=== PATIENT | female | born 1975 ===

== ENCOUNTER 2017-04-28 11:44 | Emergency (ER) | payer OTHER ==
[2017-04-28 11:51] VITALS: BMI 23.2
--- NOTE | 2017-04-28 13:07 | ED PDOC ---
HPI: Abdomen Time Seen by Provider: 04/28/17 12:07 Chief Complaint (Nursing): Abdominal Pain Chief Complaint (Provider): Abdominal pain 2 days History Per: Patient History/Exam Limitations: no limitations Onset/Duration Of Symptoms: Days Outside of [place] travel?: No Current Symptoms Are (Timing): Still Present Location Of Pain/Discomfort: RUQ, Epigastric Quality Of Discomfort: Sharp Associated Symptoms: Nausea, Loss Of Appetite. denies: Fever, Chills, Vomiting Exacerbating Factors: Food Alleviating Factors: None Last Bowel Movement: Today Additional Complaint(s): Pt denies similar in the past. 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 Pain / 10. Past Medical History Reviewed: Historical Data, Nursing Documentation, Vital Signs Vital Signs: Last Vital Signs Temp 97 F L 04/28/17 11:49 Pulse 104 H 04/28/17 11:49 Resp BP 110/80 04/28/17 11:49 Pulse Ox 98 04/28/17 15:37 - Medical History PMH: No Chronic Diseases - Surgical History Surgical History: (x 3 ) - Family History Family History: States: No Known Family Hx - Living Arrangements Living Arrangements: With Family - Home Medications Home Medications: Ambulatory Orders Medication Instructions Recorded Ciprofloxacin [Cipro] 500 mg PO BID #20 tab 04/28/17 metroNIDAZOLE [Flagyl] 500 mg PO TID #30 tab 04/28/17 oxyCODONE/Acetaminophen [Percocet 1 ea PO Q6H PRN #15 tab 04/28/17 5/325 mg Tab] - Allergies Allergies/Adverse Reactions: Allergies Allergy/AdvReac Type Severity Reaction Status Date / Time No Known Allergies Allergy Verified 04/28/17 11:54 Review of Systems ROS Statement: Except As Marked, All Systems Reviewed And Found Negative Constitutional: Negative for: Fever, Chills Gastrointestinal: Negative for: Nausea, Vomiting Physical Exam - Reviewed Nursing Documentation Reviewed: Yes Vital Signs Reviewed: Yes - Physical Exam Appears: Positive for: Well, Non-toxic, No Acute Distress Head Exam: Positive for: ATRAUMATIC, NORMAL INSPECTION, NORMOCEPHALIC Skin: Positive for: Normal Color, Warm, DRY Eye Exam: Positive for: Normal appearance ENT: Positive for: Normal ENT Inspection Neck: Positive for: Normal, Painless ROM Cardiovascular/Chest: Positive for: Regular Rate, Rhythm Respiratory: Positive for: Normal Breath Sounds. Negative for: Accessory Muscle Use, Respiratory Distress Gastrointestinal/Abdominal: Positive for: Bowel Sounds, Soft, Tenderness, Guarding, Rebound, Other (RUQ, (+) Pierce's sign ). Negative for: Normal Exam Back: Positive for: Normal Inspection Extremity: Positive for: Normal ROM. Negative for: Tenderness Neurologic/Psych: Positive for: Alert, Oriented - Laboratory Results Result Diagrams: 04/28/17 13:16 04/28/17 13:16 - ECG O2 Sat by Pulse Oximetry: 98 Medical Decision Making Medical Decision Making: IV antibiotics given. Case discussed with Dr. Bertrand. Disposition - Clinical Impression Clinical Impression: Colitis - Patient ED Disposition Is Patient to be Admitted: No Counseled Patient/Family Regarding: Diagnosis, Need For Followup - Disposition Referrals: [facility] [Outside] Disposition: Routine/Home Disposition Time: 19:16 Condition: STABLE Prescriptions: Ciprofloxacin [Cipro] 500 mg PO BID #20 tab metroNIDAZOLE [Flagyl] 500 mg PO TID #30 tab oxyCODONE/Acetaminophen [Percocet 5/325 mg Tab] 1 ea PO Q6H PRN #15 tab PRN Reason: Pain, Severe (8-10) Instructions: Bacterial Gastroenteritis, Child (DC) Forms: [employer] (Citizen Of [place]) Print Language: [place]
[2017-04-28 13:10] LABS: URINE BILIRUBIN NEGATIVE (NEGATIVE); URINE BLOOD NEGATIVE (NEGATIVE); URINE CLARITY CLOUDY (Clear); URINE COLOR AMBER (YELLOW); URINE GLUCOSE (UA) NEG (Normal); URINE LEUKOCYTE ESTERASE TRACE Leu/uL (Negative); URINE PROTEIN 100 mg/dL (NEGATIVE); URINE UROBILINOGEN 0.2-1.0 mg/dL (0.2-1.0)
[2017-04-28 13:11] LABS: SQUAMOUS EPITHIAL 10 /hpf (0-5); URINE BACTERIA RARE (<OCC)
[2017-04-28 13:31] LABS: CALCIUM 8.6 mg/dL (8.4-10.2); GFR AFRICAN-AMERICAN > 60; GFR NON-AFRICAN AMERICAN > 60; LIPASE 108 U/L (23-300)
[2017-04-28 13:33] LABS: ALB/GLOB RATIO 0.9 (1.0-2.1); ALBUMIN 3.9 g/dL (3.5-5.0); ALT/SGPT 35 U/L (9-52); AST/SGOT 29 U/L (14-36); BLOOD UREA NITROGEN 12 mg/dl (7-17)
[2017-04-28 14:29] LABS: BASO # 0.2 K/uL (0.0-0.2); EOS # 0.1 K/uL (0.0-0.7); EOS % 0.9 % (0.0-4.0); HEMOGLOBIN 12.3 g/dL (12.0-16.0); LYMPH # 1.1 K/uL (1.0-4.3); LYMPH % 6.5 % (20.0-40.0); MEAN CELL VOLUME 76.9 fl (81.0-99.0); MEAN CORPUSCULAR HGB CONC 37.7 g/dL (33.0-37.0); MEAN PLATELET VOLUME 9.2 fl (7.2-11.7); NEUT # 14.5 K/uL (1.8-7.0); NEUT % 85.6 % (50.0-75.0); NRBC % 0.1 % (0.0-0.0); PLATELET COUNT 382 K/uL (130-400); RBC 4.23 Mil/uL (3.80-5.20); RED CELL DISTRIBUTION WIDTH 16.1 % (11.5-14.5); WHITE BLOOD COUNT 16.9 K/uL (4.8-10.8)
--- NOTE | 2017-04-28 14:34 | US ---
HISTORY: RUQ pain, worse with eating COMPARISON: None. TECHNIQUE: Sonographic evaluation of the right upper quadrant of the abdomen. FINDINGS: LIVER: Measures 18.8 cm in length. Hepatopedal blood flow. Fatty infiltration manifest ultrasonographically as increased echogenicity of the liver parenchyma. No mass. No intrahepatic bile duct dilatation. GALLBLADDER: Unremarkable. No gallstones. COMMON BILE DUCT: Measures 7.7 mm. No stones. No dilatation. PANCREAS: Unremarkable as visualized. No mass. No ductal dilatation. RIGHT KIDNEY: Measures 6.4 x 12.4 cm in length. Normal echogenicity. No calculus, mass, or hydronephrosis. AORTA: No aneurysmal dilatation. IVC: Unremarkable. OTHER FINDINGS: None . IMPRESSION: No acute findings related to/accounting for the clinical presentation. Additional benign and/or incidental findings described above.
[2017-04-28 14:50] LABS: BANDS 3 % (0-2); LYMPHOCYTE 13 % (20-50); MONOCYTE 2 % (0-10); NEUTROPHIL 82 % (42-75); TOTAL CELLS COUNTED 100
[2017-04-28 14:51] LABS: ANISOCYTOSIS SLIGHT; MICROCYTOSIS SLIGHT; PLATELET ESTIMATE NORMAL (NORMAL)
[2017-04-28 14:52] LABS: PLATELET CLUMPS PRESENT; TOXIC GRANULATION PRESENT
[2017-04-28] MEDS ORDERED: Iohexol 300 100 ML IJ ONE (15:50)
[2017-04-28] MEDS ORDERED: Sodium Chloride 0.9% 100 ML ONE (15:51)
--- NOTE | 2017-04-28 16:29 | CT ---
PROCEDURE: CT Abdomen and Pelvis with contrast HISTORY: Abdominal pain, elevated WBC COMPARISON: None available TECHNIQUE: Contrast dose: 90 mL Omnipaque 300 Radiation dose: Total exam DLP = 489.07 mGy-cm. This CT exam was performed using one or more of the following dose reduction techniques: Automated exposure control, adjustment of the mA and/or kV according to patient size, and/or use of iterative reconstruction technique. FINDINGS: LOWER THORAX: No visible consolidation, pleural effusion, or pneumothorax. LIVER: Nonspecific 9 mm hyperdense focus within the posterior right hepatic lobe (series 3, image 25). Hepatomegaly. Hypoattenuation of the liver compatible with hepatic steatosis. GALLBLADDER AND BILE DUCTS: Unremarkable. PANCREAS: Unremarkable. SPLEEN: Unremarkable. ADRENALS: Unremarkable. KIDNEYS AND URETERS: The kidneys enhance symmetrically. No hydronephrosis or obstructing calculus identified. VASCULATURE: No aortic aneurysm. BOWEL: Stomach is nondistended. Lack of oral contrast limits evaluation for bowel pathology. No evidence of bowel obstruction. Marked wall thickening of the transverse colon with extensive inflammatory changes evident in the right upper quadrant. Appearance consistent with colitis (i.e. infectious, inflammatory, ischemic). Inflammatory changes appear to also involve the proximal duodenum worrisome for duodenitis as well as distal gastric wall thickening which may be seen in the setting of gastritis. APPENDIX: The appendix appears within normal limits of caliber. No secondary signs of acute appendicitis. PERITONEUM: Node free fluid. No definite free air. LYMPH NODES: No bulky adenopathy identified. BLADDER: Unremarkable. REPRODUCTIVE: The uterus is present. BONES: No acute osseous abnormality is detected. OTHER FINDINGS: 15 mm fat containing umbilical hernia. IMPRESSION: Marked wall thickening of the transverse colon with extensive inflammatory changes evident in the right upper quadrant. Appearance consistent with colitis (i.e. infectious, inflammatory, ischemic). Inflammatory changes appear to also involve the proximal duodenum worrisome for duodenitis as well as distal gastric wall thickening which may be seen in the setting of gastritis. Nonspecific 9 mm hyperdense focus within the posterior right hepatic lobe. Recommend follow-up with dedicated cross-sectional imaging of the liver for further characterization. Hepatomegaly. Hypoattenuation of the liver compatible with hepatic steatosis.
[2017-04-28] MEDS ORDERED: Ciprofloxacin IV 400 MG in Sodium Chloride 0.9% 250 ML IV STA (17:22)
[2017-04-28] MEDS ORDERED: metroNIDAZOLE 500mg/100ml NS 100 ML IV ONE (17:22)
[2017-04-28] MEDS ORDERED: Ciprofloxacin 400mg/200ml D5W 400 MG/200 ML BAG IVPB STA (17:25)
[2017-04-28] MEDS ORDERED: Ciprofloxacin 400mg/200ml D5W 400 MG/200 ML BAG IVPB ONE (17:46)
[2017-04-28] MEDS ORDERED: metroNIDAZOLE 500mg/100ml NS 100 ML IVPB ONE (18:29)
[2017-04-28 19:36] VITALS: BP 119/71; PULSE 98; RESP 17; TEMP 99.1; O2SAT 97
== END 2017-04-28 20:10 | disposition home or self-care (01) ==
LOC: H.ER 11:44
DX: K52.9 Noninfective gastroenteritis and colitis, unspecified (principal)
CPT/HCPCS: 74177; 76705; 80053; 81003; 81025; 83690; 85025; 87086; 96365; 96367; 96375; 99284; J0744; J2270; Q9967

== ENCOUNTER 2018-05-19 14:24 | Inpatient (IN) | payer OTHER, SELFPAY ==
[2018-05-19 14:24] VITALS: BMI 23.2
[2018-05-19] MEDS ORDERED: Sodium Chloride 0.9% 1,000 ML IV STA (14:45)
--- NOTE | 2018-05-19 14:48 | ED PDOC ---
HPI: Abdomen Time Seen by Provider: 05/19/18 14:39 Chief Complaint (Nursing): Abdominal Pain History Per: Patient Onset/Duration Of Symptoms: Days (1) Current Symptoms Are (Timing): Still Present Severity: Moderate Location Of Pain/Discomfort: Epigastric Quality Of Discomfort: Sharp Associated Symptoms: Nausea, Vomiting. denies: Fever, Diarrhea Exacerbating Factors: None Alleviating Factors: None Additional Complaint(s): Sharp epigastric abdominal pain assoc with nausea and vomiting since this AM. Denies fever or diarrhea. Denies bloody stool or vomitus. Past Medical History Vital Signs: Last Vital Signs Temp 98.2 F 05/19/18 14:32 Pulse 66 05/19/18 14:32 Resp 17 05/19/18 14:32 BP 106/72 05/19/18 14:32 Pulse Ox 98 05/19/18 14:32 - Medical History PMH: No Chronic Diseases - Surgical History Surgical History: (x 3 ) - Family History Family History: States: Unknown Family Hx - Home Medications Home Medications: Ambulatory Orders Medication Instructions Recorded Ciprofloxacin [Cipro] 500 mg PO BID #20 tab 04/28/17 metroNIDAZOLE [Flagyl] 500 mg PO TID #30 tab 04/28/17 oxyCODONE/Acetaminophen [Percocet 1 ea PO Q6H PRN #15 tab 04/28/17 5/325 mg Tab] - Allergies Allergies/Adverse Reactions: Allergies Allergy/AdvReac Type Severity Reaction Status Date / Time No Known Allergies Allergy Verified 04/28/17 11:54 Review of Systems ROS Statement: Except As Marked, All Systems Reviewed And Found Negative Gastrointestinal: Positive for: Nausea, Vomiting, Abdominal Pain. Negative for: Diarrhea, Melena, Hematochezia, Hematemesis Physical Exam - Reviewed Nursing Documentation Reviewed: Yes Vital Signs Reviewed: Yes - Physical Exam Appears: Positive for: Non-toxic, No Acute Distress Head Exam: Positive for: ATRAUMATIC, NORMAL INSPECTION, NORMOCEPHALIC Skin: Positive for: Normal Color, Warm, DRY Eye Exam: Positive for: EOMI, Normal appearance, PERRL ENT: Positive for: Normal ENT Inspection Neck: Positive for: Normal, Painless ROM Cardiovascular/Chest: Positive for: Regular Rate, Rhythm Respiratory: Positive for: CNT, Normal Breath Sounds Gastrointestinal/Abdominal: Positive for: Soft, Tenderness (Epigastric) Back: Positive for: Normal Inspection Extremity: Positive for: Normal ROM Neurological/Psych: Positive for: Awake, Alert, Normal Tone - Laboratory Results Result Diagrams: 05/19/18 15:16 05/19/18 15:16 - ECG O2 Sat by Pulse Oximetry: 98 Disposition - Clinical Impression Clinical Impression: Pancreatitis - Patient ED Disposition Is Patient to be Admitted: Yes - Disposition Disposition Time: 15:55 Condition: FAIR Forms: [employer] ([place]) - Pt Status Changed To: Hospital Disposition Of: Inpatient - Admit Certification Admit to Inpatient:: After my assessment, the patient will require hospitalization for at least two midnights. This is because of the severity of symptoms shown, intensity of services needed, and/or the medical risk in this patient being treated as an outpatient. - POA Present On Arrival: None
[2018-05-19 15:20] LABS: BASO # 0.2 K/uL (0.0-0.2); BASO % 1.2 % (0.0-2.0); EOS # 0.1 K/uL (0.0-0.7); EOS % 0.8 % (0.0-4.0); HEMOGLOBIN 14.7 g/dL (12.0-16.0); LYMPH # 0.8 K/uL (1.0-4.3); LYMPH % 4.4 % (20.0-40.0); MEAN CELL VOLUME 83.8 fl (81.0-99.0); MEAN CORPUSCULAR HEMOGLOBIN 37.8 pg (27.0-31.0); MEAN CORPUSCULAR HGB CONC 45.2 g/dL (33.0-37.0); MEAN PLATELET VOLUME 8.2 fl (7.2-11.7); MONO # 3.9 K/uL (0.0-0.8); MONO % 21.1 % (0.0-10.0); NEUT # 13.5 K/uL (1.8-7.0); NEUT % 72.5 % (50.0-75.0); PLATELET COUNT 341 K/uL (130-400); RBC 3.89 Mil/uL (3.80-5.20); RED CELL DISTRIBUTION WIDTH 14.5 % (11.5-14.5); WHITE BLOOD COUNT 18.6 K/uL (4.8-10.8)
[2018-05-19 15:47] LABS: ALB/GLOB RATIO 0.8 (1.0-2.1); ALBUMIN 3.6 g/dL (3.5-5.0); ALT/SGPT 35 U/L (9-52); AST/SGOT 27 U/L (14-36); BLOOD UREA NITROGEN 12 mg/dl (7-17); CALCIUM 8.2 mg/dL (8.4-10.2); GFR NON-AFRICAN AMERICAN > 60; LIPASE 3653 U/L (23-300)
[2018-05-19] MEDS: Lactated Ringer's 1,000 ML IV SCH ×2 (16:12→22:04)
[2018-05-19] MEDS ORDERED: Sodium Chloride 0.9% 50 ML IV ONE (16:21)
[2018-05-19] MEDS ORDERED: Iohexol 300 100 ML IJ ONE (16:21)
--- NOTE | 2018-05-19 17:00 | CP.PCM.HP ---
<Mara Leon - Last Filed: 05/21/18 07:41> History of Present Illness - History of Present Illness History of Present Illness: 42-year-old female with PMH of anemia presents with 10/10 sharp epigastric pain that radiates to left upper quadrant and right upper quadrant of 12 hour duration. No prior episodes of anything similar, no alleviating factors and movement aggrevates the pain. She has not taken any OTC pain meds. She denies vomiting, nausea, bloody stools, dysuria, diarrhea, fever, medications, and recent illness. PMD: PAC - Last seen Feb 2018 for f/u lab test PMH: anemia Meds: ferrous sulfate Social: denies FHx: Father - , DM; Mother - , unknown OBHx: , c/s x3, menstrual regular, pap UTD, no hx of STD Allergy: NKDA Present on Admission - Present on Admission Any Indicators Present on Admission: No History of DVT/PE: No History of Uncontrolled Diabetes: No Review of Systems - Constitutional Constitutional: absent: Fever - Cardiovascular Cardiovascular: absent: Chest Pain - Respiratory Respiratory: absent: Dyspnea - Gastrointestinal Gastrointestinal: As Per HPI - Genitourinary Genitourinary: absent: Dysuria Past Patient History - Infectious Disease Hx of Infectious Diseases: None - Past Social History Smoking Status: Never Smoked - PSYCHIATRIC Hx Substance Use: No - SURGICAL HISTORY Hx Surgeries: Yes Hx Section: Yes - ANESTHESIA Hx Anesthesia: Yes Hx Anesthesia Reactions: No Meds Allergies/Adverse Reactions: Allergies Allergy/AdvReac Type Severity Reaction Status Date / Time No Known Allergies Allergy Verified 04/28/17 11:54 Physical Exam - Constitutional Appears: Non-toxic - Head Exam Head Exam: NORMAL INSPECTION - Respiratory Exam Respiratory Exam: NORMAL BREATHING PATTERN. absent: Respiratory Distress - Cardiovascular Exam Cardiovascular Exam: REGULAR RHYTHM - GI/Abdominal Exam GI & Abdominal Exam: Tenderness (epigastric, RUQ, LUQ tenderness to light palpation) - Extremities Exam Extremities exam: Positive for: normal inspection - Neurological Exam Neurological exam: Alert, Oriented x3 - Psychiatric Exam Psychiatric exam: Normal Affect, Normal Mood - Skin Skin Exam: Dry, Intact, Normal Color Results - Vital Signs Recent Vital Signs: Last Vital Signs Temp 98.2 F 05/19/18 14:32 Pulse 76 05/19/18 16:09 Resp 18 05/19/18 16:09 BP 119/77 05/19/18 16:09 Pulse Ox 100 05/19/18 16:09 - Labs Result Diagrams: 05/21/18 05:30 05/21/18 05:30 Labs: Laboratory Results - last 24 hr 05/19/18 05/19/18 15:16 15:16 WBC 18.6 H D RBC 3.89 Hgb 14.7 D Hct 32.6 L MCV 83.8 D MCH 37.8 H MCHC 45.2 H RDW 14.5 Plt Count 341 MPV 8.2 Neut % (Auto) 72.5 Lymph % (Auto) 4.4 L Butts % (Auto) 21.1 H Eos % (Auto) 0.8 Baso % (Auto) 1.2 Neut # (Auto) 13.5 H Lymph # (Auto) 0.8 L Butts # (Auto) 3.9 H Eos # (Auto) 0.1 Baso # (Auto) 0.2 Sodium 137 Potassium 3.4 L Chloride 104 Carbon Dioxide 15 L Anion Gap 21 H BUN 12 Creatinine 0.4 L Est GFR ( Amer) > 60 Est GFR (Non-Af Amer) > 60 Random Glucose 128 H Calcium 8.2 L Total Bilirubin 0.4 AST 27 ALT 35 Alkaline Phosphatase 104 Total Protein 8.0 Albumin 3.6 Globulin 4.4 H Albumin/Globulin Ratio 0.8 L Lipase 3653 H Assessment & Plan - Assessment and Plan (Free Text) Assessment: 42-year-old female with PMH of anemia presents with 10/10 sharp epigastric pain of 12 hour duration. Plan: Acute Pancreatitis -Lipase 3653 -WBC 18.6 -Afebrile, vitals stable -AST/ALT wnl -IVF 1L NS @ 200 mls/hour -Morphine 2gm Q4 PRN -NPO diet -Zofran 4mg Q4H PRN -F/u Abd/Pelvis CT History of Anemia -Hg/Hct 14.7/32.6 -Monitor CBC DVT Prophylaxis -SCD <Issac Prakash D - Last Filed: 05/21/18 15:58> Results - Vital Signs Recent Vital Signs: Last Vital Signs Temp 98.5 F 05/21/18 11:55 Pulse 98 H 05/21/18 14:00 Resp 25 H 05/21/18 14:00 BP 108/67 05/21/18 14:00 Pulse Ox 98 05/21/18 14:00 - Labs Result Diagrams: 05/21/18 05:30 05/21/18 05:30 Labs: Laboratory Results - last 24 hr 05/20/18 05/21/18 05/21/18 16:34 05:30 05:30 WBC 11.0 H RBC 3.82 Hgb 10.7 L D Hct 31.7 L MCV 82.9 MCH 28.1 MCHC 33.9 RDW 15.2 H Plt Count 287 Sodium 135 136 Potassium 3.1 L 2.9 L Chloride 109 H 112 H Carbon Dioxide 15 L 15 L Anion Gap 14 12 BUN 10 10 Creatinine 0.4 L 0.4 L Est GFR ( Amer) > 60 > 60 Est GFR (Non-Af Amer) > 60 > 60 POC Glucose (mg/dL) Random Glucose 157 H 164 H Calcium 4.5 L* 4.0 L* Phosphorus Magnesium Total Bilirubin 0.5 AST 38 H ALT 25 Alkaline Phosphatase 53 Total Protein 5.9 L Albumin 3.1 L Globulin 2.9 Albumin/Globulin Ratio 1.1 Triglycerides Amylase Lipase 05/21/18 05/21/18 05/21/18 09:54 12:39 12:50 WBC RBC Hgb Hct MCV MCH MCHC RDW Plt Count Sodium Potassium Chloride Carbon Dioxide Anion Gap BUN Creatinine Est GFR ( Amer) Est GFR (Non-Af Amer) POC Glucose (mg/dL) 157 H Random Glucose Calcium 4.2 L* Phosphorus 1.3 L Magnesium 1.6 Total Bilirubin AST ALT Alkaline Phosphatase Total Protein Albumin Globulin Albumin/Globulin Ratio Triglycerides 1040 H 1222 H Amylase 241 H Lipase 820 H 05/21/18 05/21/18 13:29 14:31 WBC RBC Hgb Hct MCV MCH MCHC RDW Plt Count Sodium Potassium Chloride Carbon Dioxide Anion Gap BUN Creatinine Est GFR ( Amer) Est GFR (Non-Af Amer) POC Glucose (mg/dL) 176 H 162 H Random Glucose Calcium Phosphorus Magnesium Total Bilirubin AST ALT Alkaline Phosphatase Total Protein Albumin Globulin Albumin/Globulin Ratio Triglycerides Amylase Lipase Attending/Attestation - Attestation I have personally seen and examined this patient.: Yes I have fully participated in the care of the patient.: Yes I have reviewed all pertinent clinical information: Yes Notes (Text): 05/21/18 15:58 Patient seen and examined with resident. Case discussed and agreed with assessment and plan of management.
[2018-05-19 17:13] LABS: BANDS 4 % (0-2); BASOPHIL 1 % (0-2); EOSINOPHIL 1 % (0-7); LYMPHOCYTE 6 % (20-50); MONOCYTE 16 % (0-10); NEUTROPHIL 72 % (42-75); TOTAL CELLS COUNTED 100
[2018-05-19 17:14] LABS: HYPOCHROMIC SLIGHT; PLATELET ESTIMATE NORMAL (NORMAL)
--- NOTE | 2018-05-19 17:37 | CT ---
Date of service: 05/19/2018 PROCEDURE: CT Abdomen and Pelvis with Oral contrast. HISTORY: Abdominal pain COMPARISON: Comparison made with prior CT scan abdomen pelvis 04/28/2017. TECHNIQUE: Contiguous axial images of the abdomen and pelvis performed following intravenous injection of approximately 90 cc Omnipaque 300 contrast material. Additional 2D sagittal and coronal reformats generated. Radiation dose: Total exam DLP = 357.92 mGy-cm. This CT exam was performed using one or more of the following dose reduction techniques: Automated exposure control, adjustment of the mA and/or kV according to patient size, and/or use of iterative reconstruction technique. FINDINGS: LOWER THORAX: Mild passive/dependent type atelectasis both posterior lower lung wise left greater than right. No effusion or basilar pneumothorax. LIVER: Liver is enlarged measuring nearly 21 cm in CC dimension. Moderate fatty hepatic infiltration. No obvious hepatic mass collection or calcification. Portal and splenic veins are opacified. GALLBLADDER AND BILE DUCTS: Unremarkable. No evidence of intraluminal gallbladder calculi. PANCREAS: The pancreatic mid body and tail are mildly edematous and boggy in appearance with infiltration and fluid in the adjacent peripancreatic mesentery extending inferiorly along the left para renal space. Findings are consistent with acute pancreatitis. Clinical correlation with serum amylase and lipase recommended. SPLEEN: Spleen exhibits normal size and attenuation pattern without mass collection or calcification. ADRENALS: Prominent slightly nodular appearing left adrenal gland. KIDNEYS AND URETERS: Kidneys demonstrate symmetric nephrograms. No evidence of nephrolithiasis or hydronephrosis. BLADDER: The urinary bladder is physiologically distended. No evidence of intraluminal urinary bladder calculi. REPRODUCTIVE: Uterus unremarkable. There is a left-sided adnexal cyst which measures approximately 3.0 x 2.7 cm.. Note also made of what may represent a collapsing and or hemorrhagic cyst abutting posterior superior margin of the aforementioned simple appearing cyst left ovary that measures approximately 1.75 x 1.3 cm. Follow-up pelvic ultrasound could be performed for further evaluation. APPENDIX: Normal appendix best seen on coronal sequence 601 image number 46 through 48.. No evidence of acute appendicitis BOWEL: Evaluation of the bowel is somewhat limited due to the lack of oral contrast material. The stomach is incompletely distended. Visualized loops of: The cecum, ascending and transverse colon contain stool and air however the remaining descending and sigmoid colon relatively collapsed.. PERITONEUM: As above. No evidence of free intraperitoneal air. There is a small to medium sized fat containing umbilical hernia. LYMPH NODES: Unremarkable. No enlarged lymph nodes. VASCULATURE: Unremarkable. No aortic aneurysm. No aortic atherosclerotic calcification or mural plaque present. BONES: Osseous structures appear grossly intact without evidence of acute or chronic compression fractures OTHER FINDINGS: None. IMPRESSION: Findings are consistent with acute appendicitis. Hepatomegaly with moderate fatty infiltration. Slightly prominent nodular appearing left adrenal gland. There is a left-sided adnexal cyst which measures approximately 3.0 x 2.7 cm.. Note also made of what may represent a collapsing and or hemorrhagic cyst abutting posterior superior margin of the aforementioned simple appearing cyst left ovary that measures approximately 1.75 x 1.3 cm. Follow-up pelvic ultrasound could be performed for further evaluation.
[2018-05-19] MEDS: Sodium Chloride 0.9% 1,000 ML IV SCH (17:50)
[2018-05-19 18:24] LABS: BLOOD UREA NITROGEN 9 mg/dl (7-17); CALCIUM 7.1 mg/dL (8.4-10.2); GFR NON-AFRICAN AMERICAN > 60
[2018-05-19] MEDS ORDERED: Morphine 4 MG/ML VIAL ONE (19:57)
[2018-05-20] MEDS: Sodium Chloride 0.9% 1,000 ML IV SCH ×8 (00:01→23:28)
[2018-05-20] MEDS: Lactated Ringer's 1,000 ML IV SCH ×2 (05:13→13:43)
[2018-05-20 07:57] LABS: HEMOGLOBIN 13.7 g/dL (12.0-16.0); MEAN CORPUSCULAR HEMOGLOBIN 32.5 pg (27.0-31.0); MEAN CORPUSCULAR HGB CONC 38.7 g/dL (33.0-37.0); RBC 4.21 Mil/uL (3.80-5.20); WHITE BLOOD COUNT 11.8 K/uL (4.8-10.8)
[2018-05-20 10:03] LABS: ALBUMIN 3.4 g/dL (3.5-5.0); ALT/SGPT 22 U/L (9-52); AST/SGOT 36 U/L (14-36); BLOOD UREA NITROGEN 8 mg/dl (7-17); GFR NON-AFRICAN AMERICAN > 60
[2018-05-20 10:09] LABS: CALCIUM 4.6 mg/dL (8.4-10.2)
[2018-05-20 10:17] LABS: HDL CHOLESTEROL 38 MG/DL (30-70); LDL CHOLESTEROL 187 mg/dL (0-129)
[2018-05-20] MEDS: Potassium CL 10mEq/100ml 100 ML IVPB SCH ×2 (11:38→16:00)
--- NOTE | 2018-05-20 14:04 | CP.PCM.PN ---
Subjective - Date & Time of Evaluation Date of Evaluation: 05/20/18 Time of Evaluation: 10:00 - Subjective Subjective: Patient seen and examined. Still with epigastric pain not fully controlled with IV Morphine. Also complained of numbness and tingling sensation of both hands. Objective - Vital Signs/Intake and Output Vital Signs (last 24 hours): Temp Pulse Resp BP Pulse Ox 99.7 F H 99 H 20 104/62 96 05/20/18 08:53 05/20/18 08:53 05/20/18 08:53 05/20/18 08:53 05/20/18 08:53 - Medications Medications: Current Medications Lactated Ringer's (Lactated Ringer's) 1,000 mls @ 150 mls/hr IV .Q6H40M [facility] Last Admin: 05/20/18 13:43 Dose: Not Given Sodium Chloride (Sodium Chloride 0.9%) 1,000 mls @ 200 mls/hr IV .Q5H [facility] Last Admin: 05/20/18 13:44 Dose: Not Given Ketorolac Tromethamine (Toradol) 30 mg IVP Q6 PRN PRN Reason: Pain, severe (8-10) Last Admin: 05/20/18 10:47 Dose: 30 mg Ondansetron HCl (Zofran Inj) 4 mg IVP Q6 PRN PRN Reason: Nausea/Vomiting Last Admin: 05/20/18 05:08 Dose: 4 mg - Labs Labs: 05/20/18 06:00 05/20/18 09:20 - Constitutional Appears: No Acute Distress - Head Exam Head Exam: ATRAUMATIC - Eye Exam Eye Exam: absent: Scleral icterus - ENT Exam ENT Exam: Mucous Membranes Moist - Neck Exam Neck Exam: absent: Meningismus - Respiratory Exam Respiratory Exam: absent: Rales, Rhonchi, Wheezes, Respiratory Distress - Cardiovascular Exam Cardiovascular Exam: REGULAR RHYTHM, +S1, +S2 - GI/Abdominal Exam GI & Abdominal Exam: Soft, Tenderness (tenderness over epigastric region). absent: Guarding, Rebound - Rectal Exam Rectal Exam: Deferred - Neurological Exam Neurological Exam: Alert, Oriented x3 - Psychiatric Exam Psychiatric exam: Normal Affect - Skin Skin Exam: Dry, Intact Assessment and Plan - Assessment and Plan (Free Text) Assessment: 42 yo female with no significant PMH admitted because of severe epigastric pain. 1. Acute Pancreatitis continue NPO and IV hydration Morphine 4mg IV q 4hrs prn CT scan of abdomen: findings consistent with acute pancreatitis (boggy and edematous) 2. Hypocalcemia symptomatic complaint of tingling and numbness of both hands 1gm Calcium Gluconate IV over 1 hour repeat serum Ca in 4 hrs 3. Hypokalemia 3 runs of IV KCl 10meq each repeat BMP in 4 hrs.
--- NOTE | 2018-05-20 15:16 | CARD ---
APPROVED REPORT Date of service: 05/19/2018 EKG Measurement Heart [id number] <Conclusion> Normal sinus rhythm Normal Electrocardiogram
[2018-05-20 17:36] LABS: BLOOD UREA NITROGEN 10 mg/dl (7-17); GFR NON-AFRICAN AMERICAN > 60
[2018-05-20 17:39] LABS: CALCIUM 4.5 mg/dL (8.4-10.2)
[2018-05-20] MEDS: Simethicone 80 mg Chewtab PO PRN (20:32)
[2018-05-21] MEDS: Sodium Chloride 0.9% 1,000 ML IV SCH (05:43)
[2018-05-21 07:22] LABS: HEMOGLOBIN 10.7 g/dL (12.0-16.0); MEAN CELL VOLUME 82.9 fl (81.0-99.0); MEAN CORPUSCULAR HEMOGLOBIN 28.1 pg (27.0-31.0); MEAN CORPUSCULAR HGB CONC 33.9 g/dL (33.0-37.0); RBC 3.82 Mil/uL (3.80-5.20); RED CELL DISTRIBUTION WIDTH 15.2 % (11.5-14.5)
[2018-05-21 07:40] LABS: ALB/GLOB RATIO 1.1 (1.0-2.1); ALBUMIN 3.1 g/dL (3.5-5.0); ALT/SGPT 25 U/L (9-52); AST/SGOT 38 U/L (14-36); BLOOD UREA NITROGEN 10 mg/dl (7-17); GFR NON-AFRICAN AMERICAN > 60
[2018-05-21] MEDS ORDERED: Pantoprazole 40 mg EC Tab PO SCH (09:00)
[2018-05-21] MEDS ORDERED: Magnesium Sulfate 4 gm/100 ml 4 GM/100 ML BAG IVPB ONE (09:41)
[2018-05-21] MEDS ORDERED: Potassium Chloride 20 mEq 100 ML IV SCH (10:00)
[2018-05-21] MEDS ORDERED: Magnesium Sulfate 2 gm/50 ml 2 GM/50 ML BAG IV ONE (10:00)
[2018-05-21] MEDS ORDERED: Lactated Ringer's 1,000 ML IV SCH (10:15)
[2018-05-21] MEDS: Omega-3-Acid Ethyl Esters 1 GM Cap PO SCH ×2 (11:15→16:48)
[2018-05-21] MEDS ORDERED: Glucagon Recombinant 1 mg Inj IM PRN (12:08)
[2018-05-21] MEDS ORDERED: Dextrose 50% SYRINGE Inj (50 ml) IV PRN (12:08)
[2018-05-21] MEDS ORDERED: Dextrose 5%/Lactated Ringer's 1,000 ML IV SCH (12:15)
[2018-05-21] MEDS: Potassium CL 10mEq/100ml 100 ML IVPB SCH ×4 (12:40→16:48)
[2018-05-21 13:17] LABS: CALCIUM 4.2 mg/dL (8.4-10.2)
--- NOTE | 2018-05-21 13:17 | CP.PCM.PN ---
Subjective - Date & Time of Evaluation Date of Evaluation: 05/21/18 Time of Evaluation: 12:20 - Subjective Subjective: Patient seen and examined. Unable to tolerate liquid diet. Facial numbness and tingling sensation still linger. Severe epigastric pain barely relieved with IV Toradol. Objective - Vital Signs/Intake and Output Vital Signs (last 24 hours): Temp Pulse Resp BP Pulse Ox 98.5 F 103 H 30 H 109/69 98 05/21/18 11:55 05/21/18 12:00 05/21/18 12:00 05/21/18 12:00 05/21/18 12:00 - Medications Medications: Current Medications Dextrose (Dextrose 50% Inj) 0 ml IV STAT PRN; Protocol PRN Reason: Hypoglycemia Protocol Dextrose (Glutose 15) 0 gm PO ONCE PRN; Protocol PRN Reason: Hypoglycemia Protocol Glucagon (Glucagen Diagnostic Kit) 0 mg IM STAT PRN; Protocol PRN Reason: Hypoglycemia Protocol Potassium Chloride (Potassium Chloride 10 Meq/100 Ml) 100 mls @ 100 mls/hr IVPB Q1 [facility] Stop: 05/21/18 13:59 Last Admin: 05/21/18 12:40 Dose: 100 mls/hr Dextrose/Lactated Ringer's (Dextrose 5%/Lactated Ringer's) 1,000 mls @ 200 mls/hr IV .Q5H [facility] Stop: 05/22/18 12:15 Last Admin: 05/21/18 12:28 Dose: 200 mls/hr Insulin Human Regular 100 (units/ Sodium Chloride) 101 mls @ 6.06 mls/hr IV .[id number] [facility]; Protocol Last Admin: 05/21/18 12:41 Dose: 6 units/hr, 6.06 mls/hr Ketorolac Tromethamine (Toradol) 30 mg IVP Q6 PRN PRN Reason: Pain, severe (8-10) Last Admin: 05/21/18 10:53 Dose: 30 mg Tvaio-1-Fgfd Ethyl Esters (Lovaza) 2 gm PO BID [facility] Last Admin: 05/21/18 11:15 Dose: Not Given Ondansetron HCl (Zofran Inj) 4 mg IVP Q4 [facility] Last Admin: 05/21/18 12:49 Dose: 4 mg Pantoprazole Sodium (Protonix Inj) 40 mg IVP DAILY [facility] Last Admin: 05/21/18 11:30 Dose: 40 mg Simethicone (Mylicon Chew Tab) 80 mg PO Q6 PRN PRN Reason: Flatulence Last Admin: 05/20/18 20:32 Dose: 80 mg - Labs Labs: 05/21/18 05:30 05/21/18 05:30 - Constitutional Appears: No Acute Distress - Head Exam Head Exam: ATRAUMATIC - Eye Exam Eye Exam: absent: Scleral icterus - ENT Exam ENT Exam: Mucous Membranes Moist - Neck Exam Neck Exam: absent: Meningismus - Respiratory Exam Respiratory Exam: absent: Rales, Rhonchi, Wheezes, Respiratory Distress - Cardiovascular Exam Cardiovascular Exam: Tachycardia - GI/Abdominal Exam GI & Abdominal Exam: Tenderness (tenderness over epigastric region). absent: Rigid, Rebound - Rectal Exam Rectal Exam: Deferred - Back Exam Back Exam: absent: tenderness - Neurological Exam Neurological Exam: Alert, Oriented x3 - Psychiatric Exam Psychiatric exam: Normal Affect - Skin Skin Exam: Dry, Intact Assessment and Plan - Assessment and Plan (Free Text) Assessment: 42 yo female with no significant PMH admitted because of severe epigastric pain. 1. Acute Pancreatitis unable to tolerate liquid diet yesterday resume NPO and IV hydration with D5LR CT scan of abdomen: findings consistent with acute pancreatitis (boggy and edematous) with symptomatic hypocalcemia (facial numbness and tingling sensation on both hands) insulin drip initiated to bring down Triglycerides to around 500 serum Triglycerides: 1222 (down from 6160) patient transferred to ICU for close monitoring GI and endocrinology consults with Dr Rizzo and Dr Mora 2. Hypocalcemia symptomatic complaint of tingling and numbness of both hands 2gm Calcium Gluconate IV 100cc/hr repeat serum Ca in 4 hrs 3. Hypokalemia 3 runs of IV KCl 10meq each repeat BMP in 4 hrs.
[2018-05-21] MEDS: CALCIUM GLUCONATE IV SCH ×2 (15:29→21:31)
[2018-05-21] MEDS: LACTATED RINGER S IV SCH ×2 (15:29→21:31)
[2018-05-21] MEDS: DEXTROSE IV SCH ×2 (15:29→21:31)
--- NOTE | 2018-05-21 20:42 | CARD ---
APPROVED REPORT Date of service: 05/21/2018 EKG Measurement Heart [id number] <Conclusion> Sinus tachycardia Nonspecific T wave abnormality Prolonged QT Abnormal ECG
--- NOTE | 2018-05-22 01:22 | CON ---
DATE: 05/21/2018 ENDOCRINOLOGY CONSULTATION LOCATION: In room 430, ICU. HISTORY OF PRESENT ILLNESS: This is a 42-year-old female, presenting here with severe epigastric pain and supervening acute pancreatitis with associated nausea, dyspepsia and vomiting and is now being referred for an endocrine evaluation of marked dyslipidemia as noted. PAST MEDICAL HISTORY: History of chronic anemia, currently on ferrous sulfate medications. SOCIAL HISTORY: No known substance use. The patient has a supportive family. FAMILY HISTORY: No known endocrinopathy but positive for hypertension, otherwise. REVIEW OF SYSTEMS: Admits to generalized body weakness with episodic bouts of dizziness and lightheadedness. No chest pains or palpitations. Also admits to sudden onset of severe epigastric pain radiating to the right and left upper quadrants with associated nausea, dyspepsia and vomiting as noted. Her oral intake has been otherwise improved. PHYSICAL EXAMINATION: GENERAL: An average-built female in no apparent distress. VITAL SIGNS: Blood pressure 140/80, pulse of 100 beats per minute and regular, temperature 98, respirations 20. Height is 5 feet 1 inch. Weight is 136 pounds. HEENT: Head: Normocephalic. Eyes: Anicteric with pink conjunctivae. Funduscopy not possible at this time. Ears, nose and throat: Otherwise normal. NECK: Supple. Thyroid gland is normal in size. No carotid bruits or any cervical adenopathy. CARDIOPULMONARY: Some adynamic precordium. S1 and S2 rapid and regular. LUNGS: Clear to auscultation. ABDOMEN: Flat and soft with positive bowel sounds. EXTREMITIES: No peripheral edema. Pulses are +2 bilaterally. LABORATORY DATA: Her chemistry showed a BUN of 10, sodium 136, potassium 2.9, chloride 112, CO2 of 15, glucose 164 and creatinine 0.4. Her calcium level is 4.2. Triglycerides are 1222. Lipase is 820, amylase is 241. ASSESSMENT: This is a 42-year-old female with acute pancreatitis with underlying marked dyslipidemia, specifically hypertriglyceridemia as noted. The possibility always of familial combined dyslipidemia versus chylomicronemia is to be ascertained at this time. PLAN OF MANAGEMENT: We will highly recommend the initiation of an insulin drip infusion in the ICU to lower the triglyceride levels dramatically at this time. Moreover, we will also follow her very closely hemodynamically with the low calcium levels as noted. We will change the IV fluids to D5 lactated Ringer's and we will add calcium gluconate 1 ampule to each IV fluid bag as ordered and this will run at 200 mL/hour as ordered. We will repeat the chemistries and also the lipase and lipid panel as ordered. We will supplement her potassium levels as ordered. We will follow and advise accordingly. We will also add lipoprotein fractionation blood test tomorrow, which will rule out any underlying familial etiology for dyslipidemia. There is no history of any alcohol intake at this time with the patient. We will obtain serial chemistries and supplement accordingly as needed. We will follow. Trina Mora MD
[2018-05-22] MEDS: DEXTROSE IV SCH ×3 (02:50→13:50)
[2018-05-22] MEDS: CALCIUM GLUCONATE IV SCH ×3 (02:50→13:50)
[2018-05-22] MEDS: LACTATED RINGER S IV SCH ×3 (02:50→13:50)
[2018-05-22 05:39] LABS: BASO % 0.4 % (0.0-2.0); EOS # 0.2 K/uL (0.0-0.7); EOS % 3.3 % (0.0-4.0); LYMPH # 1.1 K/uL (1.0-4.3); LYMPH % 15.5 % (20.0-40.0); MEAN CELL VOLUME 82.6 fl (81.0-99.0); MEAN CORPUSCULAR HEMOGLOBIN 27.9 pg (27.0-31.0); MEAN CORPUSCULAR HGB CONC 33.8 g/dL (33.0-37.0); MEAN PLATELET VOLUME 8.2 fl (7.2-11.7); MONO # 0.2 K/uL (0.0-0.8); MONO % 3.2 % (0.0-10.0); NEUT # 5.5 K/uL (1.8-7.0); NEUT % 77.6 % (50.0-75.0); RBC 3.18 Mil/uL (3.80-5.20); RED CELL DISTRIBUTION WIDTH 15.5 % (11.5-14.5); WHITE BLOOD COUNT 7.1 K/uL (4.8-10.8)
[2018-05-22 05:51] LABS: LDL CHOLESTEROL 43 mg/dL (0-129)
[2018-05-22 06:28] LABS: ALBUMIN 2.6 g/dL (3.5-5.0); ALT/SGPT 23 U/L (9-52); AST/SGOT 31 U/L (14-36); BLOOD UREA NITROGEN 2 mg/dl (7-17); GFR NON-AFRICAN AMERICAN > 60; HDL CHOLESTEROL 44 MG/DL (30-70); LIPASE 392 U/L (23-300)
[2018-05-22 06:35] LABS: CALCIUM 5.7 mg/dL (8.4-10.2); HEMOGLOBIN 8.9 g/dL (12.0-16.0)
[2018-05-22] MEDS: Potassium CL 10 MEQ/50 ML 50 ML IVPB SCH ×6 (08:04→15:39)
[2018-05-22] MEDS: Potassium Chloride 40 MEQ in Dextrose 5%/Lactated Ringer's 1,000 ML IV SCH ×3 (10:49→22:03)
[2018-05-22] MEDS: Omega-3-Acid Ethyl Esters 1 GM Cap PO SCH ×2 (11:07→16:59)
[2018-05-22 13:39] LABS: ALBUMIN 2.8 g/dL (3.5-5.0); ALT/SGPT 22 U/L (9-52); AMYLASE 101 U/L (30-110); AST/SGOT 35 U/L (14-36); BLOOD UREA NITROGEN 2 mg/dl (7-17); CALCIUM 5.9 mg/dL (8.4-10.2); GFR NON-AFRICAN AMERICAN > 60; LIPASE 250 U/L (23-300)
--- NOTE | 2018-05-22 14:19 | CP.PCM.PN ---
<Mara Leon - Last Filed: 05/22/18 15:14> Subjective - Date & Time of Evaluation Date of Evaluation: 05/22/18 Time of Evaluation: 14:19 - Subjective Subjective: Pt seen and examined bedside, was ambulating slowly from restroom without difficulty. Continues to complain of abdominal pain - told LLQ > epigastric/RUQ. Notes less numbness and tingling in face today. Objective - Vital Signs/Intake and Output Vital Signs (last 24 hours): Temp Pulse Resp BP Pulse Ox 99.2 F 109 H 30 H 111/71 97 05/22/18 12:00 05/22/18 12:00 05/22/18 12:00 05/22/18 10:00 05/22/18 12:00 Intake and Output: 05/22/18 05/22/18 06:59 18:59 Intake Total 2222 916 Balance 2222 916 - Medications Medications: Current Medications Dextrose (Dextrose 50% Inj) 0 ml IV STAT PRN; Protocol PRN Reason: Hypoglycemia Protocol Dextrose (Glutose 15) 0 gm PO ONCE PRN; Protocol PRN Reason: Hypoglycemia Protocol Glucagon (Glucagen Diagnostic Kit) 0 mg IM STAT PRN; Protocol PRN Reason: Hypoglycemia Protocol Insulin Human Regular 100 (units/ Sodium Chloride) 101 mls @ 6.06 mls/hr IV .[id number] [facility]; Protocol Last Admin: 05/22/18 12:21 Dose: Not Given Potassium Chloride 40 meq/ (Dextrose/Lactated Ringer's) 1,020 mls @ 200 mls/hr IV .Q5H6M [facility] Stop: 05/23/18 07:19 Last Admin: 05/22/18 10:49 Dose: 200 mls/hr Ketorolac Tromethamine (Toradol) 30 mg IVP Q6 PRN PRN Reason: Pain, severe (8-10) Last Admin: 05/22/18 10:56 Dose: 30 mg Wxqvi-8-Huhz Ethyl Esters (Lovaza) 2 gm PO BID [facility] Last Admin: 05/22/18 11:07 Dose: Not Given Ondansetron HCl (Zofran Inj) 4 mg IVP Q4 [facility] Last Admin: 05/22/18 14:00 Dose: 4 mg Pantoprazole Sodium (Protonix Inj) 40 mg IVP DAILY [facility] Last Admin: 05/22/18 08:07 Dose: 40 mg Potassium Phosphate (Potassium Phosphate) 1,000 mg PO QID [facility] Last Admin: 05/22/18 13:37 Dose: Not Given Simethicone (Mylicon Chew Tab) 80 mg PO Q6 PRN PRN Reason: Flatulence Last Admin: 05/20/18 20:32 Dose: 80 mg - Labs Labs: 05/22/18 05:19 05/22/18 12:50 - Constitutional Appears: Non-toxic - Head Exam Head Exam: NORMAL INSPECTION - Eye Exam Eye Exam: Normal appearance - ENT Exam ENT Exam: Mucous Membranes Moist - Respiratory Exam Respiratory Exam: NORMAL BREATHING PATTERN. absent: Respiratory Distress - Cardiovascular Exam Cardiovascular Exam: REGULAR RHYTHM - GI/Abdominal Exam GI & Abdominal Exam: Tenderness (mild RUQ, worse today LLQ) - Extremities Exam Extremities Exam: Normal Inspection - Back Exam Back Exam: NORMAL INSPECTION - Neurological Exam Neurological Exam: Alert, Awake, Normal Gait - Psychiatric Exam Psychiatric exam: Normal Affect, Normal Mood - Skin Skin Exam: Dry, Intact, Normal Color, Warm Assessment and Plan - Assessment and Plan (Free Text) Assessment: 42 yo female with no significant PMH presented to ED with severe epigastric pain admitted for pancreatitis. Plan: 1. Acute Pancreatitis -NPO diet, unable to tolerate liquid -IV hydration with D5LR + 40 K -CT scan of abdomen: findings consistent with acute pancreatitis (boggy and edematous) with symptomatic hypocalcemia (facial numbness and tingling sensation on both hands) -S/p insulin drip -serum Triglycerides: 506 (down from 6160) -Lipase 250, Amylase 101 -GI and endocrinology consults with Dr Rizzo and Dr Mora 2. Hypocalcemia -Symptomatic: numbness/tingling of both hands -Serum Ca 5.9 -1gm Calcium Gluconate IV 100cc/hr 3. Hypokalemia - K 3.1 today - Potassium phos 1000mg QID - Follow up BMP <Issac Prakash D - Last Filed: 05/22/18 15:43> Objective - Vital Signs/Intake and Output Vital Signs (last 24 hours): Temp Pulse Resp BP Pulse Ox 100.5 F H 112 H 29 H 101/64 98 05/22/18 15:33 05/22/18 15:33 05/22/18 15:33 05/22/18 15:33 05/22/18 15:33 Intake and Output: 05/22/18 05/22/18 06:59 18:59 Intake Total 2222 916 Balance 2222 916 - Medications Medications: Current Medications Calcium Carbonate (Oscal) 500 mg PO BID [facility] Dextrose (Dextrose 50% Inj) 0 ml IV STAT PRN; Protocol PRN Reason: Hypoglycemia Protocol Dextrose (Glutose 15) 0 gm PO ONCE PRN; Protocol PRN Reason: Hypoglycemia Protocol Fenofibrate (Tricor) 145 mg PO DAILY [facility] Glucagon (Glucagen Diagnostic Kit) 0 mg IM STAT PRN; Protocol PRN Reason: Hypoglycemia Protocol Potassium Chloride 40 meq/ (Dextrose/Lactated Ringer's) 1,020 mls @ 200 mls/hr IV .Q5H6M [facility] Stop: 05/23/18 07:19 Last Admin: 05/22/18 10:49 Dose: 200 mls/hr Ketorolac Tromethamine (Toradol) 30 mg IVP Q6 PRN PRN Reason: Pain, severe (8-10) Last Admin: 05/22/18 10:56 Dose: 30 mg Ycthx-0-Ynhz Ethyl Esters (Lovaza) 2 gm PO BID [facility] Last Admin: 05/22/18 11:07 Dose: Not Given Ondansetron HCl (Zofran Inj) 4 mg IVP Q4 [facility] Last Admin: 05/22/18 14:00 Dose: 4 mg Pantoprazole Sodium (Protonix Inj) 40 mg IVP DAILY [facility] Last Admin: 05/22/18 08:07 Dose: 40 mg Potassium Phosphate (Potassium Phosphate) 1,000 mg PO QID [facility] Last Admin: 05/22/18 13:37 Dose: Not Given Simethicone (Mylicon Chew Tab) 80 mg PO Q6 PRN PRN Reason: Flatulence Last Admin: 05/20/18 20:32 Dose: 80 mg - Labs Labs: 05/22/18 05:19 05/22/18 12:50 Attending/Attestation - Attestation I have personally seen and examined this patient.: Yes I have fully participated in the care of the patient.: Yes I have reviewed all pertinent clinical information, including history, physical exam and plan: Yes Notes (Text): 05/22/18 15:40 Patient seen and examined with resident. Case discussed and agreed with assessment. Spoke with Dr Mora and agreed to DC insulin drip as serum Triglycerides is down to 500. We can start feeding patient and transfer to regul ar floor. We will continue to monitor both serum Ca and K while on supplement.
--- NOTE | 2018-05-22 15:36 | CP.PCM.PN ---
Subjective - Date & Time of Evaluation Date of Evaluation: 05/22/18 Time of Evaluation: 14:00 - Subjective Subjective: Patient seen and examined. Admitted feeling better. Pain now felt more on the back. Tingling sensation and numbness had disappeared. Objective - Vital Signs/Intake and Output Vital Signs (last 24 hours): Temp Pulse Resp BP Pulse Ox 99.2 F 105 H 21 101/64 99 05/22/18 12:00 05/22/18 14:00 05/22/18 14:00 05/22/18 14:00 05/22/18 14:00 Intake and Output: 05/22/18 05/22/18 06:59 18:59 Intake Total 2222 916 Balance 2222 916 - Medications Medications: Current Medications Calcium Gluconate (Calcium Gluconate) 500 mg PO BID [facility] Dextrose (Dextrose 50% Inj) 0 ml IV STAT PRN; Protocol PRN Reason: Hypoglycemia Protocol Dextrose (Glutose 15) 0 gm PO ONCE PRN; Protocol PRN Reason: Hypoglycemia Protocol Fenofibrate (Tricor) 145 mg PO DAILY [facility] Glucagon (Glucagen Diagnostic Kit) 0 mg IM STAT PRN; Protocol PRN Reason: Hypoglycemia Protocol Potassium Chloride 40 meq/ (Dextrose/Lactated Ringer's) 1,020 mls @ 200 mls/hr IV .Q5H6M [facility] Stop: 05/23/18 07:19 Last Admin: 05/22/18 10:49 Dose: 200 mls/hr Ketorolac Tromethamine (Toradol) 30 mg IVP Q6 PRN PRN Reason: Pain, severe (8-10) Last Admin: 05/22/18 10:56 Dose: 30 mg Jdbqp-6-Jlph Ethyl Esters (Lovaza) 2 gm PO BID [facility] Last Admin: 05/22/18 11:07 Dose: Not Given Ondansetron HCl (Zofran Inj) 4 mg IVP Q4 [facility] Last Admin: 05/22/18 14:00 Dose: 4 mg Pantoprazole Sodium (Protonix Inj) 40 mg IVP DAILY [facility] Last Admin: 05/22/18 08:07 Dose: 40 mg Potassium Phosphate (Potassium Phosphate) 1,000 mg PO QID [facility] Last Admin: 05/22/18 13:37 Dose: Not Given Simethicone (Mylicon Chew Tab) 80 mg PO Q6 PRN PRN Reason: Flatulence Last Admin: 05/20/18 20:32 Dose: 80 mg - Labs Labs: 05/22/18 05:19 05/22/18 12:50 - Constitutional Appears: No Acute Distress - Head Exam Head Exam: absent: ATRAUMATIC - Eye Exam Eye Exam: absent: Scleral icterus - ENT Exam ENT Exam: Mucous Membranes Moist - Neck Exam Neck Exam: absent: Meningismus - Respiratory Exam Respiratory Exam: absent: Rales, Rhonchi, Wheezes, Respiratory Distress - Cardiovascular Exam Cardiovascular Exam: Tachycardia, +S1, +S2 - GI/Abdominal Exam GI & Abdominal Exam: Soft, Tenderness (mild tenderness on epigastric region) - Rectal Exam Rectal Exam: Deferred - Neurological Exam Neurological Exam: Alert, Oriented x3 - Psychiatric Exam Psychiatric exam: Normal Affect - Skin Skin Exam: Dry, Intact
[2018-05-23] MEDS: Potassium Chloride 40 MEQ in Dextrose 5%/Lactated Ringer's 1,000 ML IV SCH (04:07)
[2018-05-23 06:09] LABS: MEAN CELL VOLUME 82.6 fl (81.0-99.0); MEAN CORPUSCULAR HGB CONC 33.9 g/dL (33.0-37.0); RBC 3.08 Mil/uL (3.80-5.20); RED CELL DISTRIBUTION WIDTH 15.3 % (11.5-14.5); WHITE BLOOD COUNT 7.5 K/uL (4.8-10.8)
[2018-05-23 06:19] LABS: HEMOGLOBIN 8.6 g/dL (12.0-16.0)
[2018-05-23 06:21] LABS: ALBUMIN 2.9 g/dL (3.5-5.0); ALT/SGPT 33 U/L (9-52); AST/SGOT 48 U/L (14-36); BLOOD UREA NITROGEN 2 mg/dl (7-17); CALCIUM 6.2 mg/dL (8.4-10.2); GFR NON-AFRICAN AMERICAN > 60
[2018-05-23] MEDS ORDERED: Potassium Chloride 20 mEq ER Tab PO ONE ×2 (07:30→14:30)
--- NOTE | 2018-05-23 08:39 | PN ---
DATE: 05/22/2018 ENDO FOLLOWUP NOTE ROOM: 430 ICU SUBJECTIVE: This is a 42-year-old female with recent upper abdominal pain and evaluated to have acute pancreatitis with underlying marked dyslipidemia and is now being followed closely for metabolic management. She was transferred to ICU for the initiation of an insulin drip infusion with remarkable metabolic response as noted overnight. Her glucose levels have ranged from 121-128 and 157 mg/dL. Her latest chemistry showed a BUN of 2, sodium 137, potassium 3.1, chloride 112, CO2 19, glucose 144 and creatinine 0.3. Her calcium level has improved at the low range of 5.9 mg/dL with low albumin stores of 2.8 and a corrected calcium of 7.1 mg/dL. Her repeat triglyceride levels have dropped down to 506 with an lipase of 250, this is definitely a remarkable response as noted thereof. ASSESSMENT This is a 42-year-old female with acute pancreatitis and had a remarkable response with the initiation of intensive insulin therapy as given in the ICU. She also has marked dyslipidemia and the possibility always of a familial combined dyslipidemia versus a more traditional uncontrolled type 2 insulin-requiring diabetes condition has to be fluid excluded at this time. PLAN OF MANAGEMENT: We will go ahead and discontinue the insulin drip infusion with a remarkable metabolic response thereof. We will obtain serial chemistries and supplement accordingly as needed. We will also obtain serial lipid panel levels and we will await the results of the lipoprotein fractionation which will confirm the presence of underlying dyslipidemia. We will obtain serial chemistries and supplement accordingly as needed. We will follow. Trina Mora MD
[2018-05-23] MEDS: Omega-3-Acid Ethyl Esters 1 GM Cap PO SCH ×2 (08:53→17:42)
--- NOTE | 2018-05-23 10:06 | CP.PCM.PN ---
<Mara Leon - Last Filed: 05/23/18 10:14> Subjective - Date & Time of Evaluation Date of Evaluation: 05/23/18 Time of Evaluation: 10:06 - Subjective Subjective: Pt seen bedside, sitting up eating Jello without difficulty. NUmbness and tingling in face resolved, abdominal pain improving slowly, but pt still complains of nausea. Tolerating liquid diet. Febrile overnight, Tmax 100.5F, resolved and currently afebrile and vitally stable. Objective - Vital Signs/Intake and Output Vital Signs (last 24 hours): Temp Pulse Resp BP Pulse Ox 97.5 F L 70 21 127/70 95 05/23/18 08:13 05/23/18 08:13 05/23/18 08:13 05/23/18 08:13 05/23/18 08:13 - Medications Medications: Current Medications Calcium Carbonate (Oscal) 500 mg PO BID [facility] Last Admin: 05/23/18 08:53 Dose: 500 mg Dextrose (Dextrose 50% Inj) 0 ml IV STAT PRN; Protocol PRN Reason: Hypoglycemia Protocol Dextrose (Glutose 15) 0 gm PO ONCE PRN; Protocol PRN Reason: Hypoglycemia Protocol Famotidine (Pepcid) 20 mg PO BID [facility] Last Admin: 05/23/18 08:53 Dose: 20 mg Fenofibrate (Tricor) 145 mg PO DAILY [facility] Last Admin: 05/23/18 08:54 Dose: 145 mg Glucagon (Glucagen Diagnostic Kit) 0 mg IM STAT PRN; Protocol PRN Reason: Hypoglycemia Protocol Ketorolac Tromethamine (Toradol) 30 mg IVP Q6 PRN PRN Reason: Pain, severe (8-10) Last Admin: 05/23/18 05:23 Dose: 30 mg Ketorolac Tromethamine (Toradol) 15 mg IVP Q6 PRN PRN Reason: Pain, moderate (4-7) Vckxh-7-Ktqb Ethyl Esters (Lovaza) 2 gm PO BID [facility] Last Admin: 05/23/18 08:53 Dose: 2 gm Ondansetron HCl (Zofran Inj) 4 mg IVP Q4 PRN PRN Reason: Nausea/Vomiting Last Admin: 05/23/18 08:51 Dose: 4 mg Potassium Phosphate (Potassium Phosphate) 1,000 mg PO QID [facility] Last Admin: 05/23/18 08:52 Dose: 1,000 mg Simethicone (Mylicon Chew Tab) 80 mg PO Q6 PRN PRN Reason: Flatulence Last Admin: 05/20/18 20:32 Dose: 80 mg - Labs Labs: 05/23/18 05:55 05/23/18 05:55 - Constitutional Appears: No Acute Distress - Eye Exam Eye Exam: Normal appearance - Respiratory Exam Respiratory Exam: NORMAL BREATHING PATTERN. absent: Respiratory Distress - Cardiovascular Exam Cardiovascular Exam: REGULAR RHYTHM - GI/Abdominal Exam GI & Abdominal Exam: Tenderness (RUQ and LLQ) - Extremities Exam Extremities Exam: absent: Pedal Edema - Neurological Exam Neurological Exam: Alert, Awake, Normal Gait, Oriented x3 - Psychiatric Exam Psychiatric exam: Normal Affect, Normal Mood - Skin Skin Exam: Dry, Intact, Warm Assessment and Plan - Assessment and Plan (Free Text) Assessment: 42 yo female with no significant PMH presented to ED with severe epigastric pain admitted for pancreatitis. Plan: 1. Acute Pancreatitis -Tolerating liquid diet as of 8 PM -IV hydration with D5LR + 40 K -Pain control PRN, Toradol -CT scan of abdomen: findings consistent with acute pancreatitis (boggy and edematous) with symptomatic hypocalcemia (facial numbness and tingling sensation on both hands) -S/p insulin drip -serum Triglycerides: 430 (down from 6160) -Lipase 250, Amylase 101 -GI and endocrinology consults with Dr Rizzo and Dr Mora 2. Hypocalcemia -Symptomatic: numbness/tingling of both hands - resolved -Serum Ca 6.2 -Calcium Gluconate 500 mg BID PO 3. Hypokalemia - K 3.3 today - Potassium phos 1000mg QID - K-dur 20 PO - Follow up BMP 4. DVT Prophylaxis -SCD -Ambulating <PrakashNicolás saleemIssac D - Last Filed: 05/23/18 11:16> Objective - Vital Signs/Intake and Output Vital Signs (last 24 hours): Temp Pulse Resp BP Pulse Ox 97.5 F L 70 21 127/70 95 05/23/18 08:13 05/23/18 08:13 05/23/18 08:13 05/23/18 08:13 05/23/18 08:13 - Medications Medications: Current Medications Calcium Carbonate (Oscal) 500 mg PO BID [facility] Last Admin: 05/23/18 08:53 Dose: 500 mg Dextrose (Dextrose 50% Inj) 0 ml IV STAT PRN; Protocol PRN Reason: Hypoglycemia Protocol Dextrose (Glutose 15) 0 gm PO ONCE PRN; Protocol PRN Reason: Hypoglycemia Protocol Famotidine (Pepcid) 20 mg PO BID [facility] Last Admin: 05/23/18 08:53 Dose: 20 mg Fenofibrate (Tricor) 145 mg PO DAILY [facility] Last Admin: 05/23/18 08:54 Dose: 145 mg Glucagon (Glucagen Diagnostic Kit) 0 mg IM STAT PRN; Protocol PRN Reason: Hypoglycemia Protocol Ketorolac Tromethamine (Toradol) 30 mg IVP Q6 PRN PRN Reason: Pain, severe (8-10) Last Admin: 05/23/18 05:23 Dose: 30 mg Ketorolac Tromethamine (Toradol) 15 mg IVP Q6 PRN PRN Reason: Pain, moderate (4-7) Orzxv-9-Nuhk Ethyl Esters (Lovaza) 2 gm PO BID [facility] Last Admin: 05/23/18 08:53 Dose: 2 gm Ondansetron HCl (Zofran Inj) 4 mg IVP Q4 PRN PRN Reason: Nausea/Vomiting Last Admin: 05/23/18 08:51 Dose: 4 mg Potassium Phosphate (Potassium Phosphate) 1,000 mg PO QID [facility] Last Admin: 05/23/18 08:52 Dose: 1,000 mg Simethicone (Mylicon Chew Tab) 80 mg PO Q6 PRN PRN Reason: Flatulence Last Admin: 05/20/18 20:32 Dose: 80 mg - Labs Labs: 05/23/18 05:55 05/23/18 05:55 Attending/Attestation - Attestation I have personally seen and examined this patient.: Yes I have fully participated in the care of the patient.: Yes I have reviewed all pertinent clinical information, including history, physical exam and plan: Yes Notes (Text): 05/23/18 11:15 Patient seen and examined with resident. Case discussed and agreed with assessment and plan.
[2018-05-23] MEDS: Sodium Chloride 0.9% 1,000 ML IV SCH ×2 (14:46→22:20)
--- NOTE | 2018-05-24 00:49 | PN ---
DATE: 05/23/2018 ENDOCRINOLOGY FOLLOWUP NOTE LOCATION: 660. This is a 42-year-old female with recent marked dyslipidemia, presenting here with acute pancreatitis and is now being followed closely for metabolic management. She received vigorous IV hydration with intensive insulin therapy using an insulin drip infusion as given. Her glycemic levels are remarkably improved and have ranged from 143 to 168 mg/dL. Her chemistries showed a BUN of 2, sodium 137, potassium 3.3, chloride 112, CO2 of 18, glucose 162 and creatinine 0.3. Her latest triglyceride levels have lowered down to 430 as noted. So for now, we will continue the vigorous IV hydration as given and obtain serial chemistries accordingly. We will also continue the fenofibrate given as 145 mg once daily as ordered. We will also reinforce the need for strict adherence to a low-fat diet and low carb consistency diet as indicated. We will follow. Trina Mora MD
[2018-05-24] MEDS: Sodium Chloride 0.9% 1,000 ML IV SCH (04:31)
[2018-05-24 07:09] LABS: HEMOGLOBIN 8.5 g/dL (12.0-16.0); MEAN CELL VOLUME 82.9 fl (81.0-99.0); MEAN CORPUSCULAR HEMOGLOBIN 28.1 pg (27.0-31.0); MEAN CORPUSCULAR HGB CONC 33.9 g/dL (33.0-37.0); RBC 3.03 Mil/uL (3.80-5.20); RED CELL DISTRIBUTION WIDTH 15.2 % (11.5-14.5); WHITE BLOOD COUNT 7.4 K/uL (4.8-10.8)
[2018-05-24 07:27] LABS: ALBUMIN 2.9 g/dL (3.5-5.0); ALT/SGPT 48 U/L (9-52); AST/SGOT 43 U/L (14-36); BLOOD UREA NITROGEN 3 mg/dl (7-17); CALCIUM 6.7 mg/dL (8.4-10.2); GFR NON-AFRICAN AMERICAN > 60
[2018-05-24] MEDS: Omega-3-Acid Ethyl Esters 1 GM Cap PO SCH ×2 (08:31→16:58)
[2018-05-24] MEDS: Simethicone 80 mg Chewtab PO PRN ×2 (08:32→16:57)
[2018-05-24] MEDS: Potassium Chloride 20 mEq ER Tab PO SCH ×2 (09:51→16:59)
[2018-05-24] MEDS: Potassium Chl 20 mEq in D5-NS 1,000 ML IV SCH ×3 (10:30→21:17)
--- NOTE | 2018-05-24 10:34 | CP.PCM.PN ---
<Mara Leon - Last Filed: 05/24/18 10:51> Subjective - Date & Time of Evaluation Date of Evaluation: 05/24/18 Time of Evaluation: 10:34 - Subjective Subjective: Pt seen bedside in no acute distress. Abdominal pain improving but still present in LLQ and pt still complains of nausea. Tolerating liquid diet, advancing today. Tmax 100.1F overnight resolved and currently afebrile and vitally stable. Objective - Vital Signs/Intake and Output Vital Signs (last 24 hours): Temp Pulse Resp BP Pulse Ox 98.4 F 106 H 20 118/76 99 05/24/18 08:30 05/24/18 08:30 05/24/18 08:30 05/24/18 08:30 05/24/18 08:30 - Medications Medications: Current Medications Acetaminophen (Tylenol 325mg Tab) 650 mg PO Q6 PRN PRN Reason: Fever >100.4 F Last Admin: 05/23/18 17:39 Dose: 650 mg Calcium Carbonate (Oscal) 500 mg PO BID [facility] Last Admin: 05/24/18 08:31 Dose: 500 mg Dextrose (Dextrose 50% Inj) 0 ml IV STAT PRN; Protocol PRN Reason: Hypoglycemia Protocol Dextrose (Glutose 15) 0 gm PO ONCE PRN; Protocol PRN Reason: Hypoglycemia Protocol Famotidine (Pepcid) 20 mg PO BID [facility] Last Admin: 05/24/18 08:31 Dose: 20 mg Fenofibrate (Tricor) 145 mg PO DAILY [facility] Last Admin: 05/24/18 08:32 Dose: 145 mg Glucagon (Glucagen Diagnostic Kit) 0 mg IM STAT PRN; Protocol PRN Reason: Hypoglycemia Protocol Potassium Chloride/Dextrose/Sod Cl (Potassium Chl 20 Meq In D5-Ns) 1,000 mls @ 150 mls/hr IV .Q6H40M [facility] Stop: 05/25/18 07:48 Last Admin: 05/24/18 10:30 Dose: 150 mls/hr Pojuh-0-Fxqs Ethyl Esters (Lovaza) 2 gm PO BID [facility] Last Admin: 05/24/18 08:31 Dose: 2 gm Ondansetron HCl (Zofran Inj) 4 mg IVP Q4 PRN PRN Reason: Nausea/Vomiting Last Admin: 05/24/18 05:29 Dose: 4 mg Potassium Chloride (K-Dur 20 Meq Er Tab) 20 meq PO BID [facility] Last Admin: 05/24/18 09:51 Dose: 20 meq Simethicone (Mylicon Chew Tab) 80 mg PO Q6 PRN PRN Reason: Flatulence Last Admin: 05/24/18 08:32 Dose: 80 mg Tramadol HCl (Ultram) 50 mg PO Q6 PRN PRN Reason: Pain, moderate (4-7) Last Admin: 05/24/18 08:39 Dose: 50 mg - Labs Labs: 05/24/18 06:25 05/24/18 06:25 - Constitutional Appears: Non-toxic - Head Exam Head Exam: NORMAL INSPECTION - Respiratory Exam Respiratory Exam: NORMAL BREATHING PATTERN. absent: Respiratory Distress - Cardiovascular Exam Cardiovascular Exam: Tachycardia - GI/Abdominal Exam GI & Abdominal Exam: Distended, Soft, Tenderness (LLQ>epigastric). absent: Guarding - Extremities Exam Extremities Exam: absent: Pedal Edema - Neurological Exam Neurological Exam: Alert, Awake, Oriented x3 - Psychiatric Exam Psychiatric exam: Normal Affect, Normal Mood - Skin Skin Exam: Dry, Intact, Normal Color, Warm Assessment and Plan - Assessment and Plan (Free Text) Assessment: 42 yo female with no significant PMH presented to ED with severe epigastric pain admitted for acute pancreatitis. Plan: 1. Acute Pancreatitis -Tolerating liquid diet as of 4/8 PM, advance today -IV hydration with D5LR + 20 K -Pain control PRN, ultram 50mg -CT scan of abdomen: findings consistent with acute pancreatitis (boggy and edematous) with symptomatic hypocalcemia (facial numbness and tingling sensation on both hands) -S/p insulin drip -serum Triglycerides: 381 (down from 6160) -Lipase 250, Amylase 101 -GI and endocrinology consults with Dr Rizzo and Dr Mora -Follow-up repeat Abd/Pelv CT 2. Hypocalcemia -Symptomatic: numbness/tingling of both hands - resolved -Serum Ca 6.7 -Calcium Gluconate 500 mg BID PO 3. Hypokalemia - K 3.3 today - K-dur 20 PO BID - Follow up BMP 4. LLQ Pain -Follow-up UA, C&S -Follow-up repeat Abd/Pelv CT 5. DVT Prophylaxis -SCD -Ambulating <Evelyn Heaton - Last Filed: 05/24/18 18:41> Objective - Vital Signs/Intake and Output Vital Signs (last 24 hours): Temp Pulse Resp BP Pulse Ox 100.5 F H 125 H 19 121/78 99 05/24/18 16:56 05/24/18 16:04 05/24/18 16:04 05/24/18 16:04 05/24/18 16:04 - Medications Medications: Current Medications Acetaminophen (Tylenol 325mg Tab) 650 mg PO Q6 PRN PRN Reason: Fever >100.4 F Last Admin: 05/24/18 16:56 Dose: 650 mg Calcium Carbonate (Oscal) 500 mg PO BID [facility] Last Admin: 05/24/18 16:57 Dose: 500 mg Dextrose (Dextrose 50% Inj) 0 ml IV STAT PRN; Protocol PRN Reason: Hypoglycemia Protocol Dextrose (Glutose 15) 0 gm PO ONCE PRN; Protocol PRN Reason: Hypoglycemia Protocol Famotidine (Pepcid) 20 mg PO BID [facility] Last Admin: 05/24/18 16:57 Dose: 20 mg Fenofibrate (Tricor) 145 mg PO DAILY [facility] Last Admin: 05/24/18 08:32 Dose: 145 mg Glucagon (Glucagen Diagnostic Kit) 0 mg IM STAT PRN; Protocol PRN Reason: Hypoglycemia Protocol Potassium Chloride/Dextrose/Sod Cl (Potassium Chl 20 Meq In D5-Ns) 1,000 mls @ 150 mls/hr IV .Q6H40M [facility] Stop: 05/25/18 07:48 Last Admin: 05/24/18 10:30 Dose: 150 mls/hr Piperacillin Sod/Tazobactam (Sod 3.375 gm/ Sodium Chloride) 100 mls @ 100 mls/hr IVPB Q6 [facility]; Protocol Uibuq-3-Peva Ethyl Esters (Lovaza) 2 gm PO BID [facility] Last Admin: 05/24/18 16:58 Dose: 2 gm Ondansetron HCl (Zofran Inj) 4 mg IVP Q4 PRN PRN Reason: Nausea/Vomiting Last Admin: 05/24/18 05:29 Dose: 4 mg Potassium Chloride (K-Dur 20 Meq Er Tab) 20 meq PO BID [facility] Last Admin: 05/24/18 16:59 Dose: 20 meq Simethicone (Mylicon Chew Tab) 80 mg PO Q6 PRN PRN Reason: Flatulence Last Admin: 05/24/18 16:57 Dose: 80 mg Tramadol HCl (Ultram) 50 mg PO Q6 PRN PRN Reason: Pain, moderate (4-7) Last Admin: 05/24/18 15:31 Dose: 50 mg - Labs Labs: 05/24/18 06:25 05/24/18 06:25 Attending/Attestation - Attestation I have personally seen and examined this patient.: Yes I have fully participated in the care of the patient.: Yes I have reviewed all pertinent clinical information, including history, physical exam and plan: Yes Notes (Text): Acute Pancreatitis sec to Severe Hypertriglyceridemia Hypokalemia Hypocalcemia Anemia, acute prob dilutional Fever - Pt still has abd pain - rpt CT of the abd -Pain mgt -start IV Zosyn -replace electrolytes\ - upgrade diet - Surgery consult - cont Tricor, low fat diet, Wilburn 3 FA
[2018-05-24] MEDS ORDERED: Iohexol 240 (50 ml) PO ONE (10:39)
[2018-05-24] MEDS ORDERED: Piperacillin/Tazobact 3.375 GM in Sodium Chloride 0.9% 100 ML IVPB SCH (12:15)
[2018-05-24 12:25] LABS: SQUAMOUS EPITHIAL 1 /hpf (0-5); URINE BACTERIA RARE (<OCC); URINE BILIRUBIN NEGATIVE (NEGATIVE); URINE BLOOD MODERATE (NEGATIVE); URINE CLARITY SLIGHTY-CLOUDY (Clear); URINE COLOR YELLOW (YELLOW); URINE GLUCOSE (UA) NEG (NEGATIVE); URINE LEUKOCYTE ESTERASE NEG Leu/uL (Negative); URINE PROTEIN NEGATIVE (NEGATIVE); URINE UROBILINOGEN 0.2-1.0 mg/dL (0.2-1.0)
[2018-05-24] MEDS ORDERED: Iohexol 300 100 ML IJ ONE (14:22)
[2018-05-24] MEDS ORDERED: Sodium Chloride 0.9% 50 ML IV ONE (14:22)
--- NOTE | 2018-05-24 15:02 | CT ---
Date of service: 05/24/2018 PROCEDURE: CT Abdomen and Pelvis with contrast HISTORY: f/u acute pancreatitis + new LLQ pain COMPARISON: 05/19/2018 TECHNIQUE: Contrast dose: 100 mL of Omnipaque 300 Radiation dose: Total exam DLP = 603 mGy-cm. This CT exam was performed using one or more of the following dose reduction techniques: Automated exposure control, adjustment of the mA and/or kV according to patient size, and/or use of iterative reconstruction technique. FINDINGS: LOWER THORAX: Interval moderate left pleural effusion. Probable minimal right pleural effusion. Interval subsegmental atelectatic changes at both lung bases left greater than right. LIVER: Hepatic steatosis Wisam's lobe. No interval intrahepatic masses. No dilated ducts. GALLBLADDER AND BILE DUCTS: Unremarkable. PANCREAS: Diffuse mild prominence throughout the pancreatic body and tail. No intraparenchymal masses or intraparenchymal abnormal densities. No pancreatic or gross peripancreatic gas seen. No pancreatic dilated ducts seen. Interval marked increased peripancreatic mesenteric and intraperitoneal fluid and phlegmonous process. This process borders the stomach and in case is the right colon loop which is more focally less distended (axial series 2, image 45) this process extends into the left pararenal space and is contiguous with the left psoas margin. And left quadratus lumborum muscle bundles. SPLEEN: Unremarkable. ADRENALS: Unremarkable. No mass. KIDNEYS AND URETERS: Unremarkable. No hydronephrosis. No solid mass. VASCULATURE: Unremarkable. No aortic aneurysm. No aortic atherosclerotic calcification or mural plaque present. BOWEL: As above in the pancreatic section phlegmonous process encircling the right colon loops. No bowel obstruction seen. Caliber of the right colon does show some transition here however. APPENDIX: Normal appendix. PERITONEUM: Sensitive peritoneal fluid as referenced above. No free air seen. LYMPH NODES: Unremarkable. No enlarged lymph nodes. BLADDER: Unremarkable. REPRODUCTIVE: Uterus unremarkable. Unremarkable appearing right adnexa. Reproduced ovarian adnexal probable 3.4 x 4.0 cm ovarian cyst Possible cervicitis or inflammatory changes about a nabothian cyst clinical correlation with patient's phase of menses. BONES: No acute fracture. OTHER FINDINGS: Interval increased subcutaneous anasarca. Non fat containing umbilical hernia-unchanged. IMPRESSION: Findings compatible with extensive acute-subacute pancreatitis Interval progressive peripancreatic/mesenteric phlegmon and peritoneal fluid/phlegmon. No pancreatic gross necrosis seen. No phlegmonous gaseous process noted. No enhancing abscess seen. Interval increased anasarca. Interval increased bibasilar pleural effusions with greater left lung base compressive atelectasis. Interval increased phlegmonous in case mint of the right colon loop with interval decreased caliber of this colonic loop. No current bowel obstruction seen. Close close follow-up is advised. Other findings as above. Comments: Study marked for PA review .
[2018-05-24] MEDS: Piperacillin/Tazobact 3.375 GM in Sodium Chloride 0.9% 100 ML IVPB SCH (21:15)
[2018-05-25] MEDS: Potassium Chl 20 mEq in D5-NS 1,000 ML IV SCH ×3 (04:00→22:53)
[2018-05-25] MEDS: Piperacillin/Tazobact 3.375 GM in Sodium Chloride 0.9% 100 ML IVPB SCH ×4 (04:06→21:31)
[2018-05-25 06:42] LABS: HEMOGLOBIN 9.5 g/dL (12.0-16.0); MEAN CELL VOLUME 83.3 fl (81.0-99.0); MEAN CORPUSCULAR HEMOGLOBIN 27.9 pg (27.0-31.0); MEAN CORPUSCULAR HGB CONC 33.5 g/dL (33.0-37.0); RBC 3.4 Mil/uL (3.80-5.20); RED CELL DISTRIBUTION WIDTH 15.3 % (11.5-14.5)
[2018-05-25 06:52] LABS: ALBUMIN 2.9 g/dL (3.5-5.0); ALT/SGPT 49 U/L (9-52); AST/SGOT 26 U/L (14-36); BLOOD UREA NITROGEN 3 mg/dl (7-17); CALCIUM 7.5 mg/dL (8.4-10.2); GFR NON-AFRICAN AMERICAN > 60; LIPASE 82 U/L (23-300)
[2018-05-25 07:01] LABS: WHITE BLOOD COUNT 13.1 K/uL (4.8-10.8)
[2018-05-25] MEDS: Omega-3-Acid Ethyl Esters 1 GM Cap PO SCH ×2 (09:11→16:50)
[2018-05-25] MEDS: Potassium Chloride 20 mEq ER Tab PO SCH ×2 (09:12→16:50)
[2018-05-25 09:51] LABS: INR 1.4; PROTHROMBIN TIME 15.5 Seconds (9.8-13.1)
--- NOTE | 2018-05-25 10:23 | CP.PCM.CON ---
History of Present Illness - History of Present Illness History of Present Illness: Infectious Disease Consultation Note- Asked to see this patient at the request of the hospitalist. HPI- Patient is a 42 year old female with no PMH who was admitted of c/o lower abdominal pian across the lower abdomen and fever for past few days and progressively worsening. Pt. denies any other episodes of this pain in the past. she denies any dysurea or any diarrhea, denies any vomiting but had some nausea. denies any change in her diet. she denies any cough or sob, denies any chest pain. PMD: NHC - Last seen Feb 2018 for f/u lab test PMH: anemia Meds: ferrous sulfate Social: denies FHx: Father - , DM; Mother - , unknown Allergy: NKDA Review of Systems - Review of Systems Review of Systems: ROS- as stated in HPI. Past Patient History - Infectious Disease Hx of Infectious Diseases: None - Past Medical History & Family History Past Medical History?: No - Past Social History Smoking Status: Never Smoked Alcohol: Occasional Drugs: Denies Home Situation {Lives}: With Family - CARDIAC Hx Cardiac Disorders: No - PULMONARY Hx Respiratory Disorders: No - NEUROLOGICAL Hx Neurological Disorder: No - HEENT Hx HEENT Problems: No - RENAL Hx Chronic Kidney Disease: No - ENDOCRINE/METABOLIC Hx Endocrine Disorders: No - HEMATOLOGICAL/ONCOLOGICAL Hx Blood Disorders: No - INTEGUMENTARY Hx Dermatological Problems: No - MUSCULOSKELETAL/RHEUMATOLOGICAL Hx Falls: No - PSYCHIATRIC Hx Substance Use: No - SURGICAL HISTORY Hx Surgeries: Yes Hx Section: Yes - ANESTHESIA Hx Anesthesia: Yes Hx Anesthesia Reactions: No Meds Allergies/Adverse Reactions: Allergies Allergy/AdvReac Type Severity Reaction Status Date / Time No Known Allergies Allergy Verified 04/28/17 11:54 - Medications Medications: Current Medications Acetaminophen (Tylenol 325mg Tab) 650 mg PO Q6 PRN PRN Reason: Fever >100.4 F Last Admin: 05/25/18 08:57 Dose: 650 mg Calcium Carbonate (Oscal) 500 mg PO BID [facility] Last Admin: 05/25/18 09:12 Dose: 500 mg Dextrose (Dextrose 50% Inj) 0 ml IV STAT PRN; Protocol PRN Reason: Hypoglycemia Protocol Dextrose (Glutose 15) 0 gm PO ONCE PRN; Protocol PRN Reason: Hypoglycemia Protocol Famotidine (Pepcid) 20 mg PO BID [facility] Last Admin: 05/25/18 09:12 Dose: 20 mg Fenofibrate (Tricor) 145 mg PO DAILY [facility] Last Admin: 05/25/18 09:12 Dose: 145 mg Glucagon (Glucagen Diagnostic Kit) 0 mg IM STAT PRN; Protocol PRN Reason: Hypoglycemia Protocol Piperacillin Sod/Tazobactam (Sod 3.375 gm/ Sodium Chloride) 100 mls @ 100 mls/hr IVPB Q6 [facility]; Protocol Last Admin: 05/25/18 09:11 Dose: 100 mls/hr [id number] Ethyl Esters (Lovaza) 2 gm PO BID [facility] Last Admin: 05/25/18 09:11 Dose: 2 gm Ondansetron HCl (Zofran Inj) 4 mg IVP Q4 PRN PRN Reason: Nausea/Vomiting Last Admin: 05/25/18 02:06 Dose: 4 mg Potassium Chloride (K-Dur 20 Meq Er Tab) 20 meq PO BID [facility] Last Admin: 05/25/18 09:12 Dose: 20 meq Simethicone (Mylicon Chew Tab) 80 mg PO Q6 PRN PRN Reason: Flatulence Last Admin: 05/24/18 16:57 Dose: 80 mg Tramadol HCl (Ultram) 50 mg PO Q6 PRN PRN Reason: Pain, moderate (4-7) Last Admin: 05/24/18 21:22 Dose: 50 mg Tramadol HCl (Ultram) 100 mg PO Q6 PRN PRN Reason: Pain, severe (8-10) Last Admin: 05/25/18 08:56 Dose: 100 mg Physical Exam - Constitutional Appears: No Acute Distress - Head Exam Head Exam: ATRAUMATIC - Eye Exam Eye Exam: EOMI, PERRL - ENT Exam ENT Exam: Normal Oropharynx - Neck Exam Neck exam: Positive for: Full Rom - Respiratory Exam Respiratory Exam: Clear to Auscultation Bilateral, NORMAL BREATHING PATTERN - Cardiovascular Exam Cardiovascular Exam: RRR, +S1, +S2 - GI/Abdominal Exam GI & Abdominal Exam: Normal Bowel Sounds, Soft Additional comments: Slightly distended + mild tenderness in left lower quadrant region No guarding, no rebound - Extremities Exam Extremities exam: Positive for: normal inspection - Neurological Exam Neurological exam: Alert, Oriented x3 Results - Vital Signs Recent Vital Signs: Last Vital Signs Temp 100.8 F H 05/25/18 08:57 Pulse 118 H 05/25/18 08:40 Resp 20 05/25/18 08:40 BP 113/71 05/25/18 08:40 Pulse Ox 98 05/25/18 08:40 - Labs Result Diagrams: 05/25/18 06:20 05/25/18 06:20 Labs: Laboratory Results - last 24 hr 05/24/18 05/24/18 05/25/18 11:49 22:04 05:53 WBC RBC Hgb Hct MCV MCH MCHC RDW Plt Count PT INR Sodium Potassium Chloride Carbon Dioxide Anion Gap BUN Creatinine Est GFR ( Amer) Est GFR (Non-Af Amer) POC Glucose (mg/dL) 154 H 186 H Random Glucose Calcium Total Bilirubin AST ALT Alkaline Phosphatase Total Protein Albumin Globulin Albumin/Globulin Ratio Triglycerides Lipase Urine Color Yellow Urine Clarity Slighty-cloudy Urine pH 8.0 Ur Specific [place] 1.010 Urine Protein Negative Urine Glucose (UA) Neg Urine Ketones Negative Urine Blood Moderate Urine Nitrate Negative Urine Bilirubin Negative Urine Urobilinogen 0.2-1.0 Ur Leukocyte Esterase Neg Urine RBC (Auto) 11 H Urine Microscopic WBC 3 Ur Squamous Epith Cells 1 Urine Bacteria Rare 05/25/18 05/25/18 05/25/18 06:20 06:20 09:37 WBC 13.1 H D RBC 3.40 L Hgb 9.5 L Hct 28.4 L MCV 83.3 MCH 27.9 MCHC 33.5 RDW 15.3 H Plt Count 339 PT 15.5 H INR 1.4 Sodium 131 L Potassium 3.9 Chloride 107 Carbon Dioxide 17 L Anion Gap 11 BUN 3 L Creatinine 0.3 L Est GFR ( Amer) > 60 Est GFR (Non-Af Amer) > 60 POC Glucose (mg/dL) Random Glucose 190 H Calcium 7.5 L Total Bilirubin 1.2 AST 26 ALT 49 Alkaline Phosphatase 78 Total Protein 5.8 L Albumin 2.9 L Globulin 2.9 Albumin/Globulin Ratio 1.0 Triglycerides 301 H D Lipase 82 Urine Color Urine Clarity Urine pH Ur Specific [place] Urine Protein Urine Glucose (UA) Urine Ketones Urine Blood Urine Nitrate Urine Bilirubin Urine Urobilinogen Ur Leukocyte Esterase Urine RBC (Auto) Urine Microscopic WBC Ur Squamous Epith Cells Urine Bacteria Laboratory Results - last 72 hr 05/22/18 05/22/18 05/22/18 05:19 12:50 15:46 WBC RBC Hgb Hct MCV MCH MCHC RDW Plt Count PT INR Sodium 137 Potassium 3.1 L Chloride 112 H Carbon Dioxide 19 L Anion Gap 9 L BUN 2 L Creatinine 0.3 L Est GFR ( Amer) > 60 Est GFR (Non-Af Amer) > 60 POC Glucose (mg/dL) 135 H Random Glucose 144 H Calcium 5.9 L* Phosphorus 1.3 L Magnesium 2.0 Total Bilirubin 1.1 AST 35 ALT 22 Alkaline Phosphatase 52 Total Protein 5.6 L Albumin 2.8 L Globulin 2.8 Albumin/Globulin Ratio 1.0 Triglycerides 506 H Amylase 101 Lipase 250 PTH Intact Whole Molec 168 H Urine Color Urine Clarity Urine pH Ur Specific [place] Urine Protein Urine Glucose (UA) Urine Ketones Urine Blood Urine Nitrate Urine Bilirubin Urine Urobilinogen Ur Leukocyte Esterase Urine RBC (Auto) Urine Microscopic WBC Ur Squamous Epith Cells Urine Bacteria 05/22/18 05/23/18 05/23/18 23:07 05:18 05:55 WBC 7.5 RBC 3.08 L Hgb 8.6 L Hct 25.5 L MCV 82.6 MCH 28.0 MCHC 33.9 RDW 15.3 H Plt Count 295 PT INR Sodium Potassium Chloride Carbon Dioxide Anion Gap BUN Creatinine Est GFR ( Amer) Est GFR (Non-Af Amer) POC Glucose (mg/dL) 170 H 168 H Random Glucose Calcium Phosphorus Magnesium Total Bilirubin AST ALT Alkaline Phosphatase Total Protein Albumin Globulin Albumin/Globulin Ratio Triglycerides Amylase Lipase PTH Intact Whole Molec Urine Color Urine Clarity Urine pH Ur Specific [place] Urine Protein Urine Glucose (UA) Urine Ketones Urine Blood Urine Nitrate Urine Bilirubin Urine Urobilinogen Ur Leukocyte Esterase Urine RBC (Auto) Urine Microscopic WBC Ur Squamous Epith Cells Urine Bacteria 05/23/18 05/23/18 05/23/18 05:55 08:50 10:36 WBC RBC Hgb Hct MCV MCH MCHC RDW Plt Count PT INR Sodium 137 Potassium 3.3 L Chloride 112 H Carbon Dioxide 18 L Anion Gap 10 BUN 2 L Creatinine 0.3 L Est GFR ( Amer) > 60 Est GFR (Non-Af Amer) > 60 POC Glucose (mg/dL) 143 H Random Glucose 162 H Calcium 6.2 L Phosphorus Magnesium Total Bilirubin 1.0 AST 48 H D ALT 33 Alkaline Phosphatase 66 Total Protein 5.7 L Albumin 2.9 L Globulin 2.8 Albumin/Globulin Ratio 1.0 Triglycerides 430 H Amylase Lipase PTH Intact Whole Molec Urine Color Urine Clarity Urine pH Ur Specific [place] Urine Protein Urine Glucose (UA) Urine Ketones Urine Blood Urine Nitrate Urine Bilirubin Urine Urobilinogen Ur Leukocyte Esterase Urine RBC (Auto) Urine Microscopic WBC Ur Squamous Epith Cells Urine Bacteria 05/23/18 05/23/18 05/24/18 15:55 21:39 06:25 WBC 7.4 RBC 3.03 L Hgb 8.5 L Hct 25.1 L MCV 82.9 MCH 28.1 MCHC 33.9 RDW 15.2 H Plt Count 289 PT INR Sodium Potassium Chloride Carbon Dioxide Anion Gap BUN Creatinine Est GFR ( Amer) Est GFR (Non-Af Amer) POC Glucose (mg/dL) 117 H 98 Random Glucose Calcium Phosphorus Magnesium Total Bilirubin AST ALT Alkaline Phosphatase Total Protein Albumin Globulin Albumin/Globulin Ratio Triglycerides Amylase Lipase PTH Intact Whole [place]olec Urine Color Urine Clarity Urine pH Ur Specific [place] Urine Protein Urine Glucose (UA) Urine Ketones Urine Blood Urine Nitrate Urine Bilirubin Urine Urobilinogen Ur Leukocyte Esterase Urine RBC (Auto) Urine Microscopic WBC Ur Squamous Epith Cells Urine Bacteria 05/24/18 05/24/18 05/24/18 06:25 11:49 22:04 WBC RBC Hgb Hct MCV MCH MCHC RDW Plt Count PT INR Sodium 136 Potassium 3.3 L Chloride 110 H Carbon Dioxide 19 L Anion Gap 10 BUN 3 L Creatinine 0.3 L Est GFR ( Amer) > 60 Est GFR (Non-Af Amer) > 60 POC Glucose (mg/dL) 154 H Random Glucose 136 H Calcium 6.7 L Phosphorus Magnesium Total Bilirubin 1.0 AST 43 H ALT 48 Alkaline Phosphatase 71 Total Protein 5.7 L Albumin 2.9 L Globulin 2.8 Albumin/Globulin Ratio 1.0 Triglycerides 381 H Amylase Lipase PTH Intact Whole Molec Urine Color Yellow Urine Clarity Slighty-cloudy Urine pH 8.0 Ur Specific [place] 1.010 Urine Protein Negative Urine Glucose (UA) Neg Urine Ketones Negative Urine Blood Moderate Urine Nitrate Negative Urine Bilirubin Negative Urine Urobilinogen 0.2-1.0 Ur Leukocyte Esterase Neg Urine RBC (Auto) 11 H Urine Microscopic WBC 3 Ur Squamous Epith Cells 1 Urine Bacteria Rare 05/25/18 05/25/18 05/25/18 05:53 06:20 06:20 WBC 13.1 H D RBC 3.40 L Hgb 9.5 L Hct 28.4 L MCV 83.3 MCH 27.9 MCHC 33.5 RDW 15.3 H Plt Count 339 PT INR Sodium 131 L Potassium 3.9 Chloride 107 Carbon Dioxide 17 L Anion Gap 11 BUN 3 L Creatinine 0.3 L Est GFR ( Amer) > 60 Est GFR (Non-Af Amer) > 60 POC Glucose (mg/dL) 186 H Random Glucose 190 H Calcium 7.5 L Phosphorus Magnesium Total Bilirubin 1.2 AST 26 ALT 49 Alkaline Phosphatase 78 Total Protein 5.8 L Albumin 2.9 L Globulin 2.9 Albumin/Globulin Ratio 1.0 Triglycerides 301 H D Amylase Lipase 82 PTH Intact Whole [place] Urine Color Urine Clarity Urine pH Ur Specific [place] Urine Protein Urine Glucose (UA) Urine Ketones Urine Blood Urine Nitrate Urine Bilirubin Urine Urobilinogen Ur Leukocyte Esterase Urine RBC (Auto) Urine Microscopic WBC Ur Squamous Epith Cells Urine Bacteria 05/25/18 05/25/18 09:37 11:14 WBC RBC Hgb Hct MCV MCH MCHC RDW Plt Count PT 15.5 H INR 1.4 Sodium Potassium Chloride Carbon Dioxide Anion Gap BUN Creatinine Est GFR ( Amer) Est GFR (Non-Af Amer) POC Glucose (mg/dL) 161 H Random Glucose Calcium Phosphorus Magnesium Total Bilirubin AST ALT Alkaline Phosphatase Total Protein Albumin Globulin Albumin/Globulin Ratio Triglycerides Amylase Lipase PTH Intact Whole [place] Urine Color Urine Clarity Urine pH Ur Specific [place] Urine Protein Urine Glucose (UA) Urine Ketones Urine Blood Urine Nitrate Urine Bilirubin Urine Urobilinogen Ur Leukocyte Esterase Urine RBC (Auto) Urine Microscopic WBC Ur Squamous Epith Cells Urine Bacteria Microbiology 05/22/18 19:15 Naris MRSA Culture (Admit) - Final MRSA NOT DETECTED 05/21/18 14:45 [facility] MRSA Culture (Admit) - Final MRSA NOT DETECTED Accession No. : [id number] Patient Name / ID : [id number] / [id number] Exam Date : 05/24/2018 14:23:10 ( Approved ) Study Comment : Sex / Age : F / 43Y Creator : Bela Vaughan Dictator : Bela Vaughan Solution Specialist : Commercial Kitchen Service Technician : Bela Vaughan Approver2 : Report Date : 05/24/2018 14:58:54 My Comment : Date of service: 05/24/2018 PROCEDURE: CT Abdomen and Pelvis with contrast HISTORY: f/u acute pancreatitis + new LLQ pain COMPARISON: 05/19/2018 TECHNIQUE: Contrast dose: 100 mL of Omnipaque 300 Radiation dose: Total exam DLP = 603 mGy-cm. This CT exam was performed using one or more of the following dose reduction techniques: Automated exposure control, adjustment of the mA and/or kV according to patient size, and/or use of iterative reconstruction technique. FINDINGS: LOWER THORAX: Interval moderate left pleural effusion. Probable minimal right pleural effusion. Interval subsegmental atelectatic changes at both lung bases left greater than right. LIVER: Hepatic steatosis Wisam's lobe. No interval intrahepatic masses. No dilated ducts. GALLBLADDER AND BILE DUCTS: Unremarkable. PANCREAS: Diffuse mild prominence throughout the pancreatic body and tail. No intraparenchymal masses or intraparenchymal abnormal densities. No pancreatic or gross peripancreatic gas seen. No pancreatic dilated ducts seen. Interval marked increased peripancreatic mesenteric and intraperitoneal fluid and phlegmonous process. This process borders the stomach and in case is the right colon loop which is more focally less distended (axial series 2, image 45) this process extends into the left pararenal space and is contiguous with the left psoas margin. And left quadratus lumborum muscle bundles. SPLEEN: Unremarkable. ADRENALS: Unremarkable. No mass. KIDNEYS AND URETERS: Unremarkable. No hydronephrosis. No solid mass. VASCULATURE: Unremarkable. No aortic aneurysm. No aortic atherosclerotic calcification or mural plaque present. BOWEL: As above in the pancreatic section phlegmonous process encircling the right colon loops. No bowel obstruction seen. Caliber of the right colon does show some transition here however. APPENDIX: Normal appendix. PERITONEUM: Sensitive peritoneal fluid as referenced above. No free air seen. LYMPH NODES: Unremarkable. No enlarged lymph nodes. BLADDER: Unremarkable. REPRODUCTIVE: Uterus unremarkable. Unremarkable appearing right adnexa. Reproduced ovarian adnexal probable 3.4 x 4.0 cm ovarian cyst Possible cervicitis or inflammatory changes about a nabothian cyst clinical correlation with patient's phase of menses. BONES: No acute fracture. OTHER FINDINGS: Interval increased subcutaneous anasarca. Non fat containing umbilical hernia-unchanged. IMPRESSION: Findings compatible with extensive acute-subacute pancreatitis Interval progressive peripancreatic/mesenteric phlegmon and peritoneal fluid/phlegmon. No pancreatic gross necrosis seen. No phlegmonous gaseous process noted. No enhancing abscess seen. Interval increased anasarca. Interval increased bibasilar pleural effusions with greater left lung base compressive atelectasis. Interval increased phlegmonous in case mint of the right colon loop with interval decreased caliber of this colonic loop. No current bowel obstruction seen. Close close follow-up is advised. Other findings as above. Comments: Study marked for PA review . Assessment & Plan - Assessment and Plan (Free Text) Assessment: A/P-43 year old female with no PMH admitted with abdominal pian and fever found to have acute pancreatitis ? secondary to high triglycerides. low garde fevers minimal leukocytosis. as per CT report no abscess noted but possible phlegmon . plan- check blood cx x 2. check UA and urine cx. no objection to continuing with empiric IV zosyn. for now. can also switch to meropnem if no improvement. IV fluids and pancreatitis management as per primary and GI team. all above d/w patient and she verbalizes full understanding of all above and agrees with above plan of care. Thank you for allowing me to take part in the care of this patient.
--- NOTE | 2018-05-25 12:26 | CP.PCM.PN ---
Subjective - Date & Time of Evaluation Date of Evaluation: 05/25/18 Time of Evaluation: 12:25 - Subjective Subjective: Pt seen and examined bedside. Nausea improving, last Zofran required 2am. Pain better controlled with Ultram 100mg Q6 PO. LLQ tenderness still present but denies vomiting, dysuria, dizziness and headache. Objective - Vital Signs/Intake and Output Vital Signs (last 24 hours): Temp Pulse Resp BP Pulse Ox 99.0 F 118 H 20 113/71 98 05/25/18 09:57 05/25/18 08:40 05/25/18 08:40 05/25/18 08:40 05/25/18 08:40 - Medications Medications: Current Medications Acetaminophen (Tylenol 325mg Tab) 650 mg PO Q6 PRN PRN Reason: Fever >100.4 F Last Admin: 05/25/18 08:57 Dose: 650 mg Calcium Carbonate (Oscal) 500 mg PO BID [facility] Last Admin: 05/25/18 09:12 Dose: 500 mg Dextrose (Dextrose 50% Inj) 0 ml IV STAT PRN; Protocol PRN Reason: Hypoglycemia Protocol Dextrose (Glutose 15) 0 gm PO ONCE PRN; Protocol PRN Reason: Hypoglycemia Protocol Famotidine (Pepcid) 20 mg PO BID [facility] Last Admin: 05/25/18 09:12 Dose: 20 mg Fenofibrate (Tricor) 145 mg PO DAILY [facility] Last Admin: 05/25/18 09:12 Dose: 145 mg Glucagon (Glucagen Diagnostic Kit) 0 mg IM STAT PRN; Protocol PRN Reason: Hypoglycemia Protocol Piperacillin Sod/Tazobactam (Sod 3.375 gm/ Sodium Chloride) 100 mls @ 100 mls/hr IVPB Q6 [facility]; Protocol Last Admin: 05/25/18 09:11 Dose: 100 mls/hr Potassium Chloride/Dextrose/Sod Cl (Potassium Chl 20 Meq In D5-Ns) 1,000 mls @ 150 mls/hr IV .Q6H40M [facility] Stop: 05/26/18 11:27 [id number] Ethyl Esters (Lovaza) 2 gm PO BID [facility] Last Admin: 05/25/18 09:11 Dose: 2 gm Ondansetron HCl (Zofran Inj) 4 mg IVP Q4 PRN PRN Reason: Nausea/Vomiting Last Admin: 05/25/18 02:06 Dose: 4 mg Potassium Chloride (K-Dur 20 Meq Er Tab) 20 meq PO BID [facility] Last Admin: 05/25/18 09:12 Dose: 20 meq Simethicone (Mylicon Chew Tab) 80 mg PO Q6 PRN PRN Reason: Flatulence Last Admin: 05/24/18 16:57 Dose: 80 mg Tramadol HCl (Ultram) 50 mg PO Q6 PRN PRN Reason: Pain, moderate (4-7) Last Admin: 05/24/18 21:22 Dose: 50 mg Tramadol HCl (Ultram) 100 mg PO Q6 PRN PRN Reason: Pain, severe (8-10) Last Admin: 05/25/18 08:56 Dose: 100 mg - Labs Labs: 05/25/18 06:20 05/25/18 06:20 PT 15.5 Seconds (9.8-13.1) H 05/25/18 09:37 INR 1.4 05/25/18 09:37 - Constitutional Appears: Non-toxic - Head Exam Head Exam: NORMAL INSPECTION - ENT Exam ENT Exam: Mucous Membranes Moist - Respiratory Exam Respiratory Exam: NORMAL BREATHING PATTERN. absent: Respiratory Distress - Cardiovascular Exam Cardiovascular Exam: Tachycardia - GI/Abdominal Exam GI & Abdominal Exam: Tenderness (epigastric, LUQ, LLQ most tender) - Extremities Exam Extremities Exam: absent: Pedal Edema - Neurological Exam Neurological Exam: Alert, Awake, Oriented x3 - Psychiatric Exam Psychiatric exam: Normal Affect, Normal Mood - Skin Skin Exam: Normal Color Assessment and Plan - Assessment and Plan (Free Text) Assessment: 42 yo female with no significant PMH presented to ED with severe epigastric pain admitted for acute pancreatitis. Plan: 1. Acute Pancreatitis -WBC 13.1 (from 7.4) -ID Consult, input and recommendations appreciated -Zosyn 3.375gm Q6H (day #2) -Tmax 100.8F -Tachycardic -IV hydration with D5LR + 20 K -Pain control PRN, ultram 50mg -CT scan of abdomen (05/19): findings consistent with acute pancreatitis (boggy and edematous) with symptomatic hypocalcemia (facial numbness and tingling sensation on both hands) -S/p insulin drip in ICU -serum Triglycerides: 301 (down from 6160) -Lipase 28 (down from 3653) , Amylase 101 -GI and endocrinology consults with Dr Rizzo and Dr Mora -Repeat Abd/Pelv CT (05/24): extensive acute-subacute pancreatitis, interval progressive peripancreatitic/mesenteric phlegmon and peritoneal fluid/phlegmon. No pancreatic gross necrosis see. -Tolerating full diet 2. Hypocalcemia -Symptomatic: numbness/tingling of both hands - resolved -Serum Ca 7.5 -Calcium Gluconate 500 mg BID PO 3. Hypokalemia - K 3.9 today - Replaced - Follow up BMP 4. LLQ Pain -UA WNL -Abd/Pelv CT: 5. DVT Prophylaxis -SCD -Ambulating
--- NOTE | 2018-05-25 21:31 | CON ---
DATE: 05/23/2018 REFERRING DOCTOR: Issac Prakash MD REASON FOR CONSULTATION: Abdominal pain. HISTORY OF PRESENT ILLNESS: This is a 42-year-old female with history of anemia, brought in for epigastric discomfort radiating into the upper quadrant and back for the past 24 hours or so. Some nausea and some vomiting. No fever. No chills. No diarrhea or weight loss. Currently lying in bed comfortable, in no apparent distress. PAST MEDICAL HISTORY: As above. PAST SURGICAL HISTORY: As above. MEDICATIONS: Reviewed. REVIEW OF SYSTEMS: All other systems have been reviewed and negative apart from the HPI. PHYSICAL EXAMINATION: GENERAL: This is a well-nourished pleasant middle-aged female, lying in bed comfortable, in no apparent distress. VITAL SIGNS: Here in the hospital are grossly unremarkable. HEENT: Head: Normocephalic, atraumatic. Eyes: Pupils are equally reactive to light bilaterally. No conjunctival pallor or icterus. NECK: Supple. Normal range of motion. No lymphadenopathy appreciated. LUNGS: Coarse breath sounds bilaterally. HEART: S1 and S2, regular rate and rhythm. No murmurs appreciated. ABDOMEN: Soft, nontender. Bowel sounds present. Some discomfort in the epigastric region. No rebound. No guarding. RECTAL: Deferred. EXTREMITIES: Pulses felt bilaterally. SKIN: Warm, dry, and intact. NEUROLOGICAL: A and O x3. LABORATORY DATA: Labs and radiology have been reviewed. WBC is 7.8, hemoglobin of 8.9, hematocrit 26.2. Lipase was 820, now is 250, triglycerides are over 1000. Radiology, has a CAT scan which shows pancreatitis, acute as well as a ductal cyst. ASSESSMENT AND PLAN: This is a 42-year-old female with pancreatitis likely secondary to triglycerides. Recommend Endocrinology consult and intravenous insulin drip, pain control, antiemetics, n.p.o., aggressive rehydration. Thank you for the consult. John Rizzo MD/ PhD cc: Issac Prakash MD
[2018-05-26] MEDS: Potassium Chl 20 mEq in D5-NS 1,000 ML IV SCH ×2 (03:32→05:40)
[2018-05-26] MEDS: Piperacillin/Tazobact 3.375 GM in Sodium Chloride 0.9% 100 ML IVPB SCH ×2 (03:33→10:30)
[2018-05-26 06:27] LABS: HEMOGLOBIN 9.3 g/dL (12.0-16.0); MEAN CELL VOLUME 83.4 fl (81.0-99.0); MEAN CORPUSCULAR HGB CONC 33.5 g/dL (33.0-37.0); RBC 3.33 Mil/uL (3.80-5.20); RED CELL DISTRIBUTION WIDTH 15.2 % (11.5-14.5)
[2018-05-26 06:35] LABS: ALB/GLOB RATIO 1.1 (1.0-2.1); ALBUMIN 2.9 g/dL (3.5-5.0); ALT/SGPT 33 U/L (9-52); AST/SGOT 20 U/L (14-36); BLOOD UREA NITROGEN 3 mg/dl (7-17); CALCIUM 7.5 mg/dL (8.4-10.2); GFR NON-AFRICAN AMERICAN > 60
[2018-05-26] MEDS ORDERED: HYDROmorphone 0.5 mg/0.5 ml ISec IVP ONE (08:44)
[2018-05-26] MEDS ORDERED: HYDROmorphone 0.5 mg/0.5 ml ISec IVP PRN (09:12)
[2018-05-26] MEDS ORDERED: Sodium Chloride 0.9% 500 ML IV SCH (09:15)
[2018-05-26] MEDS: Potassium Chloride 20 mEq ER Tab PO SCH ×2 (10:28→16:34)
[2018-05-26] MEDS: Omega-3-Acid Ethyl Esters 1 GM Cap PO SCH ×2 (10:28→16:34)
--- NOTE | 2018-05-26 11:39 | CP.PCM.PN ---
<Mara Leon - Last Filed: 05/26/18 11:46> Subjective - Date & Time of Evaluation Date of Evaluation: 05/26/18 Time of Evaluation: 11:39 - Subjective Subjective: Pt seen bedside with Dr Heaton. Complained of severe pain, (0.5mg Dilaudid ordered bedside). Found to be tachy (HR 140's) but asymptomatic and admits to anxiety due to pain. [facility] - denies palpitations, chest pain, change in vision, headache, dizziness, diaphoresis and SOB. Objective - Vital Signs/Intake and Output Vital Signs (last 24 hours): Temp Pulse Resp BP Pulse Ox 97.8 F 106 H 20 121/78 100 05/26/18 08:29 05/25/18 23:36 05/26/18 08:29 05/26/18 08:29 05/26/18 08:29 - Medications Medications: Current Medications Acetaminophen (Tylenol 325mg Tab) 650 mg PO Q6 PRN PRN Reason: Fever >100.4 F Last Admin: 05/25/18 08:57 Dose: 650 mg Calcium Carbonate (Oscal) 500 mg PO BID [facility] Last Admin: 05/26/18 10:28 Dose: 500 mg Dextrose (Dextrose 50% Inj) 0 ml IV STAT PRN; Protocol PRN Reason: Hypoglycemia Protocol Dextrose (Glutose 15) 0 gm PO ONCE PRN; Protocol PRN Reason: Hypoglycemia Protocol Famotidine (Pepcid) 20 mg PO BID [facility] Last Admin: 05/26/18 10:29 Dose: 20 mg Fenofibrate (Tricor) 145 mg PO DAILY [facility] Last Admin: 05/26/18 10:29 Dose: 145 mg Glucagon (Glucagen Diagnostic Kit) 0 mg IM STAT PRN; Protocol PRN Reason: Hypoglycemia Protocol Hydromorphone HCl (Dilaudid) 0.5 mg IVP Q6H PRN PRN Reason: Pain, severe (8-10) Last Admin: 05/26/18 09:52 Dose: 0.5 mg Piperacillin Sod/Tazobactam (Sod 3.375 gm/ Sodium Chloride) 100 mls @ 100 mls/hr IVPB Q6 [facility]; Protocol Last Admin: 05/26/18 10:30 Dose: 100 mls/hr Sodium Chloride (Sodium Chloride 0.9%) 500 mls @ 999 mls/hr IV .Q31M [facility] Last Admin: 05/26/18 09:15 Dose: 999 mls/hr [id number] Ethyl Esters (Lovaza) 2 gm PO BID [facility] Last Admin: 05/26/18 10:28 Dose: 2 gm Ondansetron HCl (Zofran Inj) 4 mg IVP Q4 PRN PRN Reason: Nausea/Vomiting Last Admin: 05/25/18 02:06 Dose: 4 mg Potassium Chloride (K-Dur 20 Meq Er Tab) 20 meq PO BID [facility] Last Admin: 05/26/18 10:28 Dose: 20 meq Simethicone (Mylicon Chew Tab) 80 mg PO Q6 PRN PRN Reason: Flatulence Last Admin: 05/24/18 16:57 Dose: 80 mg Tramadol HCl (Ultram) 100 mg PO Q6 PRN PRN Reason: Pain, moderate (4-7) Tramadol HCl (Ultram) 50 mg PO Q6 PRN PRN Reason: Pain, Mild (1-3) - Labs Labs: 05/26/18 06:05 05/26/18 06:05 PT 15.5 Seconds (9.8-13.1) H 05/25/18 09:37 INR 1.4 05/25/18 09:37 - Constitutional Appears: No Acute Distress - Head Exam Head Exam: NORMAL INSPECTION - Eye Exam Eye Exam: Normal appearance - ENT Exam ENT Exam: Mucous Membranes Moist - Respiratory Exam Respiratory Exam: Clear to Ausculation Bilateral, NORMAL BREATHING PATTERN. absent: Respiratory Distress - Cardiovascular Exam Cardiovascular Exam: Tachycardia (low 100's) - GI/Abdominal Exam GI & Abdominal Exam: Tenderness (very tender LLQ with some distention, mildly tender LUQ) - Neurological Exam Neurological Exam: Alert, Awake, Oriented x3 - Psychiatric Exam Psychiatric exam: Anxious, Normal Affect, Normal Mood - Skin Skin Exam: Normal Color Assessment and Plan - Assessment and Plan (Free Text) Assessment: 42 yo female with no significant PMH presented to ED with severe epigastric pain admitted for acute pancreatitis. CT abdomen and pelvis: Findings compatible with extensive acute-subacute pancreatitis. Interval progressive peripancreatic/mesenteric phlegmon and p eritoneal fluid/phlegmon. No pancreatic gross necrosis seen. No phlegmonous gaseous process noted. No enhancing abscess seen. Interval increased anasarca. Interval increased bibasilar pleural effusions with greater left lung base compressive atelectasis. Interval increased phlegmonous in case mint of the right colon loop with interval decreased caliber of this colonic loop. No current bowel obstruction seen. Plan: 1. Acute Pancreatitis with Phlegmonous changes -WBC 15 -NO drainable abscess as per surgery -ID Consult, input and recommendations appreciated -Zosyn 3.375gm Q6H (day #3) -Afberile, Tmax 101.8F -Tachycardic low 100's after pain control -IV hydration, s/p NS bolus today -Pain control PRN, Dilauded 0.5mg severe, ultram 100mg moderate, Ultram 50mg mild -CT scan of abdomen (05/19): findings consistent with acute pancreatitis (boggy and edematous) with symptomatic hypocalcemia (facial numbness and tingling sensation on both hands) -S/p insulin drip in ICU -serum Triglycerides: 325 (down from 6160) -Lipase 28 (down from 3653) , Amylase 101 -GI and endocrinology consults with Dr Rizzo and Dr Mora -Repeat Abd/Pelv CT (05/24) as above -Tolerating full diet 2. Hypocalcemia -Symptomatic: numbness/tingling of both hands - resolved -Serum Ca 7.5 -Calcium Gluconate 500 mg BID PO 3. Hypokalemia - K 3.9 today - Replaced - Follow up BMP 4. LLQ Pain -UA WNL -Abd/Pelv CT as above 5. DVT Prophylaxis -SCD -Ambulating <Evelyn Heaton - Last Filed: 05/26/18 17:10> Objective - Vital Signs/Intake and Output Vital Signs (last 24 hours): Temp Pulse Resp BP Pulse Ox 99 F 137 H 20 113/71 99 05/26/18 16:39 05/26/18 16:39 05/26/18 16:39 05/26/18 16:39 05/26/18 16:39 - Medications Medications: Current Medications Acetaminophen (Tylenol 325mg Tab) 650 mg PO Q6 PRN PRN Reason: Fever >100.4 F Last Admin: 05/25/18 08:57 Dose: 650 mg Calcium Carbonate (Oscal) 500 mg PO BID [facility] Last Admin: 05/26/18 16:35 Dose: 500 mg Dextrose (Dextrose 50% Inj) 0 ml IV STAT PRN; Protocol PRN Reason: Hypoglycemia Protocol Dextrose (Glutose 15) 0 gm PO ONCE PRN; Protocol PRN Reason: Hypoglycemia Protocol Enoxaparin Sodium (Lovenox) 40 mg SC DAILY [facility]; Protocol Last Admin: 05/26/18 15:06 Dose: 40 mg Famotidine (Pepcid) 20 mg PO BID [facility] Last Admin: 05/26/18 16:35 Dose: 20 mg Fenofibrate (Tricor) 145 mg PO DAILY [facility] Last Admin: 05/26/18 10:29 Dose: 145 mg Glucagon (Glucagen Diagnostic Kit) 0 mg IM STAT PRN; Protocol PRN Reason: Hypoglycemia Protocol Hydromorphone HCl (Dilaudid) 0.5 mg IVP Q6H PRN PRN Reason: Pain, severe (8-10) Last Admin: 05/26/18 09:52 Dose: 0.5 mg Sodium Chloride (Sodium Chloride 0.9%) 500 mls @ 999 mls/hr IV .Q31M [facility] Last Admin: 05/26/18 09:15 Dose: 999 mls/hr Meropenem 1 gm/ Sodium (Chloride) 100 mls @ 100 mls/hr IVPB Q8 [facility]; Protocol Last Admin: 05/26/18 16:53 Dose: 100 mls/hr Metronidazole (Flagyl 500mg/100ml Ns) 100 mls @ 100 mls/hr IVPB Q8 [facility]; Protocol Last Admin: 05/26/18 16:54 Dose: 100 mls/hr [id number] Ethyl Esters (Lovaza) 2 gm PO BID [facility] Last Admin: 05/26/18 16:34 Dose: 2 gm Ondansetron HCl (Zofran Inj) 4 mg IVP Q4 PRN PRN Reason: Nausea/Vomiting Last Admin: 05/25/18 02:06 Dose: 4 mg Potassium Chloride (K-Dur 20 Meq Er Tab) 20 meq PO BID [facility] Last Admin: 05/26/18 16:34 Dose: 20 meq Simethicone (Mylicon Chew Tab) 80 mg PO Q6 PRN PRN Reason: Flatulence Last Admin: 05/24/18 16:57 Dose: 80 mg Tramadol HCl (Ultram) 100 mg PO Q6 PRN PRN Reason: Pain, moderate (4-7) Tramadol HCl (Ultram) 50 mg PO Q6 PRN PRN Reason: Pain, Mild (1-3) Last Admin: 05/26/18 12:39 Dose: 50 mg - Labs Labs: 05/26/18 06:05 05/26/18 06:05 PT 15.5 Seconds (9.8-13.1) H 05/25/18 09:37 INR 1.4 05/25/18 09:37 Attending/Attestation - Attestation I have personally seen and examined this patient.: Yes I have fully participated in the care of the patient.: Yes I have reviewed all pertinent clinical information, including history, physical exam and plan: Yes Notes (Text): Acute Pancreatitis with Phlemon sec to Severe Hypertriglyceridemia Hypokalemia Hypocalcemia Anemia, acute prob dilutional Fever Sinus Tachycardia ? SIRS due to Pancreatitis, and poss due to pain and fever, need to r/o PE - Pt still has abd pain, start Dilaudid 0.5 mg IV prn for severe pain - rpt CT of the abd :Findings compatible with extensive acute-subacute pancreatitis Interval progressive peripancreatic/mesenteric phlegmon and peritoneal fluid/phlegmon. No pancreatic gross necrosis seen. No phlegmonous gaseous process noted. No enhancing abscess seen. Interval increased anasarca. Interval increased bibasilar pleural effusions with greater left lung base compressive atelectasis. Interval increased phlegmonous in case mint of the right colon loop with interval decreased caliber of this colonic loop. No current bowel obstruction seen. - Discussed with Dr Garcia - change IV Zosyn to Meropenem, add Flagyl -replace electrolytes - Surgery consult - cont Tricor, low fat diet, [place] 3 FA - CTA of Pulm and Doppler US of LE to r/o DVT - DVT proph with Lovenox - TRansfer to Telemetry
--- NOTE | 2018-05-26 11:56 | CP.PCM.PN ---
Subjective - Date & Time of Evaluation Date of Evaluation: 05/26/18 Time of Evaluation: 11:56 - Subjective Subjective: ID note- Patient seen and examined today in ICU. Pt. was transferred to ICU secondary to tachycardia and more abdominal pain . pt. c/o severe pain in her left lower abd extending to left flank region, + nausea, No vomiting, no diarrhea as per repeat CT scan of he abdomen shows expansion of the Phlegmon around the pancreas region as per report. .. Objective - Vital Signs/Intake and Output Vital Signs (last 24 hours): Temp Pulse Resp BP Pulse Ox 97.8 F 106 H 20 121/78 100 05/26/18 08:29 05/25/18 23:36 05/26/18 08:29 05/26/18 08:29 05/26/18 08:29 - Medications Medications: Current Medications Acetaminophen (Tylenol 325mg Tab) 650 mg PO Q6 PRN PRN Reason: Fever >100.4 F Last Admin: 05/25/18 08:57 Dose: 650 mg Calcium Carbonate (Oscal) 500 mg PO BID [facility] Last Admin: 05/26/18 10:28 Dose: 500 mg Dextrose (Dextrose 50% Inj) 0 ml IV STAT PRN; Protocol PRN Reason: Hypoglycemia Protocol Dextrose (Glutose 15) 0 gm PO ONCE PRN; Protocol PRN Reason: Hypoglycemia Protocol Famotidine (Pepcid) 20 mg PO BID [facility] Last Admin: 05/26/18 10:29 Dose: 20 mg Fenofibrate (Tricor) 145 mg PO DAILY [facility] Last Admin: 05/26/18 10:29 Dose: 145 mg Glucagon (Glucagen Diagnostic Kit) 0 mg IM STAT PRN; Protocol PRN Reason: Hypoglycemia Protocol Hydromorphone HCl (Dilaudid) 0.5 mg IVP Q6H PRN PRN Reason: Pain, severe (8-10) Last Admin: 05/26/18 09:52 Dose: 0.5 mg Piperacillin Sod/Tazobactam (Sod 3.375 gm/ Sodium Chloride) 100 mls @ 100 mls/hr IVPB Q6 [facility]; Protocol Last Admin: 05/26/18 10:30 Dose: 100 mls/hr Sodium Chloride (Sodium Chloride 0.9%) 500 mls @ 999 mls/hr IV .Q31M [facility] Last Admin: 05/26/18 09:15 Dose: 999 mls/hr [id number] Ethyl Esters (Lovaza) 2 gm PO BID [facility] Last Admin: 05/26/18 10:28 Dose: 2 gm Ondansetron HCl (Zofran Inj) 4 mg IVP Q4 PRN PRN Reason: Nausea/Vomiting Last Admin: 05/25/18 02:06 Dose: 4 mg Potassium Chloride (K-Dur 20 Meq Er Tab) 20 meq PO BID [facility] Last Admin: 05/26/18 10:28 Dose: 20 meq Simethicone (Mylicon Chew Tab) 80 mg PO Q6 PRN PRN Reason: Flatulence Last Admin: 05/24/18 16:57 Dose: 80 mg Tramadol HCl (Ultram) 100 mg PO Q6 PRN PRN Reason: Pain, moderate (4-7) Tramadol HCl (Ultram) 50 mg PO Q6 PRN PRN Reason: Pain, Mild (1-3) - Labs Labs: - Additional Findings Additional findings: - Constitutional Appears: No Acute Distress - Head Exam Head Exam: ATRAUMATIC - Eye Exam Eye Exam: EOMI, PERRL - ENT Exam ENT Exam: Normal Oropharynx - Neck Exam Neck exam: Positive for: Full Rom - Respiratory Exam Respiratory Exam: Clear to Auscultation Bilateral, NORMAL BREATHING PATTERN - Cardiovascular Exam Cardiovascular Exam: RRR, +S1, +S2 - GI/Abdominal Exam GI & Abdominal Exam: Normal Bowel Sounds, Soft Additional comments: distended + tenderness in left lower quadrant region and left CVA region No guarding, no rebound - Extremities Exam Extremities exam: Positive for: normal inspection - Neurological Exam Neurological exam: Alert, Oriented x 3 Laboratory Results - last 72 hr 05/23/18 05/23/18 05/24/18 15:55 21:39 06:25 WBC 7.4 RBC 3.03 L Hgb 8.5 L Hct 25.1 L MCV 82.9 MCH 28.1 MCHC 33.9 RDW 15.2 H Plt Count 289 PT INR Sodium Potassium Chloride Carbon Dioxide Anion Gap BUN Creatinine Est GFR ( Amer) Est GFR (Non-Af Amer) POC Glucose (mg/dL) 117 H 98 Random Glucose Calcium Total Bilirubin AST ALT Alkaline Phosphatase Total Protein Albumin Globulin Albumin/Globulin Ratio Triglycerides Lipase Urine Color Urine Clarity Urine pH Ur Specific [place] Urine Protein Urine Glucose (UA) Urine Ketones Urine Blood Urine Nitrate Urine Bilirubin Urine Urobilinogen Ur Leukocyte Esterase Urine RBC (Auto) Urine Microscopic WBC Ur Squamous Epith Cells Urine Bacteria 05/24/18 05/24/18 05/24/18 06:25 11:49 22:04 WBC RBC Hgb Hct MCV MCH MCHC RDW Plt Count PT INR Sodium 136 Potassium 3.3 L Chloride 110 H Carbon Dioxide 19 L Anion Gap 10 BUN 3 L Creatinine 0.3 L Est GFR ( Amer) > 60 Est GFR (Non-Af Amer) > 60 POC Glucose (mg/dL) 154 H Random Glucose 136 H Calcium 6.7 L Total Bilirubin 1.0 AST 43 H ALT 48 Alkaline Phosphatase 71 Total Protein 5.7 L Albumin 2.9 L Globulin 2.8 Albumin/Globulin Ratio 1.0 Triglycerides 381 H Lipase Urine Color Yellow Urine Clarity Slighty-cloudy Urine pH 8.0 Ur Specific [place] 1.010 Urine Protein Negative Urine Glucose (UA) Neg Urine Ketones Negative Urine Blood Moderate Urine Nitrate Negative Urine Bilirubin Negative Urine Urobilinogen 0.2-1.0 Ur Leukocyte Esterase Neg Urine RBC (Auto) 11 H Urine Microscopic WBC 3 Ur Squamous Epith Cells 1 Urine Bacteria Rare 05/25/18 05/25/18 05/25/18 05:53 06:20 06:20 WBC 13.1 H D RBC 3.40 L Hgb 9.5 L Hct 28.4 L MCV 83.3 MCH 27.9 MCHC 33.5 RDW 15.3 H Plt Count 339 PT INR Sodium 131 L Potassium 3.9 Chloride 107 Carbon Dioxide 17 L Anion Gap 11 BUN 3 L Creatinine 0.3 L Est GFR ( Amer) > 60 Est GFR (Non-Af Amer) > 60 POC Glucose (mg/dL) 186 H Random Glucose 190 H Calcium 7.5 L Total Bilirubin 1.2 AST 26 ALT 49 Alkaline Phosphatase 78 Total Protein 5.8 L Albumin 2.9 L Globulin 2.9 Albumin/Globulin Ratio 1.0 Triglycerides 301 H D Lipase 82 Urine Color Urine Clarity Urine pH Ur Specific [place] Urine Protein Urine Glucose (UA) Urine Ketones Urine Blood Urine Nitrate Urine Bilirubin Urine Urobilinogen Ur Leukocyte Esterase Urine RBC (Auto) Urine Microscopic WBC Ur Squamous Epith Cells Urine Bacteria 05/25/18 05/25/18 05/25/18 09:37 11:14 15:56 WBC RBC Hgb Hct MCV MCH MCHC RDW Plt Count PT 15.5 H INR 1.4 Sodium Potassium Chloride Carbon Dioxide Anion Gap BUN Creatinine Est GFR ( Amer) Est GFR (Non-Af Amer) POC Glucose (mg/dL) 161 H 164 H Random Glucose Calcium Total Bilirubin AST ALT Alkaline Phosphatase Total Protein Albumin Globulin Albumin/Globulin Ratio Triglycerides Lipase Urine Color Urine Clarity Urine pH Ur Specific [place] Urine Protein Urine Glucose (UA) Urine Ketones Urine Blood Urine Nitrate Urine Bilirubin Urine Urobilinogen Ur Leukocyte Esterase Urine RBC (Auto) Urine Microscopic WBC Ur Squamous Epith Cells Urine Bacteria 05/25/18 05/26/18 05/26/18 21:40 05:10 06:05 WBC 15.0 H RBC 3.33 L Hgb 9.3 L Hct 27.8 L MCV 83.4 MCH 28.0 MCHC 33.5 RDW 15.2 H Plt Count 358 PT INR Sodium Potassium Chloride Carbon Dioxide Anion Gap BUN Creatinine Est GFR ( Amer) Est GFR (Non-Af Amer) POC Glucose (mg/dL) 157 H 179 H Random Glucose Calcium Total Bilirubin AST ALT Alkaline Phosphatase Total Protein Albumin Globulin Albumin/Globulin Ratio Triglycerides Lipase Urine Color Urine Clarity Urine pH Ur Specific [place] Urine Protein Urine Glucose (UA) Urine Ketones Urine Blood Urine Nitrate Urine Bilirubin Urine Urobilinogen Ur Leukocyte Esterase Urine RBC (Auto) Urine Microscopic WBC Ur Squamous Epith Cells Urine Bacteria 05/26/18 05/26/18 06:05 11:21 WBC RBC Hgb Hct MCV MCH MCHC RDW Plt Count PT INR Sodium 131 L Potassium 3.9 Chloride 104 Carbon Dioxide 17 L Anion Gap 14 BUN 3 L Creatinine 0.3 L Est GFR ( Amer) > 60 Est GFR (Non-Af Amer) > 60 POC Glucose (mg/dL) 159 H Random Glucose 181 H Calcium 7.5 L Total Bilirubin 0.9 AST 20 ALT 33 Alkaline Phosphatase 79 Total Protein 5.6 L Albumin 2.9 L Globulin 2.7 Albumin/Globulin Ratio 1.1 Triglycerides 325 H Lipase Urine Color Urine Clarity Urine pH Ur Specific [place] Urine Protein Urine Glucose (UA) Urine Ketones Urine Blood Urine Nitrate Urine Bilirubin Urine Urobilinogen Ur Leukocyte Esterase Urine RBC (Auto) Urine Microscopic WBC Ur Squamous Epith Cells Urine Bacteria Microbiology 05/25/18 13:20 Blood-Venous Blood Culture - Preliminary NO GROWTH AFTER 24 HOURS 05/25/18 13:10 Blood-Venous Blood Culture - Preliminary NO GROWTH AFTER 24 HOURS 05/24/18 11:49 Urine,Clean Catch Urine Culture - Final No Growth (<1,000 CFU/ML) 05/22/18 19:15 Naris MRSA Culture (Admit) - Final MRSA NOT DETECTED 05/21/18 14:45 Naris MRSA Culture (Admit) - Final MRSA NOT DETECTED Accession No. : [id number] Patient Name / ID : [id number] / [id number] Exam Date : 05/24/2018 14:23:10 ( Approved ) Study Comment : Sex / Age : F / 43Y Creator : Bela Vaughan Dictator : Bela Vaughan Director Business Systems : Boiler Out : Bela Vaughan Approver2 : Report Date : 05/24/2018 14:58:54 My Comment : Date of service: 05/24/2018 PROCEDURE: CT Abdomen and Pelvis with contrast HISTORY: f/u acute pancreatitis + new LLQ pain COMPARISON: 05/19/2018 TECHNIQUE: Contrast dose: 100 mL of Omnipaque 300 Radiation dose: Total exam DLP = 603 mGy-cm. This CT exam was performed using one or more of the following dose reduction techniques: Automated exposure control, adjustment of the mA and/or kV according to patient size, and/or use of iterative reconstruction technique. FINDINGS: LOWER THORAX: Interval moderate left pleural effusion. Probable minimal right pleural effusion. Interval subsegmental atelectatic changes at both lung bases left gr eater than right. LIVER: Hepatic steatosis Wisam's lobe. No interval intrahepatic masses. No dilated ducts. GALLBLADDER AND BILE DUCTS: Unremarkable. PANCREAS: Diffuse mild prominence throughout the pancreatic body and tail. No intraparenchymal masses or intraparenchymal abnormal densities. No pancreatic or gross peripancreatic gas seen. No pancreatic dilated ducts seen. Interval marked increased peripancreatic mesenteric and intraperitoneal fluid and phlegmonous process. This process borders the stomach and in case is the right colon loop which is more focally less distended (axial series 2, image 45) this process extends into the left pararenal space and is contiguous with the left psoas margin. And left quadratus lumborum muscle bundles. SPLEEN: Unremarkable. ADRENALS: Unremarkable. No mass. KIDNEYS AND URETERS: Unremarkable. No hydronephrosis. No solid mass. VASCULATURE: Unremarkable. No aortic aneurysm. No aortic atherosclerotic calcification or mural plaque present. BOWEL: As above in the pancreatic section phlegmonous process encircling the right colon loops. No bowel obstruction seen. Caliber of the right colon does show some transition here however. APPENDIX: Normal appendix. PERITONEUM: Sensitive peritoneal fluid as referenced above. No free air seen. LYMPH NODES: Unremarkable. No enlarged lymph nodes. BLADDER: Unremarkable. REPRODUCTIVE: Uterus unremarkable. Unremarkable appearing right adnexa. Reproduced ovarian adnexal probable 3.4 x 4.0 cm ovarian cyst Possible cervicitis or inflammatory changes about a nabothian cyst clinical correlation with patient's phase of menses. BONES: No acute fracture. OTHER FINDINGS: Interval increased subcutaneous anasarca. Non fat containing umbilical hernia-unchanged. IMPRESSION: Findings compatible with extensive acute-subacute pancreatitis Interval progressive peripancreatic/mesenteric phlegmon and peritoneal fluid/phlegmon. No pancreatic gross necrosis seen. No phlegmonous gaseous process noted. No enhancing abscess seen. Interval increased anasarca. Interval increased bibasilar pleural effusions with greater left lung base compressive atelectasis. Interval increased phlegmonous in case mint of the right colon loop with interval decreased caliber of this colonic loop. No current bowel obstruction seen. Close close follow-up is advised. Other findings as above. Comments: Study marked for PA review . Assessment and Plan (1) Pancreatitis Status: Acute (2) Leukocytosis Status: Acute (3) Abdominal pain Status: Acute - Assessment and Plan (Free Text) Assessment: A/P-43 year old female with no PMH admitted with abdominal pian and fever found to have acute pancreatitis. clinically worse transferred to ICU. rise in wbc blood cx- neg x 2 Ua- neg ct scan report- Findings compatible with extensive acute-subacute pancreatitis Interval progressive peripancreatic/mesenteric phlegmon and peritoneal fluid/phlegmon. No pancreatic gross necrosis seen. No phlegmonous gaseous process noted. No enhancing abscess seen. Interval increased anasarca. Interval increased bibasilar pleural effusions with greater left lung base compressive atelectasis. Interval increased phlegmonous in case mint of the right colon loop with interval decreased caliber of this colonic loop. No current bowel obstruction seen. Close close follow-up is advised. plan- d/c zosyn. start Iv meropnem. start IV flagyl. advise surgical evaluation. all labs and imaging reviewed . case d/w at length. Critical care time spent 60 minutes.
--- NOTE | 2018-05-26 13:28 | CARD ---
APPROVED REPORT Date of service: 05/26/2018 EKG Measurement Heart [id number] <Conclusion> Sinus tachycardia Otherwise normal ECG
[2018-05-26] MEDS: Meropenem 1 GM in Sodium Chloride 0.9% 100 ML IVPB SCH ×2 (15:06→16:53)
[2018-05-26] MEDS: Enoxaparin 40 mg Syringe SC SCH (15:06)
[2018-05-26] MEDS: metroNIDAZOLE 500mg/100ml NS 100 ML IVPB SCH (16:54)
[2018-05-26] MEDS ORDERED: Sodium Chloride 0.9% 50 ML IV ONE (17:16)
[2018-05-26] MEDS ORDERED: Iodixanol 320 MG/ML 100 ML BOTTLE IV ONE (17:16)
--- NOTE | 2018-05-26 18:06 | CT ---
Date of service: 05/26/2018 PROCEDURE: CT Chest with contrast (Pulmonary Angiogram) HISTORY: tachy, r/o PE COMPARISON: Not available TECHNIQUE: Axial computed tomography images were obtained of the chest in the pulmonary arterial phase of enhancement. Coronal and sagittal reformatted images were created and reviewed. Intravenous contrast dose: 64.9 mL Visipaque 320 Radiation dose: Total exam DLP = 250.96 mGy-cm. This CT exam was performed using one or more of the following dose reduction techniques: Automated exposure control, adjustment of the mA and/or kV according to patient size, and/or use of iterative reconstruction technique. FINDINGS: PULMONARY ARTERIES: Technically limited evaluation. Unable to evaluate segmental/subsegmental pulmonary artery branches particularly in the left lower lobe due to poor enhancement and respiratory motion artifact. No large central pulmonary arterial embolism identified. AORTA: No acute findings. No thoracic aortic aneurysm. No aortic atherosclerotic calcification or mural plaque present. LUNGS: Extensive left lower lobe segmental/subsegmental atelectasis likely secondary to left pleural effusion. Right lower lobe linear scar/atelectasis. PLEURAL SPACES: Moderate left pleural effusion. Trace right pleural effusion. No pneumothorax. HEART: Unremarkable. No cardiomegaly. No significant pericardial effusion. LYMPH NODES: No lymphadenopathy. BONES, CHEST WALL: Unremarkable. No fracture or destructive lesion OTHER FINDINGS: Images through the upper abdomen demonstrate ascites and retroperitoneal fluid consistent with pancreatitis. IMPRESSION: Technically limited. No large central pulmonary embolism. Moderate left pleural effusion and trace right pleural effusion. Left lower lobe segmental/subsegmental atelectasis. Evidence of pancreatitis.
[2018-05-27] MEDS: HYDROmorphone 0.5 mg/0.5 ml ISec IVP PRN ×5 (01:14→21:44)
[2018-05-27] MEDS: Meropenem 1 GM in Sodium Chloride 0.9% 100 ML IVPB SCH ×3 (01:18→16:52)
[2018-05-27] MEDS: metroNIDAZOLE 500mg/100ml NS 100 ML IVPB SCH ×3 (01:19→16:51)
[2018-05-27 07:35] LABS: BASO % 0.2 % (0.0-2.0); EOS # 0.1 K/uL (0.0-0.7); EOS % 1.1 % (0.0-4.0); HEMOGLOBIN 9.1 g/dL (12.0-16.0); LYMPH # 0.9 K/uL (1.0-4.3); LYMPH % 6.7 % (20.0-40.0); MEAN CELL VOLUME 83.3 fl (81.0-99.0); MEAN CORPUSCULAR HEMOGLOBIN 27.3 pg (27.0-31.0); MEAN CORPUSCULAR HGB CONC 32.8 g/dL (33.0-37.0); MEAN PLATELET VOLUME 7.8 fl (7.2-11.7); MONO # 0.7 K/uL (0.0-0.8); MONO % 5.5 % (0.0-10.0); NEUT # 11.8 K/uL (1.8-7.0); NEUT % 86.5 % (50.0-75.0); PLATELET COUNT 366 K/uL (130-400); RBC 3.34 Mil/uL (3.80-5.20); RED CELL DISTRIBUTION WIDTH 15.3 % (11.5-14.5); WHITE BLOOD COUNT 13.7 K/uL (4.8-10.8)
[2018-05-27 07:50] LABS: ALT/SGPT 33 U/L (9-52); AST/SGOT 26 U/L (14-36); BLOOD UREA NITROGEN 5 mg/dl (7-17); GFR NON-AFRICAN AMERICAN > 60
[2018-05-27] MEDS ORDERED: Gadodiamide 287 MG/ML VIAL (15ML) IV ONE (08:17)
--- NOTE | 2018-05-27 08:51 | CP.PCM.CON ---
History of Present Illness - History of Present Illness History of Present Illness: PMH: anemia Social: denies PSHx: Csxn x3 Allergy: NKDA Review of Systems - Review of Systems All systems: reviewed and no additional remarkable complaints except Review of Systems: sa per HPI Past Patient History - Infectious Disease Hx of Infectious Diseases: None - Past Medical History & Family History Past Medical History?: No - Past Social History Smoking Status: Never Smoked Alcohol: Occasional Drugs: Denies Home Situation {Lives}: With Family - CARDIAC Hx Cardiac Disorders: No - PULMONARY Hx Respiratory Disorders: No - NEUROLOGICAL Hx Neurological Disorder: No - HEENT Hx HEENT Problems: No - RENAL Hx Chronic Kidney Disease: No - ENDOCRINE/METABOLIC Hx Endocrine Disorders: No - HEMATOLOGICAL/ONCOLOGICAL Hx Blood Disorders: No - INTEGUMENTARY Hx Dermatological Problems: No - MUSCULOSKELETAL/RHEUMATOLOGICAL Hx Falls: No - PSYCHIATRIC Hx Substance Use: No - SURGICAL HISTORY Hx Surgeries: Yes Hx Section: Yes - ANESTHESIA Hx Anesthesia: Yes Hx Anesthesia Reactions: No Meds Allergies/Adverse Reactions: Allergies Allergy/AdvReac Type Severity Reaction Status Date / Time No Known Allergies Allergy Verified 04/28/17 11:54 - Medications Medications: Current Medications Acetaminophen (Tylenol 325mg Tab) 650 mg PO Q6 PRN PRN Reason: Fever >100.4 F Last Admin: 05/27/18 05:22 Dose: 650 mg Calcium Carbonate (Oscal) 500 mg PO BID [facility] Last Admin: 05/26/18 16:35 Dose: 500 mg Dextrose (Dextrose 50% Inj) 0 ml IV STAT PRN; Protocol PRN Reason: Hypoglycemia Protocol Dextrose (Glutose 15) 0 gm PO ONCE PRN; Protocol PRN Reason: Hypoglycemia Protocol Enoxaparin Sodium (Lovenox) 40 mg SC DAILY [facility]; Protocol Last Admin: 05/26/18 15:06 Dose: 40 mg Famotidine (Pepcid) 20 mg PO BID [facility] Last Admin: 05/26/18 16:35 Dose: 20 mg Fenofibrate (Tricor) 145 mg PO DAILY [facility] Last Admin: 05/26/18 10:29 Dose: 145 mg Glucagon (Glucagen Diagnostic Kit) 0 mg IM STAT PRN; Protocol PRN Reason: Hypoglycemia Protocol Hydromorphone HCl (Dilaudid) 0.5 mg IVP Q4H PRN PRN Reason: Pain, severe (8-10) Last Admin: 05/27/18 05:19 Dose: 0.5 mg Sodium Chloride (Sodium Chloride 0.9%) 500 mls @ 999 mls/hr IV .Q31M [facility] Last Admin: 05/26/18 09:15 Dose: 999 mls/hr Meropenem 1 gm/ Sodium (Chloride) 100 mls @ 100 mls/hr IVPB Q8 [facility]; Protocol Last Admin: 05/27/18 01:18 Dose: 100 mls/hr Metronidazole (Flagyl 500mg/100ml Ns) 100 mls @ 100 mls/hr IVPB Q8 [facility]; Protocol Last Admin: 05/27/18 01:19 Dose: 100 mls/hr Sodium Chloride (Sodium Chloride 0.9%) 1,000 mls @ 125 mls/hr IV .Q8H [facility] Stop: 05/28/18 07:41 [id number] Ethyl Esters (Lovaza) 2 gm PO BID [facility] Last Admin: 05/26/18 16:34 Dose: 2 gm Ondansetron HCl (Zofran Inj) 4 mg IVP Q4 PRN PRN Reason: Nausea/Vomiting Last Admin: 05/25/18 02:06 Dose: 4 mg Potassium Chloride (K-Dur 20 Meq Er Tab) 20 meq PO BID [facility] Last Admin: 05/26/18 16:34 Dose: 20 meq Simethicone (Mylicon Chew Tab) 80 mg PO Q6 PRN PRN Reason: Flatulence Last Admin: 05/24/18 16:57 Dose: 80 mg Tramadol HCl (Ultram) 100 mg PO Q6 PRN PRN Reason: Pain, moderate (4-7) Last Admin: 05/26/18 17:50 Dose: 100 mg Tramadol HCl (Ultram) 50 mg PO Q6 PRN PRN Reason: Pain, Mild (1-3) Last Admin: 05/26/18 21:17 Dose: 50 mg Physical Exam - Constitutional Appears: Non-toxic - Head Exam Head Exam: NORMOCEPHALIC - Eye Exam Eye Exam: Normal appearance - ENT Exam ENT Exam: Mucous Membranes Moist - Respiratory Exam Respiratory Exam: NORMAL BREATHING PATTERN - Cardiovascular Exam Cardiovascular Exam: Tachycardia, +S1, +S2 Results - Vital Signs Recent Vital Signs: Last Vital Signs Temp 99.1 F 05/27/18 08:17 Pulse 122 H 05/27/18 08:17 Resp 20 05/27/18 08:17 BP 102/70 05/27/18 08:17 Pulse Ox 98 05/27/18 08:17 - Labs Result Diagrams: 05/27/18 05:40 05/27/18 05:40 Labs: Laboratory Results - last 24 hr 05/22/18 05/26/18 05/26/18 05:19 11:21 16:25 WBC RBC Hgb Hct MCV MCH MCHC RDW Plt Count MPV Neut % (Auto) Lymph % (Auto) [place] % (Auto) Eos % (Auto) Baso % (Auto) Neut # (Auto) Lymph # (Auto) [place] # (Auto) Eos # (Auto) Baso # (Auto) Sodium Potassium Chloride Carbon Dioxide Anion Gap BUN Creatinine Est GFR ( Amer) Est GFR (Non-Af Amer) POC Glucose (mg/dL) 159 H 119 H Random Glucose Calcium Total Bilirubin AST ALT Alkaline Phosphatase Total Protein Albumin Globulin Albumin/Globulin Ratio Triglycerides 548 H Cholesterol 266 H LDL Cholesterol Direct 90 VLDL Cholesterol 146 H HDL Cholesterol 30 L 05/27/18 05/27/18 05/27/18 05:40 05:40 08:05 WBC 13.7 H RBC 3.34 L Hgb 9.1 L Hct 27.8 L MCV 83.3 MCH 27.3 MCHC 32.8 L RDW 15.3 H Plt Count 366 MPV 7.8 Neut % (Auto) 86.5 H Lymph % (Auto) 6.7 L [place] % (Auto) 5.5 Eos % (Auto) 1.1 Baso % (Auto) 0.2 Neut # (Auto) 11.8 H Lymph # (Auto) 0.9 L [place] # (Auto) 0.7 Eos # (Auto) 0.1 Baso # (Auto) 0.0 Sodium 129 L Potassium 4.1 Chloride 97 L Carbon Dioxide 23 Anion Gap 13 BUN 5 L Creatinine 0.4 L Est GFR ( Amer) > 60 Est GFR (Non-Af Amer) > 60 POC Glucose (mg/dL) 181 H Random Glucose 132 H Calcium 8.0 L Total Bilirubin 0.7 AST 26 ALT 33 Alkaline Phosphatase 125 Total Protein 6.0 L Albumin 3.0 L Globulin 3.0 Albumin/Globulin Ratio 1.0 Triglycerides 365 H Cholesterol LDL Cholesterol Direct VLDL Cholesterol HDL Cholesterol Assessment & Plan - Assessment and Plan (Free Text) Assessment: 43F with acute-subacute pancreatitis 2/2 hypertriglyceremia with large phlegmonous collection Plan: -No acute surgical intervention at this present time -Recommend IR evaluation for drainage of intra-abdominal phlegmonous collection -endocrinology recs appreciated -Aggressive IVF resuscitation -Maintain UOP > 0.5cc/kg -Analgesic prn -Replete electrolytes prn -Further recs per Dr. Amanuel Ahumada PGY3
[2018-05-27] MEDS: Omega-3-Acid Ethyl Esters 1 GM Cap PO SCH ×2 (09:20→16:52)
[2018-05-27] MEDS: Enoxaparin 40 mg Syringe SC SCH (09:20)
[2018-05-27] MEDS: Potassium Chloride 20 mEq ER Tab PO SCH ×2 (09:21→16:52)
[2018-05-27] MEDS: Sodium Chloride 0.9% 1,000 ML IV SCH ×2 (09:24→16:52)
[2018-05-27] MEDS ORDERED: Sodium Chloride 0.9% 50 ML IV ONE (10:29)
--- NOTE | 2018-05-27 10:44 | CP.PCM.PN ---
Subjective - Date & Time of Evaluation Date of Evaluation: 05/27/18 Time of Evaluation: 10:44 - Subjective Subjective: Pt seen bedside with Dr Moctezuma. She states her pain is much better controlled since yesterday and continues to complain on LLQ and LUQ pain. Pt is tolerating PO without difficulty, admits to loose BM 2 days ago. Denies nausea, vomiting, chest pain and SOB. Plan and assessment discussed with patient who confirmed verbally that she understands. Objective - Vital Signs/Intake and Output Vital Signs (last 24 hours): Temp Pulse Resp BP Pulse Ox 99.1 F 122 H 20 102/70 98 05/27/18 08:17 05/27/18 08:17 05/27/18 08:17 05/27/18 08:17 05/27/18 08:17 - Medications Medications: Current Medications Acetaminophen (Tylenol 325mg Tab) 650 mg PO Q6 PRN PRN Reason: Fever >100.4 F Last Admin: 05/27/18 05:22 Dose: 650 mg Calcium Carbonate (Oscal) 500 mg PO BID [facility] Last Admin: 05/27/18 09:21 Dose: 500 mg Dextrose (Dextrose 50% Inj) 0 ml IV STAT PRN; Protocol PRN Reason: Hypoglycemia Protocol Dextrose (Glutose 15) 0 gm PO ONCE PRN; Protocol PRN Reason: Hypoglycemia Protocol Enoxaparin Sodium (Lovenox) 40 mg SC DAILY [facility]; Protocol Last Admin: 05/27/18 09:20 Dose: 40 mg Famotidine (Pepcid) 20 mg PO BID [facility] Last Admin: 05/27/18 09:31 Dose: 20 mg Fenofibrate (Tricor) 145 mg PO DAILY [facility] Last Admin: 05/27/18 09:23 Dose: 145 mg Glucagon (Glucagen Diagnostic Kit) 0 mg IM STAT PRN; Protocol PRN Reason: Hypoglycemia Protocol Hydromorphone HCl (Dilaudid) 0.5 mg IVP Q4H PRN PRN Reason: Pain, severe (8-10) Last Admin: 05/27/18 09:30 Dose: 0.5 mg Sodium Chloride (Sodium Chloride 0.9%) 500 mls @ 999 mls/hr IV .Q31M [facility] Last Admin: 05/26/18 09:15 Dose: 999 mls/hr Meropenem 1 gm/ Sodium (Chloride) 100 mls @ 100 mls/hr IVPB Q8 [facility]; Protocol Last Admin: 05/27/18 09:21 Dose: 100 mls/hr Metronidazole (Flagyl 500mg/100ml Ns) 100 mls @ 100 mls/hr IVPB Q8 [facility]; Protocol Last Admin: 05/27/18 09:24 Dose: 100 mls/hr Sodium Chloride (Sodium Chloride 0.9%) 1,000 mls @ 125 mls/hr IV .Q8H [facility] Stop: 05/28/18 07:41 Last Admin: 05/27/18 09:24 Dose: 125 mls/hr [id number]-6-[id number] Ethyl Esters (Lovaza) 2 gm PO BID [facility] Last Admin: 05/27/18 09:20 Dose: 2 gm Ondansetron HCl (Zofran Inj) 4 mg IVP Q4 PRN PRN Reason: Nausea/Vomiting Last Admin: 05/25/18 02:06 Dose: 4 mg Potassium Chloride (K-Dur 20 Meq Er Tab) 20 meq PO BID [facility] Last Admin: 05/27/18 09:21 Dose: 20 meq Simethicone (Mylicon Chew Tab) 80 mg PO Q6 PRN PRN Reason: Flatulence Last Admin: 05/24/18 16:57 Dose: 80 mg Tramadol HCl (Ultram) 100 mg PO Q6 PRN PRN Reason: Pain, moderate (4-7) Last Admin: 05/26/18 17:50 Dose: 100 mg Tramadol HCl (Ultram) 50 mg PO Q6 PRN PRN Reason: Pain, Mild (1-3) Last Admin: 05/26/18 21:17 Dose: 50 mg - Labs Labs: 05/27/18 05:40 05/27/18 05:40 PT 15.5 Seconds (9.8-13.1) H 05/25/18 09:37 INR 1.4 05/25/18 09:37 - Constitutional Appears: Non-toxic, No Acute Distress - Eye Exam Eye Exam: Normal appearance - ENT Exam ENT Exam: Mucous Membranes Moist - Respiratory Exam Respiratory Exam: NORMAL BREATHING PATTERN. absent: Respiratory Distress - Cardiovascular Exam Cardiovascular Exam: Tachycardia (120-140's) - GI/Abdominal Exam GI & Abdominal Exam: Distended, Tenderness (mostly LLQ, LUQ) - Neurological Exam Neurological Exam: Alert, Awake, Oriented x3 - Psychiatric Exam Psychiatric exam: Normal Affect, Normal Mood - Skin Skin Exam: Dry, Intact, Normal Color, Warm Assessment and Plan - Assessment and Plan (Free Text) Assessment: 42 yo female with no significant PMH presented to ED with severe epigastric pain admitted for acute pancreatitis. -CT scan of abdomen (05/19): findings consistent with acute pancreatitis (boggy and edematous) with symptomatic hypocalcemia (facial numbness and tingling sensation on both hands) -CT abdomen and pelvis (05/26): Findings compatible with extensive acute- subacute pancreatitis. Interval progressive peripancreatic/mesenteric phlegmon and peritoneal fluid/phlegmon. No pancreatic gross necrosis seen. No phlegmonous gaseous process noted. No enhancing abscess seen. Interval increased anasarca. Interval increased bibasilar pleural effusions with greater left lung base compressive atelectasis. Interval increased phlegmonous in case mint of the right colon loop with interval decreased caliber of this colonic loop. No current bowel obstruction seen. Follow-up MRI and ECHO 05/27 Plan: 1. Acute Pancreatitis with Phlegmonous changes -WBC 13.7 -No drainable abscess as per surgery -ID Consult, input and recommendations appreciated -c/w Meropenem 1gm Q8H and Flagyl 500mg Q8 (day #2) -s/p Zosyn 3.375gm Q6H (3 day total) -Afberile, 99F - Tmax yesterday 101.8F -Tachycardic 120-140's, s/p metoprolol (2 doses yesterday) -IV hydration NS @ 125 mls/hr -Pain control PRN, Dilauded 0.5mg severe, ultram 100mg moderate, Ultram 50mg mild -S/p insulin drip in ICU -serum Triglycerides: 365 (down from 6160) -Lipase 28 (down from 3653) , Amylase 101 -GI and endocrinology consults with Dr Rizzo and Dr Mora -Repeat Abd/Pelv CT (05/24) as above -Tolerating full diet 2. Hypocalcemia -Symptomatic: numbness/tingling of both hands - resolved -Serum Ca 8.0 -Calcium Gluconate 500 mg BID PO 3. Hypokalemia - K 3.9 today - Replaced - Follow up BMP 4. LLQ Pain -UA WNL -Abd/Pelv CT as above -f/u MRI -f/u ID consult 5. DVT Prophylaxis -SCD -Ambulating
[2018-05-27 10:47] LABS: BANDS 9 % (0-2); EOSINOPHIL 1 % (0-7); LYMPHOCYTE 8 % (20-50); METAMYELOCYTE 1 % (0-0); MONOCYTE 10 % (0-10); MYELOCYTE 1 % (0-0); NEUTROPHIL 70 % (42-75); PLATELET ESTIMATE NORMAL (NORMAL); TOTAL CELLS COUNTED 100
[2018-05-27 10:48] LABS: ANISOCYTOSIS SLIGHT; HYPOCHROMIC SLIGHT
--- NOTE | 2018-05-27 11:48 | CP.PCM.PN ---
Subjective - Date & Time of Evaluation Date of Evaluation: 05/27/18 Time of Evaluation: 11:48 - Subjective Subjective: ID Note- pt. seen in tele floor today. continues to have left lower abd pain and left flank pian. continues to spike temp depsite being on abx. Objective - Vital Signs/Intake and Output Vital Signs (last 24 hours): Temp Pulse Resp BP Pulse Ox 99.1 F 122 H 20 102/70 98 05/27/18 08:17 05/27/18 08:17 05/27/18 08:17 05/27/18 08:17 05/27/18 08:17 - Medications Medications: Current Medications Acetaminophen (Tylenol 325mg Tab) 650 mg PO Q6 PRN PRN Reason: Fever >100.4 F Last Admin: 05/27/18 05:22 Dose: 650 mg Calcium Carbonate (Oscal) 500 mg PO BID [facility] Last Admin: 05/27/18 09:21 Dose: 500 mg Dextrose (Dextrose 50% Inj) 0 ml IV STAT PRN; Protocol PRN Reason: Hypoglycemia Protocol Dextrose (Glutose 15) 0 gm PO ONCE PRN; Protocol PRN Reason: Hypoglycemia Protocol Enoxaparin Sodium (Lovenox) 40 mg SC DAILY [facility]; Protocol Last Admin: 05/27/18 09:20 Dose: 40 mg Famotidine (Pepcid) 20 mg PO BID [facility] Last Admin: 05/27/18 09:31 Dose: 20 mg Fenofibrate (Tricor) 145 mg PO DAILY [facility] Last Admin: 05/27/18 09:23 Dose: 145 mg Glucagon (Glucagen Diagnostic Kit) 0 mg IM STAT PRN; Protocol PRN Reason: Hypoglycemia Protocol Hydromorphone HCl (Dilaudid) 0.5 mg IVP Q4H PRN PRN Reason: Pain, severe (8-10) Last Admin: 05/27/18 09:30 Dose: 0.5 mg Sodium Chloride (Sodium Chloride 0.9%) 500 mls @ 999 mls/hr IV .Q31M [facility] Last Admin: 05/26/18 09:15 Dose: 999 mls/hr Meropenem 1 gm/ Sodium (Chloride) 100 mls @ 100 mls/hr IVPB Q8 [facility]; Protocol Last Admin: 05/27/18 09:21 Dose: 100 mls/hr Metronidazole (Flagyl 500mg/100ml Ns) 100 mls @ 100 mls/hr IVPB Q8 [facility]; Protocol Last Admin: 05/27/18 09:24 Dose: 100 mls/hr Sodium Chloride (Sodium Chloride 0.9%) 1,000 mls @ 125 mls/hr IV .Q8H [facility] Stop: 05/28/18 07:41 Last Admin: 05/27/18 09:24 Dose: 125 mls/hr Pmeks-2-Lijl Ethyl Esters (Lovaza) 2 gm PO BID [facility] Last Admin: 05/27/18 09:20 Dose: 2 gm Ondansetron HCl (Zofran Inj) 4 mg IVP Q4 PRN PRN Reason: Nausea/Vomiting Last Admin: 05/25/18 02:06 Dose: 4 mg Potassium Chloride (K-Dur 20 Meq Er Tab) 20 meq PO BID [facility] Last Admin: 05/27/18 09:21 Dose: 20 meq Simethicone (Mylicon Chew Tab) 80 mg PO Q6 PRN PRN Reason: Flatulence Last Admin: 05/24/18 16:57 Dose: 80 mg Tramadol HCl (Ultram) 100 mg PO Q6 PRN PRN Reason: Pain, moderate (4-7) Last Admin: 05/26/18 17:50 Dose: 100 mg Tramadol HCl (Ultram) 50 mg PO Q6 PRN PRN Reason: Pain, Mild (1-3) Last Admin: 05/26/18 21:17 Dose: 50 mg - Labs Labs: - Additional Findings Additional findings: - Constitutional Appears: No Acute Distress - Head Exam Head Exam: ATRAUMATIC - Eye Exam Eye Exam: EOMI, PERRL - ENT Exam ENT Exam: Normal Oropharynx - Neck Exam Neck exam: Positive for: Full Rom - Respiratory Exam Respiratory Exam: Clear to Auscultation Bilateral, NORMAL BREATHING PATTERN - Cardiovascular Exam Cardiovascular Exam: RRR, +S1, +S2 - GI/Abdominal Exam GI & Abdominal Exam: Normal Bowel Sounds, Soft Additional comments: distended + tenderness in left lower quadrant region and left CVA region No guarding, no rebound - Extremities Exam Extremities exam: Positive for: normal inspection - Neurological Exam Neurological exam: Alert, Oriented x 3 Laboratory Results - last 72 hr 05/22/18 05/24/18 05/25/18 05:19 22:04 05:53 WBC RBC Hgb Hct MCV MCH MCHC RDW Plt Count MPV Neut % (Auto) Lymph % (Auto) [place] % (Auto) Eos % (Auto) Baso % (Auto) Neut # (Auto) Lymph # (Auto) [place] # (Auto) Eos # (Auto) Baso # (Auto) Neutrophils % (Manual) Band Neutrophils % Lymphocytes % (Manual) Monocytes % (Manual) Eosinophils % (Manual) Metamyelocytes % Myelocytes % Platelet Estimate Hypochromasia (manual) Anisocytosis (manual) PT INR Sodium Potassium Chloride Carbon Dioxide Anion Gap BUN Creatinine Est GFR ( Amer) Est GFR (Non-Af Amer) POC Glucose (mg/dL) 154 H 186 H Random Glucose Calcium Total Bilirubin AST ALT Alkaline Phosphatase Total Protein Albumin Globulin Albumin/Globulin Ratio Triglycerides 548 H Cholesterol 266 H LDL Cholesterol Direct 90 VLDL Cholesterol 146 H HDL Cholesterol 30 L Lipase 05/25/18 05/25/18 05/25/18 06:20 06:20 09:37 WBC 13.1 H D RBC 3.40 L Hgb 9.5 L Hct 28.4 L MCV 83.3 MCH 27.9 MCHC 33.5 RDW 15.3 H Plt Count 339 MPV Neut % (Auto) Lymph % (Auto) [place] % (Auto) Eos % (Auto) Baso % (Auto) Neut # (Auto) Lymph # (Auto) [place] # (Auto) Eos # (Auto) Baso # (Auto) Neutrophils % (Manual) Band Neutrophils % Lymphocytes % (Manual) Monocytes % (Manual) Eosinophils % (Manual) Metamyelocytes % Myelocytes % Platelet Estimate Hypochromasia (manual) Anisocytosis (manual) PT 15.5 H INR 1.4 Sodium 131 L Potassium 3.9 Chloride 107 Carbon Dioxide 17 L Anion Gap 11 BUN 3 L Creatinine 0.3 L Est GFR ( Amer) > 60 Est GFR (Non-Af Amer) > 60 POC Glucose (mg/dL) Random Glucose 190 H Calcium 7.5 L Total Bilirubin 1.2 AST 26 ALT 49 Alkaline Phosphatase 78 Total Protein 5.8 L Albumin 2.9 L Globulin 2.9 Albumin/Globulin Ratio 1.0 Triglycerides 301 H D Cholesterol LDL Cholesterol Direct VLDL Cholesterol HDL Cholesterol Lipase 82 05/25/18 05/25/18 05/25/18 11:14 15:56 21:40 WBC RBC Hgb Hct MCV MCH MCHC RDW Plt Count MPV Neut % (Auto) Lymph % (Auto) [place] % (Auto) Eos % (Auto) Baso % (Auto) Neut # (Auto) Lymph # (Auto) [place] # (Auto) Eos # (Auto) Baso # (Auto) Neutrophils % (Manual) Band Neutrophils % Lymphocytes % (Manual) Monocytes % (Manual) Eosinophils % (Manual) Metamyelocytes % Myelocytes % Platelet Estimate Hypochromasia (manual) Anisocytosis (manual) PT INR Sodium Potassium Chloride Carbon Dioxide Anion Gap BUN Creatinine Est GFR ( Amer) Est GFR (Non-Af Amer) POC Glucose (mg/dL) 161 H 164 H 157 H Random Glucose Calcium Total Bilirubin AST ALT Alkaline Phosphatase Total Protein Albumin Globulin Albumin/Globulin Ratio Triglycerides Cholesterol LDL Cholesterol Direct VLDL Cholesterol HDL Cholesterol Lipase 05/26/18 05/26/18 05/26/18 05:10 06:05 06:05 WBC 15.0 H RBC 3.33 L Hgb 9.3 L Hct 27.8 L MCV 83.4 MCH 28.0 MCHC 33.5 RDW 15.2 H Plt Count 358 MPV Neut % (Auto) Lymph % (Auto) [place] % (Auto) Eos % (Auto) Baso % (Auto) Neut # (Auto) Lymph # (Auto) [place] # (Auto) Eos # (Auto) Baso # (Auto) Neutrophils % (Manual) Band Neutrophils % Lymphocytes % (Manual) Monocytes % (Manual) Eosinophils % (Manual) Metamyelocytes % Myelocytes % Platelet Estimate Hypochromasia (manual) Anisocytosis (manual) PT INR Sodium 131 L Potassium 3.9 Chloride 104 Carbon Dioxide 17 L Anion Gap 14 BUN 3 L Creatinine 0.3 L Est GFR ( Amer) > 60 Est GFR (Non-Af Amer) > 60 POC Glucose (mg/dL) 179 H Random Glucose 181 H Calcium 7.5 L Total Bilirubin 0.9 AST 20 ALT 33 Alkaline Phosphatase 79 Total Protein 5.6 L Albumin 2.9 L Globulin 2.7 Albumin/Globulin Ratio 1.1 Triglycerides 325 H Cholesterol LDL Cholesterol Direct VLDL Cholesterol HDL Cholesterol Lipase 05/26/18 05/26/18 05/27/18 11:21 16:25 05:40 WBC 13.7 H RBC 3.34 L Hgb 9.1 L Hct 27.8 L MCV 83.3 MCH 27.3 MCHC 32.8 L RDW 15.3 H Plt Count 366 MPV 7.8 Neut % (Auto) 86.5 H Lymph % (Auto) 6.7 L [place] % (Auto) 5.5 Eos % (Auto) 1.1 Baso % (Auto) 0.2 Neut # (Auto) 11.8 H Lymph # (Auto) 0.9 L [place] # (Auto) 0.7 Eos # (Auto) 0.1 Baso # (Auto) 0.0 Neutrophils % (Manual) 70 Band Neutrophils % 9 H Lymphocytes % (Manual) 8 L Monocytes % (Manual) 10 Eosinophils % (Manual) 1 Metamyelocytes % 1 H Myelocytes % 1 H Platelet Estimate Normal Hypochromasia (manual) Slight Anisocytosis (manual) Slight PT INR Sodium Potassium Chloride Carbon Dioxide Anion Gap BUN Creatinine Est GFR ( Amer) Est GFR (Non-Af Amer) POC Glucose (mg/dL) 159 H 119 H Random Glucose Calcium Total Bilirubin AST ALT Alkaline Phosphatase Total Protein Albumin Globulin Albumin/Globulin Ratio Triglycerides Cholesterol LDL Cholesterol Direct VLDL Cholesterol HDL Cholesterol Lipase 05/27/18 05/27/18 05:40 08:05 WBC RBC Hgb Hct MCV MCH MCHC RDW Plt Count MPV Neut % (Auto) Lymph % (Auto) [place] % (Auto) Eos % (Auto) Baso % (Auto) Neut # (Auto) Lymph # (Auto) [place] # (Auto) Eos # (Auto) Baso # (Auto) Neutrophils % (Manual) Band Neutrophils % Lymphocytes % (Manual) Monocytes % (Manual) Eosinophils % (Manual) Metamyelocytes % Myelocytes % Platelet Estimate Hypochromasia (manual) Anisocytosis (manual) PT INR Sodium 129 L Potassium 4.1 Chloride 97 L Carbon Dioxide 23 Anion Gap 13 BUN 5 L Creatinine 0.4 L Est GFR ( Amer) > 60 Est GFR (Non-Af Amer) > 60 POC Glucose (mg/dL) 181 H Random Glucose 132 H Calcium 8.0 L Total Bilirubin 0.7 AST 26 ALT 33 Alkaline Phosphatase 125 Total Protein 6.0 L Albumin 3.0 L Globulin 3.0 Albumin/Globulin Ratio 1.0 Triglycerides 365 H Cholesterol LDL Cholesterol Direct VLDL Cholesterol HDL Cholesterol Lipase Microbiology 05/25/18 13:20 Blood-Venous Blood Culture - Preliminary NO GROWTH AFTER 48 HOURS 05/25/18 13:10 Blood-Venous Blood Culture - Preliminary NO GROWTH AFTER 48 HOURS 05/24/18 11:49 Urine,Clean Catch Urine Culture - Final No Growth (<1,000 CFU/ML) 05/22/18 19:15 Naris MRSA Culture (Admit) - Final MRSA NOT DETECTED 05/21/18 14:45 [facility]aris MRSA Culture (Admit) - Final MRSA NOT DETECTED Accession No. : [id number] Patient Name / ID : DM [id number] / [id number] Exam Date : 05/27/2018 10:33:38 ( Approved ) Study Comment : Sex / Age : F / 43Y Creator : Kieran Taveras MD Dictator : Kieran Taveras MD Materials Planner/Production Planner : Compliance Vice President : Kieran Taveras MD Approver2 : Report Date : 05/27/2018 12:33:39 My Comment : Date of service: 05/27/2018 PROCEDURE: MRI Abdomen with and without contrast HISTORY: Pancreatitis with phlegmon COMPARISON: Correlations made to CT scan of the abdomen pelvis dated 05/24/2018. TECHNIQUE: Multisequence, multiplanar MR images of the abdomen with and without gadolinium contrast enhancement. 15 mL Omniscan was admitted intravenously. FINDINGS: LIVER: Mild hepatic steatosis. GALLBLADDER: Unremarkable. SPLEEN: Unremarkable. PANCREAS: Pancreatic edema with extensive peripancreatic fluid,. Fluid seen tracking anteriorly inferior to the gastric antrum with mild peripheral enhancement. Large amount of fluid is also seen layering along the anterior renal fascia extending into the left pericolic gutter and does not appear to be loculated/walled-off. No hemorrhage or necrosis identified. ADRENALS: Unremarkable. KIDNEYS: Unremarkable. AORTA: No aneurysm. ASCITES: None. PERITONEUM: Unremarkable. LYMPH NODES: Unremarkable. OTHER FINDINGS: Small to moderate left pleural effusion with subjacent left lower lobe atelectasis/consolidation trace right pleural effusion with subjacent atelectasis. Reactive thickening of the splenic flexure/ descending colon. IMPRESSION: Acute pancreatitis without hemorrhage or necrosis. Large fluid collection inferior to the gastric antrum with mild peripheral enhancement. Additional extensive amount of free fluid layering along the anterior left renal fascia and extending to the left pericolic gutter/left jonathan abdomen. Reactive thickening of the adjacent splenic flexure/proximal descending colon. Small to moderate left pleural effusion with subjacent left lower lobe atelectasis/consolidation. Assessment and Plan (1) Pancreatitis Status: Acute (2) Leukocytosis Status: Acute (3) Abdominal pain Status: Acute - Assessment and Plan (Free Text) Assessment: A/P-43 year old female with no PMH admitted with abdominal pian and fever found to have acute pancreatitis. clinically same continues to have fevers leukocytosis slightly less than yesterday blood cx- neg x 2 Ua- neg plan- continue with Iv meropnem.day #2 continue IV flagyl day #2 advise surgical evaluation, may need drainage of the fluid seen on MRI report. all labs and imaging reviewed .
--- NOTE | 2018-05-27 12:39 | MRI ---
Date of service: 05/27/2018 PROCEDURE: MRI Abdomen with and without contrast HISTORY: Pancreatitis with phlegmon COMPARISON: Correlations made to CT scan of the abdomen pelvis dated 05/24/2018. TECHNIQUE: Multisequence, multiplanar MR images of the abdomen with and without gadolinium contrast enhancement. 15 mL Omniscan was admitted intravenously. FINDINGS: LIVER: Mild hepatic steatosis. GALLBLADDER: Unremarkable. SPLEEN: Unremarkable. PANCREAS: Pancreatic edema with extensive peripancreatic fluid,. Fluid seen tracking anteriorly inferior to the gastric antrum with mild peripheral enhancement. Large amount of fluid is also seen layering along the anterior renal fascia extending into the left pericolic gutter and does not appear to be loculated/walled-off. No hemorrhage or necrosis identified. ADRENALS: Unremarkable. KIDNEYS: Unremarkable. AORTA: No aneurysm. ASCITES: None. PERITONEUM: Unremarkable. LYMPH NODES: Unremarkable. OTHER FINDINGS: Small to moderate left pleural effusion with subjacent left lower lobe atelectasis/consolidation trace right pleural effusion with subjacent atelectasis. Reactive thickening of the splenic flexure/ descending colon. IMPRESSION: Acute pancreatitis without hemorrhage or necrosis. Large fluid collection inferior to the gastric antrum with mild peripheral enhancement. Additional extensive amount of free fluid layering along the anterior left renal fascia and extending to the left pericolic gutter/left jonathan abdomen. Reactive thickening of the adjacent splenic flexure/proximal descending colon. Small to moderate left pleural effusion with subjacent left lower lobe atelectasis/consolidation.
--- NOTE | 2018-05-27 20:48 | CARD ---
APPROVED REPORT Date of service: 05/27/2018 EXAM: Two-dimensional and M-mode echocardiogram with Doppler and color Doppler. Other Information Quality : FairRhythm : Tachycardia Technically limited study due to Poor Echo Windows INDICATION Abnormal EKG/Arrhythmia 2D DIMENSIONS IVSd0.83 (0.7-1.1cm)LVDd4.67 (3.9-5.9cm) LVOT Diameter1.98 (1.8-2.4cm)PWd1.06 (0.7-1.1cm) IVSs1.00 (0.8-1.2cm)LVDs3.30 (2.5-4.0cm) FS (%) 29.3 %PWs1.07 (0.8-1.2cm) Mitral Valve E/A ratio0.0 TDI E/Lateral E'0.0E/Medial E'0.0 LEFT VENTRICLE The left ventricle is normal size. There is normal left ventricular wall thickness. The left ventricular systolic function is normal. The estimated ejection fraction is 55-60% No regional wall motion abnormalities noted.. Transmitral Doppler flow pattern is Grade I-abnormal relaxation pattern. No left ventricle thrombus noted on this study. There is no ventricular septal defect visualized. There is no left ventricular aneurysm. There is no mass noted in the left ventricle. RIGHT VENTRICLE The right ventricle is normal size. There is normal right ventricular wall thickness. The right ventricular systolic function is normal. ATRIA The left atrium size is normal. The right atrium size is normal. The interatrial septum is intact with no evidence for an atrial septal defect. AORTIC VALVE The aortic valve is normal in structure. No aortic regurgitation is present. There is no aortic valvular stenosis. There is no aortic valvular vegetation. MITRAL VALVE The mitral valve is normal in structure. There is no evidence of mitral valve prolapse. There is no mitral valve stenosis. There is no mitral valve regurgitation noted. TRICUSPID VALVE The tricuspid valve is normal in structure. There is no tricuspid valve regurgitation noted. There is no tricuspid valve prolapse or vegetation. There is no tricuspid valve stenosis. PULMONIC VALVE The pulmonary valve is normal in structure. There is no pulmonic valvular regurgitation. There is no pulmonic valvular stenosis. GREAT VESSELS The aortic root is normal in size. The ascending aorta is normal in size. The pulmonary artery is normal. The IVC is normal in size and collapses >50% with inspiration. PERICARDIAL EFFUSION There is no pericardial effusion. There is no pleural effusion. <Conclusion> Technically difficult study due to poor echo windows and tachycardia. The estimated ejection fraction is 55-60% Transmitral Doppler flow pattern is Grade I-abnormal relaxation pattern. The left atrium size is normal. There is no tricuspid valve regurgitation noted.
[2018-05-28] MEDS: Meropenem 1 GM in Sodium Chloride 0.9% 100 ML IVPB SCH ×3 (00:08→17:07)
[2018-05-28] MEDS: metroNIDAZOLE 500mg/100ml NS 100 ML IVPB SCH ×3 (00:09→17:06)
[2018-05-28] MEDS: Sodium Chloride 0.9% 1,000 ML IV SCH ×3 (00:09→17:10)
[2018-05-28 06:52] LABS: BASO % 0.1 % (0.0-2.0); EOS # 0.1 K/uL (0.0-0.7); HEMOGLOBIN 8.6 g/dL (12.0-16.0); LYMPH # 0.7 K/uL (1.0-4.3); MEAN CELL VOLUME 82.8 fl (81.0-99.0); MEAN CORPUSCULAR HEMOGLOBIN 27.3 pg (27.0-31.0); MONO # 0.6 K/uL (0.0-0.8); MONO % 5.4 % (0.0-10.0); NEUT # 9.1 K/uL (1.8-7.0); NEUT % 86.5 % (50.0-75.0); RBC 3.14 Mil/uL (3.80-5.20); RED CELL DISTRIBUTION WIDTH 15.1 % (11.5-14.5); WHITE BLOOD COUNT 10.5 K/uL (4.8-10.8)
[2018-05-28 07:20] LABS: ALBUMIN 2.9 g/dL (3.5-5.0); ALT/SGPT 25 U/L (9-52); AST/SGOT 34 U/L (14-36); BLOOD UREA NITROGEN 5 mg/dl (7-17); CALCIUM 7.8 mg/dL (8.4-10.2); GFR NON-AFRICAN AMERICAN > 60
[2018-05-28] MEDS ORDERED: Sodium Chloride 0.9% 1,000 ML IV SCH (08:00)
--- NOTE | 2018-05-28 08:17 | CP.PCM.PN ---
Subjective - Date & Time of Evaluation Date of Evaluation: 05/28/18 Time of Evaluation: 08:05 - Subjective Subjective: Patient was seen and examined in telemetry unit this morning. Patient still febrile and tachycardic. Still complaining of left sided abdominal pain radiating to her back , however well controlled with pain medications. Denies urinary symptoms. Last BM was yesterday and normal. Has been NPO after midnight for possible IR this morning ( drainage of abdominal fluid collection). Lovenox on hold this morning due to possible IR procedure. Objective - Vital Signs/Intake and Output Vital Signs (last 24 hours): Temp Pulse Resp BP Pulse Ox 99.6 F 112 H 20 104/71 97 05/28/18 08:13 05/28/18 08:13 05/28/18 08:13 05/28/18 08:13 05/28/18 08:13 - Medications Medications: Current Medications Acetaminophen (Tylenol 325mg Tab) 650 mg PO Q6 PRN PRN Reason: Fever >100.4 F Last Admin: 05/28/18 06:22 Dose: 650 mg Calcium Carbonate (Oscal) 500 mg PO BID [facility] Last Admin: 05/27/18 16:53 Dose: 500 mg Dextrose (Dextrose 50% Inj) 0 ml IV STAT PRN; Protocol PRN Reason: Hypoglycemia Protocol Dextrose (Glutose 15) 0 gm PO ONCE PRN; Protocol PRN Reason: Hypoglycemia Protocol Enoxaparin Sodium (Lovenox) 40 mg SC DAILY [facility]; Protocol Last Admin: 05/27/18 09:20 Dose: 40 mg Famotidine (Pepcid) 20 mg PO BID [facility] Last Admin: 05/27/18 16:57 Dose: 20 mg Fenofibrate (Tricor) 145 mg PO DAILY [facility] Last Admin: 05/27/18 09:23 Dose: 145 mg Glucagon (Glucagen Diagnostic Kit) 0 mg IM STAT PRN; Protocol PRN Reason: Hypoglycemia Protocol Hydromorphone HCl (Dilaudid) 0.5 mg IVP Q4H PRN PRN Reason: Pain, severe (8-10) Last Admin: 05/27/18 21:44 Dose: 0.5 mg Meropenem 1 gm/ Sodium (Chloride) 100 mls @ 100 mls/hr IVPB Q8 [facility]; Protocol Last Admin: 05/28/18 00:08 Dose: 100 mls/hr Metronidazole (Flagyl 500mg/100ml Ns) 100 mls @ 100 mls/hr IVPB Q8 [facility]; Protocol Last Admin: 05/28/18 00:09 Dose: 100 mls/hr Sodium Chloride (Sodium Chloride 0.9%) 1,000 mls @ 125 mls/hr IV .Q8H [facility] Stop: 05/29/18 07:47 [id number]-[id number] Ethyl Esters (Lovaza) 2 gm PO BID [facility] Last Admin: 05/27/18 16:52 Dose: 2 gm Ondansetron HCl (Zofran Inj) 4 mg IVP Q4 PRN PRN Reason: Nausea/Vomiting Last Admin: 05/25/18 02:06 Dose: 4 mg Potassium Chloride (K-Dur 20 Meq Er Tab) 20 meq PO BID [facility] Last Admin: 05/27/18 16:52 Dose: 20 meq Simethicone (Mylicon Chew Tab) 80 mg PO Q6 PRN PRN Reason: Flatulence Last Admin: 05/24/18 16:57 Dose: 80 mg Tramadol HCl (Ultram) 100 mg PO Q6 PRN PRN Reason: Pain, moderate (4-7) Last Admin: 05/28/18 04:53 Dose: 100 mg Tramadol HCl (Ultram) 50 mg PO Q6 PRN PRN Reason: Pain, Mild (1-3) Last Admin: 05/26/18 21:17 Dose: 50 mg - Labs Labs: 05/28/18 05:37 05/28/18 05:37 PT 15.5 Seconds (9.8-13.1) H 05/25/18 09:37 INR 1.4 05/25/18 09:37 - Skin Additional comments: Constitutional Appears: Non-toxic, No Acute Distress - Eye Exam Eye Exam: Normal appearance - ENT Exam ENT Exam: Mucous Membranes Moist - Respiratory Exam Respiratory Exam: NORMAL BREATHING PATTERN. absent: Respiratory Distress - Cardiovascular Exam Cardiovascular Exam: Tachycardia (120-140's) - GI/Abdominal Exam GI & Abdominal Exam: Distended, Tenderness (mostly LLQ, LUQ) - Neurological Exam Neurological Exam: Alert, Awake, Oriented x3 - Psychiatric Exam Psychiatric exam: Normal Affect, Normal Mood - Skin Skin Exam: Dry, Intact, Normal Color, Warm Assessment and Plan - Assessment and Plan (Free Text) Assessment: 42 yo female with no significant PMH presented to ED with severe epigastric pain admitted for acute pancreatitis. -CT scan of abdomen (05/19): findings consistent with acute pancreatitis (boggy and edematous) with symptomatic hypocalcemia (facial numbness and tingling sensation on both hands) -CT abdomen and pelvis (05/26): Findings compatible with extensive acute- subacute pancreatitis. Interval progressive peripancreatic/mesenteric phlegmon and peritoneal fluid/phlegmon. No pancreatic gross necrosis seen. No phlegmonous gaseous process noted. No enhancing abscess seen. Interval increa sed anasarca. Interval increased bibasilar pleural effusions with greater left lung base compressive atelectasis. Interval increased phlegmonous in case mint of the right colon loop with interval decreased caliber of this colonic loop. No current bowel obstruction seen. -MRI: Acute pancreatitis without hemorrhage or necrosis.Large fluid collection inferior to the gastric antrum with mild peripheral enhancement. Additional extensive amount of free fluid layering along the anterior left renal fascia and extending to the left pericolic gutter/left jonathan abdomen.Reactive thickening of the adjacent splenic flexure/proximal descending colon. Small to moderate left pleural effusion with subjacent left lower lobe atelectasis/consolidation. Plan: 1. Acute Pancreatitis with Phlegmonous changes -still Febrile and tachycardic -WBC improved from 13 to 10.5 this morning /WNL -ID Consult, input and recommendations appreciated -c/w Meropenem 1gm Q8H and Flagyl 500mg Q8 (day #3) -s/p Zosyn 3.375gm Q6H (3 day total) -c/w IV hydration NS @ 125 mls/hr -Pain control PRN, Dilauded 0.5mg severe, ultram 100mg moderate, Ultram 50mg mild -As per surgery no acute surgical intervention at this time, recommended IR evaluation for drainage of intra-abdominal phlegmonous collection -IR consult for drainage of intra-abdominal fluid collection. Spoke with IR nurse this morning for stat procedure because patient is still tachy and febrile on day #3 of Meropenem and flagyl, awaiting for IR specialist ribbon cutter, Dr. Fu would like to review the case. IR dpt aware of the patient current clinical status. -NPO after midnight for possible IR this morning -On hold lovenox this AM for possible IR procedure -for Abd US this AM, f/u results -S/p insulin drip in ICU -serum Triglycerides: 268 today (down from 6160) -Lipase 28 (down from 3653) , Amylase 101 -GI and endocrinology consults with Dr Rizzo and Dr Mora -Repeat Abd/Pelv CT (05/24) as above -Tolerating full diet 2. Hypocalcemia -Symptomatic: numbness/tingling of both hands - resolved -Serum Ca 7.8 -Calcium Gluconate 500 mg BID PO 3. LLQ Pain -UA WNL -Abd/Pelv CT as above -f/u MRI -f/u ID consult 4. DVT Prophylaxis -SCD -on lovenox 40 mg SC, on hold this morning for poss IR procedure
[2018-05-28] MEDS: Enoxaparin 40 mg Syringe SC SCH ×2 (09:15→17:10)
--- NOTE | 2018-05-28 09:53 | US ---
Date of service: 05/28/2018 HISTORY: r/o gallstones COMPARISON: MRI abdomen dated 05/27/2018. TECHNIQUE: Sonographic evaluation of the abdomen. FINDINGS: LIVER: Measures 20.1 cm. Increased echogenicity of the liver parenchyma. No mass. No intrahepatic bile duct dilatation. Main portal vein demonstrates normal directional flow. GALLBLADDER: Gallbladder sludge without wall thickening or pericholecystic fluid. Sonographic Pierce's sign was not elicited. COMMON BILE DUCT: Measures 9 mm. No stones. PANCREAS: Diffusely hypoechoic/edematous compatible with known pancreatitis. RIGHT KIDNEY: Measures 13.1 x 6.8 x 5.2cm. Normal echogenicity. No calculus, mass, or hydronephrosis. LEFT KIDNEY: Measures 12.1 x 6.4 x 5.7cm. Normal echogenicity. No calculus, mass, or hydronephrosis. SPLEEN: Normal in size and contour. No mass. AORTA: No aneurysmal dilatation. IVC: Unremarkable. OTHER FINDINGS: Partially imaged left pleural effusion. IMPRESSION: Hepatomegaly with steatosis. Gallbladder sludge without evidence of cholelithiasis. Pancreatitis. Partially imaged left pleural effusion.
[2018-05-28] MEDS: Potassium Chloride 20 mEq ER Tab PO SCH ×2 (10:03→17:07)
[2018-05-28] MEDS: Omega-3-Acid Ethyl Esters 1 GM Cap PO SCH ×2 (10:04→17:07)
--- NOTE | 2018-05-28 10:17 | CP.PCM.PN ---
Subjective - Date & Time of Evaluation Date of Evaluation: 05/28/18 Time of Evaluation: 08:45 - Subjective Subjective: General Surgery: Vital Patient seen and examined this am at bedside. patient admits to passing gas and having BM. endorses abdominal pain, able to ambulate to urinate. endorses n/v. Objective - Vital Signs/Intake and Output Vital Signs (last 24 hours): Temp Pulse Resp BP Pulse Ox 99.6 F 112 H 20 104/71 97 05/28/18 08:13 05/28/18 08:13 05/28/18 08:13 05/28/18 08:13 05/28/18 08:13 - Medications Medications: Current Medications Acetaminophen (Tylenol 325mg Tab) 650 mg PO Q6 PRN PRN Reason: Fever >100.4 F Last Admin: 05/28/18 06:22 Dose: 650 mg Calcium Carbonate (Oscal) 500 mg PO BID [facility] Last Admin: 05/28/18 10:05 Dose: 500 mg Dextrose (Dextrose 50% Inj) 0 ml IV STAT PRN; Protocol PRN Reason: Hypoglycemia Protocol Dextrose (Glutose 15) 0 gm PO ONCE PRN; Protocol PRN Reason: Hypoglycemia Protocol Enoxaparin Sodium (Lovenox) 40 mg SC DAILY [facility]; Protocol Last Admin: 05/28/18 09:15 Dose: Not Given Famotidine (Pepcid) 20 mg PO BID [facility] Last Admin: 05/28/18 10:05 Dose: 20 mg Fenofibrate (Tricor) 145 mg PO DAILY [facility] Last Admin: 05/28/18 10:06 Dose: 145 mg Glucagon (Glucagen Diagnostic Kit) 0 mg IM STAT PRN; Protocol PRN Reason: Hypoglycemia Protocol Hydromorphone HCl (Dilaudid) 0.5 mg IVP Q4H PRN PRN Reason: Pain, severe (8-10) Last Admin: 05/27/18 21:44 Dose: 0.5 mg Meropenem 1 gm/ Sodium (Chloride) 100 mls @ 100 mls/hr IVPB Q8 [facility]; Protocol Last Admin: 05/28/18 10:04 Dose: 100 mls/hr Metronidazole (Flagyl 500mg/100ml Ns) 100 mls @ 100 mls/hr IVPB Q8 [facility]; Protocol Last Admin: 05/28/18 10:03 Dose: 100 mls/hr Sodium Chloride (Sodium Chloride 0.9%) 1,000 mls @ 125 mls/hr IV .Q8H [facility] Stop: 05/29/18 07:47 Last Admin: 05/28/18 10:06 Dose: 125 mls/hr [id number] Ethyl Esters (Lovaza) 2 gm PO BID [facility] Last Admin: 05/28/18 10:04 Dose: 2 gm Ondansetron HCl (Zofran Inj) 4 mg IVP Q4 PRN PRN Reason: Nausea/Vomiting Last Admin: 05/25/18 02:06 Dose: 4 mg Potassium Chloride (K-Dur 20 Meq Er Tab) 20 meq PO BID [facility] Last Admin: 05/28/18 10:03 Dose: 20 meq Simethicone (Mylicon Chew Tab) 80 mg PO Q6 PRN PRN Reason: Flatulence Last Admin: 05/24/18 16:57 Dose: 80 mg Tramadol HCl (Ultram) 100 mg PO Q6 PRN PRN Reason: Pain, moderate (4-7) Last Admin: 05/28/18 04:53 Dose: 100 mg Tramadol HCl (Ultram) 50 mg PO Q6 PRN PRN Reason: Pain, Mild (1-3) Last Admin: 05/26/18 21:17 Dose: 50 mg - Labs Labs: 05/28/18 05:37 05/28/18 05:37 PT 15.5 Seconds (9.8-13.1) H 05/25/18 09:37 INR 1.4 05/25/18 09:37 - Constitutional Appears: Well, Non-toxic, No Acute Distress - Head Exam Head Exam: ATRAUMATIC, NORMOCEPHALIC - Eye Exam Eye Exam: EOMI - ENT Exam ENT Exam: Mucous Membranes Moist - Respiratory Exam Respiratory Exam: NORMAL BREATHING PATTERN - Cardiovascular Exam Cardiovascular Exam: REGULAR RHYTHM - GI/Abdominal Exam GI & Abdominal Exam: Guarding, Soft, Tenderness (diffuse). absent: Rebound - Neurological Exam Neurological Exam: Alert, Awake, Oriented x3 - Psychiatric Exam Psychiatric exam: Normal Affect, Normal Mood - Skin Skin Exam: Dry, Intact, Normal Color, Warm Assessment and Plan - Assessment and Plan (Free Text) Assessment: 43 yr old female with acute pancreatitis 2/2 hypertrigylceridemia Plan: -No acute surgical intervention at this present time -Recommend IR evaluation for drainage of intra-abdominal phlegmonous collection -endocrinology recs appreciated -Aggressive IVF resuscitation -Maintain UOP > 0.5cc/kg -Analgesic prn -Replete electrolytes prn - f/u abdominal US -Further recs per Dr. Vital
[2018-05-28] MEDS: HYDROmorphone 0.5 mg/0.5 ml ISec IVP PRN ×3 (12:37→21:27)
[2018-05-29] MEDS: Meropenem 1 GM in Sodium Chloride 0.9% 100 ML IVPB SCH ×3 (01:03→16:07)
[2018-05-29] MEDS: HYDROmorphone 0.5 mg/0.5 ml ISec IVP PRN ×4 (01:41→19:21)
[2018-05-29] MEDS: metroNIDAZOLE 500mg/100ml NS 100 ML IVPB SCH ×3 (01:42→16:07)
[2018-05-29] MEDS: Sodium Chloride 0.9% 1,000 ML IV SCH (05:15)
[2018-05-29 05:51] LABS: BASO % 0.4 % (0.0-2.0); EOS # 0.1 K/uL (0.0-0.7); EOS % 0.6 % (0.0-4.0); HEMOGLOBIN 9.3 g/dL (12.0-16.0); LYMPH # 0.9 K/uL (1.0-4.3); LYMPH % 9.9 % (20.0-40.0); MEAN CELL VOLUME 83.4 fl (81.0-99.0); MEAN CORPUSCULAR HEMOGLOBIN 27.4 pg (27.0-31.0); MEAN CORPUSCULAR HGB CONC 32.8 g/dL (33.0-37.0); MEAN PLATELET VOLUME 7.8 fl (7.2-11.7); MONO # 0.4 K/uL (0.0-0.8); MONO % 4.8 % (0.0-10.0); NEUT # 7.8 K/uL (1.8-7.0); NEUT % 84.3 % (50.0-75.0); RBC 3.39 Mil/uL (3.80-5.20); WHITE BLOOD COUNT 9.2 K/uL (4.8-10.8)
[2018-05-29 06:11] LABS: ALBUMIN 3.2 g/dL (3.5-5.0); ALT/SGPT 24 U/L (9-52); AST/SGOT 27 U/L (14-36); BLOOD UREA NITROGEN 5 mg/dl (7-17); CALCIUM 8.1 mg/dL (8.4-10.2); GFR NON-AFRICAN AMERICAN > 60
--- NOTE | 2018-05-29 08:14 | CP.PCM.PN ---
Subjective - Date & Time of Evaluation Date of Evaluation: 05/29/18 Time of Evaluation: 07:10 - Subjective Subjective: General Surgery: Vital Patient seen and examined this am. States abdominal pain is improving, decreased N/V. Tolerating diet well. Objective - Vital Signs/Intake and Output Vital Signs (last 24 hours): Temp Pulse Resp BP Pulse Ox 99.9 F H 130 H 20 107/71 95 05/29/18 01:00 05/29/18 01:00 05/29/18 01:00 05/29/18 01:00 05/29/18 01:00 - Medications Medications: Current Medications Acetaminophen (Tylenol 325mg Tab) 650 mg PO Q6 PRN PRN Reason: Fever >100.4 F Last Admin: 05/28/18 06:22 Dose: 650 mg Calcium Carbonate (Oscal) 500 mg PO BID [facility] Last Admin: 05/28/18 17:08 Dose: 500 mg Dextrose (Dextrose 50% Inj) 0 ml IV STAT PRN; Protocol PRN Reason: Hypoglycemia Protocol Dextrose (Glutose 15) 0 gm PO ONCE PRN; Protocol PRN Reason: Hypoglycemia Protocol Enoxaparin Sodium (Lovenox) 40 mg SC DAILY [facility]; Protocol Last Admin: 05/28/18 17:10 Dose: 40 mg Famotidine (Pepcid) 20 mg PO BID [facility] Last Admin: 05/28/18 17:09 Dose: 20 mg Fenofibrate (Tricor) 145 mg PO DAILY [facility] Last Admin: 05/28/18 10:06 Dose: 145 mg Glucagon (Glucagen Diagnostic Kit) 0 mg IM STAT PRN; Protocol PRN Reason: Hypoglycemia Protocol Hydromorphone HCl (Dilaudid) 0.5 mg IVP Q4H PRN PRN Reason: Pain, severe (8-10) Last Admin: 05/29/18 07:30 Dose: 0.5 mg Meropenem 1 gm/ Sodium (Chloride) 100 mls @ 100 mls/hr IVPB Q8 [facility]; Protocol Last Admin: 05/29/18 01:03 Dose: 100 mls/hr Metronidazole (Flagyl 500mg/100ml Ns) 100 mls @ 100 mls/hr IVPB Q8 [facility]; Protocol Last Admin: 05/29/18 01:42 Dose: 100 mls/hr [id number]-[id number] Ethyl Esters (Lovaza) 2 gm PO BID [facility] Last Admin: 05/28/18 17:07 Dose: 2 gm Ondansetron HCl (Zofran Inj) 4 mg IVP Q4 PRN PRN Reason: Nausea/Vomiting Last Admin: 05/25/18 02:06 Dose: 4 mg Potassium Chloride (K-Dur 20 Meq Er Tab) 20 meq PO BID [facility] Last Admin: 05/28/18 17:07 Dose: 20 meq Simethicone (Mylicon Chew Tab) 80 mg PO Q6 PRN PRN Reason: Flatulence Last Admin: 05/24/18 16:57 Dose: 80 mg Tramadol HCl (Ultram) 100 mg PO Q6 PRN PRN Reason: Pain, moderate (4-7) Last Admin: 05/28/18 04:53 Dose: 100 mg Tramadol HCl (Ultram) 50 mg PO Q6 PRN PRN Reason: Pain, Mild (1-3) Last Admin: 05/26/18 21:17 Dose: 50 mg - Labs Labs: 05/29/18 05:15 05/29/18 05:15 PT 15.5 Seconds (9.8-13.1) H 05/25/18 09:37 INR 1.4 05/25/18 09:37 - Constitutional Appears: Well, Non-toxic, No Acute Distress - Head Exam Head Exam: ATRAUMATIC, NORMOCEPHALIC - Eye Exam Eye Exam: EOMI - ENT Exam ENT Exam: Mucous Membranes Moist - Respiratory Exam Respiratory Exam: NORMAL BREATHING PATTERN - Cardiovascular Exam Cardiovascular Exam: REGULAR RHYTHM - GI/Abdominal Exam GI & Abdominal Exam: Guarding (epigastric), Soft, Tenderness (epigastric). absent: Rebound - Neurological Exam Neurological Exam: Alert, Awake, Oriented x3 - Psychiatric Exam Psychiatric exam: Normal Affect, Normal Mood - Skin Skin Exam: Dry, Intact, Normal Color, Warm Assessment and Plan - Assessment and Plan (Free Text) Assessment: 43 yr old female with acute pancreatitis likely 2/2 hypertriglyceridemia Plan: -No acute surgical intervention at this time, no stones seen on US, unlikely gallstone pancreatitis -Recommend IR evaluation for drainage of intra-abdominal phlegmonous collection -endocrinology recs appreciated -Aggressive IVF resuscitation -Maintain UOP > 0.5cc/kg -Analgesic prn -Replete electrolytes prn -Further recs per Dr. Vital
--- NOTE | 2018-05-29 09:08 | PCM.IRP ---
History of Present Illness - History of Present Illness History of Present Illness: IR requested to drain abdominal fluid collections. Pt with acute pancreatitis. CT from 05/24/2018 and MR 05/27/2018 reviewed. Pt has inflammatory changes/phlegmatous changes surrounding the pancreas. There is no organized fluid collection that is amenable to percutaneous drainage. Recommend repeating CT later this week. Once collections becomes more organized, they will be amenable to percutaneous drainage. Objective - Vital Signs/Intake and Output Vital Signs (last 24 hours): Vital Signs - 24 hr 05/28/18 05/28/18 05/28/18 11:51 16:25 19:40 Temperature 98.3 F 98.7 F 98.6 F Pulse Rate 106 H 132 H 131 H Respiratory 20 18 18 Rate Blood Pressure 106/70 109/72 112/75 O2 Sat by Pulse 97 97 98 Oximetry 05/28/18 05/29/18 05/29/18 21:00 01:00 08:59 Temperature 99.9 F H 98.4 F Pulse Rate 133 H 130 H 118 H Respiratory 20 20 Rate Blood Pressure 107/71 113/72 O2 Sat by Pulse 95 96 Oximetry - Medications Medications: Current Medications Acetaminophen (Tylenol 325mg Tab) 650 mg PO Q6 PRN PRN Reason: Fever >100.4 F Last Admin: 05/28/18 06:22 Dose: 650 mg Calcium Carbonate (Oscal) 500 mg PO BID [facility] Last Admin: 05/28/18 17:08 Dose: 500 mg Dextrose (Dextrose 50% Inj) 0 ml IV STAT PRN; Protocol PRN Reason: Hypoglycemia Protocol Dextrose (Glutose 15) 0 gm PO ONCE PRN; Protocol PRN Reason: Hypoglycemia Protocol Enoxaparin Sodium (Lovenox) 40 mg SC DAILY [facility]; Protocol Last Admin: 05/28/18 17:10 Dose: 40 mg Famotidine (Pepcid) 20 mg PO BID [facility] Last Admin: 05/28/18 17:09 Dose: 20 mg Fenofibrate (Tricor) 145 mg PO DAILY [facility] Last Admin: 05/28/18 10:06 Dose: 145 mg Glucagon (Glucagen Diagnostic Kit) 0 mg IM STAT PRN; Protocol PRN Reason: Hypoglycemia Protocol Hydromorphone HCl (Dilaudid) 0.5 mg IVP Q4H PRN PRN Reason: Pain, severe (8-10) Last Admin: 05/29/18 07:30 Dose: 0.5 mg Meropenem 1 gm/ Sodium (Chloride) 100 mls @ 100 mls/hr IVPB Q8 [facility]; Protocol Last Admin: 05/29/18 01:03 Dose: 100 mls/hr Metronidazole (Flagyl 500mg/100ml Ns) 100 mls @ 100 mls/hr IVPB Q8 [facility]; Protocol Last Admin: 05/29/18 01:42 Dose: 100 mls/hr Nglmp-1-Pekt Ethyl Esters (Lovaza) 2 gm PO BID [facility] Last Admin: 05/28/18 17:07 Dose: 2 gm Ondansetron HCl (Zofran Inj) 4 mg IVP Q4 PRN PRN Reason: Nausea/Vomiting Last Admin: 05/25/18 02:06 Dose: 4 mg Potassium Chloride (K-Dur 20 Meq Er Tab) 20 meq PO BID [facility] Last Admin: 05/28/18 17:07 Dose: 20 meq Simethicone (Mylicon Chew Tab) 80 mg PO Q6 PRN PRN Reason: Flatulence Last Admin: 05/24/18 16:57 Dose: 80 mg Tramadol HCl (Ultram) 100 mg PO Q6 PRN PRN Reason: Pain, moderate (4-7) Last Admin: 05/28/18 04:53 Dose: 100 mg Tramadol HCl (Ultram) 50 mg PO Q6 PRN PRN Reason: Pain, Mild (1-3) Last Admin: 05/26/18 21:17 Dose: 50 mg - Labs Labs (last 24 hours): Laboratory Results - last 24 hr 05/28/18 05/28/18 05/28/18 10:54 16:37 22:35 WBC RBC Hgb Hct MCV MCH MCHC RDW Plt Count MPV Neut % (Auto) Lymph % (Auto) Butts % (Auto) Eos % (Auto) Baso % (Auto) Neut # (Auto) Lymph # (Auto) Butts # (Auto) Eos # (Auto) Baso # (Auto) Sodium Potassium Chloride Carbon Dioxide Anion Gap BUN Creatinine Est GFR ( Amer) Est GFR (Non-Af Amer) POC Glucose (mg/dL) 129 H 142 H 170 H Random Glucose Calcium Total Bilirubin AST ALT Alkaline Phosphatase Total Protein Albumin Globulin Albumin/Globulin Ratio Triglycerides 05/29/18 05/29/18 05/29/18 05:14 05:15 05:15 WBC 9.2 RBC 3.39 L Hgb 9.3 L Hct 28.3 L MCV 83.4 MCH 27.4 MCHC 32.8 L RDW 15.0 H Plt Count 478 H D MPV 7.8 Neut % (Auto) 84.3 H Lymph % (Auto) 9.9 L Butts % (Auto) 4.8 Eos % (Auto) 0.6 Baso % (Auto) 0.4 Neut # (Auto) 7.8 H Lymph # (Auto) 0.9 L Butts # (Auto) 0.4 Eos # (Auto) 0.1 Baso # (Auto) 0.0 Sodium 134 Potassium 3.8 Chloride 101 Carbon Dioxide 22 Anion Gap 15 BUN 5 L Creatinine 0.3 L Est GFR ( Amer) > 60 Est GFR (Non-Af Amer) > 60 POC Glucose (mg/dL) 150 H Random Glucose 135 H Calcium 8.1 L Total Bilirubin 0.4 AST 27 ALT 24 Alkaline Phosphatase 104 Total Protein 6.2 L Albumin 3.2 L Globulin 3.0 Albumin/Globulin Ratio 1.0 Triglycerides 301 H
--- NOTE | 2018-05-29 09:51 | CP.PCM.PN ---
Subjective - Date & Time of Evaluation Date of Evaluation: 05/29/18 Time of Evaluation: 09:51 - Subjective Subjective: ID note- Patient seen and examined today. states feels little better. sitting up in chair and eating some food. denies any fever or nausea today. less abdominal pain today. Objective - Vital Signs/Intake and Output Vital Signs (last 24 hours): Temp Pulse Resp BP Pulse Ox 98.4 F 118 H 20 113/72 96 05/29/18 08:59 05/29/18 08:59 05/29/18 08:59 05/29/18 08:59 05/29/18 08:59 - Medications Medications: Current Medications Acetaminophen (Tylenol 325mg Tab) 650 mg PO Q6 PRN PRN Reason: Fever >100.4 F Last Admin: 05/28/18 06:22 Dose: 650 mg Calcium Carbonate (Oscal) 500 mg PO BID [facility] Last Admin: 05/28/18 17:08 Dose: 500 mg Dextrose (Dextrose 50% Inj) 0 ml IV STAT PRN; Protocol PRN Reason: Hypoglycemia Protocol Dextrose (Glutose 15) 0 gm PO ONCE PRN; Protocol PRN Reason: Hypoglycemia Protocol Enoxaparin Sodium (Lovenox) 40 mg SC DAILY [facility]; Protocol Last Admin: 05/28/18 17:10 Dose: 40 mg Famotidine (Pepcid) 20 mg PO BID [facility] Last Admin: 05/28/18 17:09 Dose: 20 mg Fenofibrate (Tricor) 145 mg PO DAILY [facility] Last Admin: 05/28/18 10:06 Dose: 145 mg Glucagon (Glucagen Diagnostic Kit) 0 mg IM STAT PRN; Protocol PRN Reason: Hypoglycemia Protocol Hydromorphone HCl (Dilaudid) 0.5 mg IVP Q4H PRN PRN Reason: Pain, severe (8-10) Last Admin: 05/29/18 07:30 Dose: 0.5 mg Meropenem 1 gm/ Sodium (Chloride) 100 mls @ 100 mls/hr IVPB Q8 [facility]; Protocol Last Admin: 05/29/18 01:03 Dose: 100 mls/hr Metronidazole (Flagyl 500mg/100ml Ns) 100 mls @ 100 mls/hr IVPB Q8 [facility]; Protocol Last Admin: 05/29/18 01:42 Dose: 100 mls/hr [id number] Ethyl Esters (Lovaza) 2 gm PO BID [facility] Last Admin: 05/28/18 17:07 Dose: 2 gm Ondansetron HCl (Zofran Inj) 4 mg IVP Q4 PRN PRN Reason: Nausea/Vomiting Last Admin: 05/25/18 02:06 Dose: 4 mg Potassium Chloride (K-Dur 20 Meq Er Tab) 20 meq PO BID [facility] Last Admin: 05/28/18 17:07 Dose: 20 meq Simethicone (Mylicon Chew Tab) 80 mg PO Q6 PRN PRN Reason: Flatulence Last Admin: 05/24/18 16:57 Dose: 80 mg Tramadol HCl (Ultram) 100 mg PO Q6 PRN PRN Reason: Pain, moderate (4-7) Last Admin: 05/28/18 04:53 Dose: 100 mg Tramadol HCl (Ultram) 50 mg PO Q6 PRN PRN Reason: Pain, Mild (1-3) Last Admin: 05/26/18 21:17 Dose: 50 mg - Labs Labs: - Additional Findings Additional findings: - Constitutional Appears: No Acute Distress - Head Exam Head Exam: ATRAUMATIC - Eye Exam Eye Exam: EOMI, PERRL - ENT Exam ENT Exam: Normal Oropharynx - Neck Exam Neck exam: Positive for: Full Rom - Respiratory Exam Respiratory Exam: Clear to Auscultation Bilateral, NORMAL BREATHING PATTERN - Cardiovascular Exam Cardiovascular Exam: RRR, +S1, +S2 - GI/Abdominal Exam GI & Abdominal Exam: Normal Bowel Sounds, Soft Additional comments: + tenderness in left lower quadrant region but much less No guarding, no rebound - Extremities Exam Extremities exam: Positive for: normal inspection - Neurological Exam Neurological exam: Alert, Oriented x 3 Laboratory Results - last 72 hr 05/22/18 05/26/18 05/27/18 05:19 16:25 05:40 WBC 13.7 H RBC 3.34 L Hgb 9.1 L Hct 27.8 L MCV 83.3 MCH 27.3 MCHC 32.8 L RDW 15.3 H Plt Count 366 MPV 7.8 Neut % (Auto) 86.5 H Lymph % (Auto) 6.7 L [place] % (Auto) 5.5 Eos % (Auto) 1.1 Baso % (Auto) 0.2 Neut # (Auto) 11.8 H Lymph # (Auto) 0.9 L [place] # (Auto) 0.7 Eos # (Auto) 0.1 Baso # (Auto) 0.0 Neutrophils % (Manual) 70 Band Neutrophils % 9 H Lymphocytes % (Manual) 8 L Monocytes % (Manual) 10 Eosinophils % (Manual) 1 Metamyelocytes % 1 H Myelocytes % 1 H Platelet Estimate Normal Hypochromasia (manual) Slight Anisocytosis (manual) Slight Sodium Potassium Chloride Carbon Dioxide Anion Gap BUN Creatinine Est GFR ( Amer) Est GFR (Non-Af Amer) POC Glucose (mg/dL) 119 H Random Glucose Calcium Total Bilirubin AST ALT Alkaline Phosphatase Total Protein Albumin Globulin Albumin/Globulin Ratio Triglycerides 548 H Cholesterol 266 H LDL Cholesterol Direct 90 VLDL Cholesterol 146 H HDL Cholesterol 30 L 05/27/18 05/27/18 05/27/18 05:40 08:05 12:30 WBC RBC Hgb Hct MCV MCH MCHC RDW Plt Count MPV Neut % (Auto) Lymph % (Auto) [place] % (Auto) Eos % (Auto) Baso % (Auto) Neut # (Auto) Lymph # (Auto) [place] # (Auto) Eos # (Auto) Baso # (Auto) Neutrophils % (Manual) Band Neutrophils % Lymphocytes % (Manual) Monocytes % (Manual) Eosinophils % (Manual) Metamyelocytes % Myelocytes % Platelet Estimate Hypochromasia (manual) Anisocytosis (manual) Sodium 129 L Potassium 4.1 Chloride 97 L Carbon Dioxide 23 Anion Gap 13 BUN 5 L Creatinine 0.4 L Est GFR ( Amer) > 60 Est GFR (Non-Af Amer) > 60 POC Glucose (mg/dL) 181 H 163 H Random Glucose 132 H Calcium 8.0 L Total Bilirubin 0.7 AST 26 ALT 33 Alkaline Phosphatase 125 Total Protein 6.0 L Albumin 3.0 L Globulin 3.0 Albumin/Globulin Ratio 1.0 Triglycerides 365 H Cholesterol LDL Cholesterol Direct VLDL Cholesterol HDL Cholesterol 05/27/18 05/27/18 05/28/18 16:04 21:21 05:29 WBC RBC Hgb Hct MCV MCH MCHC RDW Plt Count MPV Neut % (Auto) Lymph % (Auto) [place] % (Auto) Eos % (Auto) Baso % (Auto) Neut # (Auto) Lymph # (Auto) [place] # (Auto) Eos # (Auto) Baso # (Auto) Neutrophils % (Manual) Band Neutrophils % Lymphocytes % (Manual) Monocytes % (Manual) Eosinophils % (Manual) Metamyelocytes % Myelocytes % Platelet Estimate Hypochromasia (manual) Anisocytosis (manual) Sodium Potassium Chloride Carbon Dioxide Anion Gap BUN Creatinine Est GFR ( Amer) Est GFR (Non-Af Amer) POC Glucose (mg/dL) 191 H 155 H 165 H Random Glucose Calcium Total Bilirubin AST ALT Alkaline Phosphatase Total Protein Albumin Globulin Albumin/Globulin Ratio Triglycerides Cholesterol LDL Cholesterol Direct VLDL Cholesterol HDL Cholesterol 05/28/18 05/28/18 05/28/18 05:37 05:37 10:54 WBC 10.5 RBC 3.14 L Hgb 8.6 L Hct 26.0 L MCV 82.8 MCH 27.3 MCHC 33.0 RDW 15.1 H Plt Count 354 MPV 8.0 Neut % (Auto) 86.5 H Lymph % (Auto) 7.0 L [place] % (Auto) 5.4 Eos % (Auto) 1.0 Baso % (Auto) 0.1 Neut # (Auto) 9.1 H Lymph # (Auto) 0.7 L [place] # (Auto) 0.6 Eos # (Auto) 0.1 Baso # (Auto) 0.0 Neutrophils % (Manual) Band Neutrophils % Lymphocytes % (Manual) Monocytes % (Manual) Eosinophils % (Manual) Metamyelocytes % Myelocytes % Platelet Estimate Hypochromasia (manual) Anisocytosis (manual) Sodium 132 Potassium 3.7 Chloride 101 Carbon Dioxide 22 Anion Gap 13 BUN 5 L Creatinine 0.4 L Est GFR ( Amer) > 60 Est GFR (Non-Af Amer) > 60 POC Glucose (mg/dL) 129 H Random Glucose 135 H Calcium 7.8 L Total Bilirubin 0.5 AST 34 ALT 25 Alkaline Phosphatase 121 Total Protein 5.8 L Albumin 2.9 L Globulin 2.9 Albumin/Globulin Ratio 1.0 Triglycerides 268 H D Cholesterol LDL Cholesterol Direct VLDL Cholesterol HDL Cholesterol 05/28/18 05/28/18 05/29/18 16:37 22:35 05:14 WBC RBC Hgb Hct MCV MCH MCHC RDW Plt Count MPV Neut % (Auto) Lymph % (Auto) [place] % (Auto) Eos % (Auto) Baso % (Auto) Neut # (Auto) Lymph # (Auto) [place] # (Auto) Eos # (Auto) Baso # (Auto) Neutrophils % (Manual) Band Neutrophils % Lymphocytes % (Manual) Monocytes % (Manual) Eosinophils % (Manual) Metamyelocytes % Myelocytes % Platelet Estimate Hypochromasia (manual) Anisocytosis (manual) Sodium Potassium Chloride Carbon Dioxide Anion Gap BUN Creatinine Est GFR ( Amer) Est GFR (Non-Af Amer) POC Glucose (mg/dL) 142 H 170 H 150 H Random Glucose Calcium Total Bilirubin AST ALT Alkaline Phosphatase Total Protein Albumin Globulin Albumin/Globulin Ratio Triglycerides Cholesterol LDL Cholesterol Direct VLDL Cholesterol HDL Cholesterol 05/29/18 05/29/18 05/29/18 05:15 05:15 11:20 WBC 9.2 RBC 3.39 L Hgb 9.3 L Hct 28.3 L MCV 83.4 MCH 27.4 MCHC 32.8 L RDW 15.0 H Plt Count 478 H D MPV 7.8 Neut % (Auto) 84.3 H Lymph % (Auto) 9.9 L [place] % (Auto) 4.8 Eos % (Auto) 0.6 Baso % (Auto) 0.4 Neut # (Auto) 7.8 H Lymph # (Auto) 0.9 L [place] # (Auto) 0.4 Eos # (Auto) 0.1 Baso # (Auto) 0.0 Neutrophils % (Manual) Band Neutrophils % Lymphocytes % (Manual) Monocytes % (Manual) Eosinophils % (Manual) Metamyelocytes % Myelocytes % Platelet Estimate Hypochromasia (manual) Anisocytosis (manual) Sodium 134 Potassium 3.8 Chloride 101 Carbon Dioxide 22 Anion Gap 15 BUN 5 L Creatinine 0.3 L Est GFR ( Amer) > 60 Est GFR (Non-Af Amer) > 60 POC Glucose (mg/dL) 157 H Random Glucose 135 H Calcium 8.1 L Total Bilirubin 0.4 AST 27 ALT 24 Alkaline Phosphatase 104 Total Protein 6.2 L Albumin 3.2 L Globulin 3.0 Albumin/Globulin Ratio 1.0 Triglycerides 301 H Cholesterol LDL Cholesterol Direct VLDL Cholesterol HDL Cholesterol Microbiology 05/25/18 13:20 Blood-Venous Blood Culture - Preliminary NO GROWTH AFTER 4 DAYS 05/25/18 13:10 Blood-Venous Blood Culture - Preliminary NO GROWTH AFTER 4 DAYS 05/26/18 11:31 Naris MRSA Culture (Admit) - Final MRSA NOT DETECTED 05/27/18 16:10 Blood-Venous Blood Culture - Preliminary NO GROWTH AFTER 24 HOURS 05/27/18 16:00 Blood-Venous Blood Culture - Preliminary NO GROWTH AFTER 24 HOURS 05/24/18 11:49 Urine,Clean Catch Urine Culture - Final No Growth (<1,000 CFU/ML) 05/22/18 19:15 Naris MRSA Culture (Admit) - Final MRSA NOT DETECTED 05/21/18 14:45 [facility] MRSA Culture (Admit) - Final MRSA NOT DETECTED Accession No. : [id number] Patient Name / ID : DM [id number] / [id number] Exam Date : 05/28/2018 08:26:46 ( Approved ) Study Comment : Sex / Age : F / 43Y Creator : kalpesh hernandez Dictator : Kieran Taveras MD Clinical Rn Liaison : Coin Machine Assembler : Kieran Taveras MD Approver2 : Report Date : 05/28/2018 09:06:12 My Comment : Date of service: 05/28/2018 HISTORY: r/o gallstones COMPARISON: MRI abdomen dated 05/27/2018. TECHNIQUE: Sonographic evaluation of the abdomen. FINDINGS: LIVER: Measures 20.1 cm. Increased echogenicity of the liver parenchyma. No mass. No intrahepatic bile duct dilatation. Main portal vein demonstrates normal directional flow. GALLBLADDER: Gallbladder sludge without wall thickening or pericholecystic fluid. Sonographic Pierce's sign was not elicited. COMMON BILE DUCT: Measures 9 mm. No stones. PANCREAS: Diffusely hypoechoic/edematous compatible with known pancreatitis. RIGHT KIDNEY: Measures 13.1 x 6.8 x 5.2cm. Normal echogenicity. No calculus, mass, or hydronephrosis. LEFT KIDNEY: Measures 12.1 x 6.4 x 5.7cm. Normal echogenicity. No calculus, mass, or hydronephrosis. SPLEEN: Normal in size and contour. No mass. AORTA: No aneurysmal dilatation. IVC: Unremarkable. OTHER FINDINGS: Partially imaged left pleural effusion. IMPRESSION: Hepatomegaly with steatosis. Gallbladder sludge without evidence of cholelithiasis. Pancreatitis. Partially imaged left pleural effusion. Assessment and Plan (1) Pancreatitis Status: Acute (2) Leukocytosis Status: Acute (3) Abdominal pain Status: Acute - Assessment and Plan (Free Text) Assessment: A/P- 43 year old female with no PMH admitted with abdominal pian and fever found to have acute pancreatitis. clinically improved today. afebrile today leukocytosis resolved today. blood cx- neg x 4 Ua- neg plan- continue with Iv meropnem.day #4 continue IV flagyl day #4 Gi and surgical F/u.
[2018-05-29] MEDS: Omega-3-Acid Ethyl Esters 1 GM Cap PO SCH ×2 (10:15→16:10)
[2018-05-29] MEDS: Potassium Chloride 20 mEq ER Tab PO SCH ×2 (10:16→16:08)
[2018-05-29] MEDS: Simethicone 80 mg Chewtab PO PRN (10:28)
--- NOTE | 2018-05-29 11:58 | CP.PCM.PN ---
Subjective - Date & Time of Evaluation Date of Evaluation: 05/29/18 Time of Evaluation: 11:58 - Subjective Subjective: Pt seen and evaluated bedside. Complains of watery, frequent bowel movements for one day duration but overall improving. Denies chills, nausea, vomiting, CP and SOB. Tolerating normal diet without difficulty. Objective - Vital Signs/Intake and Output Vital Signs (last 24 hours): Temp Pulse Resp BP Pulse Ox 98.4 F 114 H 20 113/72 96 05/29/18 08:59 05/29/18 09:00 05/29/18 08:59 05/29/18 08:59 05/29/18 08:59 - Medications Medications: Current Medications Acetaminophen (Tylenol 325mg Tab) 650 mg PO Q6 PRN PRN Reason: Fever >100.4 F Last Admin: 05/28/18 06:22 Dose: 650 mg Calcium Carbonate (Oscal) 500 mg PO BID [facility] Last Admin: 05/29/18 10:18 Dose: 500 mg Dextrose (Dextrose 50% Inj) 0 ml IV STAT PRN; Protocol PRN Reason: Hypoglycemia Protocol Dextrose (Glutose 15) 0 gm PO ONCE PRN; Protocol PRN Reason: Hypoglycemia Protocol Enoxaparin Sodium (Lovenox) 40 mg SC DAILY [facility]; Protocol Last Admin: 05/28/18 17:10 Dose: 40 mg Famotidine (Pepcid) 20 mg PO BID [facility] Last Admin: 05/29/18 10:19 Dose: 20 mg Fenofibrate (Tricor) 145 mg PO DAILY [facility] Last Admin: 05/29/18 10:19 Dose: 145 mg Glucagon (Glucagen Diagnostic Kit) 0 mg IM STAT PRN; Protocol PRN Reason: Hypoglycemia Protocol Hydromorphone HCl (Dilaudid) 0.5 mg IVP Q4H PRN PRN Reason: Pain, severe (8-10) Last Admin: 05/29/18 07:30 Dose: 0.5 mg Meropenem 1 gm/ Sodium (Chloride) 100 mls @ 100 mls/hr IVPB Q8 [facility]; Protocol Last Admin: 05/29/18 10:14 Dose: 100 mls/hr Metronidazole (Flagyl 500mg/100ml Ns) 100 mls @ 100 mls/hr IVPB Q8 [facility]; Protocol Last Admin: 05/29/18 10:13 Dose: 100 mls/hr [id number]-[id number] Ethyl Esters (Lovaza) 2 gm PO BID [facility] Last Admin: 05/29/18 10:15 Dose: 2 gm Ondansetron HCl (Zofran Inj) 4 mg IVP Q4 PRN PRN Reason: Nausea/Vomiting Last Admin: 05/25/18 02:06 Dose: 4 mg Potassium Chloride (K-Dur 20 Meq Er Tab) 20 meq PO BID [facility] Last Admin: 05/29/18 10:16 Dose: 20 meq Simethicone (Mylicon Chew Tab) 80 mg PO Q6 PRN PRN Reason: Flatulence Last Admin: 05/29/18 10:28 Dose: 80 mg Tramadol HCl (Ultram) 100 mg PO Q6 PRN PRN Reason: Pain, moderate (4-7) Last Admin: 05/28/18 04:53 Dose: 100 mg Tramadol HCl (Ultram) 50 mg PO Q6 PRN PRN Reason: Pain, Mild (1-3) Last Admin: 05/26/18 21:17 Dose: 50 mg - Labs Labs: 05/29/18 05:15 05/29/18 05:15 PT 15.5 Seconds (9.8-13.1) H 05/25/18 09:37 INR 1.4 05/25/18 09:37 - Constitutional Appears: Non-toxic, No Acute Distress - Head Exam Head Exam: NORMAL INSPECTION - ENT Exam ENT Exam: Mucous Membranes Moist - Respiratory Exam Respiratory Exam: NORMAL BREATHING PATTERN. absent: Respiratory Distress - Cardiovascular Exam Cardiovascular Exam: Tachycardia (110's) - GI/Abdominal Exam GI & Abdominal Exam: Tenderness (LUQ & LLQ remains tender but improving) - Back Exam Back Exam: CVA tenderness (L), NORMAL INSPECTION. absent: CVA tenderness (R) Additional comments: no flank or periumbilical discoloration noted on exam - Neurological Exam Neurological Exam: Alert, Awake - Psychiatric Exam Psychiatric exam: Normal Affect, Normal Mood Assessment and Plan - Assessment and Plan (Free Text) Assessment: 42 yo female with no significant PMH presented to ED with severe epigastric pain admitted for acute pancreatitis. -CT scan of abdomen (05/19): findings consistent with acute pancreatitis (boggy and edematous) with symptomatic hypocalcemia (facial numbness and tingling sensation on both hands) -CT abdomen and pelvis (05/26): Findings compatible with extensive acute- subacute pancreatitis. Interval progressive peripancreatic/mesenteric phlegmon and peritoneal fluid/phlegmon. No pancreatic gross necrosis seen. No phlegmonous gaseous process noted. No enhancing abscess seen. Interval increased anasarca. Interval increased bibasilar pleural effusions with greater left lung base compressive atelectasis. Interval increased phlegmonous in case mint of the right colon loop with interval decreased caliber of this colonic loop. No current bowel obstruction seen. -MRI (05/26): Acute pancreatitis without hemorrhage or necrosis.Large fluid otis ection inferior to the gastric antrum with mild peripheral enhancement. Additional extensive amount of free fluid layering along the anterior left renal fascia and extending to the left pericolic gutter/left jonathan abdomen.Reactive thickening of the adjacent splenic flexure/proximal descending colon. Small to moderate left pleural effusion with subjacent left lower lobe atelectasis/consolidation. -Abd U/S (05/28): Hepatomegaly w/steaosis. Gallbladder sludge without evidence of cholelithiasis. Pancreatitis. Partially imaged left pleural effusion. Antibiotics: Meropenem 1gm Q8H and Flagyl 500mg Q8 (day #4) -s/p Zosyn 3.375gm Q6H (3 day total) Plan: 1. Acute Pancreatitis with Phlegmonous changes -Likely secondary to hypertriglyceridemia -Remains tachycardic, afebrile (last fever 05/28 Tmax 101.5F) -WBC improved, 9.2 today -S/p insulin drip in ICU -Lipase 82 (down from 3653) , Amylase 101 -c/w Meropenem 1gm Q8H and Flagyl 500mg Q8 (day #4) -s/p Zosyn 3.375gm Q6H (3 day total) -Pain control PRN, Dilauded 0.5mg severe, ultram 100mg moderate, Ultram 50mg mild -As per surgery no acute surgical intervention at this time -As per IR no organized fluid collection that is amenable to percutaneous drainage -Abd US (05/28) as above -Repeat Abd/Pelv CT (05/24) as above -GI and endocrinology consults, Dr Rizzo and Dr Mora respectively -ID Consult: Meropenem 1gm Q8H and Flagyl 500mg Q8 -Tolerating full diet 2. Elevated triglycerides -Trending down, 301 today (6160 on admission) -Fenofibrate 145mg PO daily 3. Electrolyte abnormalities -Resolved, was symptomatic: numbness/tingling of both hands -Serum Ca 8.1, Calcium Gluconate 500 mg BID PO daily -Hypokalmeia, replaced/resolved K 3.8, 20mEq BID PO daily 4. LLQ/L Flank Pain -UA WNL -Abd/Pelv CT as above -MRI as above 5. DVT Prophylaxis -Lovenox 40 mg SC
[2018-05-29] MEDS: Enoxaparin 40 mg Syringe SC SCH (13:35)
[2018-05-30] MEDS: Meropenem 1 GM in Sodium Chloride 0.9% 100 ML IVPB SCH ×3 (00:57→17:00)
[2018-05-30] MEDS: metroNIDAZOLE 500mg/100ml NS 100 ML IVPB SCH ×3 (00:59→17:01)
[2018-05-30 05:57] LABS: BASO % 0.2 % (0.0-2.0); EOS # 0.1 K/uL (0.0-0.7); EOS % 1.3 % (0.0-4.0); HEMOGLOBIN 8.7 g/dL (12.0-16.0); LYMPH # 1.4 K/uL (1.0-4.3); LYMPH % 12.7 % (20.0-40.0); MEAN CELL VOLUME 82.6 fl (81.0-99.0); MEAN CORPUSCULAR HEMOGLOBIN 27.8 pg (27.0-31.0); MEAN CORPUSCULAR HGB CONC 33.7 g/dL (33.0-37.0); MONO # 0.6 K/uL (0.0-0.8); MONO % 5.2 % (0.0-10.0); NEUT # 8.8 K/uL (1.8-7.0); NEUT % 80.6 % (50.0-75.0); RBC 3.11 Mil/uL (3.80-5.20); RED CELL DISTRIBUTION WIDTH 15.1 % (11.5-14.5); WHITE BLOOD COUNT 10.9 K/uL (4.8-10.8)
[2018-05-30 06:11] LABS: ALBUMIN 2.9 g/dL (3.5-5.0); ALT/SGPT 27 U/L (9-52); AST/SGOT 33 U/L (14-36); BLOOD UREA NITROGEN 8 mg/dl (7-17); GFR NON-AFRICAN AMERICAN > 60
[2018-05-30] MEDS: HYDROmorphone 0.5 mg/0.5 ml ISec IVP PRN ×2 (07:28→17:05)
--- NOTE | 2018-05-30 08:35 | CP.PCM.PN ---
Subjective - Date & Time of Evaluation Date of Evaluation: 05/30/18 Time of Evaluation: 08:33 - Subjective Subjective: General Surgery Progress Note: Dr. Vital 43 year old female patient seen and examined at bedside this am. Patient resting comfortably, reports improvement in abdominal pain today. Denies nausea/vomiting/fever. Objective - Vital Signs/Intake and Output Vital Signs (last 24 hours): Temp Pulse Resp BP Pulse Ox 98.6 F 108 H 16 105/70 96 05/30/18 08:08 05/30/18 08:08 05/30/18 08:08 05/30/18 08:08 05/30/18 08:08 - Medications Medications: Current Medications Acetaminophen (Tylenol 325mg Tab) 650 mg PO Q6 PRN PRN Reason: Fever >100.4 F Last Admin: 05/28/18 06:22 Dose: 650 mg Calcium Carbonate (Oscal) 500 mg PO BID [facility] Last Admin: 05/29/18 16:10 Dose: 500 mg Dextrose (Dextrose 50% Inj) 0 ml IV STAT PRN; Protocol PRN Reason: Hypoglycemia Protocol Dextrose (Glutose 15) 0 gm PO ONCE PRN; Protocol PRN Reason: Hypoglycemia Protocol Enoxaparin Sodium (Lovenox) 40 mg SC DAILY [facility]; Protocol Last Admin: 05/29/18 13:35 Dose: 40 mg Famotidine (Pepcid) 20 mg PO BID [facility] Last Admin: 05/29/18 16:09 Dose: 20 mg Fenofibrate (Tricor) 145 mg PO DAILY [facility] Last Admin: 05/29/18 10:19 Dose: 145 mg Glucagon (Glucagen Diagnostic Kit) 0 mg IM STAT PRN; Protocol PRN Reason: Hypoglycemia Protocol Hydromorphone HCl (Dilaudid) 0.5 mg IVP Q4H PRN PRN Reason: Pain, severe (8-10) Last Admin: 05/30/18 07:28 Dose: 0.5 mg Meropenem 1 gm/ Sodium (Chloride) 100 mls @ 100 mls/hr IVPB Q8 [facility]; Protocol Last Admin: 05/30/18 00:57 Dose: 100 mls/hr Metronidazole (Flagyl 500mg/100ml Ns) 100 mls @ 100 mls/hr IVPB Q8 [facility]; Protocol Last Admin: 05/30/18 00:59 Dose: 100 mls/hr [id number] Ethyl Esters (Lovaza) 2 gm PO BID [facility] Last Admin: 05/29/18 16:10 Dose: 2 gm Ondansetron HCl (Zofran Inj) 4 mg IVP Q4 PRN PRN Reason: Nausea/Vomiting Last Admin: 05/25/18 02:06 Dose: 4 mg Potassium Chloride (K-Dur 20 Meq Er Tab) 20 meq PO BID [facility] Last Admin: 05/29/18 16:08 Dose: 20 meq Simethicone (Mylicon Chew Tab) 80 mg PO Q6 PRN PRN Reason: Flatulence Last Admin: 05/29/18 10:28 Dose: 80 mg Tramadol HCl (Ultram) 100 mg PO Q6 PRN PRN Reason: Pain, moderate (4-7) Last Admin: 05/30/18 00:17 Dose: 100 mg Tramadol HCl (Ultram) 50 mg PO Q6 PRN PRN Reason: Pain, Mild (1-3) Last Admin: 05/26/18 21:17 Dose: 50 mg - Labs Labs: 05/30/18 04:35 05/30/18 04:35 PT 15.5 Seconds (9.8-13.1) H 05/25/18 09:37 INR 1.4 05/25/18 09:37 - Constitutional Appears: Non-toxic, No Acute Distress - Head Exam Head Exam: ATRAUMATIC, NORMOCEPHALIC - Eye Exam Eye Exam: Normal appearance - ENT Exam ENT Exam: Mucous Membranes Moist - Respiratory Exam Respiratory Exam: NORMAL BREATHING PATTERN - Cardiovascular Exam Cardiovascular Exam: REGULAR RHYTHM - GI/Abdominal Exam GI & Abdominal Exam: Soft. absent: Tenderness - Extremities Exam Extremities Exam: absent: Calf Tenderness - Neurological Exam Neurological Exam: Alert, Awake, Oriented x3 - Psychiatric Exam Psychiatric exam: Normal Affect, Normal Mood - Skin Skin Exam: Warm Assessment and Plan - Assessment and Plan (Free Text) Assessment: 43 year old female with acute pancreatitis likely 2/2 hypertriglyceridemia Plan: - No surgical intervention at this time - Per IR, no organized fluid collection that is amenable to percutaneous drainage - Possible repeat CT later in the week - C/w IV antibiotics - Pain control - Repeat electrolytes PRN - Further recs per Dr. Amanuel Webb PGY1
--- NOTE | 2018-05-30 08:48 | CP.PCM.PN ---
Subjective - Date & Time of Evaluation Date of Evaluation: 05/30/18 Time of Evaluation: 08:00 - Subjective Subjective: Pt is a 43 yo F admitted due to pancreatitis 2/2 to hypertriglyceridemia, seen and examined at bedside. Reports her abdominal pain has improved to a 5/10, well controlled with medications. Pt tolerating oral intake. Ambulating well. Denies F/C, CP, SOB, N/V/D/C or dysuria. Objective - Vital Signs/Intake and Output Vital Signs (last 24 hours): Temp Pulse Resp BP Pulse Ox 98.6 F 108 H 16 105/70 96 05/30/18 08:08 05/30/18 08:08 05/30/18 08:08 05/30/18 08:08 05/30/18 08:08 - Medications Medications: Current Medications Acetaminophen (Tylenol 325mg Tab) 650 mg PO Q6 PRN PRN Reason: Fever >100.4 F Last Admin: 05/28/18 06:22 Dose: 650 mg Calcium Carbonate (Oscal) 500 mg PO BID [facility] Last Admin: 05/29/18 16:10 Dose: 500 mg Dextrose (Dextrose 50% Inj) 0 ml IV STAT PRN; Protocol PRN Reason: Hypoglycemia Protocol Dextrose (Glutose 15) 0 gm PO ONCE PRN; Protocol PRN Reason: Hypoglycemia Protocol Enoxaparin Sodium (Lovenox) 40 mg SC DAILY [facility]; Protocol Last Admin: 05/29/18 13:35 Dose: 40 mg Famotidine (Pepcid) 20 mg PO BID [facility] Last Admin: 05/29/18 16:09 Dose: 20 mg Fenofibrate (Tricor) 145 mg PO DAILY [facility] Last Admin: 05/29/18 10:19 Dose: 145 mg Glucagon (Glucagen Diagnostic Kit) 0 mg IM STAT PRN; Protocol PRN Reason: Hypoglycemia Protocol Hydromorphone HCl (Dilaudid) 0.5 mg IVP Q4H PRN PRN Reason: Pain, severe (8-10) Last Admin: 05/30/18 07:28 Dose: 0.5 mg Meropenem 1 gm/ Sodium (Chloride) 100 mls @ 100 mls/hr IVPB Q8 [facility]; Protocol Last Admin: 05/30/18 00:57 Dose: 100 mls/hr Metronidazole (Flagyl 500mg/100ml Ns) 100 mls @ 100 mls/hr IVPB Q8 [facility]; Protocol Last Admin: 05/30/18 00:59 Dose: 100 mls/hr [id number] Ethyl Esters (Lovaza) 2 gm PO BID [facility] Last Admin: 05/29/18 16:10 Dose: 2 gm Ondansetron HCl (Zofran Inj) 4 mg IVP Q4 PRN PRN Reason: Nausea/Vomiting Last Admin: 05/25/18 02:06 Dose: 4 mg Potassium Chloride (K-Dur 20 Meq Er Tab) 20 meq PO BID [facility] Last Admin: 05/29/18 16:08 Dose: 20 meq Simethicone (Mylicon Chew Tab) 80 mg PO Q6 PRN PRN Reason: Flatulence Last Admin: 05/29/18 10:28 Dose: 80 mg Tramadol HCl (Ultram) 100 mg PO Q6 PRN PRN Reason: Pain, moderate (4-7) Last Admin: 05/30/18 00:17 Dose: 100 mg Tramadol HCl (Ultram) 50 mg PO Q6 PRN PRN Reason: Pain, Mild (1-3) Last Admin: 05/26/18 21:17 Dose: 50 mg - Labs Labs: 05/30/18 04:35 05/30/18 04:35 PT 15.5 Seconds (9.8-13.1) H 05/25/18 09:37 INR 1.4 05/25/18 09:37 - Constitutional Appears: Non-toxic, No Acute Distress - Eye Exam Eye Exam: EOMI - ENT Exam ENT Exam: Mucous Membranes Moist - Respiratory Exam Respiratory Exam: Clear to Ausculation Bilateral. absent: Rales, Rhonchi, Wheezes - Cardiovascular Exam Cardiovascular Exam: RRR, +S1, +S2 - GI/Abdominal Exam GI & Abdominal Exam: Distended (mild, nontympanic), Soft, Tenderness (mild diffuse), Normal Bowel Sounds. absent: Guarding, Rigid, Rebound Additional comments: umbilical hernia, reducible - Extremities Exam Extremities Exam: absent: Pedal Edema - Neurological Exam Neurological Exam: Alert, Awake, Oriented x3 Assessment and Plan - Assessment and Plan (Free Text) Assessment: Pt is a 43 yo F admitted due to pancreatitis 2/2 to hypertriglyceridemia, s/p insulin drip seen and examined at bedside. Triglycerides now down to 251 from admission of 6140. -CT scan of abdomen (05/19): findings consistent with acute pancreatitis (boggy and edematous) with symptomatic hypocalcemia (facial numbness and tingling sensation on both hands) -CT abdomen and pelvis (05/26): Findings compatible with extensive acute- subacute pancreatitis. Interval progressive peripancreatic/mesenteric phlegmon and peritoneal fluid/phlegmon. No pancreatic gross necrosis seen. No p hlegmonous gaseous process noted. No enhancing abscess seen. Interval increased anasarca. Interval increased bibasilar pleural effusions with greater left lung base compressive atelectasis. Interval increased phlegmonous in case mint of the right colon loop with interval decreased caliber of this colonic loop. No current bowel obstruction seen. -MRI (05/26): Acute pancreatitis without hemorrhage or necrosis.Large fluid collection inferior to the gastric antrum with mild peripheral enhancement. Additional extensive amount of free fluid layering along the anterior left renal fascia and extending to the left pericolic gutter/left jonathan abdomen.Reactive thickening of the adjacent splenic flexure/proximal descending colon. Small to moderate left pleural effusion with subjacent left lower lobe atelectasis/consolidation. -Abd U/S (05/28): Hepatomegaly w/steaosis. Gallbladder sludge without evidence of cholelithiasis. Pancreatitis. Partially imaged left pleural effusion. 1. Acute pancreatitis with Phlegmonous changes / sepsis 2/2 to hypertriglyceridemia Continue IVF , pain management Surgery and IR consulted- no intervention at this time, IR reports no col lection to be drained yet MRI images showed:Acute pancreatitis without hemorrhage or necrosis.Large fluid collection inferior to the gastric antrum with mild peripheral enhancement.Addit ional extensive amount of free fluid layering along the anterior left renal fascia and extending to the left pericolic gutter/left jonathan abdomen. Reactive thickening of the adjacent splenic flexure/proximal descending colon. Small to moderate left pleural effusion with subjacent left lower lobe atele ctasis/consolidation. GI and endocrinology consults, Dr Rizzo and Dr Mora respectively c/w Meropenem 1gm Q8H and Flagyl 500mg Q8 (day #5) s/p Zosyn 3.375gm Q6H (3 day total) Pain control PRN, Dilauded 0.5mg severe, ultram 100mg moderate, Ultram 50mg mild Monitor electrolytes and replace Lipase 82 (down from 3653) , Amylase 101 Blood Cx negative @ 48hrs Plan to Repeat Abdomen and pelvis CT on 2.Elevated triglicerides Trending down now 251 from 6160 Fenofibrate 145mg PO daily, [place] 2gm BID 3.Sinus tachycardia HR 108 Continue pain management , Tylenol for fever and IVF 4. Electrolyte abnormalities Calcium carbonate 500 mg BID PO Hypokalmeia resolved 3.7- K 20mEq BID PO 5.Anemia Most likely anemia of acute illness Hgb 8.7 6. Diet Regular 7. DVT Prophylaxis -Lovenox 40 mg SC Case reviewed and discussed with attending Yolanda Erazo PGY1
[2018-05-30] MEDS: Enoxaparin 40 mg Syringe SC SCH (09:18)
[2018-05-30] MEDS: Omega-3-Acid Ethyl Esters 1 GM Cap PO SCH ×2 (09:18→17:01)
[2018-05-30] MEDS: Potassium Chloride 20 mEq ER Tab PO SCH ×2 (09:19→17:02)
[2018-05-30] MEDS ORDERED: Sodium Chloride 0.9% 1,000 ML IV SCH (13:00)
[2018-05-30] MEDS: Simethicone 80 mg Chewtab PO PRN (13:21)
[2018-05-31] MEDS: Meropenem 1 GM in Sodium Chloride 0.9% 100 ML IVPB SCH ×3 (00:03→16:28)
[2018-05-31] MEDS: metroNIDAZOLE 500mg/100ml NS 100 ML IVPB SCH ×3 (00:03→16:26)
[2018-05-31] MEDS: HYDROmorphone 0.5 mg/0.5 ml ISec IVP PRN ×2 (03:07→11:36)
[2018-05-31 05:59] LABS: HEMOGLOBIN 8.5 g/dL (12.0-16.0); MEAN CELL VOLUME 82.1 fl (81.0-99.0); MEAN CORPUSCULAR HEMOGLOBIN 27.5 pg (27.0-31.0); MEAN CORPUSCULAR HGB CONC 33.6 g/dL (33.0-37.0); RBC 3.08 Mil/uL (3.80-5.20); RED CELL DISTRIBUTION WIDTH 14.8 % (11.5-14.5); WHITE BLOOD COUNT 10.7 K/uL (4.8-10.8)
[2018-05-31 06:01] LABS: ALBUMIN 2.8 g/dL (3.5-5.0); ALT/SGPT 32 U/L (9-52); AST/SGOT 47 U/L (14-36); BLOOD UREA NITROGEN 9 mg/dl (7-17); CALCIUM 7.5 mg/dL (8.4-10.2); GFR NON-AFRICAN AMERICAN > 60
[2018-05-31] MEDS: Omega-3-Acid Ethyl Esters 1 GM Cap PO SCH ×2 (09:02→16:22)
[2018-05-31] MEDS: Potassium Chloride 20 mEq ER Tab PO SCH ×2 (09:02→16:22)
--- NOTE | 2018-05-31 09:35 | CP.PCM.PN ---
Subjective - Date & Time of Evaluation Date of Evaluation: 05/31/18 Time of Evaluation: 09:35 - Subjective Subjective: ID Note- Patient seen and examined today. Patient denies any fever or chills and states her abdominal pain is much less but she feels bloated. Objective - Vital Signs/Intake and Output Vital Signs (last 24 hours): Temp Pulse Resp BP Pulse Ox 98.4 F 104 H 18 105/68 98 05/31/18 08:25 05/31/18 08:25 05/31/18 08:25 05/31/18 08:25 05/31/18 08:25 - Medications Medications: Current Medications Acetaminophen (Tylenol 325mg Tab) 650 mg PO Q6 PRN PRN Reason: Fever >100.4 F Last Admin: 05/28/18 06:22 Dose: 650 mg Calcium Carbonate (Oscal) 500 mg PO BID [facility] Last Admin: 05/30/18 17:02 Dose: 500 mg Dextrose (Dextrose 50% Inj) 0 ml IV STAT PRN; Protocol PRN Reason: Hypoglycemia Protocol Dextrose (Glutose 15) 0 gm PO ONCE PRN; Protocol PRN Reason: Hypoglycemia Protocol Enoxaparin Sodium (Lovenox) 40 mg SC DAILY [facility]; Protocol Last Admin: 05/30/18 09:18 Dose: 40 mg Famotidine (Pepcid) 20 mg PO BID [facility] Last Admin: 05/30/18 09:19 Dose: 20 mg Fenofibrate (Tricor) 145 mg PO DAILY [facility] Last Admin: 05/31/18 09:01 Dose: 145 mg Glucagon (Glucagen Diagnostic Kit) 0 mg IM STAT PRN; Protocol PRN Reason: Hypoglycemia Protocol Hydromorphone HCl (Dilaudid) 0.5 mg IVP Q4H PRN PRN Reason: Pain, severe (8-10) Last Admin: 05/31/18 03:07 Dose: 0.5 mg Meropenem 1 gm/ Sodium (Chloride) 100 mls @ 100 mls/hr IVPB Q8 [facility]; Protocol Last Admin: 05/31/18 00:03 Dose: 100 mls/hr Metronidazole (Flagyl 500mg/100ml Ns) 100 mls @ 100 mls/hr IVPB Q8 [facility]; Protocol Last Admin: 05/31/18 09:02 Dose: 100 mls/hr [id number] Ethyl Esters (Lovaza) 2 gm PO BID [facility] Last Admin: 05/31/18 09:02 Dose: 2 gm Ondansetron HCl (Zofran Inj) 4 mg IVP Q4 PRN PRN Reason: Nausea/Vomiting Last Admin: 05/31/18 03:03 Dose: 4 mg Potassium Chloride (K-Dur 20 Meq Er Tab) 20 meq PO BID [facility] Last Admin: 05/31/18 09:02 Dose: 20 meq Simethicone (Mylicon Chew Tab) 80 mg PO Q6 PRN PRN Reason: Flatulence Last Admin: 05/30/18 13:21 Dose: 80 mg Tramadol HCl (Ultram) 100 mg PO Q6 PRN PRN Reason: Pain, moderate (4-7) Last Admin: 05/30/18 23:44 Dose: 100 mg Tramadol HCl (Ultram) 50 mg PO Q6 PRN PRN Reason: Pain, Mild (1-3) Last Admin: 05/30/18 13:18 Dose: 50 mg - Labs Labs: - Additional Findings Additional findings: - Constitutional Appears: No Acute Distress - Head Exam Head Exam: ATRAUMATIC - Eye Exam Eye Exam: EOMI, PERRL - ENT Exam ENT Exam: Normal Oropharynx - Neck Exam Neck exam: Positive for: Full Rom - Respiratory Exam Respiratory Exam: Clear to Auscultation Bilateral, NORMAL BREATHING PATTERN - Cardiovascular Exam Cardiovascular Exam: RRR, +S1, +S2 - GI/Abdominal Exam GI & Abdominal Exam: Normal Bowel Sounds, Soft Additional comments: distended but no tenderness to palpation today No guarding, no rebound - Extremities Exam Extremities exam: Positive for: normal inspection - Neurological Exam Neurological exam: Alert, Oriented x 3 Laboratory Results - last 72 hr 05/28/18 05/28/18 05/29/18 16:37 22:35 05:14 WBC RBC Hgb Hct MCV MCH MCHC RDW Plt Count MPV Neut % (Auto) Lymph % (Auto) [place] % (Auto) Eos % (Auto) Baso % (Auto) Neut # (Auto) Lymph # (Auto) [place] # (Auto) Eos # (Auto) Baso # (Auto) Sodium Potassium Chloride Carbon Dioxide Anion Gap BUN Creatinine Est GFR ( Amer) Est GFR (Non-Af Amer) POC Glucose (mg/dL) 142 H 170 H 150 H Random Glucose Calcium Phosphorus Magnesium Total Bilirubin AST ALT Alkaline Phosphatase Total Protein Albumin Globulin Albumin/Globulin Ratio Triglycerides 05/29/18 05/29/18 05/29/18 05:15 05:15 11:20 WBC 9.2 RBC 3.39 L Hgb 9.3 L Hct 28.3 L MCV 83.4 MCH 27.4 MCHC 32.8 L RDW 15.0 H Plt Count 478 H D MPV 7.8 Neut % (Auto) 84.3 H Lymph % (Auto) 9.9 L [place] % (Auto) 4.8 Eos % (Auto) 0.6 Baso % (Auto) 0.4 Neut # (Auto) 7.8 H Lymph # (Auto) 0.9 L [place] # (Auto) 0.4 Eos # (Auto) 0.1 Baso # (Auto) 0.0 Sodium 134 Potassium 3.8 Chloride 101 Carbon Dioxide 22 Anion Gap 15 BUN 5 L Creatinine 0.3 L Est GFR ( Amer) > 60 Est GFR (Non-Af Amer) > 60 POC Glucose (mg/dL) 157 H Random Glucose 135 H Calcium 8.1 L Phosphorus Magnesium Total Bilirubin 0.4 AST 27 ALT 24 Alkaline Phosphatase 104 Total Protein 6.2 L Albumin 3.2 L Globulin 3.0 Albumin/Globulin Ratio 1.0 Triglycerides 301 H 05/29/18 05/29/18 05/30/18 16:19 21:24 04:35 WBC 10.9 H RBC 3.11 L Hgb 8.7 L Hct 25.7 L MCV 82.6 MCH 27.8 MCHC 33.7 RDW 15.1 H Plt Count 509 H MPV 8.0 Neut % (Auto) 80.6 H Lymph % (Auto) 12.7 L [place] % (Auto) 5.2 Eos % (Auto) 1.3 Baso % (Auto) 0.2 Neut # (Auto) 8.8 H Lymph # (Auto) 1.4 [place] # (Auto) 0.6 Eos # (Auto) 0.1 Baso # (Auto) 0.0 Sodium Potassium Chloride Carbon Dioxide Anion Gap BUN Creatinine Est GFR ( Amer) Est GFR (Non-Af Amer) POC Glucose (mg/dL) 150 H 188 H Random Glucose Calcium Phosphorus Magnesium Total Bilirubin AST ALT Alkaline Phosphatase Total Protein Albumin Globulin Albumin/Globulin Ratio Triglycerides 05/30/18 05/30/18 05/30/18 04:35 05:29 11:05 WBC RBC Hgb Hct MCV MCH MCHC RDW Plt Count MPV Neut % (Auto) Lymph % (Auto) [place] % (Auto) Eos % (Auto) Baso % (Auto) Neut # (Auto) Lymph # (Auto) [place] # (Auto) Eos # (Auto) Baso # (Auto) Sodium 134 Potassium 3.6 Chloride 103 Carbon Dioxide 21 L Anion Gap 14 BUN 8 Creatinine 0.3 L Est GFR ( Amer) > 60 Est GFR (Non-Af Amer) > 60 POC Glucose (mg/dL) 143 H 139 H Random Glucose 128 H Calcium 8.0 L Phosphorus Magnesium Total Bilirubin 0.3 AST 33 ALT 27 Alkaline Phosphatase 107 Total Protein 5.9 L Albumin 2.9 L Globulin 2.9 Albumin/Globulin Ratio 1.0 Triglycerides 251 H 05/30/18 05/30/18 05/31/18 16:30 21:07 05:16 WBC RBC Hgb Hct MCV MCH MCHC RDW Plt Count MPV Neut % (Auto) Lymph % (Auto) [place] % (Auto) Eos % (Auto) Baso % (Auto) Neut # (Auto) Lymph # (Auto) [place] # (Auto) Eos # (Auto) Baso # (Auto) Sodium Potassium Chloride Carbon Dioxide Anion Gap BUN Creatinine Est GFR ( Amer) Est GFR (Non-Af Amer) POC Glucose (mg/dL) 116 H 131 H 150 H Random Glucose Calcium Phosphorus Magnesium Total Bilirubin AST ALT Alkaline Phosphatase Total Protein Albumin Globulin Albumin/Globulin Ratio Triglycerides 05/31/18 05/31/18 05/31/18 05:25 05:25 11:24 WBC 10.7 RBC 3.08 L Hgb 8.5 L Hct 25.3 L MCV 82.1 MCH 27.5 MCHC 33.6 RDW 14.8 H Plt Count 525 H MPV Neut % (Auto) Lymph % (Auto) [place] % (Auto) Eos % (Auto) Baso % (Auto) Neut # (Auto) Lymph # (Auto) [place] # (Auto) Eos # (Auto) Baso # (Auto) Sodium 132 Potassium 3.6 Chloride 101 Carbon Dioxide 22 Anion Gap 13 BUN 9 Creatinine 0.3 L Est GFR ( Amer) > 60 Est GFR (Non-Af Amer) > 60 POC Glucose (mg/dL) 129 H Random Glucose 136 H Calcium 7.5 L Phosphorus 2.9 Magnesium 2.2 Total Bilirubin 0.3 AST 47 H D ALT 32 Alkaline Phosphatase 98 Total Protein 5.7 L Albumin 2.8 L Globulin 2.9 Albumin/Globulin Ratio 1.0 Triglycerides 197 H D Microbiology 05/27/18 16:10 Blood-Venous Blood Culture - Preliminary NO GROWTH AFTER 3 DAYS 05/27/18 16:00 Blood-Venous Blood Culture - Preliminary NO GROWTH AFTER 3 DAYS 05/25/18 13:20 Blood-Venous Blood Culture - Final NO GROWTH AFTER 5 DAYS 05/25/18 13:20 Blood-Venous Gram Stain - Final TEST NOT PERFORMED 05/25/18 13:10 Blood-Venous Blood Culture - Final NO GROWTH AFTER 5 DAYS 05/25/18 13:10 Blood-Venous Gram Stain - Final TEST NOT PERFORMED 05/26/18 11:31 Naris MRSA Culture (Admit) - Final MRSA NOT DETECTED 05/24/18 11:49 Urine,Clean Catch Urine Culture - Final No Growth (<1,000 CFU/ML) 05/22/18 19:15 Naris MRSA Culture (Admit) - Final MRSA NOT DETECTED 05/21/18 14:45 [facility] MRSA Culture (Admit) - Final MRSA NOT DETECTED Assessment and Plan (1) Pancreatitis Status: Acute (2) Leukocytosis Status: Acute (3) Abdominal pain Status: Acute - Assessment and Plan (Free Text) Assessment: A/P- 43 year old female with no PMH admitted with abdominal pian and fever found to have acute pancreatitis. clinically improved today. one low grade fever of 100 last night leukocytosis resolved . blood cx- neg x 4 Ua- neg plan- continue with Iv meropnem.day #6 continue IV flagyl day #6 Gi and surgical F/u.
[2018-05-31] MEDS: Enoxaparin 40 mg Syringe SC SCH (10:11)
--- NOTE | 2018-05-31 13:37 | CP.PCM.PN ---
Subjective - Date & Time of Evaluation Date of Evaluation: 05/31/18 Time of Evaluation: 08:00 - Subjective Subjective: Pt is a 43 yo F admitted due to pancreatitis 2/2 to hypertriglyceridemia, seen and examined at bedside. Reports her abdominal pain persists, controlled with medications. Pt tolerating oral intake. Ambulating well. Reports she has been co nstipated, last BM was yest but very small. Denies F/C, CP, SOB, N/V/D or dysuria. Objective - Vital Signs/Intake and Output Vital Signs (last 24 hours): Temp Pulse Resp BP Pulse Ox 98.9 F 104 H 20 108/68 99 05/31/18 12:00 05/31/18 12:00 05/31/18 12:00 05/31/18 12:00 05/31/18 12:00 - Medications Medications: Current Medications Acetaminophen (Tylenol 325mg Tab) 650 mg PO Q6 PRN PRN Reason: Fever >100.4 F Last Admin: 05/28/18 06:22 Dose: 650 mg Calcium Carbonate (Oscal) 500 mg PO BID [facility] Last Admin: 05/31/18 10:11 Dose: 500 mg Dextrose (Dextrose 50% Inj) 0 ml IV STAT PRN; Protocol PRN Reason: Hypoglycemia Protocol Dextrose (Glutose 15) 0 gm PO ONCE PRN; Protocol PRN Reason: Hypoglycemia Protocol Docusate Sodium (Colace) 100 mg PO DAILY [facility] Last Admin: 05/31/18 11:38 Dose: 100 mg Enoxaparin Sodium (Lovenox) 40 mg SC DAILY [facility]; Protocol Last Admin: 05/31/18 10:11 Dose: 40 mg Famotidine (Pepcid) 20 mg PO BID [facility] Last Admin: 05/31/18 10:13 Dose: 20 mg Fenofibrate (Tricor) 145 mg PO DAILY [facility] Last Admin: 05/31/18 09:01 Dose: 145 mg Glucagon (Glucagen Diagnostic Kit) 0 mg IM STAT PRN; Protocol PRN Reason: Hypoglycemia Protocol Hydromorphone HCl (Dilaudid) 0.5 mg IVP Q4H PRN PRN Reason: Pain, severe (8-10) Last Admin: 05/31/18 11:36 Dose: 0.5 mg Meropenem 1 gm/ Sodium (Chloride) 100 mls @ 100 mls/hr IVPB Q8 [facility]; Protocol Last Admin: 05/31/18 10:12 Dose: 100 mls/hr Metronidazole (Flagyl 500mg/100ml Ns) 100 mls @ 100 mls/hr IVPB Q8 [facility]; Protocol Last Admin: 05/31/18 09:02 Dose: 100 mls/hr Lactulose (Enulose) 20 gm PO DAILY PRN PRN Reason: Constipation [id number] Ethyl Esters (Lovaza) 2 gm PO BID [facility] Last Admin: 05/31/18 09:02 Dose: 2 gm Ondansetron HCl (Zofran Inj) 4 mg IVP Q4 PRN PRN Reason: Nausea/Vomiting Last Admin: 05/31/18 03:03 Dose: 4 mg Potassium Chloride (K-Dur 20 Meq Er Tab) 20 meq PO BID [facility] Last Admin: 05/31/18 09:02 Dose: 20 meq Simethicone (Mylicon Chew Tab) 80 mg PO Q6 PRN PRN Reason: Flatulence Last Admin: 05/30/18 13:21 Dose: 80 mg Tramadol HCl (Ultram) 100 mg PO Q6 PRN PRN Reason: Pain, moderate (4-7) Last Admin: 05/30/18 23:44 Dose: 100 mg Tramadol HCl (Ultram) 50 mg PO Q6 PRN PRN Reason: Pain, Mild (1-3) Last Admin: 05/30/18 13:18 Dose: 50 mg - Labs Labs: 05/31/18 05:25 05/31/18 05:25 PT 15.5 Seconds (9.8-13.1) H 05/25/18 09:37 INR 1.4 05/25/18 09:37 - Constitutional Appears: Non-toxic, No Acute Distress - Head Exam Head Exam: ATRAUMATIC, NORMAL INSPECTION, NORMOCEPHALIC - Eye Exam Eye Exam: EOMI - ENT Exam ENT Exam: Mucous Membranes Moist - Respiratory Exam Respiratory Exam: Clear to Ausculation Bilateral. absent: Rales, Rhonchi, Wheezes - Cardiovascular Exam Cardiovascular Exam: Tachycardia, +S1, +S2 - GI/Abdominal Exam GI & Abdominal Exam: Distended, Soft, Tenderness (Diffuse, especially located L flank ), Normal Bowel Sounds. absent: Guarding, Rigid, Rebound Additional comments: Non tympanic, umbilical hernia, reducible - Extremities Exam Extremities Exam: absent: Pedal Edema - Neurological Exam Neurological Exam: Alert, Awake, Oriented x3 Assessment and Plan - Assessment and Plan (Free Text) Assessment: Pt is a 43 yo F admitted due to pancreatitis 2/2 to hypertriglyceridemia, s/p insulin drip seen and examined at bedside. Triglycerides now down to 197 from admission of 6140. -CT scan of abdomen (05/19): findings consistent with acute pancreatitis (boggy and edematous) with symptomatic hypocalcemia (facial numbness and tingling sensation on both hands) -CT abdomen and pelvis (05/26): Findings compatible with extensive acute- subacute pancreatitis. Interval progressive peripancreatic/mesenteric phlegmon and peritoneal fluid/phlegmon. No pancreatic gross necrosis seen. No phlegmonous gaseous process noted. No enhancing abscess seen. Interval increased anasarca. Interval increased bibasilar pleural effusions with greater left lung base compressive atelectasis. Interval increased phlegmonous in case mint of the right colon loop with interval decreased caliber of this colonic loop. No current bowel obstruction seen. -MRI (05/26): Acute pancreatitis without hemorrhage or necrosis.Large fluid collection inferior to the gastric antrum with mild peripheral enhancement. Additional extensive amount of free fluid layering along the anterior left renal fascia and extending to the left pericolic gutter/left jonathan abdomen.Reactive thickening of the adjacent splenic flexure/proximal descending colon. Small to moderate left pleural effusion with subjacent left lower lobe atelectasis/consolidation. -Abd U/S (05/28): Hepatomegaly w/steaosis. Gallbladder sludge without evidence of cholelithiasis. Pancreatitis. Partially imaged left pleural effusion. 1. Acute pancreatitis with Phlegmonous changes / sepsis 2/2 to hypertriglyceridemia (197 now), improving Continue IVF , pain management Surgery and IR consulted- no intervention at this time, IR reports no collection to be drained yet MRI images showed:Acute pancreatitis without hemorrhage or necrosis.Large fluid collection inferior to the gastric antrum with mild peripheral enhancement.Additional extensive amount of free fluid layering along the anterior left renal fascia and extending to the left pericolic gutter/left jonathan abdomen. Reactive thickening of the adjacent splenic flexure/proximal descending colon. Small to moderate left pleural effusion with subjacent left lower lobe atelectasis/consolidation. GI, endocrinology, infectious dz consults, Dr Rizzo, Dr Mora, and Jose respectively c/w Meropenem 1gm Q8H and Flagyl 500mg Q8 (day #6) s/p Zosyn 3.375gm Q6H (3 day total) Pain control PRN, Dilauded 0.5mg severe, ultram 100mg moderate, Ultram 50mg mild Monitor electrolytes and replace Lipase 82 (down from 3653) , Amylase 101 Blood Cx negative @ 3 days Plan to Repeat Abdomen and pelvis CT in AM- f/u 2.Elevated triglycerides Trending down now 197 from 6160 Fenofibrate 145mg PO daily, [place] 2gm BID 3.Sinus tachycardia HR 106, improved Continue pain management , Tylenol for fever and IVF Monitor on Tele 4. Electrolyte abnormalities Calcium carbonate 500 mg BID PO Hypokalmeia resolved 3.6- K 20mEq BID PO F/u CMP in AM 5. Constipation started colace Lactulose 6.Anemia Most likely anemia of acute illness Hgb/HCT 8.5/25.3 continue to monitor F/u CBC in AM 7. Diet Regular 8. DVT Prophylaxis -Lovenox 40 mg SC
[2018-06-01] MEDS: Meropenem 1 GM in Sodium Chloride 0.9% 100 ML IVPB SCH ×3 (00:40→16:58)
[2018-06-01] MEDS: metroNIDAZOLE 500mg/100ml NS 100 ML IVPB SCH ×3 (00:46→16:59)
[2018-06-01 05:28] LABS: BASO % 0.4 % (0.0-2.0); EOS # 0.1 K/uL (0.0-0.7); EOS % 1.5 % (0.0-4.0); HEMOGLOBIN 8.9 g/dL (12.0-16.0); LYMPH # 1.4 K/uL (1.0-4.3); LYMPH % 15.5 % (20.0-40.0); MEAN CELL VOLUME 82.6 fl (81.0-99.0); MEAN CORPUSCULAR HEMOGLOBIN 27.4 pg (27.0-31.0); MEAN CORPUSCULAR HGB CONC 33.2 g/dL (33.0-37.0); MEAN PLATELET VOLUME 7.7 fl (7.2-11.7); MONO # 0.7 K/uL (0.0-0.8); MONO % 8.1 % (0.0-10.0); NEUT # 6.8 K/uL (1.8-7.0); NEUT % 74.5 % (50.0-75.0); NRBC % 0.1 % (0.0-0.0); RBC 3.26 Mil/uL (3.80-5.20); RED CELL DISTRIBUTION WIDTH 15.1 % (11.5-14.5); WHITE BLOOD COUNT 9.2 K/uL (4.8-10.8)
[2018-06-01 05:49] LABS: ALBUMIN 2.9 g/dL (3.5-5.0); ALT/SGPT 27 U/L (9-52); AST/SGOT 35 U/L (14-36); BLOOD UREA NITROGEN 9 mg/dl (7-17); CALCIUM 8.2 mg/dL (8.4-10.2); GFR NON-AFRICAN AMERICAN > 60; LIPASE 135 U/L (23-300)
--- NOTE | 2018-06-01 09:03 | CP.PCM.PN ---
<DanicacharlesYolanda valdez - Last Filed: 06/01/18 11:35> Subjective - Date & Time of Evaluation Date of Evaluation: 06/01/18 Time of Evaluation: 08:00 - Subjective Subjective: Pt is a 43 yo F admitted due to pancreatitis 2/2 to hypertriglyceridemia, seen and examined at bedside. Reports she feels well, abdominal pain is now 4/10 in severity controlled with medications. Pt is NPO for CT scan today. Ambulating well. Reports she has been constipated, last BM was yest very small. Denies F/C, CP, SOB, N/V/D or dysuria. Objective - Vital Signs/Intake and Output Vital Signs (last 24 hours): Temp Pulse Resp BP Pulse Ox 99.3 F 109 H 20 100/64 98 06/01/18 08:23 06/01/18 08:23 06/01/18 08:23 06/01/18 08:23 06/01/18 08:23 - Medications Medications: Current Medications Acetaminophen (Tylenol 325mg Tab) 650 mg PO Q6 PRN PRN Reason: Fever >100.4 F Last Admin: 05/28/18 06:22 Dose: 650 mg Calcium Carbonate (Oscal) 500 mg PO BID [facility] Last Admin: 05/31/18 16:22 Dose: 500 mg Dextrose (Dextrose 50% Inj) 0 ml IV STAT PRN; Protocol PRN Reason: Hypoglycemia Protocol Dextrose (Glutose 15) 0 gm PO ONCE PRN; Protocol PRN Reason: Hypoglycemia Protocol Docusate Sodium (Colace) 100 mg PO DAILY [facility] Last Admin: 05/31/18 11:38 Dose: 100 mg Enoxaparin Sodium (Lovenox) 40 mg SC DAILY [facility]; Protocol Last Admin: 05/31/18 10:11 Dose: 40 mg Famotidine (Pepcid) 20 mg PO BID [facility] Last Admin: 05/31/18 16:22 Dose: 20 mg Fenofibrate (Tricor) 145 mg PO DAILY [facility] Last Admin: 05/31/18 09:01 Dose: 145 mg Glucagon (Glucagen Diagnostic Kit) 0 mg IM STAT PRN; Protocol PRN Reason: Hypoglycemia Protocol Hydromorphone HCl (Dilaudid) 0.5 mg IVP Q4H PRN PRN Reason: Pain, severe (8-10) Last Admin: 05/31/18 11:36 Dose: 0.5 mg Meropenem 1 gm/ Sodium (Chloride) 100 mls @ 100 mls/hr IVPB Q8 [facility]; Protocol Last Admin: 06/01/18 00:40 Dose: 100 mls/hr Metronidazole (Flagyl 500mg/100ml Ns) 100 mls @ 100 mls/hr IVPB Q8 [facility]; Protocol Last Admin: 06/01/18 00:46 Dose: 100 mls/hr Lactulose (Enulose) 20 gm PO DAILY PRN PRN Reason: Constipation Hjlpy-1-Gcjp Ethyl Esters (Lovaza) 2 gm PO BID [facility] Last Admin: 05/31/18 16:22 Dose: 2 gm Ondansetron HCl (Zofran Inj) 4 mg IVP Q4 PRN PRN Reason: Nausea/Vomiting Last Admin: 05/31/18 19:19 Dose: 4 mg Potassium Chloride (K-Dur 20 Meq Er Tab) 20 meq PO BID [facility] Last Admin: 05/31/18 16:22 Dose: 20 meq Simethicone (Mylicon Chew Tab) 80 mg PO Q6 PRN PRN Reason: Flatulence Last Admin: 05/30/18 13:21 Dose: 80 mg Tramadol HCl (Ultram) 50 mg PO Q6 PRN PRN Reason: Pain, Mild (1-3) Last Admin: 05/30/18 13:18 Dose: 50 mg Tramadol HCl (Ultram) 100 mg PO Q6 PRN PRN Reason: Other Last Admin: 06/01/18 07:31 Dose: 100 mg - Labs Labs: 06/01/18 04:55 06/01/18 04:55 PT 15.5 Seconds (9.8-13.1) H 05/25/18 09:37 INR 1.4 05/25/18 09:37 - Constitutional Appears: Non-toxic, No Acute Distress - Head Exam Head Exam: ATRAUMATIC, NORMAL INSPECTION, NORMOCEPHALIC - Eye Exam Eye Exam: EOMI - ENT Exam ENT Exam: Mucous Membranes Moist - Respiratory Exam Respiratory Exam: Clear to Ausculation Bilateral. absent: Rales, Rhonchi, Wh eezes - Cardiovascular Exam Cardiovascular Exam: Tachycardia, +S1, +S2 - GI/Abdominal Exam GI & Abdominal Exam: Distended, Soft, Tenderness (Diffuse, especially located L flank), Normal Bowel Sounds. absent: Guarding, Rigid, Rebound Additional comments: Non tympanic, umbilical hernia, reducible - Extremities Exam Extremities Exam: Normal Inspection - Neurological Exam Neurological Exam: Alert, Awake, Oriented x3 Assessment and Plan - Assessment and Plan (Free Text) Assessment: Pt is a 43 yo F admitted due to pancreatitis 2/2 to hypertriglyceridemia, s/p insulin drip seen and examined at bedside. Triglycerides now down to 184 from admission of 6140. -CT scan of abdomen (05/19): findings consistent with acute pancreatitis (boggy and edematous) with symptomatic hypocalcemia (facial numbness and tingling sensation on both hands) -CT abdomen and pelvis (05/26): Findings compatible with extensive acute- subacute pancreatitis. Interval progressive peripancreatic/mesenteric phlegmon and peritoneal fluid/phlegmon. No pancreatic gross necrosis seen. No phlegmonous gaseous process noted. No enhancing abscess seen. Interval increased anasarca. Interval increased bibasilar pleural effusions with greater left lung base compressive atelectasis. Interval increased phlegmonous in case mint of the right colon loop with interval decreased caliber of this colonic loop. No current bowel obstruction seen. -MRI (05/26): Acute pancreatitis without hemorrhage or necrosis.Large fluid collection inferior to the gastric antrum with mild peripheral enhancement. Additional extensive amount of free fluid layering along the anterior left renal fascia and extending to the left pericolic gutter/left jonathan abdomen.Reactive thickening of the adjacent splenic flexure/proximal descending colon. Small to moderate left pleural effusion with subjacent left lower lobe atelectasis/consolidation. -Abd U/S (05/28): Hepatomegaly w/steaosis. Gallbladder sludge without evidence of cholelithiasis. Pancreatitis. Partially imaged left pleural effusion. -Repeat CT abdomen and pelvis- scheduled for today 06/01/18 1. Acute pancreatitis with Phlegmonous changes / sepsis 2/2 to hypertriglyceridemia (184 now), improving Continue fluid intake, pain management Surgery and IR consulted- no intervention at this time, IR reports no collection to be drained yet MRI images showed:Acute pancreatitis without hemorrhage or necrosis.Large fluid collection inferior to the gastric antrum with mild peripheral enhancement.Ad ditional extensive amount of free fluid layering along the anterior left renal fascia and extending to the left pericolic gutter/left jonathan abdomen. Reactive thickening of the adjacent splenic flexure/proximal descending colon. Small to moderate left pleural effusion with subjacent left lower lobe at electasis/consolidation. GI, endocrinology, infectious dz consults, Dr Rizzo, Dr Mora, and Jose respectively c/w Meropenem 1gm Q8H and Flagyl 500mg Q8 (day #7) s/p Zosyn 3.375gm Q6H (3 day total) Pain control PRN, Dilauded 0.5mg severe, ultram 100mg moderate, Ultram 50mg mild Monitor electrolytes and replace Lipase 135 (down from 3653) , Amylase 101 Blood Cx negative @ [address] abdomen and pelvis- scheduled for today 06/01/18-F/u- NPO diet F/u CBC and CMP in AM 2.Elevated triglycerides Trending down now 184 from 6160 Fenofibrate 145mg PO daily, Dick[place] 2gm BID 3.Sinus tachycardia HR 106, improved Continue pain management , Tylenol for fever Monitor on Tele 4. Electrolyte abnormalities Ca 8.2, corrected is 8.7 Calcium carbonate 500 mg BID PO Hypokalmeia resolved 3. K 20mEq BID PO F/u CMP in AM 5. Constipation c/w colace QD Lactulose PRN 6.Anemia Most likely anemia of acute illness Hgb/HCT 8.9/26.9 continue to monitor F/u CBC in AM 7. Diet NPO for CT scan today 8. DVT Prophylaxis -Lovenox 40 mg SC daily <Evelyn Heaton - Last Filed: 06/01/18 16:53> Objective - Vital Signs/Intake and Output Vital Signs (last 24 hours): Temp Pulse Resp BP Pulse Ox 99.5 F 134 H 18 113/76 98 06/01/18 15:55 06/01/18 15:55 06/01/18 15:55 06/01/18 15:55 06/01/18 15:55 - Medications Medications: Current Medications Acetaminophen (Tylenol 325mg Tab) 650 mg PO Q6 PRN PRN Reason: Fever >100.4 F Last Admin: 05/28/18 06:22 Dose: 650 mg Calcium Carbonate (Oscal) 500 mg PO BID [facility] Last Admin: 06/01/18 14:27 Dose: Not Given Dextrose (Dextrose 50% Inj) 0 ml IV STAT PRN; Protocol PRN Reason: Hypoglycemia Protocol Dextrose (Glutose 15) 0 gm PO ONCE PRN; Protocol PRN Reason: Hypoglycemia Protocol Docusate Sodium (Colace) 100 mg PO DAILY [facility] Last Admin: 06/01/18 14:25 Dose: 100 mg Enoxaparin Sodium (Lovenox) 40 mg SC DAILY [facility]; Protocol Last Admin: 06/01/18 14:26 Dose: 40 mg Famotidine (Pepcid) 20 mg PO BID [facility] Last Admin: 06/01/18 14:27 Dose: Not Given Fenofibrate (Tricor) 145 mg PO DAILY [facility] Last Admin: 06/01/18 14:27 Dose: 145 mg Glucagon (Glucagen Diagnostic Kit) 0 mg IM STAT PRN; Protocol PRN Reason: Hypoglycemia Protocol Hydromorphone HCl (Dilaudid) 0.5 mg IVP Q4H PRN PRN Reason: Pain, severe (8-10) Last Admin: 06/01/18 14:23 Dose: 0.5 mg Meropenem 1 gm/ Sodium (Chloride) 100 mls @ 100 mls/hr IVPB Q8 [facility]; Protocol Last Admin: 06/01/18 10:17 Dose: 100 mls/hr Metronidazole (Flagyl 500mg/100ml Ns) 100 mls @ 100 mls/hr IVPB Q8 [facility]; Protocol Last Admin: 06/01/18 10:18 Dose: 100 mls/hr Lactulose (Enulose) 20 gm PO DAILY PRN PRN Reason: Constipation Taiox-3-Mmsj Ethyl Esters (Lovaza) 2 gm PO BID [facility] Last Admin: 06/01/18 14:26 Dose: Not Given Ondansetron HCl (Zofran Inj) 4 mg IVP Q4 PRN PRN Reason: Nausea/Vomiting Last Admin: 05/31/18 19:19 Dose: 4 mg Potassium Chloride (K-Dur 20 Meq Er Tab) 20 meq PO BID [facility] Last Admin: 06/01/18 14:26 Dose: 20 meq Simethicone (Mylicon Chew Tab) 80 mg PO Q6 PRN PRN Reason: Flatulence Last Admin: 05/30/18 13:21 Dose: 80 mg Tramadol HCl (Ultram) 50 mg PO Q6 PRN PRN Reason: Pain, Mild (1-3) Last Admin: 05/30/18 13:18 Dose: 50 mg Tramadol HCl (Ultram) 100 mg PO Q6 PRN PRN Reason: Other Last Admin: 06/01/18 07:31 Dose: 100 mg - Labs Labs: 06/01/18 04:55 06/01/18 04:55 PT 15.5 Seconds (9.8-13.1) H 05/25/18 09:37 INR 1.4 05/25/18 09:37 Attending/Attestation - Attestation I have personally seen and examined this patient.: Yes I have fully participated in the care of the patient.: Yes I have reviewed all pertinent clinical information, including history, physical exam and plan: Yes Notes (Text): Acute Pancreatitis with Phlegmon with Sepsis (sec to Severe Hypertriglyceridemia) Electrolyte Abnormality Anemia, acute prob dilutional Sinus Tachycardia - Pain better - plan to rpt CT of abd/Pelvis today to ff up on phlegmon - if not better, IR for poss drainage however if better , will discuss with Dr Garcia if pt can possibly be d/c home on IV Ertapenem daily ( pt can come in daily for infusion ) - cont IV Meropenem and Flagyl -replace electrolytes - Surgery consulted - cont Tricor, low fat diet, Dickens 3 FA - DVT proph with Lovenox
[2018-06-01] MEDS ORDERED: Iohexol 240 100 ML IJ ONE (09:44)
[2018-06-01] MEDS: Enoxaparin 40 mg Syringe SC SCH (10:00)
[2018-06-01] MEDS ORDERED: Sodium Chloride 0.9% 50 ML IV ONE (13:40)
[2018-06-01] MEDS ORDERED: Iohexol 300 100 ML IJ ONE (13:40)
[2018-06-01] MEDS: HYDROmorphone 0.5 mg/0.5 ml ISec IVP PRN ×2 (14:23→22:00)
[2018-06-01] MEDS: Omega-3-Acid Ethyl Esters 1 GM Cap PO SCH ×2 (14:26→16:58)
[2018-06-01] MEDS: Potassium Chloride 20 mEq ER Tab PO SCH ×2 (14:26→17:00)
--- NOTE | 2018-06-01 15:48 | CT ---
Date of service: 06/01/2018 PROCEDURE: CT Abdomen and Pelvis with contrast HISTORY: Pancreatitis COMPARISON: 05/27/2018. TECHNIQUE: CT scan of the abdomen and pelvis was performed after administration of intravenous contrast. Oral contrast was not administered. Coronal and sagittal reformatted images were obtained. Contrast dose: 95 cc Omnipaque 300 Radiation dose: Total exam DLP = 540.25 mGy-cm. This CT exam was performed using one or more of the following dose reduction techniques: Automated exposure control, adjustment of the mA and/or kV according to patient size, and/or use of iterative reconstruction technique. FINDINGS: LOWER THORAX: There is redemonstration of subsegmental atelectasis in the right lower lobe. Worsening moderate left pleural effusion with compressive atelectasis of the left lower lobe. LIVER: Normal in size with homogeneous enhancement. No gross lesion or ductal dilatation. GALLBLADDER AND BILE DUCTS: Well distended. No calcified gallstones, wall thickening or pericholecystic fluid. PANCREAS: There is mild heterogeneous enhancement in and normal sized pancreas without ductal dilatation or evidence for necrotizing pancreatitis. There is extensive peripancreatic edema and fluid. SPLEEN: Normal in size and appearance. ADRENALS: No discrete nodule. KIDNEYS AND URETERS: Normal in size with homogeneous enhancement. No hydronephrosis. No solid mass. VASCULATURE: No aortic aneurysm. There are no aortic atherosclerotic calcifications or mural plaque present. BOWEL: There is mild dilatation of the small bowel loops likely related to reactive ileus. There is also mild circumferential mural thickening in the descending and sigmoid colon also likely reactive. No evidence for bowel obstruction. The APPENDIX: Normal appendix. PERITONEUM: There is now an approximately 7.2 x 12.6 x 22.5 cm large multilocular fluid collection with peripheral enhancement in the lesser sac with mass effect on the greater curvature of the stomach. There is also a 2nd large 11.3 x 13.8 x 25.0 cm multilocular fluid collection in the left anterior and posterior pararenal space extending to the left paracolic gutter, left lower quadrant and left hemipelvis. More anteriorly there appears to be a combination between these 2 collections. No free intraperitoneal air. LYMPH NODES: No enlarged lymph nodes. BLADDER: Well distended and normal in appearance. REPRODUCTIVE: The uterus is normal in size. BONES: No acute fracture. Within normal limits for the patient's age. OTHER FINDINGS: There is edema and thickening of the left lateral abdominal wall and diffuse anasarca, worse on the left. IMPRESSION: 1. Interval development of large pseudocyst in the lesser sac presumably communicating with a large pseudocyst in the left anterior and posterior para renal space extending to the paracolic gutter and left hemipelvis. 2. Acute pancreatitis without evidence for hemorrhage in necroses. 3. Mild dilatation of the small bowel loops likely related to reactive ileus and also mild circumferential mural thickening and edema in the descending colon, reactive. 4. Worsening moderate left pleural effusion.
[2018-06-02] MEDS: Meropenem 1 GM in Sodium Chloride 0.9% 100 ML IVPB SCH ×3 (00:17→16:35)
[2018-06-02] MEDS: metroNIDAZOLE 500mg/100ml NS 100 ML IVPB SCH ×3 (00:18→16:34)
[2018-06-02 05:23] LABS: BASO % 0.4 % (0.0-2.0); EOS # 0.1 K/uL (0.0-0.7); EOS % 1.3 % (0.0-4.0); HEMOGLOBIN 9.2 g/dL (12.0-16.0); LYMPH # 1.4 K/uL (1.0-4.3); LYMPH % 13.4 % (20.0-40.0); MEAN CELL VOLUME 82.7 fl (81.0-99.0); MEAN CORPUSCULAR HEMOGLOBIN 27.2 pg (27.0-31.0); MEAN CORPUSCULAR HGB CONC 32.9 g/dL (33.0-37.0); MEAN PLATELET VOLUME 7.4 fl (7.2-11.7); MONO % 9.2 % (0.0-10.0); NEUT # 8.1 K/uL (1.8-7.0); NEUT % 75.7 % (50.0-75.0); RBC 3.37 Mil/uL (3.80-5.20); WHITE BLOOD COUNT 10.6 K/uL (4.8-10.8)
[2018-06-02 05:45] LABS: ALB/GLOB RATIO 1.1 (1.0-2.1); ALBUMIN 3.1 g/dL (3.5-5.0); ALT/SGPT 26 U/L (9-52); AST/SGOT 28 U/L (14-36); BLOOD UREA NITROGEN 7 mg/dl (7-17); CALCIUM 8.2 mg/dL (8.4-10.2); GFR NON-AFRICAN AMERICAN > 60
--- NOTE | 2018-06-02 07:57 | CP.PCM.PN ---
<Yolanda Erazo - Last Filed: 06/02/18 14:38> Subjective - Date & Time of Evaluation Date of Evaluation: 06/02/18 Time of Evaluation: 08:00 - Subjective Subjective: Pt is a 43 yo F admitted due to pancreatitis 2/2 to hypertriglyceridemia, seen and examined at bedside. Reports she feels well, abdominal pain controlled with medications. Pt is NPO for now pending IR reccs. Ambulating well. Reports she has been constipated, last BM was yest. Denies F/C, CP, SOB, N/V/D or dysuria. Objective - Vital Signs/Intake and Output Vital Signs (last 24 hours): Temp Pulse Resp BP Pulse Ox 98.2 F 103 H 18 105/66 99 06/02/18 07:47 06/02/18 07:47 06/02/18 07:47 06/02/18 07:47 06/02/18 07:47 - Medications Medications: Current Medications Acetaminophen (Tylenol 325mg Tab) 650 mg PO Q6 PRN PRN Reason: Fever >100.4 F Last Admin: 05/28/18 06:22 Dose: 650 mg Calcium Carbonate (Oscal) 500 mg PO BID [facility] Last Admin: 06/01/18 16:56 Dose: 500 mg Dextrose (Dextrose 50% Inj) 0 ml IV STAT PRN; Protocol PRN Reason: Hypoglycemia Protocol Dextrose (Glutose 15) 0 gm PO ONCE PRN; Protocol PRN Reason: Hypoglycemia Protocol Docusate Sodium (Colace) 100 mg PO DAILY [facility] Last Admin: 06/01/18 14:25 Dose: 100 mg Enoxaparin Sodium (Lovenox) 40 mg SC DAILY [facility]; Protocol Last Admin: 06/01/18 10:00 Dose: 40 mg Famotidine (Pepcid) 20 mg PO BID [facility] Last Admin: 06/01/18 16:56 Dose: 20 mg Fenofibrate (Tricor) 145 mg PO DAILY [facility] Last Admin: 06/01/18 14:27 Dose: 145 mg Glucagon (Glucagen Diagnostic Kit) 0 mg IM STAT PRN; Protocol PRN Reason: Hypoglycemia Protocol Hydromorphone HCl (Dilaudid) 0.5 mg IVP Q4H PRN PRN Reason: Pain, severe (8-10) Last Admin: 06/01/18 22:00 Dose: 0.5 mg Meropenem 1 gm/ Sodium (Chloride) 100 mls @ 100 mls/hr IVPB Q8 [facility]; Protocol Last Admin: 06/02/18 00:17 Dose: 100 mls/hr Metronidazole (Flagyl 500mg/100ml Ns) 100 mls @ 100 mls/hr IVPB Q8 [facility]; Protocol Last Admin: 06/02/18 00:18 Dose: 100 mls/hr Lactulose (Enulose) 20 gm PO DAILY PRN PRN Reason: Constipation Hrccg-6-Brfd Ethyl Esters (Lovaza) 2 gm PO BID [facility] Last Admin: 06/01/18 16:58 Dose: 2 gm Ondansetron HCl (Zofran Inj) 4 mg IVP Q4 PRN PRN Reason: Nausea/Vomiting Last Admin: 05/31/18 19:19 Dose: 4 mg Potassium Chloride (K-Dur 20 Meq Er Tab) 20 meq PO BID [facility] Last Admin: 06/01/18 17:00 Dose: 20 meq Simethicone (Mylicon Chew Tab) 80 mg PO Q6 PRN PRN Reason: Flatulence Last Admin: 05/30/18 13:21 Dose: 80 mg Tramadol HCl (Ultram) 50 mg PO Q6 PRN PRN Reason: Pain, Mild (1-3) Last Admin: 05/30/18 13:18 Dose: 50 mg Tramadol HCl (Ultram) 100 mg PO Q6 PRN PRN Reason: Other Last Admin: 06/01/18 07:31 Dose: 100 mg - Labs Labs: 06/02/18 05:00 06/02/18 05:00 PT 15.5 Seconds (9.8-13.1) H 05/25/18 09:37 INR 1.4 05/25/18 09:37 - Constitutional Appears: Non-toxic, No Acute Distress - Head Exam Head Exam: ATRAUMATIC, NORMAL INSPECTION, NORMOCEPHALIC - Eye Exam Eye Exam: EOMI - ENT Exam ENT Exam: Mucous Membranes Moist - Respiratory Exam Respiratory Exam: Clear to Ausculation Bilateral. absent: Rales, Rhonchi, Wheezes - Cardiovascular Exam Cardiovascular Exam: Tachycardia, +S1, +S2 - GI/Abdominal Exam GI & Abdominal Exam: Distended, Soft, Tenderness (Diffuse, especially located L flank), Normal Bowel Sounds. absent: Guarding, Rigid, Rebound - Extremities Exam Extremities Exam: Pedal Edema - Neurological Exam Neurological Exam: Alert, Awake, Oriented x3 Assessment and Plan - Assessment and Plan (Free Text) Assessment: Pt is a 43 yo F admitted due to pancreatitis 2/2 to hypertriglyceridemia, s/p insulin drip seen and examined at bedside. Triglycerides now down to 184 (06/01/18) from admission of 6140. -CT scan of abdomen (05/19): findings consistent with acute pancreatitis (boggy and edematous) with symptomatic hypocalcemia (facial numbness and tingling sensation on both hands) -CT abdomen and pelvis (05/26): Findings compatible with extensive acute- subacute pancreatitis. Interval progressive peripancreatic/mesenteric phlegmon and peritoneal fluid/phlegmon. No pancreatic gross necrosis seen. No phle gmonous gaseous process noted. No enhancing abscess seen. Interval increased anasarca. Interval increased bibasilar pleural effusions with greater left lung base compressive atelectasis. Interval increased phlegmonous in case mint of the right colon loop with interval decreased caliber of this colonic loop. No current bowel obstruction seen. -MRI (05/26): Acute pancreatitis without hemorrhage or necrosis.Large fluid collection inferior to the gastric antrum with mild peripheral enhancement. Additional extensive amount of free fluid layering along the anterior left renal fascia and extending to the left pericolic gutter/left jonathan abdomen.Reactive thickening of the adjacent splenic flexure/proximal descending colon. Small to moderate left pleural effusion with subjacent left lower lobe atelectasis/consolidation. -Abd U/S (05/28): Hepatomegaly w/steaosis. Gallbladder sludge without evidence of cholelithiasis. Pancreatitis. Partially imaged left pleural effusion. -Repeat CT abdomen and pelvis- 06/01/18: interval development of large pseudocyst in the lesser sac presumably communicating with a large pseudocyst in the left anterior and posterior para renal space extending to the paracoloic gutter and L hemipelvis. Acute pancreatitis without evidence of hemorrhage in necroses. Mild dilation of the small bowel loops likely due to reactive ileus and thick ening/edema in descending colon, reactive. Worsening moderate L pleural effusion. 1. Acute pancreatitis with Phlegmonous changes / sepsis 2/2 to hypertriglyceridemia (184-06/01/18), improving Continue fluid intake, pain management Surgery and IR consulted- no intervention at this time, ID 7 more days of IV abx, GI repeat CT romero in 8 weeks MRI images showed:Acute pancreatitis without hemorrhage or necrosis.Large fluid collection inferior to the gastric antrum with mild peripheral enhancement.Additional extensive amount of free fluid layering along the a nterior left renal fascia and extending to the left pericolic gutter/left jonathan abdomen. Reactive thickening of the adjacent splenic flexure/proximal descending colon. Small to moderate left pleural effusion with subjacent left lower lobe atelectasis/consolidation. GI, endocrinology, infectious dz consults, Dr Rizzo, Dr Mora, and Jose respectively c/w Meropenem 1gm Q8H and Flagyl 500mg Q8 (day #8) ID reccs IV meropenum for 7 more days s/p Zosyn 3.375gm Q6H (3 day total) Pain control PRN, Dilauded 0.5mg severe, ultram 100mg moderate, Ultram 50mg mild Monitor electrolytes and replace Lipase 135 (down from 3653) , Amylase 101 Blood Cx negative @ 5 days F/u CBC, CMP, Triglycerides in AM 2.Elevated triglycerides Trending down now 184 (06/01/18)from 6160 Fenofibrate 145mg PO daily, [place] 2gm BID f/u TG's in AM 3.Sinus tachycardia HR 99, improved Continue pain management , Tylenol for fever Monitor on Tele 4. Electrolyte abnormalities Ca 8.2, corrected is 8.9 Calcium carbonate 500 mg BID PO Hypokalmeia resolved 3.7 K 20mEq BID PO Na 131 on 06/01/18, serum osm 284 F/u CMP, urine osm urine in AM 5. Constipation c/w colace QD Lactulose PRN 6.Anemia Most likely anemia of acute illness Hgb/HCT 9.2/27.9 continue to monitor F/u CBC in AM 7. Diet Regular diet 8. DVT Prophylaxis -Lovenox 40 mg SC daily <Nila Jesus - Last Filed: 06/05/18 13:04> Objective - Vital Signs/Intake and Output Vital Signs (last 24 hours): Temp Pulse Resp BP Pulse Ox 98.1 F 102 H 18 99/66 L 98 06/05/18 11:51 06/05/18 11:51 06/05/18 11:51 06/05/18 11:51 06/05/18 11:51 - Medications Medications: Current Medications Acetaminophen (Tylenol 325mg Tab) 650 mg PO Q6 PRN PRN Reason: Fever >100.4 F Last Admin: 05/28/18 06:22 Dose: 650 mg Calcium Carbonate (Oscal) 500 mg PO BID [facility] Last Admin: 06/05/18 09:14 Dose: 500 mg Dextrose (Dextrose 50% Inj) 0 ml IV STAT PRN; Protocol PRN Reason: Hypoglycemia Protocol Dextrose (Glutose 15) 0 gm PO ONCE PRN; Protocol PRN Reason: Hypoglycemia Protocol Docusate Sodium (Colace) 100 mg PO DAILY [facility] Last Admin: 06/05/18 09:12 Dose: 100 mg Enoxaparin Sodium (Lovenox) 40 mg SC DAILY [facility]; Protocol Last Admin: 06/05/18 09:13 Dose: 40 mg Famotidine (Pepcid) 20 mg PO BID [facility] Last Admin: 06/05/18 09:13 Dose: 20 mg Fenofibrate (Tricor) 145 mg PO DAILY [facility] Last Admin: 06/05/18 09:13 Dose: 145 mg Glucagon (Glucagen Diagnostic Kit) 0 mg IM STAT PRN; Protocol PRN Reason: Hypoglycemia Protocol Hydromorphone HCl (Dilaudid) 0.5 mg IVP Q4H PRN PRN Reason: Pain, severe (8-10) Last Admin: 06/05/18 09:11 Dose: 0.5 mg Meropenem 1 gm/ Sodium (Chloride) 100 mls @ 100 mls/hr IVPB Q8 [facility]; Protocol Last Admin: 06/05/18 09:11 Dose: 100 mls/hr Metronidazole (Flagyl 500mg/100ml Ns) 100 mls @ 100 mls/hr IVPB Q8 [facility]; Protocol Last Admin: 06/05/18 09:12 Dose: 100 mls/hr Lactulose (Enulose) 20 gm PO DAILY PRN PRN Reason: Constipation Aasrc-9-Demr Ethyl Esters (Lovaza) 2 gm PO BID [facility] Last Admin: 06/05/18 09:13 Dose: 2 gm Ondansetron HCl (Zofran Inj) 4 mg IVP Q4 PRN PRN Reason: Nausea/Vomiting Last Admin: 05/31/18 19:19 Dose: 4 mg Potassium Chloride (K-Dur 20 Meq Er Tab) 20 meq PO BID [facility] Last Admin: 06/05/18 09:13 Dose: 20 meq Simethicone (Mylicon Chew Tab) 80 mg PO Q6 PRN PRN Reason: Flatulence Last Admin: 05/30/18 13:21 Dose: 80 mg Tramadol HCl (Ultram) 50 mg PO Q6 PRN PRN Reason: Pain, Mild (1-3) Last Admin: 06/04/18 11:18 Dose: 50 mg Tramadol HCl (Ultram) 100 mg PO Q6 PRN PRN Reason: Other Last Admin: 06/01/18 07:31 Dose: 100 mg - Labs Labs: 06/05/18 08:00 06/05/18 08:00 PT 15.5 Seconds (9.8-13.1) H 05/25/18 09:37 INR 1.4 05/25/18 09:37 Attending/Attestation - Attestation I have personally seen and examined this patient.: Yes I have fully participated in the care of the patient.: Yes I have reviewed all pertinent clinical information, including history, physical exam and plan: Yes Notes (Text): Agree with findings and plan as above. No changes in current management.
[2018-06-02] MEDS: HYDROmorphone 0.5 mg/0.5 ml ISec IVP PRN ×3 (08:56→22:54)
[2018-06-02] MEDS: Potassium Chloride 20 mEq ER Tab PO SCH ×2 (08:59→16:34)
[2018-06-02] MEDS: Omega-3-Acid Ethyl Esters 1 GM Cap PO SCH ×2 (08:59→16:35)
--- NOTE | 2018-06-02 09:21 | CP.PCM.PN ---
Subjective - Date & Time of Evaluation Date of Evaluation: 06/02/18 Time of Evaluation: 09:20 - Subjective Subjective: no overnight events Objective - Vital Signs/Intake and Output Vital Signs (last 24 hours): Temp Pulse Resp BP Pulse Ox 98.2 F 103 H 18 105/66 99 06/02/18 07:47 06/02/18 07:47 06/02/18 07:47 06/02/18 07:47 06/02/18 07:47 - Medications Medications: Current Medications Acetaminophen (Tylenol 325mg Tab) 650 mg PO Q6 PRN PRN Reason: Fever >100.4 F Last Admin: 05/28/18 06:22 Dose: 650 mg Calcium Carbonate (Oscal) 500 mg PO BID [facility] Last Admin: 06/02/18 09:00 Dose: 500 mg Dextrose (Dextrose 50% Inj) 0 ml IV STAT PRN; Protocol PRN Reason: Hypoglycemia Protocol Dextrose (Glutose 15) 0 gm PO ONCE PRN; Protocol PRN Reason: Hypoglycemia Protocol Docusate Sodium (Colace) 100 mg PO DAILY [facility] Last Admin: 06/02/18 08:59 Dose: 100 mg Enoxaparin Sodium (Lovenox) 40 mg SC DAILY [facility]; Protocol Last Admin: 06/01/18 10:00 Dose: 40 mg Famotidine (Pepcid) 20 mg PO BID [facility] Last Admin: 06/02/18 09:00 Dose: 20 mg Fenofibrate (Tricor) 145 mg PO DAILY [facility] Last Admin: 06/02/18 09:00 Dose: 145 mg Glucagon (Glucagen Diagnostic Kit) 0 mg IM STAT PRN; Protocol PRN Reason: Hypoglycemia Protocol Hydromorphone HCl (Dilaudid) 0.5 mg IVP Q4H PRN PRN Reason: Pain, severe (8-10) Last Admin: 06/02/18 08:56 Dose: 0.5 mg Meropenem 1 gm/ Sodium (Chloride) 100 mls @ 100 mls/hr IVPB Q8 [facility]; Protocol Last Admin: 06/02/18 08:57 Dose: 100 mls/hr Metronidazole (Flagyl 500mg/100ml Ns) 100 mls @ 100 mls/hr IVPB Q8 [facility]; Protocol Last Admin: 06/02/18 08:57 Dose: 100 mls/hr Lactulose (Enulose) 20 gm PO DAILY PRN PRN Reason: Constipation Vphyg-9-Hmdw Ethyl Esters (Lovaza) 2 gm PO BID [facility] Last Admin: 06/02/18 08:59 Dose: 2 gm Ondansetron HCl (Zofran Inj) 4 mg IVP Q4 PRN PRN Reason: Nausea/Vomiting Last Admin: 05/31/18 19:19 Dose: 4 mg Potassium Chloride (K-Dur 20 Meq Er Tab) 20 meq PO BID [facility] Last Admin: 06/02/18 08:59 Dose: 20 meq Simethicone (Mylicon Chew Tab) 80 mg PO Q6 PRN PRN Reason: Flatulence Last Admin: 05/30/18 13:21 Dose: 80 mg Tramadol HCl (Ultram) 50 mg PO Q6 PRN PRN Reason: Pain, Mild (1-3) Last Admin: 05/30/18 13:18 Dose: 50 mg Tramadol HCl (Ultram) 100 mg PO Q6 PRN PRN Reason: Other Last Admin: 06/01/18 07:31 Dose: 100 mg - Labs Labs: 06/02/18 05:00 06/02/18 05:00 PT 15.5 Seconds (9.8-13.1) H 05/25/18 09:37 INR 1.4 05/25/18 09:37 - Head Exam Head Exam: NORMOCEPHALIC - ENT Exam ENT Exam: Normal Exam - Neck Exam Neck Exam: Normal Inspection - Respiratory Exam Respiratory Exam: Clear to Ausculation Bilateral, NORMAL BREATHING PATTERN - Cardiovascular Exam Cardiovascular Exam: REGULAR RHYTHM - GI/Abdominal Exam GI & Abdominal Exam: Soft, Normal Bowel Sounds Assessment and Plan - Assessment and Plan (Free Text) Assessment: 43 yo female with pancreatitis evolving pseudocysts doing well tolerating diet CT in 8 weeks
--- NOTE | 2018-06-02 13:07 | CP.PCM.PN ---
Subjective - Date & Time of Evaluation Date of Evaluation: 06/02/18 Time of Evaluation: 13:05 - Subjective Subjective: ID Note- Pt. seen and examined today . she states she feels better. denies any fever or chills. denies any diarrhea. states her abdominal pain is less. denies any diarrhea. tolerating her diet well. Objective - Vital Signs/Intake and Output Vital Signs (last 24 hours): Temp Pulse Resp BP Pulse Ox 98.8 F 99 H 18 101/64 97 06/02/18 11:46 06/02/18 11:46 06/02/18 11:46 06/02/18 11:46 06/02/18 11:46 - Medications Medications: Current Medications Acetaminophen (Tylenol 325mg Tab) 650 mg PO Q6 PRN PRN Reason: Fever >100.4 F Last Admin: 05/28/18 06:22 Dose: 650 mg Calcium Carbonate (Oscal) 500 mg PO BID [facility] Last Admin: 06/02/18 09:00 Dose: 500 mg Dextrose (Dextrose 50% Inj) 0 ml IV STAT PRN; Protocol PRN Reason: Hypoglycemia Protocol Dextrose (Glutose 15) 0 gm PO ONCE PRN; Protocol PRN Reason: Hypoglycemia Protocol Docusate Sodium (Colace) 100 mg PO DAILY [facility] Last Admin: 06/02/18 08:59 Dose: 100 mg Enoxaparin Sodium (Lovenox) 40 mg SC DAILY [facility]; Protocol Last Admin: 06/01/18 10:00 Dose: 40 mg Famotidine (Pepcid) 20 mg PO BID [facility] Last Admin: 06/02/18 09:00 Dose: 20 mg Fenofibrate (Tricor) 145 mg PO DAILY [facility] Last Admin: 06/02/18 09:00 Dose: 145 mg Glucagon (Glucagen Diagnostic Kit) 0 mg IM STAT PRN; Protocol PRN Reason: Hypoglycemia Protocol Hydromorphone HCl (Dilaudid) 0.5 mg IVP Q4H PRN PRN Reason: Pain, severe (8-10) Last Admin: 06/02/18 08:56 Dose: 0.5 mg Meropenem 1 gm/ Sodium (Chloride) 100 mls @ 100 mls/hr IVPB Q8 [facility]; Protocol Last Admin: 06/02/18 08:57 Dose: 100 mls/hr Metronidazole (Flagyl 500mg/100ml Ns) 100 mls @ 100 mls/hr IVPB Q8 [facility]; Protocol Last Admin: 06/02/18 08:57 Dose: 100 mls/hr Lactulose (Enulose) 20 gm PO DAILY PRN PRN Reason: Constipation Znrnr-4-Agbj Ethyl Esters (Lovaza) 2 gm PO BID [facility] Last Admin: 06/02/18 08:59 Dose: 2 gm Ondansetron HCl (Zofran Inj) 4 mg IVP Q4 PRN PRN Reason: Nausea/Vomiting Last Admin: 05/31/18 19:19 Dose: 4 mg Potassium Chloride (K-Dur 20 Meq Er Tab) 20 meq PO BID [facility] Last Admin: 06/02/18 08:59 Dose: 20 meq Simethicone (Mylicon Chew Tab) 80 mg PO Q6 PRN PRN Reason: Flatulence Last Admin: 05/30/18 13:21 Dose: 80 mg Tramadol HCl (Ultram) 50 mg PO Q6 PRN PRN Reason: Pain, Mild (1-3) Last Admin: 05/30/18 13:18 Dose: 50 mg Tramadol HCl (Ultram) 100 mg PO Q6 PRN PRN Reason: Other Last Admin: 06/01/18 07:31 Dose: 100 mg - Labs Labs: - Additional Findings Additional findings: - Constitutional Appears: No Acute Distress - Head Exam Head Exam: ATRAUMATIC - Eye Exam Eye Exam: EOMI, PERRL - ENT Exam ENT Exam: Normal Oropharynx - Neck Exam Neck exam: Positive for: Full Rom - Respiratory Exam Respiratory Exam: Clear to Auscultation Bilateral, NORMAL BREATHING PATTERN - Cardiovascular Exam Cardiovascular Exam: RRR, +S1, +S2 - GI/Abdominal Exam GI & Abdominal Exam: Normal Bowel Sounds, Soft Additional comments: less distended and pain is much less No guarding, no rebound - Extremities Exam Extremities exam: Positive for: normal inspection - Neurological Exam Neurological exam: Alert, Oriented x 3 Laboratory Results - last 72 hr 05/30/18 05/30/18 05/31/18 16:30 21:07 05:16 WBC RBC Hgb Hct MCV MCH MCHC RDW Plt Count MPV Neut % (Auto) Lymph % (Auto) Harris % (Auto) Eos % (Auto) Baso % (Auto) Neut # (Auto) Lymph # (Auto) Harris # (Auto) Eos # (Auto) Baso # (Auto) Sodium Potassium Chloride Carbon Dioxide Anion Gap BUN Creatinine Est GFR ( Amer) Est GFR (Non-Af Amer) POC Glucose (mg/dL) 116 H 131 H 150 H Random Glucose Serum Osmolality Calcium Phosphorus Magnesium Total Bilirubin AST ALT Alkaline Phosphatase Total Protein Albumin Globulin Albumin/Globulin Ratio Triglycerides Lipase 05/31/18 05/31/18 05/31/18 05:25 05:25 11:24 WBC 10.7 RBC 3.08 L Hgb 8.5 L Hct 25.3 L MCV 82.1 MCH 27.5 MCHC 33.6 RDW 14.8 H Plt Count 525 H MPV Neut % (Auto) Lymph % (Auto) Harris % (Auto) Eos % (Auto) Baso % (Auto) Neut # (Auto) Lymph # (Auto) Harris # (Auto) Eos # (Auto) Baso # (Auto) Sodium 132 Potassium 3.6 Chloride 101 Carbon Dioxide 22 Anion Gap 13 BUN 9 Creatinine 0.3 L Est GFR ( Amer) > 60 Est GFR (Non-Af Amer) > 60 POC Glucose (mg/dL) 129 H Random Glucose 136 H Serum Osmolality Calcium 7.5 L Phosphorus 2.9 Magnesium 2.2 Total Bilirubin 0.3 AST 47 H D ALT 32 Alkaline Phosphatase 98 Total Protein 5.7 L Albumin 2.8 L Globulin 2.9 Albumin/Globulin Ratio 1.0 Triglycerides 197 H D Lipase 05/31/18 05/31/18 06/01/18 15:47 21:30 04:55 WBC 9.2 RBC 3.26 L Hgb 8.9 L Hct 26.9 L MCV 82.6 MCH 27.4 MCHC 33.2 RDW 15.1 H Plt Count 588 H MPV 7.7 Neut % (Auto) 74.5 Lymph % (Auto) 15.5 L Harris % (Auto) 8.1 Eos % (Auto) 1.5 Baso % (Auto) 0.4 Neut # (Auto) 6.8 Lymph # (Auto) 1.4 Harris # (Auto) 0.7 Eos # (Auto) 0.1 Baso # (Auto) 0.0 Sodium Potassium Chloride Carbon Dioxide Anion Gap BUN Creatinine Est GFR ( Amer) Est GFR (Non-Af Amer) POC Glucose (mg/dL) 185 H 182 H Random Glucose Serum Osmolality Calcium Phosphorus Magnesium Total Bilirubin AST ALT Alkaline Phosphatase Total Protein Albumin Globulin Albumin/Globulin Ratio Triglycerides Lipase 06/01/18 06/01/18 06/01/18 04:55 05:23 11:10 WBC RBC Hgb Hct MCV MCH MCHC RDW Plt Count MPV Neut % (Auto) Lymph % (Auto) Harris % (Auto) Eos % (Auto) Baso % (Auto) Neut # (Auto) Lymph # (Auto) Harris # (Auto) Eos # (Auto) Baso # (Auto) Sodium 131 L Potassium 3.7 Chloride 99 Carbon Dioxide 25 Anion Gap 11 BUN 9 Creatinine 0.3 L Est GFR ( Amer) > 60 Est GFR (Non-Af Amer) > 60 POC Glucose (mg/dL) 152 H 126 H Random Glucose 124 H Serum Osmolality Calcium 8.2 L Phosphorus Magnesium Total Bilirubin 0.3 AST 35 ALT 27 Alkaline Phosphatase 91 Total Protein 5.8 L Albumin 2.9 L Globulin 2.9 Albumin/Globulin Ratio 1.0 Triglycerides 184 H Lipase 135 06/01/18 06/01/18 06/02/18 15:45 21:14 05:00 WBC 10.6 RBC 3.37 L Hgb 9.2 L Hct 27.9 L MCV 82.7 MCH 27.2 MCHC 32.9 L RDW 15.0 H Plt Count 676 H MPV 7.4 Neut % (Auto) 75.7 H Lymph % (Auto) 13.4 L Harris % (Auto) 9.2 Eos % (Auto) 1.3 Baso % (Auto) 0.4 Neut # (Auto) 8.1 H Lymph # (Auto) 1.4 Harris # (Auto) 1.0 H Eos # (Auto) 0.1 Baso # (Auto) 0.0 Sodium Potassium Chloride Carbon Dioxide Anion Gap BUN Creatinine Est GFR ( Amer) Est GFR (Non-Af Amer) POC Glucose (mg/dL) 177 H 144 H Random Glucose Serum Osmolality Calcium Phosphorus Magnesium Total Bilirubin AST ALT Alkaline Phosphatase Total Protein Albumin Globulin Albumin/Globulin Ratio Triglycerides Lipase 06/02/18 06/02/18 06/02/18 05:00 05:11 10:36 WBC RBC Hgb Hct MCV MCH MCHC RDW Plt Count MPV Neut % (Auto) Lymph % (Auto) Harris % (Auto) Eos % (Auto) Baso % (Auto) Neut # (Auto) Lymph # (Auto) Harris # (Auto) Eos # (Auto) Baso # (Auto) Sodium 133 Potassium 3.7 Chloride 97 L Carbon Dioxide 24 Anion Gap 16 BUN 7 Creatinine 0.3 L Est GFR ( Amer) > 60 Est GFR (Non-Af Amer) > 60 POC Glucose (mg/dL) 157 H 152 H Random Glucose 133 H Serum Osmolality Calcium 8.2 L Phosphorus Magnesium Total Bilirubin 0.3 AST 28 ALT 26 Alkaline Phosphatase 90 Total Protein 6.0 L Albumin 3.1 L Globulin 2.9 Albumin/Globulin Ratio 1.1 Triglycerides Lipase 06/02/18 10:40 WBC RBC Hgb Hct MCV MCH MCHC RDW Plt Count MPV Neut % (Auto) Lymph % (Auto) Harris % (Auto) Eos % (Auto) Baso % (Auto) Neut # (Auto) Lymph # (Auto) Harris # (Auto) Eos # (Auto) Baso # (Auto) Sodium Potassium Chloride Carbon Dioxide Anion Gap BUN Creatinine Est GFR ( Amer) Est GFR (Non-Af Amer) POC Glucose (mg/dL) Random Glucose Serum Osmolality 284 Calcium Phosphorus Magnesium Total Bilirubin AST ALT Alkaline Phosphatase Total Protein Albumin Globulin Albumin/Globulin Ratio Triglycerides Lipase Microbiology 05/27/18 16:10 Blood-Venous Blood Culture - Final NO GROWTH AFTER 5 DAYS 05/27/18 16:10 Blood-Venous Gram Stain - Final TEST NOT PERFORMED 05/27/18 16:00 Blood-Venous Blood Culture - Final NO GROWTH AFTER 5 DAYS 05/27/18 16:00 Blood-Venous Gram Stain - Final TEST NOT PERFORMED 05/25/18 13:20 Blood-Venous Blood Culture - Final NO GROWTH AFTER 5 DAYS 05/25/18 13:20 Blood-Venous Gram Stain - Final TEST NOT PERFORMED 05/25/18 13:10 Blood-Venous Blood Culture - Final NO GROWTH AFTER 5 DAYS 05/25/18 13:10 Blood-Venous Gram Stain - Final TEST NOT PERFORMED 05/26/18 11:31 Naris MRSA Culture (Admit) - Final MRSA NOT DETECTED 05/24/18 11:49 Urine,Clean Catch Urine Culture - Final No Growth (<1,000 CFU/ML) 05/22/18 19:15 Naris MRSA Culture (Admit) - Final MRSA NOT DETECTED 05/21/18 14:45 Naris MRSA Culture (Admit) - Final MRSA NOT DETECTED Patient Name / ID : CHAIDEZ PUYICATLA JOHNIE / [id number] Exam Date : 06/01/2018 13:43:19 ( Approved ) Study Comment : Sex / Age : F / 43Y Creator : Chanel Ruiz MD Dictator : Chanel Ruiz MD Process Trainer : Field Consultant : Chanel Ruiz MD Approver2 : Report Date : 06/01/2018 15:42:39 My Comment : Date of service: 06/01/2018 PROCEDURE: CT Abdomen and Pelvis with contrast HISTORY: Pancreatitis COMPARISON: 05/27/2018. TECHNIQUE: CT scan of the abdomen and pelvis was performed after administration of intravenous contrast. Oral contrast was not administered. Coronal and sagittal reformatted images were obtained. Contrast dose: 95 cc Omnipaque 300 Radiation dose: Total exam DLP = 540.25 mGy-cm. This CT exam was performed using one or more of the following dose reduction techniques: Automated exposure control, adjustment of the mA and/or kV according to patient size, and/or use of iterative reconstruction technique. FINDINGS: LOWER THORAX: There is redemonstration of subsegmental atelectasis in the right lower lobe. Worsening moderate left pleural effusion with compressive atelectasis of the left lower lobe. LIVER: Normal in size with homogeneous enhancement. No gross lesion or ductal dilatation. GALLBLADDER AND BILE DUCTS: Well distended. No calcified gallstones, wall thickening or pericholecystic fluid. PANCREAS: There is mild heterogeneous enhancement in and normal sized pancreas without ductal dilatation or evidence for necrotizing pancreatitis. There is extensive peripancreatic edema and fluid. SPLEEN: Normal in size and appearance. ADRENALS: No discrete nodule. KIDNEYS AND URETERS: Normal in size with homogeneous enhancement. No hydronephrosis. No solid mass. VASCULATURE: No aortic aneurysm. There are no aortic atherosclerotic calcifications or mural plaque present. BOWEL: There is mild dilatation of the small bowel loops likely related to reactive ileus. There is also mild circumferential mural thickening in the descending and sigmoid colon also likely reactive. No evidence for bowel obstruction. The APPENDIX: Normal appendix. PERITONEUM: There is now an approximately 7.2 x 12.6 x 22.5 cm large multilocular fluid collection with peripheral enhancement in the lesser sac with mass effect on the greater curvature of the stomach. There is also a 2nd large 11.3 x 13.8 x 25.0 cm multilocular fluid collection in the left anterior and posterior pararenal space extending to the left paracolic gutter, left lower quadrant and left hemipelvis. More anteriorly there appears to be a combination between these 2 collections. No free intraperitoneal air. LYMPH NODES: No enlarged lymph nodes. BLADDER: Well distended and normal in appearance. REPRODUCTIVE: The uterus is normal in size. BONES: No acute fracture. Within normal limits for the patient's age. OTHER FINDINGS: There is edema and thickening of the left lateral abdominal wall and diffuse anasarca, worse on the left. IMPRESSION: 1. Interval development of large pseudocyst in the lesser sac presumably communicating with a large pseudocyst in the left anterior and posterior para renal space extending to the paracolic gutter and left hemipelvis. 2. Acute pancreatitis without evidence for hemorrhage in necroses. 3. Mild dilatation of the small bowel loops likely related to reactive ileus and also mild circumferential mural thickening and edema in the descending colon, reactive. 4. Worsening moderate left pleural effusion. Assessment and Plan (1) Pancreatitis Status: Acute (2) Leukocytosis Status: Acute (3) Abdominal pain Status: Acute - Assessment and Plan (Free Text) Assessment: A/P- 43 year old female with no PMH admitted with abdominal pian and fever found to have acute pancreatitis. clinically improved today. afebrile leukocytosis resolved . blood cx- neg x 4 Ua- neg plan- continue with Iv meropnem.day #8 continue IV flagyl day #8 Gi and surgical f/u. if no ID or surgical intervention then would advise 7 more days of IV meropnem and then f/u with GI and surgery as outpatietn.
[2018-06-03] MEDS: Meropenem 1 GM in Sodium Chloride 0.9% 100 ML IVPB SCH ×3 (00:59→16:18)
[2018-06-03] MEDS: metroNIDAZOLE 500mg/100ml NS 100 ML IVPB SCH ×3 (01:00→17:56)
[2018-06-03 06:05] LABS: BASO % 0.5 % (0.0-2.0); EOS # 0.1 K/uL (0.0-0.7); EOS % 1.8 % (0.0-4.0); HEMOGLOBIN 8.9 g/dL (12.0-16.0); LYMPH # 0.9 K/uL (1.0-4.3); LYMPH % 12.9 % (20.0-40.0); MEAN CELL VOLUME 82.3 fl (81.0-99.0); MEAN CORPUSCULAR HEMOGLOBIN 27.6 pg (27.0-31.0); MEAN CORPUSCULAR HGB CONC 33.5 g/dL (33.0-37.0); MEAN PLATELET VOLUME 7.3 fl (7.2-11.7); MONO # 0.6 K/uL (0.0-0.8); MONO % 7.7 % (0.0-10.0); NEUT # 5.6 K/uL (1.8-7.0); NEUT % 77.1 % (50.0-75.0); NRBC % 0.1 % (0.0-0.0); RBC 3.21 Mil/uL (3.80-5.20); RED CELL DISTRIBUTION WIDTH 14.9 % (11.5-14.5); WHITE BLOOD COUNT 7.3 K/uL (4.8-10.8)
[2018-06-03 06:24] LABS: ALB/GLOB RATIO 1.1 (1.0-2.1); ALT/SGPT 26 U/L (9-52); AST/SGOT 29 U/L (14-36); BLOOD UREA NITROGEN 9 mg/dl (7-17); CALCIUM 8.3 mg/dL (8.4-10.2); GFR NON-AFRICAN AMERICAN > 60
[2018-06-03] MEDS: Potassium Chloride 20 mEq ER Tab PO SCH ×2 (08:20→16:05)
[2018-06-03] MEDS: Omega-3-Acid Ethyl Esters 1 GM Cap PO SCH ×2 (08:20→16:05)
[2018-06-03] MEDS: HYDROmorphone 0.5 mg/0.5 ml ISec IVP PRN ×3 (08:20→21:43)
--- NOTE | 2018-06-03 08:23 | CP.PCM.PN ---
<Papito Melissa - Last Filed: 06/03/18 08:32> Subjective - Date & Time of Evaluation Date of Evaluation: 06/03/18 Time of Evaluation: 08:10 - Subjective Subjective: Seen at bedside in not acute distress. NO events overnight. Afebrile. Tolerating PO. C/o LLQ pain, chronic, mild at this time. Denies nausea, vomiting, diarrhea. No acute changes in urination or stools. Objective - Vital Signs/Intake and Output Vital Signs (last 24 hours): Temp Pulse Resp BP Pulse Ox 98.7 F 109 H 18 99/60 L 98 06/03/18 05:05 06/03/18 05:05 06/03/18 05:05 06/03/18 05:05 06/03/18 05:05 - Medications Medications: Current Medications Acetaminophen (Tylenol 325mg Tab) 650 mg PO Q6 PRN PRN Reason: Fever >100.4 F Last Admin: 05/28/18 06:22 Dose: 650 mg Calcium Carbonate (Oscal) 500 mg PO BID [facility] Last Admin: 06/02/18 16:36 Dose: 500 mg Dextrose (Dextrose 50% Inj) 0 ml IV STAT PRN; Protocol PRN Reason: Hypoglycemia Protocol Dextrose (Glutose 15) 0 gm PO ONCE PRN; Protocol PRN Reason: Hypoglycemia Protocol Docusate Sodium (Colace) 100 mg PO DAILY [facility] Last Admin: 06/02/18 08:59 Dose: 100 mg Enoxaparin Sodium (Lovenox) 40 mg SC DAILY [facility]; Protocol Last Admin: 06/01/18 10:00 Dose: 40 mg Famotidine (Pepcid) 20 mg PO BID [facility] Last Admin: 06/02/18 16:36 Dose: 20 mg Fenofibrate (Tricor) 145 mg PO DAILY [facility] Last Admin: 06/02/18 09:00 Dose: 145 mg Glucagon (Glucagen Diagnostic Kit) 0 mg IM STAT PRN; Protocol PRN Reason: Hypoglycemia Protocol Hydromorphone HCl (Dilaudid) 0.5 mg IVP Q4H PRN PRN Reason: Pain, severe (8-10) Last Admin: 06/02/18 22:54 Dose: 0.5 mg Meropenem 1 gm/ Sodium (Chloride) 100 mls @ 100 mls/hr IVPB Q8 [facility]; Protocol Last Admin: 06/03/18 00:59 Dose: 100 mls/hr Metronidazole (Flagyl 500mg/100ml Ns) 100 mls @ 100 mls/hr IVPB Q8 [facility]; Protocol Last Admin: 06/03/18 01:00 Dose: 100 mls/hr Lactulose (Enulose) 20 gm PO DAILY PRN PRN Reason: Constipation Icyoi-1-Flhs Ethyl Esters (Lovaza) 2 gm PO BID [facility] Last Admin: 06/02/18 16:35 Dose: 2 gm Ondansetron HCl (Zofran Inj) 4 mg IVP Q4 PRN PRN Reason: Nausea/Vomiting Last Admin: 05/31/18 19:19 Dose: 4 mg Potassium Chloride (K-Dur 20 Meq Er Tab) 20 meq PO BID [facility] Last Admin: 06/02/18 16:34 Dose: 20 meq Simethicone (Mylicon Chew Tab) 80 mg PO Q6 PRN PRN Reason: Flatulence Last Admin: 05/30/18 13:21 Dose: 80 mg Tramadol HCl (Ultram) 50 mg PO Q6 PRN PRN Reason: Pain, Mild (1-3) Last Admin: 05/30/18 13:18 Dose: 50 mg Tramadol HCl (Ultram) 100 mg PO Q6 PRN PRN Reason: Other Last Admin: 06/01/18 07:31 Dose: 100 mg - Labs Labs: 06/03/18 04:25 06/03/18 04:25 PT 15.5 Seconds (9.8-13.1) H 05/25/18 09:37 INR 1.4 05/25/18 09:37 - Constitutional Appears: Non-toxic, No Acute Distress - Eye Exam Eye Exam: EOMI, PERRL - ENT Exam ENT Exam: Mucous Membranes Moist - Respiratory Exam Respiratory Exam: Clear to Ausculation Bilateral, NORMAL BREATHING PATTERN. absent: Decreased Breath Sounds, Rales - Cardiovascular Exam Cardiovascular Exam: REGULAR RHYTHM, +S1, +S2. absent: Gallop - GI/Abdominal Exam GI & Abdominal Exam: Soft, Tenderness, Mass (RUQ/Periumbilical) - Extremities Exam Extremities Exam: Full ROM. absent: Calf Tenderness, Pedal Edema - Neurological Exam Neurological Exam: Alert, Awake, Oriented x3 Assessment and Plan - Assessment and Plan (Free Text) Assessment: Pt is a 43 yo F admitted due to pancreatitis 2/2 to hypertriglyceridemia and subsequent pancreatic pseudocysts -Repeat CT abdomen and pelvis- 06/01/18: interval development of large pseudocyst in the lesser sac presumably communicating with a large pseudocyst in the left anterior and posterior para renal space extending to the paracoloic gutter and L hemipelvis. Acute pancreatitis without evidence of hemorrhage in necroses. Mild dilation of the small bowel loops likely due to reactive ileus and thickening/edema in descending colon, reactive. Worsening moderate L pleural effusion. 1. Acute pancreatitis/ pancreatic pseudocysts Improved 2/2 to hypertriglyceridemia (184-06/01/18) Continue fluid intake, pain management As per IR/Surgery no interventions at this time Surgery and IR consulted- no intervention at this time, ID 7 more days of IV abx, GI repeat CT romero in 8 weeks c/w Meropenem 1gm Q8H and Flagyl 500mg Q8 (day #9) ID recs IV meropenem for 6 more days Pain control PRN 2.Elevated triglycerides Trending down now 184 (06/01/18)from 6160 Fenofibrate 145mg PO daily, [place] 2gm BID 3.Sinus tachycardia Stable Continue pain management , Tylenol for fever Monitor on Tele 4. Electrolyte abnormalities Resolved 5. Constipation c/w colace QD Lactulose PRN 6.Anemia Most likely anemia of acute illness continue to monitor 8. DVT Prophylaxis -Lovenox 40 mg SC daily <Nila Jesus - Last Filed: 06/05/18 13:01> Objective - Vital Signs/Intake and Output Vital Signs (last 24 hours): Temp Pulse Resp BP Pulse Ox 98.1 F 102 H 18 99/66 L 98 06/05/18 11:51 06/05/18 11:51 06/05/18 11:51 06/05/18 11:51 06/05/18 11:51 - Medications Medications: Current Medications Acetaminophen (Tylenol 325mg Tab) 650 mg PO Q6 PRN PRN Reason: Fever >100.4 F Last Admin: 05/28/18 06:22 Dose: 650 mg Calcium Carbonate (Oscal) 500 mg PO BID [facility] Last Admin: 06/05/18 09:14 Dose: 500 mg Dextrose (Dextrose 50% Inj) 0 ml IV STAT PRN; Protocol PRN Reason: Hypoglycemia Protocol Dextrose (Glutose 15) 0 gm PO ONCE PRN; Protocol PRN Reason: Hypoglycemia Protocol Docusate Sodium (Colace) 100 mg PO DAILY [facility] Last Admin: 06/05/18 09:12 Dose: 100 mg Enoxaparin Sodium (Lovenox) 40 mg SC DAILY [facility]; Protocol Last Admin: 06/05/18 09:13 Dose: 40 mg Famotidine (Pepcid) 20 mg PO BID [facility] Last Admin: 06/05/18 09:13 Dose: 20 mg Fenofibrate (Tricor) 145 mg PO DAILY [facility] Last Admin: 06/05/18 09:13 Dose: 145 mg Glucagon (Glucagen Diagnostic Kit) 0 mg IM STAT PRN; Protocol PRN Reason: Hypoglycemia Protocol Hydromorphone HCl (Dilaudid) 0.5 mg IVP Q4H PRN PRN Reason: Pain, severe (8-10) Last Admin: 06/05/18 09:11 Dose: 0.5 mg Meropenem 1 gm/ Sodium (Chloride) 100 mls @ 100 mls/hr IVPB Q8 [facility]; Protocol Last Admin: 06/05/18 09:11 Dose: 100 mls/hr Metronidazole (Flagyl 500mg/100ml Ns) 100 mls @ 100 mls/hr IVPB Q8 [facility]; Protocol Last Admin: 06/05/18 09:12 Dose: 100 mls/hr Lactulose (Enulose) 20 gm PO DAILY PRN PRN Reason: Constipation Bdgig-4-Pbds Ethyl Esters (Lovaza) 2 gm PO BID [facility] Last Admin: 06/05/18 09:13 Dose: 2 gm Ondansetron HCl (Zofran Inj) 4 mg IVP Q4 PRN PRN Reason: Nausea/Vomiting Last Admin: 05/31/18 19:19 Dose: 4 mg Potassium Chloride (K-Dur 20 Meq Er Tab) 20 meq PO BID [facility] Last Admin: 06/05/18 09:13 Dose: 20 meq Simethicone (Mylicon Chew Tab) 80 mg PO Q6 PRN PRN Reason: Flatulence Last Admin: 05/30/18 13:21 Dose: 80 mg Tramadol HCl (Ultram) 50 mg PO Q6 PRN PRN Reason: Pain, Mild (1-3) Last Admin: 06/04/18 11:18 Dose: 50 mg Tramadol HCl (Ultram) 100 mg PO Q6 PRN PRN Reason: Other Last Admin: 06/01/18 07:31 Dose: 100 mg - Labs Labs: 06/05/18 08:00 06/05/18 08:00 PT 15.5 Seconds (9.8-13.1) H 05/25/18 09:37 INR 1.4 05/25/18 09:37 Attending/Attestation - Attestation I have personally seen and examined this patient.: Yes I have fully participated in the care of the patient.: Yes I have reviewed all pertinent clinical information, including history, physical exam and plan: Yes Notes (Text): Agree with findings and plan as above. Cont Merrem q8h to complete the rest of 7 days.
[2018-06-04] MEDS: Meropenem 1 GM in Sodium Chloride 0.9% 100 ML IVPB SCH ×3 (00:50→16:08)
[2018-06-04] MEDS: metroNIDAZOLE 500mg/100ml NS 100 ML IVPB SCH ×3 (00:51→17:44)
[2018-06-04] MEDS: HYDROmorphone 0.5 mg/0.5 ml ISec IVP PRN ×3 (04:38→22:42)
--- NOTE | 2018-06-04 08:09 | CP.PCM.PN ---
Objective - Vital Signs/Intake and Output Vital Signs (last 24 hours): Temp Pulse Resp BP Pulse Ox 98.8 F 106 H 18 97/65 L 98 06/04/18 04:36 06/04/18 04:36 06/04/18 04:36 06/04/18 04:36 06/04/18 04:36 - Medications Medications: Current Medications Acetaminophen (Tylenol 325mg Tab) 650 mg PO Q6 PRN PRN Reason: Fever >100.4 F Last Admin: 05/28/18 06:22 Dose: 650 mg Calcium Carbonate (Oscal) 500 mg PO BID [facility] Last Admin: 06/03/18 16:05 Dose: 500 mg Dextrose (Dextrose 50% Inj) 0 ml IV STAT PRN; Protocol PRN Reason: Hypoglycemia Protocol Dextrose (Glutose 15) 0 gm PO ONCE PRN; Protocol PRN Reason: Hypoglycemia Protocol Docusate Sodium (Colace) 100 mg PO DAILY [facility] Last Admin: 06/03/18 08:20 Dose: 100 mg Enoxaparin Sodium (Lovenox) 40 mg SC DAILY [facility]; Protocol Last Admin: 06/01/18 10:00 Dose: 40 mg Famotidine (Pepcid) 20 mg PO BID [facility] Last Admin: 06/03/18 16:05 Dose: 20 mg Fenofibrate (Tricor) 145 mg PO DAILY [facility] Last Admin: 06/03/18 08:20 Dose: 145 mg Glucagon (Glucagen Diagnostic Kit) 0 mg IM STAT PRN; Protocol PRN Reason: Hypoglycemia Protocol Hydromorphone HCl (Dilaudid) 0.5 mg IVP Q4H PRN PRN Reason: Pain, severe (8-10) Last Admin: 06/04/18 04:38 Dose: 0.5 mg Meropenem 1 gm/ Sodium (Chloride) 100 mls @ 100 mls/hr IVPB Q8 [facility]; Protocol Last Admin: 06/04/18 00:50 Dose: 100 mls/hr Metronidazole (Flagyl 500mg/100ml Ns) 100 mls @ 100 mls/hr IVPB Q8 [facility]; Protocol Last Admin: 06/04/18 00:51 Dose: 100 mls/hr Lactulose (Enulose) 20 gm PO DAILY PRN PRN Reason: Constipation [id number] Ethyl Esters (Lovaza) 2 gm PO BID [facility] Last Admin: 06/03/18 16:05 Dose: 2 gm Ondansetron HCl (Zofran Inj) 4 mg IVP Q4 PRN PRN Reason: Nausea/Vomiting Last Admin: 05/31/18 19:19 Dose: 4 mg Potassium Chloride (K-Dur 20 Meq Er Tab) 20 meq PO BID [facility] Last Admin: 06/03/18 16:05 Dose: 20 meq Simethicone (Mylicon Chew Tab) 80 mg PO Q6 PRN PRN Reason: Flatulence Last Admin: 05/30/18 13:21 Dose: 80 mg Tramadol HCl (Ultram) 50 mg PO Q6 PRN PRN Reason: Pain, Mild (1-3) Last Admin: 05/30/18 13:18 Dose: 50 mg Tramadol HCl (Ultram) 100 mg PO Q6 PRN PRN Reason: Other Last Admin: 06/01/18 07:31 Dose: 100 mg - Labs Labs: 06/03/18 04:25 06/03/18 04:25 PT 15.5 Seconds (9.8-13.1) H 05/25/18 09:37 INR 1.4 05/25/18 09:37
[2018-06-04] MEDS: Potassium Chloride 20 mEq ER Tab PO SCH ×2 (08:12→16:06)
[2018-06-04] MEDS: Omega-3-Acid Ethyl Esters 1 GM Cap PO SCH ×2 (08:13→16:06)
--- NOTE | 2018-06-04 11:08 | CP.PCM.PN ---
Subjective - Date & Time of Evaluation Date of Evaluation: 06/04/18 Time of Evaluation: 08:45 - Subjective Subjective: No fever abd pain very much improved tolerating PO diet + BM no CP no SOB Objective - Vital Signs/Intake and Output Vital Signs (last 24 hours): Temp Pulse Resp BP Pulse Ox 97.8 F 105 H 20 96/65 L 96 06/04/18 08:23 06/04/18 09:00 06/04/18 08:23 06/04/18 08:23 06/04/18 08:23 - Medications Medications: Current Medications Acetaminophen (Tylenol 325mg Tab) 650 mg PO Q6 PRN PRN Reason: Fever >100.4 F Last Admin: 05/28/18 06:22 Dose: 650 mg Calcium Carbonate (Oscal) 500 mg PO BID [facility] Last Admin: 06/04/18 08:12 Dose: 500 mg Dextrose (Dextrose 50% Inj) 0 ml IV STAT PRN; Protocol PRN Reason: Hypoglycemia Protocol Dextrose (Glutose 15) 0 gm PO ONCE PRN; Protocol PRN Reason: Hypoglycemia Protocol Docusate Sodium (Colace) 100 mg PO DAILY [facility] Last Admin: 06/04/18 08:12 Dose: 100 mg Enoxaparin Sodium (Lovenox) 40 mg SC DAILY [facility]; Protocol Last Admin: 06/01/18 10:00 Dose: 40 mg Famotidine (Pepcid) 20 mg PO BID [facility] Last Admin: 06/04/18 08:13 Dose: 20 mg Fenofibrate (Tricor) 145 mg PO DAILY [facility] Last Admin: 06/04/18 08:13 Dose: 145 mg Glucagon (Glucagen Diagnostic Kit) 0 mg IM STAT PRN; Protocol PRN Reason: Hypoglycemia Protocol Hydromorphone HCl (Dilaudid) 0.5 mg IVP Q4H PRN PRN Reason: Pain, severe (8-10) Last Admin: 06/04/18 04:38 Dose: 0.5 mg Meropenem 1 gm/ Sodium (Chloride) 100 mls @ 100 mls/hr IVPB Q8 [facility]; Protocol Last Admin: 06/04/18 08:14 Dose: 100 mls/hr Metronidazole (Flagyl 500mg/100ml Ns) 100 mls @ 100 mls/hr IVPB Q8 [facility]; Protocol Last Admin: 06/04/18 09:24 Dose: 100 mls/hr Lactulose (Enulose) 20 gm PO DAILY PRN PRN Reason: Constipation [id number]-2-[id number] Ethyl Esters (Lovaza) 2 gm PO BID [facility] Last Admin: 06/04/18 08:13 Dose: 2 gm Ondansetron HCl (Zofran Inj) 4 mg IVP Q4 PRN PRN Reason: Nausea/Vomiting Last Admin: 05/31/18 19:19 Dose: 4 mg Potassium Chloride (K-Dur 20 Meq Er Tab) 20 meq PO BID [facility] Last Admin: 06/04/18 08:12 Dose: 20 meq Simethicone (Mylicon Chew Tab) 80 mg PO Q6 PRN PRN Reason: Flatulence Last Admin: 05/30/18 13:21 Dose: 80 mg Tramadol HCl (Ultram) 50 mg PO Q6 PRN PRN Reason: Pain, Mild (1-3) Last Admin: 05/30/18 13:18 Dose: 50 mg Tramadol HCl (Ultram) 100 mg PO Q6 PRN PRN Reason: Other Last Admin: 06/01/18 07:31 Dose: 100 mg - Labs Labs: 06/03/18 04:25 06/03/18 04:25 PT 15.5 Seconds (9.8-13.1) H 05/25/18 09:37 INR 1.4 05/25/18 09:37 - Constitutional Appears: No Acute Distress - Head Exam Head Exam: ATRAUMATIC, NORMAL INSPECTION, NORMOCEPHALIC - Eye Exam Eye Exam: Normal appearance, PERRL Pupil Exam: NORMAL ACCOMODATION - ENT Exam ENT Exam: Mucous Membranes Moist, Normal External Ear Exam - Neck Exam Neck Exam: Full ROM. absent: Meningismus - Respiratory Exam Respiratory Exam: NORMAL BREATHING PATTERN. absent: Respiratory Distress - Cardiovascular Exam Cardiovascular Exam: REGULAR RHYTHM, +S1, +S2 - GI/Abdominal Exam GI & Abdominal Exam: Distended, Tenderness (mild left flank tenderness), Normal Bowel Sounds - Extremities Exam Extremities Exam: Full ROM, Normal Capillary Refill. absent: Calf Tenderness - Back Exam Back Exam: Full ROM. absent: CVA tenderness (L), CVA tenderness (R), paraspinal tenderness - Neurological Exam Neurological Exam: Alert, Awake, CN II-XII Intact, Oriented x3 Neuro motor strength exam: Left Upper Extremity: 5, Right Upper Extremity: 5, L eft Lower Extremity: 5, Right Lower Extremity: 5 - Psychiatric Exam Psychiatric exam: Normal Affect, Normal Mood - Skin Skin Exam: Dry, Normal Color, Warm Assessment and Plan - Assessment and Plan (Free Text) Plan: Repeat CT scan of Abd/Pelvis 06/01 1. Interval development of large pseudocyst in the lesser sac presumably communicating with a large pseudocyst in the left anterior and posterior para renal space extending to the paracolic gutter and left hemipelvis. 2. Acute pancreatitis without evidence for hemorrhage in necroses. 3. Mild dilatation of the small bowel loops likely related to reactive ileus and also mild circumferential mural thickening and edema in the descending colon, reactive. 4. Worsening moderate left pleural effusion. Sepsis sec to Acute Pancreatitis with Pseudocyst/ Phlegmon POA (sec to Severe Hypertriglyceridemia) - As per Surgery - no surgical intervention -IR : no drainage - rec to continue IV abx - cont IV Meropenem till next Tuesday - pain better - fever and leukocytosis resolved - tolerating PO diet - cont Tricor and [place] 3, low fat diet Electrolyte Abnormality replace prn Anemia, acute prob dilutional Sinus Tachycardia , improved likely SIRS DVT proph with Lovenox
[2018-06-05] MEDS: Meropenem 1 GM in Sodium Chloride 0.9% 100 ML IVPB SCH ×3 (00:10→16:25)
[2018-06-05] MEDS: metroNIDAZOLE 500mg/100ml NS 100 ML IVPB SCH ×3 (00:12→16:25)
--- NOTE | 2018-06-05 08:17 | CP.PCM.PN ---
<Yolanda Erazo - Last Filed: 06/05/18 11:43> Subjective - Date & Time of Evaluation Date of Evaluation: 06/05/18 Time of Evaluation: 09:00 - Subjective Subjective: Pt seen and examined at bedside. Reports she feels well, abdominal pain controlled with medications. Ambulating well, tolerating oral intake. Denies F/C, CP, SOB, N/V/D/C or dysuria. Objective - Vital Signs/Intake and Output Vital Signs (last 24 hours): Temp Pulse Resp BP Pulse Ox 98.5 F 93 H 18 100/66 98 06/05/18 07:59 06/05/18 07:59 06/05/18 07:59 06/05/18 07:59 06/05/18 07:59 - Medications Medications: Current Medications Acetaminophen (Tylenol 325mg Tab) 650 mg PO Q6 PRN PRN Reason: Fever >100.4 F Last Admin: 05/28/18 06:22 Dose: 650 mg Calcium Carbonate (Oscal) 500 mg PO BID [facility] Last Admin: 06/04/18 16:06 Dose: 500 mg Dextrose (Dextrose 50% Inj) 0 ml IV STAT PRN; Protocol PRN Reason: Hypoglycemia Protocol Dextrose (Glutose 15) 0 gm PO ONCE PRN; Protocol PRN Reason: Hypoglycemia Protocol Docusate Sodium (Colace) 100 mg PO DAILY [facility] Last Admin: 06/04/18 08:12 Dose: 100 mg Enoxaparin Sodium (Lovenox) 40 mg SC DAILY [facility]; Protocol Last Admin: 06/01/18 10:00 Dose: 40 mg Famotidine (Pepcid) 20 mg PO BID [facility] Last Admin: 06/04/18 16:07 Dose: 20 mg Fenofibrate (Tricor) 145 mg PO DAILY [facility] Last Admin: 06/04/18 08:13 Dose: 145 mg Glucagon (Glucagen Diagnostic Kit) 0 mg IM STAT PRN; Protocol PRN Reason: Hypoglycemia Protocol Hydromorphone HCl (Dilaudid) 0.5 mg IVP Q4H PRN PRN Reason: Pain, severe (8-10) Last Admin: 06/04/18 22:42 Dose: 0.5 mg Meropenem 1 gm/ Sodium (Chloride) 100 mls @ 100 mls/hr IVPB Q8 [facility]; Protocol Last Admin: 06/05/18 00:10 Dose: 100 mls/hr Metronidazole (Flagyl 500mg/100ml Ns) 100 mls @ 100 mls/hr IVPB Q8 [facility]; Protocol Last Admin: 06/05/18 00:12 Dose: 100 mls/hr Lactulose (Enulose) 20 gm PO DAILY PRN PRN Reason: Constipation [id number] Ethyl Esters (Lovaza) 2 gm PO BID [facility] Last Admin: 06/04/18 16:06 Dose: 2 gm Ondansetron HCl (Zofran Inj) 4 mg IVP Q4 PRN PRN Reason: Nausea/Vomiting Last Admin: 05/31/18 19:19 Dose: 4 mg Potassium Chloride (K-Dur 20 Meq Er Tab) 20 meq PO BID [facility] Last Admin: 06/04/18 16:06 Dose: 20 meq Simethicone (Mylicon Chew Tab) 80 mg PO Q6 PRN PRN Reason: Flatulence Last Admin: 05/30/18 13:21 Dose: 80 mg Tramadol HCl (Ultram) 50 mg PO Q6 PRN PRN Reason: Pain, Mild (1-3) Last Admin: 06/04/18 11:18 Dose: 50 mg Tramadol HCl (Ultram) 100 mg PO Q6 PRN PRN Reason: Other Last Admin: 06/01/18 07:31 Dose: 100 mg - Labs Labs: 06/03/18 04:25 06/03/18 04:25 PT 15.5 Seconds (9.8-13.1) H 05/25/18 09:37 INR 1.4 05/25/18 09:37 - Constitutional Appears: Non-toxic, No Acute Distress - Head Exam Head Exam: NORMAL INSPECTION - Eye Exam Eye Exam: EOMI - ENT Exam ENT Exam: Mucous Membranes Moist - Respiratory Exam Respiratory Exam: Clear to Ausculation Bilateral. absent: Rales, Rhonchi, Wheezes - Cardiovascular Exam Cardiovascular Exam: Tachycardia, +S1, +S2 - GI/Abdominal Exam GI & Abdominal Exam: Soft, Tenderness (Diffuse, especially located L flank), Normal Bowel Sounds - Extremities Exam Extremities Exam: Normal Inspection - Neurological Exam Neurological Exam: Alert, Awake, Oriented x3 Assessment and Plan - Assessment and Plan (Free Text) Assessment: Pt is a 43 yo F admitted due to pancreatitis 2/2 to hypertriglyceridemia, s/p insulin drip seen and examined at bedside. Triglycerides now down to 168 (06/01/18) from admission of [address]140. Repeat CT scan of Abd/Pelvis 06/01 1. Interval development of large pseudocyst in the lesser sac presumably co mmunicating with a large pseudocyst in the left anterior and posterior para renal space extending to the paracolic gutter and left hemipelvis. 2. Acute pancreatitis without evidence for hemorrhage in necroses. 3. Mild dilatation of the small bowel loops likely related to reactive ileus and also mild circumferential mural thickening and edema in the descending colon, reactive. 4. Worsening moderate left pleural effusion. Sepsis sec to Acute Pancreatitis with Pseudocyst/ Phlegmon POA (sec to Severe Hypertriglyceridemia) As per Surgery and IR - no intervention cont IV Meropenem till next Tuesday pain better fever and leukocytosis resolved tolerating PO diet cont Tricor and [place] 3, low fat diet F/u CBC, CMP and TG in AM Elevated triglycerides Trending down now 168 (06/03/18)from 6160 Fenofibrate 145mg PO daily, [place] 2gm BID F/u TG in AM Electrolyte Abnormality replace prn Ca 8.3, corrected is 9.0 Calcium carbonate 500 mg BID PO Hypokalmeia resolved 4.0 K 20mEq BID PO Na 134,serum osm 284 F/u CMP in AM Anemia, acute prob dilutional Most likely anemia of acute illness Hgb/HCT 9.2/27.9 continue to monitor F/u CBC in AM Sinus Tachycardia , improved likely SIRS HR 113 Continue pain management , Tylenol for fever Transfer to medsur Diet Regular diet DVT ppx Lovenox 40 mg SC daily <Nila Jesus - Last Filed: 06/05/18 13:16> Objective - Vital Signs/Intake and Output Vital Signs (last 24 hours): Temp Pulse Resp BP Pulse Ox 98.1 F 102 H 18 99/66 L 98 06/05/18 11:51 06/05/18 11:51 06/05/18 11:51 06/05/18 11:51 06/05/18 11:51 - Medications Medications: Current Medications Acetaminophen (Tylenol 325mg Tab) 650 mg PO Q6 PRN PRN Reason: Fever >100.4 F Last Admin: 05/28/18 06:22 Dose: 650 mg Calcium Carbonate (Oscal) 500 mg PO BID [facility] Last Admin: 06/05/18 09:14 Dose: 500 mg Dextrose (Dextrose 50% Inj) 0 ml IV STAT PRN; Protocol PRN Reason: Hypoglycemia Protocol Dextrose (Glutose 15) 0 gm PO ONCE PRN; Protocol PRN Reason: Hypoglycemia Protocol Docusate Sodium (Colace) 100 mg PO DAILY [facility] Last Admin: 06/05/18 09:12 Dose: 100 mg Enoxaparin Sodium (Lovenox) 40 mg SC DAILY [facility]; Protocol Last Admin: 06/05/18 09:13 Dose: 40 mg Famotidine (Pepcid) 20 mg PO BID [facility] Last Admin: 06/05/18 09:13 Dose: 20 mg Fenofibrate (Tricor) 145 mg PO DAILY [facility] Last Admin: 06/05/18 09:13 Dose: 145 mg Glucagon (Glucagen Diagnostic Kit) 0 mg IM STAT PRN; Protocol PRN Reason: Hypoglycemia Protocol Hydromorphone HCl (Dilaudid) 0.5 mg IVP Q4H PRN PRN Reason: Pain, severe (8-10) Last Admin: 06/05/18 09:11 Dose: 0.5 mg Meropenem 1 gm/ Sodium (Chloride) 100 mls @ 100 mls/hr IVPB Q8 [facility]; Protocol Last Admin: 06/05/18 09:11 Dose: 100 mls/hr Metronidazole (Flagyl 500mg/100ml Ns) 100 mls @ 100 mls/hr IVPB Q8 [facility]; Protoc ol Last Admin: 06/05/18 09:12 Dose: 100 mls/hr Lactulose (Enulose) 20 gm PO DAILY PRN PRN Reason: Constipation Fuhlk-[id number]-Yifz Ethyl Esters (Lovaza) 2 gm PO BID [facility] Last Admin: 06/05/18 09:13 Dose: 2 gm Ondansetron HCl (Zofran Inj) 4 mg IVP Q4 PRN PRN Reason: Nausea/Vomiting Last Admin: 05/31/18 19:19 Dose: 4 mg Potassium Chloride (K-Dur 20 Meq Er Tab) 20 meq PO BID [facility] Last Admin: 06/05/18 09:13 Dose: 20 meq Simethicone (Mylicon Chew Tab) 80 mg PO Q6 PRN PRN Reason: Flatulence Last Admin: 05/30/18 13:21 Dose: 80 mg Tramadol HCl (Ultram) 50 mg PO Q6 PRN PRN Reason: Pain, Mild (1-3) Last Admin: 06/04/18 11:18 Dose: 50 mg Tramadol HCl (Ultram) 100 mg PO Q6 PRN PRN Reason: Other Last Admin: 06/01/18 07:31 Dose: 100 mg - Labs Labs: 06/05/18 08:00 06/05/18 08:00 PT 15.5 Seconds (9.8-13.1) H 05/25/18 09:37 INR 1.4 05/25/18 09:37 Attending/Attestation - Attestation I have personally seen and examined this patient.: Yes I have fully participated in the care of the patient.: Yes I have reviewed all pertinent clinical information, including history, physical exam and plan: Yes Notes (Text): Agree with findings and plan as above. Cont Merrem as per ID.
[2018-06-05 08:33] LABS: BASO % 0.5 % (0.0-2.0); EOS # 0.2 K/uL (0.0-0.7); EOS % 2.1 % (0.0-4.0); HEMOGLOBIN 9.2 g/dL (12.0-16.0); LYMPH # 1.2 K/uL (1.0-4.3); LYMPH % 16.6 % (20.0-40.0); MEAN CELL VOLUME 82.3 fl (81.0-99.0); MEAN CORPUSCULAR HEMOGLOBIN 27.2 pg (27.0-31.0); MEAN PLATELET VOLUME 6.8 fl (7.2-11.7); MONO # 0.6 K/uL (0.0-0.8); MONO % 8.1 % (0.0-10.0); NEUT # 5.4 K/uL (1.8-7.0); NEUT % 72.7 % (50.0-75.0); RBC 3.39 Mil/uL (3.80-5.20); WHITE BLOOD COUNT 7.5 K/uL (4.8-10.8)
[2018-06-05 08:44] LABS: ALB/GLOB RATIO 1.1 (1.0-2.1); ALBUMIN 3.1 g/dL (3.5-5.0); ALT/SGPT 17 U/L (9-52); AST/SGOT 33 U/L (14-36); BLOOD UREA NITROGEN 9 mg/dl (7-17); CALCIUM 8.3 mg/dL (8.4-10.2); GFR NON-AFRICAN AMERICAN > 60
[2018-06-05] MEDS: HYDROmorphone 0.5 mg/0.5 ml ISec IVP PRN ×3 (09:11→21:57)
[2018-06-05] MEDS: Enoxaparin 40 mg Syringe SC SCH (09:13)
[2018-06-05] MEDS: Potassium Chloride 20 mEq ER Tab PO SCH ×2 (09:13→16:26)
[2018-06-05] MEDS: Omega-3-Acid Ethyl Esters 1 GM Cap PO SCH ×2 (09:13→16:26)
[2018-06-06] MEDS: metroNIDAZOLE 500mg/100ml NS 100 ML IVPB SCH ×3 (00:09→16:34)
[2018-06-06] MEDS: Meropenem 1 GM in Sodium Chloride 0.9% 100 ML IVPB SCH ×3 (01:12→17:59)
[2018-06-06 06:20] LABS: BASO % 0.6 % (0.0-2.0); EOS # 0.1 K/uL (0.0-0.7); EOS % 2.3 % (0.0-4.0); HEMOGLOBIN 9.1 g/dL (12.0-16.0); LYMPH # 1.1 K/uL (1.0-4.3); LYMPH % 17.2 % (20.0-40.0); MEAN CELL VOLUME 82.8 fl (81.0-99.0); MEAN CORPUSCULAR HEMOGLOBIN 27.5 pg (27.0-31.0); MEAN CORPUSCULAR HGB CONC 33.2 g/dL (33.0-37.0); MEAN PLATELET VOLUME 6.8 fl (7.2-11.7); MONO # 0.6 K/uL (0.0-0.8); MONO % 9.7 % (0.0-10.0); NEUT # 4.5 K/uL (1.8-7.0); NEUT % 70.2 % (50.0-75.0); NRBC % 0.1 % (0.0-0.0); RBC 3.32 Mil/uL (3.80-5.20); WHITE BLOOD COUNT 6.4 K/uL (4.8-10.8)
[2018-06-06 06:34] LABS: ALT/SGPT 20 U/L (9-52); AST/SGOT 31 U/L (14-36); BLOOD UREA NITROGEN 8 mg/dl (7-17); CALCIUM 7.9 mg/dL (8.4-10.2); GFR NON-AFRICAN AMERICAN > 60
[2018-06-06] MEDS: HYDROmorphone 0.5 mg/0.5 ml ISec IVP PRN ×2 (06:36→14:48)
[2018-06-06] MEDS: Potassium Chloride 20 mEq ER Tab PO SCH ×2 (09:01→16:35)
[2018-06-06] MEDS: Simethicone 80 mg Chewtab PO PRN (09:02)
[2018-06-06] MEDS: Enoxaparin 40 mg Syringe SC SCH (09:03)
[2018-06-06] MEDS: Omega-3-Acid Ethyl Esters 1 GM Cap PO SCH ×2 (09:04→16:35)
--- NOTE | 2018-06-06 11:17 | CP.PCM.PN ---
<Yolanda Erazo - Last Filed: 06/06/18 12:27> Subjective - Date & Time of Evaluation Date of Evaluation: 06/06/18 Time of Evaluation: 12:28 - Subjective Subjective: Pt seen and examined at bedside. Reports she feels well, abdominal pain controlled with medications. Ambulating well, tolerating oral intake. Pt receiving meropenum IV until tuesday. Denies F/C, CP, SOB, N/V/D/C or dysuria Objective - Vital Signs/Intake and Output Vital Signs (last 24 hours): Temp Pulse Resp BP Pulse Ox 97.9 F 96 H 20 91/65 L 99 06/06/18 08:06 06/06/18 08:06 06/06/18 08:06 06/06/18 08:06 06/06/18 08:06 - Medications Medications: Current Medications Acetaminophen (Tylenol 325mg Tab) 650 mg PO Q6 PRN PRN Reason: Fever >100.4 F Last Admin: 05/28/18 06:22 Dose: 650 mg Calcium Carbonate (Oscal) 500 mg PO BID [facility] Last Admin: 06/06/18 09:03 Dose: 500 mg Dextrose (Dextrose 50% Inj) 0 ml IV STAT PRN; Protocol PRN Reason: Hypoglycemia Protocol Dextrose (Glutose 15) 0 gm PO ONCE PRN; Protocol PRN Reason: Hypoglycemia Protocol Docusate Sodium (Colace) 100 mg PO DAILY [facility] Last Admin: 06/06/18 09:03 Dose: Not Given Enoxaparin Sodium (Lovenox) 40 mg SC DAILY [facility]; Protocol Last Admin: 06/06/18 09:03 Dose: 40 mg Famotidine (Pepcid) 20 mg PO BID [facility] Last Admin: 06/06/18 09:03 Dose: 20 mg Fenofibrate (Tricor) 145 mg PO DAILY [facility] Last Admin: 06/06/18 09:04 Dose: 145 mg Glucagon (Glucagen Diagnostic Kit) 0 mg IM STAT PRN; Protocol PRN Reason: Hypoglycemia Protocol Hydromorphone HCl (Dilaudid) 0.5 mg IVP Q4H PRN PRN Reason: Pain, severe (8-10) Last Admin: 06/06/18 06:36 Dose: 0.5 mg Meropenem 1 gm/ Sodium (Chloride) 100 mls @ 100 mls/hr IVPB Q8 [facility]; Protocol Last Admin: 06/06/18 01:12 Dose: 100 mls/hr Metronidazole (Flagyl 500mg/100ml Ns) 100 mls @ 100 mls/hr IVPB Q8 [facility]; Prot ocol Last Admin: 06/06/18 08:47 Dose: 100 mls/hr Lactulose (Enulose) 20 gm PO DAILY PRN PRN Reason: Constipation Qlymr-6-Cyvt Ethyl Esters (Lovaza) 2 gm PO BID [facility] Last Admin: 06/06/18 09:04 Dose: 2 gm Ondansetron HCl (Zofran Inj) 4 mg IVP Q4 PRN PRN Reason: Nausea/Vomiting Last Admin: 05/31/18 19:19 Dose: 4 mg Potassium Chloride (K-Dur 20 Meq Er Tab) 20 meq PO BID [facility] Last Admin: 06/06/18 09:01 Dose: 20 meq Simethicone (Mylicon Chew Tab) 80 mg PO Q6 PRN PRN Reason: Flatulence Last Admin: 06/06/18 09:02 Dose: 80 mg Tramadol HCl (Ultram) 50 mg PO Q6 PRN PRN Reason: Pain, Mild (1-3) Last Admin: 06/04/18 11:18 Dose: 50 mg Tramadol HCl (Ultram) 100 mg PO Q6 PRN PRN Reason: Other Last Admin: 06/01/18 07:31 Dose: 100 mg - Labs Labs: 06/06/18 06:05 06/06/18 06:05 PT 15.5 Seconds (9.8-13.1) H 05/25/18 09:37 INR 1.4 05/25/18 09:37 - Constitutional Appears: Non-toxic, No Acute Distress - ENT Exam ENT Exam: Mucous Membranes Moist - Respiratory Exam Respiratory Exam: Clear to Ausculation Bilateral. absent: Rales, Rhonchi, Wheezes - Cardiovascular Exam Cardiovascular Exam: Tachycardia, +S1, +S2 - GI/Abdominal Exam GI & Abdominal Exam: Soft, Tenderness (diffuse, especially located L flank) - Extremities Exam Extremities Exam: Normal Inspection - Neurological Exam Neurological Exam: Alert, Awake Assessment and Plan - Assessment and Plan (Free Text) Assessment: Pt is a 43 yo F admitted due to pancreatitis 2/2 to hypertriglyceridemia, s/p insulin drip seen and examined at bedside. Triglycerides now down to 171 (4/23/19) from admission of [address]140. Repeat CT scan of Abd/Pelvis 06/01 1. Interval development of large pseudocyst in the lesser sac presumably communicating with a large pseudocyst in the left anterior and posterior para renal space extending to the paracolic gutter and left hemipelvis. 2. Acute pancreatitis without evidence for hemorrhage in necroses. 3. Mild dilatation of the small bowel loops likely related to reactive ileus and also mild circumferential mural thickening and edema in the descending colon, reactive. 4. Worsening moderate left pleural effusion. Sepsis sec to Acute Pancreatitis with Pseudocyst/ Phlegmon POA (sec to Severe Hypertriglyceridemia) As per Surgery and IR - no intervention cont IV Meropenem till next Tuesday, and Flagyl Q8h pain better fever and leukocytosis resolved tolerating PO diet cont Tricor and [place] 3, low fat diet F/u CBC, BMP and in AM Elevated triglycerides Trending down now 171 (06/06/18)from 6160 Fenofibrate 145mg PO daily, [place] 2gm BID continue to monitor Electrolyte Abnormality replace prn Ca 7.9, corrected is 8.7 Calcium carbonate 500 mg BID PO Hypokalmeia resolved 3.8 K 20mEq BID PO Na 134,serum osm 284 F/u BMP in AM Anemia, acute prob dilutional Most likely anemia of acute illness Hgb/HCT 9.1/27.5 continue to monitor F/u CBC in AM Sinus Tachycardia , improved likely SIRS HR 96 Continue pain management , Tylenol for fever Diet Regular diet DVT ppx Lovenox 40 mg SC daily <Nila Jesus - Last Filed: 06/09/18 20:57> Objective - Vital Signs/Intake and Output Vital Signs (last 24 hours): Temp Pulse Resp BP Pulse Ox 98.2 F 104 H 20 96/66 L 92 L 06/09/18 16:26 06/09/18 16:26 06/09/18 16:26 06/09/18 16:26 06/09/18 16:26 - Labs Labs: 06/09/18 04:25 06/09/18 04:25 PT 15.5 Seconds (9.8-13.1) H 05/25/18 09:37 INR 1.4 05/25/18 09:37 Attending/Attestation - Attestation I have personally seen and examined this patient.: Yes I have fully participated in the care of the patient.: Yes I have reviewed all pertinent clinical information, including history, physical exam and plan: Yes Notes (Text): agree with findings and plan as above.
[2018-06-07] MEDS: metroNIDAZOLE 500mg/100ml NS 100 ML IVPB SCH ×3 (00:02→16:17)
[2018-06-07] MEDS: Meropenem 1 GM in Sodium Chloride 0.9% 100 ML IVPB SCH ×3 (01:49→18:20)
[2018-06-07 06:57] LABS: BASO % 0.6 % (0.0-2.0); EOS # 0.2 K/uL (0.0-0.7); EOS % 2.6 % (0.0-4.0); LYMPH # 1.5 K/uL (1.0-4.3); LYMPH % 21.1 % (20.0-40.0); MEAN CELL VOLUME 83.9 fl (81.0-99.0); MEAN CORPUSCULAR HEMOGLOBIN 26.8 pg (27.0-31.0); MEAN CORPUSCULAR HGB CONC 31.9 g/dL (33.0-37.0); MEAN PLATELET VOLUME 6.7 fl (7.2-11.7); MONO # 0.7 K/uL (0.0-0.8); MONO % 10.2 % (0.0-10.0); NEUT # 4.6 K/uL (1.8-7.0); NEUT % 65.5 % (50.0-75.0); NRBC % 0.2 % (0.0-0.0); RBC 3.36 Mil/uL (3.80-5.20); RED CELL DISTRIBUTION WIDTH 15.3 % (11.5-14.5)
[2018-06-07 07:08] LABS: BLOOD UREA NITROGEN 10 mg/dl (7-17); CALCIUM 8.2 mg/dL (8.4-10.2); GFR NON-AFRICAN AMERICAN > 60
[2018-06-07] MEDS: Omega-3-Acid Ethyl Esters 1 GM Cap PO SCH ×2 (08:43→16:17)
[2018-06-07] MEDS: Potassium Chloride 20 mEq ER Tab PO SCH ×2 (08:43→16:17)
[2018-06-07] MEDS: Enoxaparin 40 mg Syringe SC SCH (08:44)
--- NOTE | 2018-06-07 10:41 | CP.PCM.PN ---
<DanicacharlesYolanda valdez - Last Filed: 06/07/18 12:23> Subjective - Date & Time of Evaluation Date of Evaluation: 06/07/18 Time of Evaluation: 12:02 - Subjective Subjective: Pt seen and examined at bedside. Reports she feels well, abdominal pain controlled with medications. Ambulating well, tolerating oral intake. Pt receiving meropenum IV and flagyl until tuesday. Denies F/C, CP, SOB, N/V/D/C or dysuria Objective - Vital Signs/Intake and Output Vital Signs (last 24 hours): Temp Pulse Resp BP Pulse Ox 97.9 F 100 H 20 95/64 L 98 06/07/18 08:56 06/07/18 08:56 06/07/18 08:56 06/07/18 08:56 06/07/18 08:56 - Medications Medications: Current Medications Acetaminophen (Tylenol 325mg Tab) 650 mg PO Q6 PRN PRN Reason: Fever >100.4 F Last Admin: 05/28/18 06:22 Dose: 650 mg Calcium Carbonate (Oscal) 500 mg PO BID [facility] Last Admin: 06/07/18 08:45 Dose: 500 mg Dextrose (Dextrose 50% Inj) 0 ml IV STAT PRN; Protocol PRN Reason: Hypoglycemia Protocol Dextrose (Glutose 15) 0 gm PO ONCE PRN; Protocol PRN Reason: Hypoglycemia Protocol Docusate Sodium (Colace) 100 mg PO DAILY [facility] Last Admin: 06/07/18 08:42 Dose: Not Given Enoxaparin Sodium (Lovenox) 40 mg SC DAILY [facility]; Protocol Last Admin: 06/07/18 08:44 Dose: 40 mg Famotidine (Pepcid) 20 mg PO BID [facility] Last Admin: 06/07/18 08:45 Dose: 20 mg Fenofibrate (Tricor) 145 mg PO DAILY [facility] Last Admin: 06/07/18 08:45 Dose: 145 mg Ferrous Sulfate (Feosol) 325 mg PO BID [facility] Last Admin: 06/07/18 08:54 Dose: 325 mg Glucagon (Glucagen Diagnostic Kit) 0 mg IM STAT PRN; Protocol PRN Reason: Hypoglycemia Protocol Hydromorphone HCl (Dilaudid) 0.5 mg IVP Q4H PRN PRN Reason: Pain, severe (8-10) Last Admin: 06/06/18 14:48 Dose: 0.5 mg Meropenem 1 gm/ Sodium (Chloride) 100 mls @ 100 mls/hr IVPB Q8 [facility]; Protocol Last Admin: 06/07/18 10:31 Dose: 100 mls/hr Metronidazole (Flagyl 500mg/100ml Ns) 100 mls @ 100 mls/hr IVPB Q8 [facility]; Protoco l Last Admin: 06/07/18 08:42 Dose: 100 mls/hr Lactulose (Enulose) 20 gm PO DAILY PRN PRN Reason: Constipation [id number] Ethyl Esters (Lovaza) 2 gm PO BID [facility] Last Admin: 06/07/18 08:43 Dose: 2 gm Ondansetron HCl (Zofran Inj) 4 mg IVP Q4 PRN PRN Reason: Nausea/Vomiting Last Admin: 05/31/18 19:19 Dose: 4 mg Potassium Chloride (K-Dur 20 Meq Er Tab) 20 meq PO BID [facility] Last Admin: 06/07/18 08:43 Dose: 20 meq Simethicone (Mylicon Chew Tab) 80 mg PO Q6 PRN PRN Reason: Flatulence Last Admin: 06/06/18 09:02 Dose: 80 mg Tramadol HCl (Ultram) 50 mg PO Q6 PRN PRN Reason: Pain, Mild (1-3) Last Admin: 06/06/18 11:43 Dose: 50 mg Tramadol HCl (Ultram) 100 mg PO Q6 PRN PRN Reason: Other Last Admin: 06/06/18 20:36 Dose: 100 mg - Labs Labs: 06/07/18 04:34 06/07/18 04:34 PT 15.5 Seconds (9.8-13.1) H 05/25/18 09:37 INR 1.4 05/25/18 09:37 - Constitutional Appears: Non-toxic, No Acute Distress - Eye Exam Eye Exam: EOMI - ENT Exam ENT Exam: Mucous Membranes Moist - Respiratory Exam Respiratory Exam: Clear to Ausculation Bilateral. absent: Rales, Rhonchi, Wheezes - Cardiovascular Exam Cardiovascular Exam: Tachycardia, +S1, +S2 - GI/Abdominal Exam GI & Abdominal Exam: Soft, Tenderness (diffuse, especially located L flank) - Extremities Exam Extremities Exam: Normal Inspection - Neurological Exam Neurological Exam: Alert, Awake, Oriented x3 Assessment and Plan - Assessment and Plan (Free Text) Assessment: Pt is a 43 yo F admitted due to pancreatitis 2/2 to hypertriglyceridemia, s/p insulin drip seen and examined at bedside. Triglycerides now down to 171 () from admission of [address]140. Repeat CT scan of Abd/Pelvis 06/01 1. Interval development of large pseudocyst in the lesser sac presumably communicating with a large pseudocyst in the left anterior and posterior para renal space extending to the paracolic gutter and left hemipelvis. 2. Acute pancreatitis without evidence for hemorrhage in necroses. 3. Mild dilatation of the small bowel loops likely related to reactive ileus and also mild circumferential mural thickening and edema in the descending colon, reactive. 4. Worsening moderate left pleural effusion. Sepsis sec to Acute Pancreatitis with Pseudocyst/ Phlegmon POA (sec to Severe Hypertriglyceridemia) As per Surgery and IR - no intervention cont IV Meropenem and Flagyl Q8h till Tuesday pain controlled fever and leukocytosis resolved tolerating PO diet cont Tricor and Marion 3, low fat diet F/u CBC, BMP and in AM Elevated triglycerides Trending down now 171 (06/06/18)from 6160 Fenofibrate 145mg PO daily, Marion 2gm BID continue to monitor Electrolyte Abnormality replace prn Ca 8.2 Calcium carbonate 500 mg BID PO Hypokalmeia resolved 3.9 K 20mEq BID PO Na 133,serum osm 284 F/u BMP in AM Anemia, acute prob dilutional Most likely anemia of acute illness Hgb/HCT 9.0/28.2 Ferrous sulfate 325mg BID continue to monitor F/u CBC in AM Sinus Tachycardia , improved likely SIRS HR 100 Continue pain management, Tylenol for fever Diet Regular diet DVT ppx Lovenox 40 mg SC daily <Evelyn Heaton - Last Filed: 06/07/18 14:58> Objective - Vital Signs/Intake and Output Vital Signs (last 24 hours): Temp Pulse Resp BP Pulse Ox 97.9 F 100 H 20 95/64 L 98 06/07/18 08:56 06/07/18 08:56 06/07/18 08:56 06/07/18 08:56 06/07/18 08:56 - Medications Medications: Current Medications Acetaminophen (Tylenol 325mg Tab) 650 mg PO Q6 PRN PRN Reason: Fever >100.4 F Last Admin: 05/28/18 06:22 Dose: 650 mg Calcium Carbonate (Oscal) 500 mg PO BID [facility] Last Admin: 06/07/18 08:45 Dose: 500 mg Dextrose (Dextrose 50% Inj) 0 ml IV STAT PRN; Protocol PRN Reason: Hypoglycemia Protocol Dextrose (Glutose 15) 0 gm PO ONCE PRN; Protocol PRN Reason: Hypoglycemia Protocol Docusate Sodium (Colace) 100 mg PO DAILY [facility] Last Admin: 06/07/18 08:42 Dose: Not Given Enoxaparin Sodium (Lovenox) 40 mg SC DAILY [facility]; Protocol Last Admin: 06/07/18 08:44 Dose: 40 mg Famotidine (Pepcid) 20 mg PO BID [facility] Last Admin: 06/07/18 08:45 Dose: 20 mg Fenofibrate (Tricor) 145 mg PO DAILY [facility] Last Admin: 06/07/18 08:45 Dose: 145 mg Ferrous Sulfate (Feosol) 325 mg PO BID [facility] Last Admin: 06/07/18 08:54 Dose: 325 mg Glucagon (Glucagen Diagnostic Kit) 0 mg IM STAT PRN; Protocol PRN Reason: Hypoglycemia Protocol Hydromorphone HCl (Dilaudid) 0.5 mg IVP Q4H PRN PRN Reason: Pain, severe (8-10) Last Admin: 06/06/18 14:48 Dose: 0.5 mg Meropenem 1 gm/ Sodium (Chloride) 100 mls @ 100 mls/hr IVPB Q8 [facility]; Protocol Last Admin: 06/07/18 10:31 Dose: 100 mls/hr Metronidazole (Flagyl 500mg/100ml Ns) 100 mls @ 100 mls/hr IVPB Q8 [facility]; Protocol Last Admin: 06/07/18 08:42 Dose: 100 mls/hr Lactulose (Enulose) 20 gm PO DAILY PRN PRN Reason: Constipation [id number] Ethyl Esters (Lovaza) 2 gm PO BID [facility] Last Admin: 06/07/18 08:43 Dose: 2 gm Ondansetron HCl (Zofran Inj) 4 mg IVP Q4 PRN PRN Reason: Nausea/Vomiting Last Admin: 05/31/18 19:19 Dose: 4 mg Potassium Chloride (K-Dur 20 Meq Er Tab) 20 meq PO BID [facility] Last Admin: 06/07/18 08:43 Dose: 20 meq Simethicone (Mylicon Chew Tab) 80 mg PO Q6 PRN PRN Reason: Flatulence Last Admin: 06/06/18 09:02 Dose: 80 mg Tramadol HCl (Ultram) 50 mg PO Q6 PRN PRN Reason: Pain, Mild (1-3) Last Admin: 06/06/18 11:43 Dose: 50 mg Tramadol HCl (Ultram) 100 mg PO Q6 PRN PRN Reason: Pain scale 4-10 Last Admin: 06/07/18 10:52 Dose: 100 mg - Labs Labs: 06/07/18 04:34 06/07/18 04:34 PT 15.5 Seconds (9.8-13.1) H 05/25/18 09:37 INR 1.4 05/25/18 09:37 Attending/Attestation - Attestation I have personally seen and examined this patient.: Yes I have fully participated in the care of the patient.: Yes I have reviewed all pertinent clinical information, including history, physical exam and plan: Yes Notes (Text): Sepsis sec to Acute Pancreatitis with Pseudocyst/ Phlegmon POA (sec to Severe Hypertriglyceridemia) - As per Surgery - no surgical intervention -IR : no drainage - rec to continue IV abx - cont IV Meropenem and Flagyl - last day Tuesday - pain better - fever and leukocytosis resolved - tolerating PO diet - cont Tricor and Marion 3, low fat diet Electrolyte Abnormality replace prn Anemia, acute prob dilutional Sinus Tachycardia , improved likely SIRS DVT proph with Lovenox
[2018-06-08] MEDS: metroNIDAZOLE 500mg/100ml NS 100 ML IVPB SCH ×3 (00:09→16:20)
[2018-06-08] MEDS: Meropenem 1 GM in Sodium Chloride 0.9% 100 ML IVPB SCH ×3 (01:33→16:20)
[2018-06-08 07:04] LABS: BASO % 0.5 % (0.0-2.0); EOS # 0.1 K/uL (0.0-0.7); EOS % 1.9 % (0.0-4.0); HEMOGLOBIN 9.4 g/dL (12.0-16.0); LYMPH # 1.2 K/uL (1.0-4.3); LYMPH % 14.5 % (20.0-40.0); MEAN CELL VOLUME 83.4 fl (81.0-99.0); MEAN CORPUSCULAR HEMOGLOBIN 27.9 pg (27.0-31.0); MEAN CORPUSCULAR HGB CONC 33.5 g/dL (33.0-37.0); MEAN PLATELET VOLUME 6.6 fl (7.2-11.7); MONO # 0.6 K/uL (0.0-0.8); MONO % 8.1 % (0.0-10.0); RBC 3.37 Mil/uL (3.80-5.20); RED CELL DISTRIBUTION WIDTH 15.6 % (11.5-14.5)
[2018-06-08 07:17] LABS: BLOOD UREA NITROGEN 7 mg/dl (7-17); CALCIUM 8.4 mg/dL (8.4-10.2); GFR NON-AFRICAN AMERICAN > 60
--- NOTE | 2018-06-08 08:14 | CP.PCM.PN ---
<DanicacharlesYolanda valdez - Last Filed: 06/08/18 12:11> Subjective - Date & Time of Evaluation Date of Evaluation: 06/08/18 Time of Evaluation: 12:11 - Subjective Subjective: Pt seen and examined at bedside. Reports she feels well, abdominal pain controlled with medications. Ambulating well, tolerating oral intake. Pt receiving meropenum IV and flagyl until tuesday. Denies F/C, CP, SOB, N/V/D/C or dysuria Objective - Vital Signs/Intake and Output Vital Signs (last 24 hours): Temp Pulse Resp BP Pulse Ox 98.2 F 107 H 18 101/70 98 06/08/18 00:22 06/08/18 00:22 06/08/18 00:22 06/08/18 00:22 06/08/18 00:22 - Medications Medications: Current Medications Acetaminophen (Tylenol 325mg Tab) 650 mg PO Q6 PRN PRN Reason: Fever >100.4 F Last Admin: 05/28/18 06:22 Dose: 650 mg Calcium Carbonate (Oscal) 500 mg PO BID [facility] Last Admin: 06/07/18 16:17 Dose: 500 mg Dextrose (Dextrose 50% Inj) 0 ml IV STAT PRN; Protocol PRN Reason: Hypoglycemia Protocol Dextrose (Glutose 15) 0 gm PO ONCE PRN; Protocol PRN Reason: Hypoglycemia Protocol Docusate Sodium (Colace) 100 mg PO DAILY [facility] Last Admin: 06/07/18 08:42 Dose: Not Given Enoxaparin Sodium (Lovenox) 40 mg SC DAILY [facility]; Protocol Last Admin: 06/07/18 08:44 Dose: 40 mg Famotidine (Pepcid) 20 mg PO BID [facility] Last Admin: 06/07/18 16:18 Dose: 20 mg Fenofibrate (Tricor) 145 mg PO DAILY [facility] Last Admin: 06/07/18 08:45 Dose: 145 mg Ferrous Sulfate (Feosol) 325 mg PO BID [facility] Last Admin: 06/07/18 16:16 Dose: 325 mg Glucagon (Glucagen Diagnostic Kit) 0 mg IM STAT PRN; Protocol PRN Reason: Hypoglycemia Protocol Hydromorphone HCl (Dilaudid) 0.5 mg IVP Q4H PRN PRN Reason: Pain, severe (8-10) Last Admin: 06/06/18 14:48 Dose: 0.5 mg Meropenem 1 gm/ Sodium (Chloride) 100 mls @ 100 mls/hr IVPB Q8 [facility]; Protocol Last Admin: 06/08/18 01:33 Dose: 100 mls/hr Metronidazole (Flagyl 500mg/100ml Ns) 100 mls @ 100 mls/hr IVPB Q8 [facility]; Protoc ol Last Admin: 06/08/18 00:09 Dose: 100 mls/hr Lactulose (Enulose) 20 gm PO DAILY PRN PRN Reason: Constipation [id number] Ethyl Esters (Lovaza) 2 gm PO BID [facility] Last Admin: 06/07/18 16:17 Dose: 2 gm Ondansetron HCl (Zofran Inj) 4 mg IVP Q4 PRN PRN Reason: Nausea/Vomiting Last Admin: 05/31/18 19:19 Dose: 4 mg Potassium Chloride (K-Dur 20 Meq Er Tab) 20 meq PO BID [facility] Last Admin: 06/07/18 16:17 Dose: 20 meq Simethicone (Mylicon Chew Tab) 80 mg PO Q6 PRN PRN Reason: Flatulence Last Admin: 06/06/18 09:02 Dose: 80 mg Tramadol HCl (Ultram) 50 mg PO Q6 PRN PRN Reason: Pain, Mild (1-3) Last Admin: 06/08/18 05:16 Dose: 50 mg Tramadol HCl (Ultram) 100 mg PO Q6 PRN PRN Reason: Pain scale 4-10 Last Admin: 06/07/18 21:13 Dose: 100 mg - Labs Labs: 06/08/18 06:30 06/08/18 06:30 PT 15.5 Seconds (9.8-13.1) H 05/25/18 09:37 INR 1.4 05/25/18 09:37 - Constitutional Appears: Non-toxic, No Acute Distress - Head Exam Head Exam: NORMAL INSPECTION - Eye Exam Eye Exam: EOMI - ENT Exam ENT Exam: Mucous Membranes Moist - Respiratory Exam Respiratory Exam: Clear to Ausculation Bilateral. absent: Rales, Rhonchi, Wheezes - Cardiovascular Exam Cardiovascular Exam: Tachycardia, +S1, +S2 - GI/Abdominal Exam GI & Abdominal Exam: Soft, Tenderness (L flank pain, epigastric), Normal Bowel Sounds. absent: Guarding, Rigid, Rebound - Extremities Exam Extremities Exam: absent: Pedal Edema - Neurological Exam Neurological Exam: Alert, Awake, Oriented x3 Assessment and Plan - Assessment and Plan (Free Text) Assessment: Pt is a 43 yo F admitted due to pancreatitis 2/2 to hypertriglyceridemia, s/p insulin drip seen and examined at bedside. Triglycerides now down to 171 (06/06/18) from admission of [address]. [address] scan of Abd/Pelvis 06/01 1. Interval development of large pseudocyst in the lesser sac presumably communicating with a large pseudocyst in the left anterior and posterior para renal space extending to the paracolic gutter and left hemipelvis. 2. Acute pancreatitis without evidence for hemorrhage in necroses. 3. Mild dilatation of the small bowel loops likely related to reactive ileus and also mild circumferential mural thickening and edema in the descending colon, reactive. 4. Worsening moderate left pleural effusion. Sepsis sec to Acute Pancreatitis with Pseudocyst/ Phlegmon POA (sec to Severe Hypertriglyceridemia) As per Surgery and IR - no intervention cont IV Meropenem and Flagyl Q8h till Tuesday pain controlled fever and leukocytosis resolved tolerating PO diet cont Tricor and [place] 3, low fat diet F/u CBC, BMP, TG's and in AM Elevated triglycerides Trending down now 171 (06/06/18)from 6160 Fenofibrate 145mg PO daily, [place] 2gm BID F/u TG's in AM Electrolyte Abnormality replace prn Ca 8.4 Calcium carbonate 500 mg BID PO Hypokalmeia resolved 4.1 K 20mEq BID PO Na 132,serum osm 284 F/u BMP in AM Anemia, acute prob dilutional Most likely anemia of acute illness Hgb/HCT 9.4/28.1 Ferrous sulfate 325mg BID continue to monitor F/u CBC in AM Sinus Tachycardia , improved likely SIRS HR 103 Continue pain management, Tylenol for fever Diet Regular diet GI PPX Pepcid 20mg BID DVT ppx Lovenox 40 mg SC daily <Nila Jesus - Last Filed: 06/09/18 21:27> Objective - Vital Signs/Intake and Output Vital Signs (last 24 hours): Temp Pulse Resp BP Pulse Ox 98.2 F 104 H 20 96/66 L 92 L 06/09/18 16:26 06/09/18 16:26 06/09/18 16:26 06/09/18 16:26 06/09/18 16:26 - Labs Labs: 06/09/18 04:25 06/09/18 04:25 PT 15.5 Seconds (9.8-13.1) H 05/25/18 09:37 INR 1.4 05/25/18 09:37 Attending/Attestation - Attestation I have personally seen and examined this patient.: Yes I have fully participated in the care of the patient.: Yes I have reviewed all pertinent clinical information, including history, physical exam and plan: Yes Notes (Text): agree with findings and plan as above.
[2018-06-08 08:43] VITALS: RESP 20
[2018-06-08] MEDS: Potassium Chloride 20 mEq ER Tab PO SCH ×2 (09:39→16:16)
[2018-06-08] MEDS: Enoxaparin 40 mg Syringe SC SCH (09:39)
[2018-06-08] MEDS: Omega-3-Acid Ethyl Esters 1 GM Cap PO SCH ×2 (09:39→16:16)
[2018-06-08] MEDS: Simethicone 80 mg Chewtab PO PRN ×2 (09:41→16:17)
[2018-06-09] MEDS: Meropenem 1 GM in Sodium Chloride 0.9% 100 ML IVPB SCH ×3 (00:18→16:24)
[2018-06-09] MEDS: metroNIDAZOLE 500mg/100ml NS 100 ML IVPB SCH ×3 (01:26→16:23)
[2018-06-09 06:19] LABS: BASO % 0.5 % (0.0-2.0); EOS # 0.2 K/uL (0.0-0.7); EOS % 2.3 % (0.0-4.0); HEMOGLOBIN 9.3 g/dL (12.0-16.0); LYMPH # 1.4 K/uL (1.0-4.3); LYMPH % 17.7 % (20.0-40.0); MEAN CELL VOLUME 83.2 fl (81.0-99.0); MEAN CORPUSCULAR HEMOGLOBIN 27.3 pg (27.0-31.0); MEAN CORPUSCULAR HGB CONC 32.8 g/dL (33.0-37.0); MEAN PLATELET VOLUME 6.6 fl (7.2-11.7); MONO # 0.7 K/uL (0.0-0.8); MONO % 9.6 % (0.0-10.0); NEUT # 5.4 K/uL (1.8-7.0); NEUT % 69.9 % (50.0-75.0); RBC 3.39 Mil/uL (3.80-5.20); RED CELL DISTRIBUTION WIDTH 15.7 % (11.5-14.5); WHITE BLOOD COUNT 7.7 K/uL (4.8-10.8)
[2018-06-09 07:12] LABS: BLOOD UREA NITROGEN 6 mg/dl (7-17); CALCIUM 8.6 mg/dL (8.4-10.2); GFR NON-AFRICAN AMERICAN > 60
--- NOTE | 2018-06-09 09:28 | CP.PCM.DIS ---
<Yolanda Erazo - Last Filed: 06/09/18 16:02> Provider - Provider Date of Admission: 05/19/18 15:53 Attending physician: Issac Prkaash MD Primary care physician: Dr. Ho Consults: 05/21/18 10:08 Gastroenterology Consult Routine Comment: Consulting Provider: John Rizzo Consulting Physician: John Rizzo Reason for Consult: acute pancreatitis 05/21/18 10:23 Endocrinology Consult Routine Comment: Consulting Provider: Trina Mora Consulting Physician: Trina Mora Reason for Consult: acute pancreatitis secondary to hypertriglyceridemia 05/24/18 16:52 Surgery [General Surgery Consult] Routine Comment: Consulting Provider: Waqas Grayson Consulting Physician: Waqas Grayson Reason for Consult: peripancreatic/mesenteric phlegmon & peritoneal fluid/phlegmon 05/25/18 09:07 Infectious Disease Consult Routine Comment: Consulting Provider: Emmanuel Garcia Consulting Physician: Emmanuel Garcia Reason for Consult: pancreatitis , fever 05/26/18 19:15 General Surgery Consult Routine Comment: Consulting Provider: Jordan Vital Consulting Physician: Jordan Vital Reason for Consult: Pancreatitis with phlemon Time Spent in preparation of Discharge (in minutes): 10 Diagnosis - Discharge Diagnosis (1) Pancreatitis Status: Acute Comment: Acute resolved. D/C home with outpt f/u (2) Hypertriglyceridemia Status: Acute Comment: TG 148 down from 6160. C.w [place] and fibrate as outpt. F/u with [facility] in 1 week Hospital Course - Lab Results Lab Results: Micro Results 05/27/18 16:10 Blood-Venous Blood Culture - Final NO GROWTH AFTER 5 DAYS 05/27/18 16:10 Blood-Venous Gram Stain - Final TEST NOT PERFORMED 05/27/18 16:00 Blood-Venous Blood Culture - Final NO GROWTH AFTER 5 DAYS 05/27/18 16:00 Blood-Venous Gram Stain - Final TEST NOT PERFORMED 05/25/18 13:20 Blood-Venous Blood Culture - Final NO GROWTH AFTER 5 DAYS 05/25/18 13:20 Blood-Venous Gram Stain - Final TEST NOT PERFORMED 05/25/18 13:10 Blood-Venous Blood Culture - Final NO GROWTH AFTER 5 DAYS 05/25/18 13:10 Blood-Venous Gram Stain - Final TEST NOT PERFORMED 05/26/18 11:31 Naris MRSA Culture (Admit) - Final MRSA NOT DETECTED 05/24/18 11:49 Urine,Clean Catch Urine Culture - Final No Growth (<1,000 CFU/ML) 05/22/18 19:15 Naris MRSA Culture (Admit) - Final MRSA NOT DETECTED 05/21/18 14:45 Naris MRSA Culture (Admit) - Final MRSA NOT DETECTED Most Recent Lab Values WBC 7.7 K/uL (4.8-10.8) 06/09/18 04:25 RBC 3.39 Mil/uL (3.80-5.20) L 06/09/18 04:25 Hgb 9.3 g/dL (12.0-16.0) L 06/09/18 04:25 Hct 28.2 % (34.0-47.0) L 06/09/18 04:25 MCV 83.2 fl (81.0-99.0) 06/09/18 04:25 MCH 27.3 pg (27.0-31.0) 06/09/18 04:25 MCHC 32.8 g/dL (33.0-37.0) L 06/09/18 04:25 RDW 15.7 % (11.5-14.5) H 06/09/18 04:25 Plt Count 554 K/uL (130-400) H 06/09/18 04:25 MPV 6.6 fl (7.2-11.7) L 06/09/18 04:25 Neut % (Auto) 69.9 % (50.0-75.0) 06/09/18 04:25 Lymph % (Auto) 17.7 % (20.0-40.0) L 06/09/18 04:25 [place] % (Auto) 9.6 % (0.0-10.0) 06/09/18 04:25 Eos % (Auto) 2.3 % (0.0-4.0) 06/09/18 04:25 Baso % (Auto) 0.5 % (0.0-2.0) 06/09/18 04:25 Neut # (Auto) 5.4 K/uL (1.8-7.0) 06/09/18 04:25 Lymph # (Auto) 1.4 K/uL (1.0-4.3) 06/09/18 04:25 [place] # (Auto) 0.7 K/uL (0.0-0.8) 06/09/18 04:25 Eos # (Auto) 0.2 K/uL (0.0-0.7) 06/09/18 04:25 Baso # (Auto) 0.0 K/uL (0.0-0.2) 06/09/18 04:25 Neutrophils % (Manual) 70 % (42-75) 05/27/18 05:40 Band Neutrophils % 9 % (0-2) H 05/27/18 05:40 Lymphocytes % (Manual) 8 % (20-50) L 05/27/18 05:40 Monocytes % (Manual) 10 % (0-10) 05/27/18 05:40 Eosinophils % (Manual) 1 % (0-7) 05/27/18 05:40 Basophils % (Manual) 1 % (0-2) 05/19/18 15:16 Metamyelocytes % 1 % (0-0) H 05/27/18 05:40 Myelocytes % 1 % (0-0) H 05/27/18 05:40 Platelet Estimate Normal (NORMAL) 05/27/18 05:40 Hypochromasia (manual) Slight 05/27/18 05:40 Anisocytosis (manual) Slight 05/27/18 05:40 PT 15.5 Seconds (9.8-13.1) H 05/25/18 09:37 INR 1.4 05/25/18 09:37 Sodium 133 mmol/l (132-148) 06/09/18 04:25 Potassium 4.1 MMOL/L (3.6-5.0) 06/09/18 04:25 Chloride 99 mmol/L (98-107) 06/09/18 04:25 Carbon Dioxide 28 mmol/L (22-30) 06/09/18 04:25 Anion Gap 10 (10-20) 06/09/18 04:25 BUN 6 mg/dl (7-17) L 06/09/18 04:25 Creatinine 0.4 mg/dl (0.7-1.2) L 06/09/18 04:25 Est GFR ( Amer) > 60 06/09/18 04:25 Est GFR (Non-Af Amer) > 60 06/09/18 04:25 POC Glucose (mg/dL) 114 mg/dL (65-110) H 06/09/18 05:17 Random Glucose 96 mg/dL (65-105) 06/09/18 04:25 Hemoglobin A1c 5.2 % (4.2-6.5) 05/22/18 05:19 Serum Osmolality 284 mosm/kg (272-300) 06/02/18 10:40 Calcium 8.6 mg/dL (8.4-10.2) 06/09/18 04:25 Phosphorus 2.9 mg/dl (2.5-4.5) 05/31/18 05:25 Magnesium 2.2 MG/DL (1.6-2.3) 05/31/18 05:25 Total Bilirubin 0.3 mg/dl (0.2-1.3) 06/06/18 06:05 AST 31 U/L (14-36) 06/06/18 06:05 ALT 20 U/L (9-52) 06/06/18 06:05 Alkaline Phosphatase 63 U/L (38-126) 06/06/18 06:05 Total Protein 5.9 G/DL (6.3-8.2) L 06/06/18 06:05 Albumin 3.0 g/dL (3.5-5.0) L 06/06/18 06:05 Globulin 2.9 gm/dL (2.2-3.9) 06/06/18 06:05 Albumin/Globulin Ratio 1.0 (1.0-2.1) 06/06/18 06:05 Triglycerides 148 mg/DL (0-149) 06/09/18 04:25 Cholesterol 266 mg/dL (<200) H 05/22/18 05:19 LDL Cholesterol Direct 90 mg/dL 05/22/18 05:19 VLDL Cholesterol 146 mg/dL H 05/22/18 05:19 HDL Cholesterol 30 mg/dL (> OR = 46) L 05/22/18 05:19 Amylase 101 U/L (30-110) 05/22/18 12:50 Lipase 135 U/L (23-300) 06/01/18 04:55 TSH 3rd Generation 2.45 mIU/ML (0.46-4.68) 05/22/18 05:19 PTH Intact Whole Molec 168 pg/mL (14-64) H 05/22/18 05:19 Urine Color Yellow (YELLOW) 05/24/18 11:49 Urine Clarity Slighty-cloudy (Clear) 05/24/18 11:49 Urine pH 8.0 (5.0-8.0) 05/24/18 11:49 Ur Specific [place] 1.010 (1.003-1.030) 05/24/18 11:49 Urine Protein Negative mg/dL (NEGATIVE) 05/24/18 11:49 Urine Glucose (UA) Neg mg/dL (NEGATIVE) 05/24/18 11:49 Urine Ketones Negative mg/dL (NEGATIVE) 05/24/18 11:49 Urine Blood Moderate (NEGATIVE) 05/24/18 11:49 Urine Nitrate Negative (NEGATIVE) 05/24/18 11:49 Urine Bilirubin Negative (NEGATIVE) 05/24/18 11:49 Urine Urobilinogen 0.2-1.0 mg/dL (0.2-1.0) 05/24/18 11:49 Ur Leukocyte Esterase Neg Adriana/uL (Negative) 05/24/18 11:49 Urine RBC (Auto) 11 /hpf (0-3) H 05/24/18 11:49 Urine Microscopic WBC 3 /hpf (0-5) 05/24/18 11:49 Ur Squamous Epith Cells 1 /hpf (0-5) 05/24/18 11:49 Urine Bacteria Rare (<OCC) 05/24/18 11:49 Urine Osmolality 586 mosm/kg (300-1000) 06/02/18 18:00 - Hospital Course Hospital Course: 42 yo female with PMH of anemia presented to the ED on 05/19/18 with 10/10 sharp epigastric pain that radiated to RUQ and LUQ admitted due to pancreatitis 2/2 to hypertriglyceridemia. Lipase 3653. Triglycerides 6160, Insulin drip was started in the ICU. CT scan of abdomen: findings consistent with acute pancreatitis (boggy and edematous). [id number]. Sotiriadis, Endocrine-Dr. Mora, (Surgery and IR-decided no intervention). Pt received IV meropenum and Flagyl. MRI abdomen and pelvis showed :Acute pancreatitis without hemorrhage or necrosis.Large fluid collection inferior to the gastric antrum with mild peripheral enhancement.Additional extensive amount of free fluid layering along the anterior left renal fascia and extending to the left pericolic gutter/left h jaiden abdomen.Reactive thickening of the adjacent splenic flexure/proximal descending colon. Small to moderate left pleural effusion with subjacent left lower lobe atelectasis/consolidation.Pt continued to endorse abdominal pain especially on left side radiating to her flank and back, controlled with pain medication. Hemodynamically stable for discharge. Pt given script to get a repeat CT in [address] Rizzo, Gave rx for fenofibrate and [place] 3 follow up with PMD in 1 week at [facility], and GI and Surgery as outpt. Discharge Exam - Head Exam Head Exam: NORMAL INSPECTION - Eye Exam Eye Exam: EOMI, Normal appearance - ENT Exam ENT Exam: Mucous Membranes Moist - Respiratory Exam Respiratory Exam: NORMAL BREATHING PATTERN. absent: Rales, Rhonchi, Wheezes - Cardiovascular Exam Cardiovascular Exam: Tachycardia, +S1, +S2 - GI/Abdominal Exam GI & Abdominal Exam: Normal Bowel Sounds, Soft, Tenderness. absent: Rebound, Rigid Additional comments: epigastric, L flank - Extremities Exam Extremities exam: normal inspection - Neurological Exam Neurological exam: Alert, Oriented x3 Discharge Plan - Discharge Medications Prescriptions: Fenofibrate [Tricor] 145 mg PO DAILY 30 Days #30 tab [id number] Ethyl Esters 1 GM [Lovaza] 2 gm PO BID 30 Days #60 sgl - Follow Up Plan Condition: FAIR Disposition: HOME/ ROUTINE Instructions: Pancreatitis (DC), Pancreatitis (DC) Additional Instructions: Discharge after last dose of antibiotics , Jolene con doctor en: June 14 at 8:[address] Bolaños, necesita cat scan en 8 semanas and hacer jolene con gastroenterologo y cirujia (needs to get CT scan in 8 weeks and follow up with GI and surgery as outpt) Referrals: [facility] [Outside] Trina Mora MD [Medical Doctor] - John Rizzo MD, PhD [Staff Provider] - Jordan Vital MD [Staff Provider] - <Nila Jesus - Last Filed: 06/09/18 21:13> Provider - Provider Date of Admission: 05/19/18 15:53 Attending physician: Issac Prakash MD Consults: 05/21/18 10:08 Gastroenterology Consult Routine Comment: Consulting Provider: John Rizzo Consulting Physician: John Rizzo Reason for Consult: acute pancreatitis 05/21/18 10:23 Endocrinology Consult Routine Comment: Consulting Provider: Trina Mora Consulting Physician: Trina Mora Reason for Consult: acute pancreatitis secondary to hypertriglyceridemia 05/24/18 16:52 Surgery [General Surgery Consult] Routine Comment: Consulting Provider: Waqas Grayson Consulting Physician: Waqas Grayson Reason for Consult: peripancreatic/mesenteric phlegmon & peritoneal fluid/phlegmon 05/25/18 09:07 Infectious Disease Consult Routine Comment: Consulting Provider: Emmanuel Garcia Consulting Physician: Emmanuel Garcia Reason for Consult: pancreatitis , fever 05/26/18 19:15 General Surgery Consult Routine Comment: Consulting Provider: Jordan Vital Consulting Physician: Jordan Vital Reason for Consult: Pancreatitis with phlemon Hospital Course - Lab Results Lab Results: Micro Results 05/27/18 16:10 Blood-Venous Blood Culture - Final NO GROWTH AFTER 5 DAYS 05/27/18 16:10 Blood-Venous Gram Stain - Final TEST NOT PERFORMED 05/27/18 16:00 Blood-Venous Blood Culture - Final NO GROWTH AFTER 5 DAYS 05/27/18 16:00 Blood-Venous Gram Stain - Final TEST NOT PERFORMED 05/25/18 13:20 Blood-Venous Blood Culture - Final NO GROWTH AFTER 5 DAYS 05/25/18 13:20 Blood-Venous Gram Stain - Final TEST NOT PERFORMED 05/25/18 13:10 Blood-Venous Blood Culture - Final NO GROWTH AFTER 5 DAYS 05/25/18 13:10 Blood-Venous Gram Stain - Final TEST NOT PERFORMED 05/26/18 11:31 Naris MRSA Culture (Admit) - Final MRSA NOT DETECTED 05/24/18 11:49 Urine,Clean Catch Urine Culture - Final No Growth (<1,000 CFU/ML) 05/22/18 19:15 Naris MRSA Culture (Admit) - Final MRSA NOT DETECTED 05/21/18 14:45 Naris MRSA Culture (Admit) - Final MRSA NOT DETECTED Most Recent Lab Values WBC 7.7 K/uL (4.8-10.8) 06/09/18 04:25 RBC 3.39 Mil/uL (3.80-5.20) L 06/09/18 04:25 Hgb 9.3 g/dL (12.0-16.0) L 06/09/18 04:25 Hct 28.2 % (34.0-47.0) L 06/09/18 04:25 MCV 83.2 fl (81.0-99.0) 06/09/18 04:25 MCH 27.3 pg (27.0-31.0) 06/09/18 04:25 MCHC 32.8 g/dL (33.0-37.0) L 06/09/18 04:25 RDW 15.7 % (11.5-14.5) H 06/09/18 04:25 Plt Count 554 K/uL (130-400) H 06/09/18 04:25 MPV 6.6 fl (7.2-11.7) L 06/09/18 04:25 Neut % (Auto) 69.9 % (50.0-75.0) 06/09/18 04:25 Lymph % (Auto) 17.7 % (20.0-40.0) L 06/09/18 04:25 [place] % (Auto) 9.6 % (0.0-10.0) 06/09/18 04:25 Eos % (Auto) 2.3 % (0.0-4.0) 06/09/18 04:25 Baso % (Auto) 0.5 % (0.0-2.0) 06/09/18 04:25 Neut # (Auto) 5.4 K/uL (1.8-7.0) 06/09/18 04:25 Lymph # (Auto) 1.4 K/uL (1.0-4.3) 06/09/18 04:25 [place] # (Auto) 0.7 K/uL (0.0-0.8) 06/09/18 04:25 Eos # (Auto) 0.2 K/uL (0.0-0.7) 06/09/18 04:25 Baso # (Auto) 0.0 K/uL (0.0-0.2) 06/09/18 04:25 Neutrophils % (Manual) 70 % (42-75) 05/27/18 05:40 Band Neutrophils % 9 % (0-2) H 05/27/18 05:40 Lymphocytes % (Manual) 8 % (20-50) L 05/27/18 05:40 Monocytes % (Manual) 10 % (0-10) 05/27/18 05:40 Eosinophils % (Manual) 1 % (0-7) 05/27/18 05:40 Basophils % (Manual) 1 % (0-2) 05/19/18 15:16 Metamyelocytes % 1 % (0-0) H 05/27/18 05:40 Myelocytes % 1 % (0-0) H 05/27/18 05:40 Platelet Estimate Normal (NORMAL) 05/27/18 05:40 Hypochromasia (manual) Slight 05/27/18 05:40 Anisocytosis (manual) Slight 05/27/18 05:40 PT 15.5 Seconds (9.8-13.1) H 05/25/18 09:37 INR 1.4 05/25/18 09:37 Sodium 133 mmol/l (132-148) 06/09/18 04:25 Potassium 4.1 MMOL/L (3.6-5.0) 06/09/18 04:25 Chloride 99 mmol/L (98-107) 06/09/18 04:25 Carbon Dioxide 28 mmol/L (22-30) 06/09/18 04:25 Anion Gap 10 (10-20) 06/09/18 04:25 BUN 6 mg/dl (7-17) L 06/09/18 04:25 Creatinine 0.4 mg/dl (0.7-1.2) L 06/09/18 04:25 Est GFR ( Amer) > 60 06/09/18 04:25 Est GFR (Non-Af Amer) > 60 06/09/18 04:25 POC Glucose (mg/dL) 140 mg/dL (65-110) H 06/09/18 15:59 Random Glucose 96 mg/dL (65-105) 06/09/18 04:25 Hemoglobin A1c 5.2 % (4.2-6.5) 05/22/18 05:19 Serum Osmolality 284 mosm/kg (272-300) 06/02/18 10:40 Calcium 8.6 mg/dL (8.4-10.2) 06/09/18 04:25 Phosphorus 2.9 mg/dl (2.5-4.5) 05/31/18 05:25 Magnesium 2.2 MG/DL (1.6-2.3) 05/31/18 05:25 Total Bilirubin 0.3 mg/dl (0.2-1.3) 06/06/18 06:05 AST 31 U/L (14-36) 06/06/18 06:05 ALT 20 U/L (9-52) 06/06/18 06:05 Alkaline Phosphatase 63 U/L (38-126) 06/06/18 06:05 Total Protein 5.9 G/DL (6.3-8.2) L 06/06/18 06:05 Albumin 3.0 g/dL (3.5-5.0) L 06/06/18 06:05 Globulin 2.9 gm/dL (2.2-3.9) 06/06/18 06:05 Albumin/Globulin Ratio 1.0 (1.0-2.1) 06/06/18 06:05 Triglycerides 148 mg/DL (0-149) 06/09/18 04:25 Cholesterol 266 mg/dL (<200) H 05/22/18 05:19 LDL Cholesterol Direct 90 mg/dL 05/22/18 05:19 VLDL Cholesterol 146 mg/dL H 05/22/18 05:19 HDL Cholesterol 30 mg/dL (> OR = 46) L 05/22/18 05:19 Amylase 101 U/L (30-110) 05/22/18 12:50 Lipase 135 U/L (23-300) 06/01/18 04:55 TSH 3rd Generation 2.45 mIU/ML (0.46-4.68) 05/22/18 05:19 PTH Intact Whole Molec 168 pg/mL (14-64) H 05/22/18 05:19 Urine Color Yellow (YELLOW) 05/24/18 11:49 Urine Clarity Slighty-cloudy (Clear) 05/24/18 11:49 Urine pH 8.0 (5.0-8.0) 05/24/18 11:49 Ur Specific [place] 1.010 (1.003-1.030) 05/24/18 11:49 Urine Protein Negative mg/dL (NEGATIVE) 05/24/18 11:49 Urine Glucose (UA) Neg mg/dL (NEGATIVE) 05/24/18 11:49 Urine Ketones Negative mg/dL (NEGATIVE) 05/24/18 11:49 Urine Blood Moderate (NEGATIVE) 05/24/18 11:49 Urine Nitrate Negative (NEGATIVE) 05/24/18 11:49 Urine Bilirubin Negative (NEGATIVE) 05/24/18 11:49 Urine Urobilinogen 0.2-1.0 mg/dL (0.2-1.0) 05/24/18 11:49 Ur Leukocyte Esterase Neg Adriana/uL (Negative) 05/24/18 11:49 Urine RBC (Auto) 11 /hpf (0-3) H 05/24/18 11:49 Urine Microscopic WBC 3 /hpf (0-5) 05/24/18 11:49 Ur Squamous Epith Cells 1 /hpf (0-5) 05/24/18 11:49 Urine Bacteria Rare (<OCC) 05/24/18 11:49 Urine Osmolality 586 mosm/kg (300-1000) 06/02/18 18:00 Attending/Attestation - Attestation I have personally seen and examined this patient.: Yes I have fully participated in the care of the patient.: Yes I have reviewed all pertinent clinical information, including history, physical exam and plan: Yes Notes (Text): agree with findings and plan as above.
[2018-06-09] MEDS: Omega-3-Acid Ethyl Esters 1 GM Cap PO SCH ×2 (10:02→16:23)
[2018-06-09] MEDS: Enoxaparin 40 mg Syringe SC SCH (10:02)
[2018-06-09] MEDS: Potassium Chloride 20 mEq ER Tab PO SCH ×2 (10:02→16:23)
[2018-06-09 16:11] VITALS: PULSE 104
[2018-06-09 16:27] VITALS: BP 96/66; TEMP 98.2; O2SAT 92
== END 2018-06-09 19:05 | disposition home or self-care (01) | DRG 720 ==
LOC: H.ER 14:24 → H.ERHOLD 15:53 → H.MEDSURG1 21:10 → H.ICU/CCU 05-21 12:20 → H.MEDSURG1 05-22 17:57 → H.ICU/CCU 05-26 09:53 → H.TEL 05-26 18:35 → H.MEDSURG1 06-05 22:20 → H.TEL 06-05 22:20 → H.MEDSURG1 06-06 11:34
DX: A41.9 Sepsis, unspecified organism (principal); K85.80 Other acute pancreatitis without necrosis or infection; J90 Pleural effusion, not elsewhere classified; K86.3 Pseudocyst of pancreas; D64.89 Other specified anemias; E87.6 Hypokalemia; E83.51 Hypocalcemia; J98.11 Atelectasis; E78.1 Pure hyperglyceridemia; E78.5 Hyperlipidemia, unspecified; R00.0 Tachycardia, unspecified; K59.00 Constipation, unspecified

== ENCOUNTER 2018-06-14 09:49 | Inpatient (IN) | payer OTHER, SELFPAY ==
[2018-06-14 09:52] VITALS: BMI 25.4
--- NOTE | 2018-06-14 10:10 | ED PDOC ---
HPI: Abdomen Time Seen by Provider: 06/14/18 09:57 Chief Complaint (Nursing): Abdominal Pain Chief Complaint (Provider): Abdominal Pain History Per: Patient History/Exam Limitations: no limitations Onset/Duration Of Symptoms: Days (3) Location Of Pain/Discomfort: LUQ Associated Symptoms: Nausea Additional Complaint(s): 43 y/o female presents to the ED complaining of left sided abdominal pain that is associated with nausea since 3 days ago. Patient was discharged last month after hospitalization of pancreatitis. Patient denies vomiting, diarrhea, or any fever. PMD: none provided Past Medical History Reviewed: Historical Data, Nursing Documentation, Vital Signs Vital Signs: Last Vital Signs Temp 101.6 F H 06/14/18 09:51 Pulse 140 H 06/14/18 09:51 Resp 18 06/14/18 09:51 BP 106/66 06/14/18 09:51 Pulse Ox 98 06/14/18 09:51 - Medical History PMH: Denies: HIV, Chronic Kidney Disease - Surgical History Surgical History: (x 3 ) - Family History Family History: States: Unknown Family Hx - Home Medications Home Medications: Ambulatory Orders Medication Instructions Recorded Fenofibrate [Tricor] 145 mg PO DAILY 30 Days #30 tab 06/09/18 Wkjuu-7-Pxyo Ethyl Esters 1 GM 2 gm PO BID 30 Days #60 sgl 06/09/18 [Lovaza] - Allergies Allergies/Adverse Reactions: Allergies Allergy/AdvReac Type Severity Reaction Status Date / Time No Known Allergies Allergy Verified 04/28/17 11:54 Review of Systems ROS Statement: Except As Marked, All Systems Reviewed And Found Negative Gastrointestinal: Positive for: Nausea, Abdominal Pain (left side). Negative for: Vomiting, Diarrhea Physical Exam - Reviewed Nursing Documentation Reviewed: Yes Vital Signs Reviewed: Yes - Physical Exam Appears: Positive for: Well, Non-toxic, No Acute Distress Head Exam: Positive for: ATRAUMATIC, NORMAL INSPECTION, NORMOCEPHALIC Skin: Positive for: Normal Color, Warm, Dry Eye Exam: Positive for: EOMI, Normal appearance, PERRL ENT: Positive for: Normal ENT Inspection Neck: Positive for: Normal, Painless ROM, Supple Cardiovascular/Chest: Positive for: Regular Rate, Rhythm. Negative for: Murmur Respiratory: Positive for: Normal Breath Sounds. Negative for: Wheezing Gastrointestinal/Abdominal: Positive for: Normal Exam, Soft, Tenderness (LUQ.), Distended Back: Positive for: Normal Inspection, L CVA Tenderness. Negative for: R CVA Tenderness Extremity: Positive for: Normal ROM Neurological/Psych: Positive for: Awake, Alert, Normal Tone, Oriented (x3). Negative for: Motor/Sensory Deficits - Laboratory Results Result Diagrams: 06/14/18 10:00 06/14/18 10:00 - ECG O2 Sat by Pulse Oximetry: 98 Medical Decision Making Medical Decision Making: Time: 1002 Initial Impression: Given History of pancreatitis will repeat lipase and CT abdomen, given left sided tenderness. Initial Plan: -CT abdomen -CMP -Lipase -ED urine -CBC -Lactated ringer 150mls -Pepcid 20mg -Toradol 30mg -Zofran 4mg Scribe Attestation: Documented by Adore Zapien, acting as a scribe for Agustín Hughes Provider Scribe Attestation: All medical record entries made by the Scribe were at my direction and personally dictated by me. I have reviewed the chart and agree that the record accurately reflects my personal performance of the history, physical exam, medical decision making, and the department course for this patient. I have also personally directed, reviewed, and agree with the discharge instructions and disposition. Disposition - Clinical Impression Clinical Impression: Pseudocyst of pancreas, Pleural effusion, Sepsis - Patient ED Disposition Is Patient to be Admitted: Yes - Disposition Disposition Time: 11:45 Condition: FAIR Forms: uchoose (Georgian) - Pt Status Changed To: Hospital Disposition Of: Inpatient - Admit Certification Admit to Inpatient:: After my assessment, the patient will require hospitalization for at least two midnights. This is because of the severity of symptoms shown, intensity of services needed, and/or the medical risk in this patient being treated as an outpatient. - POA Present On Arrival: None
[2018-06-14] MEDS: Lactated Ringer's 1,000 ML IV SCH ×2 (10:21→23:08)
[2018-06-14 10:28] LABS: VENOUS BLOOD GAS BASE EXCESS 0.7 mmol/L (0.0-2.0); VENOUS BLOOD GAS PCO2 33 mmHg (40-60); VENOUS BLOOD GAS PO2 41 mm/Hg (30-55); VENOUS BLOOD PH 7.47 (7.32-7.43)
[2018-06-14] MEDS ORDERED: Sodium Chloride 0.9% 1,000 ML IV STA (10:30)
[2018-06-14] MEDS ORDERED: Piperacillin/Tazobact 3.375 GM in Sodium Chloride 0.9% 100 ML IVPB STA (10:32)
[2018-06-14 10:33] LABS: BASO % 0.4 % (0.0-2.0); EOS % 0.1 % (0.0-4.0); HEMOGLOBIN 9.9 g/dL (12.0-16.0); LYMPH # 1.3 K/uL (1.0-4.3); LYMPH % 13.8 % (20.0-40.0); MEAN CELL VOLUME 81.5 fl (81.0-99.0); MEAN CORPUSCULAR HEMOGLOBIN 26.8 pg (27.0-31.0); MEAN CORPUSCULAR HGB CONC 32.9 g/dL (33.0-37.0); MEAN PLATELET VOLUME 6.7 fl (7.2-11.7); MONO % 10.4 % (0.0-10.0); NEUT # 7.3 K/uL (1.8-7.0); NEUT % 75.3 % (50.0-75.0); NRBC % 0.1 % (0.0-0.0); PLATELET COUNT 547 K/uL (130-400); RBC 3.67 Mil/uL (3.80-5.20); RED CELL DISTRIBUTION WIDTH 15.8 % (11.5-14.5); WHITE BLOOD COUNT 9.8 K/uL (4.8-10.8)
[2018-06-14 10:47] LABS: ALBUMIN 3.7 g/dL (3.5-5.0); ALT/SGPT 17 U/L (9-52); AST/SGOT 73 U/L (14-36); BLOOD UREA NITROGEN 8 mg/dl (7-17); CALCIUM 8.9 mg/dL (8.4-10.2); GFR NON-AFRICAN AMERICAN > 60; LIPASE 60 U/L (23-300)
[2018-06-14] MEDS ORDERED: Vancomycin 1 g Inj ONE (10:47)
[2018-06-14 10:49] LABS: SQUAMOUS EPITHIAL 5 /hpf (0-5); URINE AMORPHOUS SEDIMENT RARE /ul (<OCC); URINE BACTERIA RARE (<OCC); URINE BILIRUBIN NEGATIVE (NEGATIVE); URINE BLOOD SMALL (NEGATIVE); URINE CLARITY CLOUDY (Clear); URINE COLOR AMBER (YELLOW); URINE GLUCOSE (UA) NEG (NEGATIVE); URINE HYALINE CAST 0-2 /hpf (0-2); URINE LEUKOCYTE ESTERASE NEG Leu/uL (Negative); URINE PROTEIN 30 mg/dL (NEGATIVE); URINE UROBILINOGEN 0.2-1.0 mg/dL (0.2-1.0)
[2018-06-14] MEDS ORDERED: Sodium Chloride 0.9% 50 ML IV ONE (11:05)
[2018-06-14] MEDS ORDERED: Iohexol 300 100 ML IJ ONE (11:05)
[2018-06-14 11:40] LABS: ANISOCYTOSIS SLIGHT; BANDS 5 % (0-2); LYMPHOCYTE 18 % (20-50); MONOCYTE 15 % (0-10); NEUTROPHIL 62 % (42-75); PLATELET ESTIMATE NORMAL (NORMAL); TOTAL CELLS COUNTED 100
[2018-06-14] MEDS ORDERED: metroNIDAZOLE 500mg/100ml NS 100 ML IVPB STA (11:59)
--- NOTE | 2018-06-14 12:25 | CT ---
Date of service: 06/14/2018 PROCEDURE: CT Abdomen and Pelvis with contrast HISTORY: Abdominal pain COMPARISON: 06/01/2018. TECHNIQUE: CT scan of the abdomen and pelvis was performed after administration of intravenous contrast. Oral contrast was not administered. Coronal and sagittal reformatted images were obtained. Contrast dose: Radiation dose: Total exam DLP = 340.13 mGy-cm. This CT exam was performed using one or more of the following dose reduction techniques: Automated exposure control, adjustment of the mA and/or kV according to patient size, and/or use of iterative reconstruction technique. FINDINGS: LOWER THORAX: There is subsegmental atelectasis in the right lower lobe. There is worsening moderate left pleural effusion with compressive atelectasis of the lower lobe. LIVER: Mild hepatomegaly and fatty liver. Normal homogeneous enhancement. No gross lesion or ductal dilatation. GALLBLADDER AND BILE DUCTS: Well distended. No calcified gallstones, wall thickening or pericholecystic fluid. PANCREAS: Normal in size with homogeneous enhancement. There is haziness and indistinct pancreatic margins without evidence for necrosis. No gross lesion or ductal dilatation. SPLEEN: Normal in size and appearance. ADRENALS: No discrete nodule. KIDNEYS AND URETERS: Normal in size with homogeneous enhancement. No hydronephrosis. No solid mass. VASCULATURE: No aortic aneurysm. There are no aortic atherosclerotic calcifications or mural plaque present. BOWEL: Evaluation of the bowel is limited in the absence of oral contrast. The small bowel loops are normal in caliber. The colon is grossly normal in appearance. No bowel wall thickening or obstruction. APPENDIX: Normal appendix. PERITONEUM: Since the prior examination, there has been no significant interval change in size and appearance of multilocular septated fluid collection in the lesser sac also comminuted eating with a larger fluid collection more laterally in the left anterior and posterior pararenal space extending to the left paracolic gutter, left lower quadrant and left hemipelvis. There are small foci of air within the collection. No free air. LYMPH NODES: No enlarged lymph nodes. BLADDER: Well distended and normal in appearance. REPRODUCTIVE: The uterus is normal in size. BONES: No acute fracture. Within normal limits for the patient's age. OTHER FINDINGS: None. IMPRESSION: 1. Redemonstration of large septated multilocular fluid collection in the lesser sac extending to the left anterior and posterior pararenal spaces, left paracolic gutter, left lower quadrant and left hemipelvis. Scattered few foci of air within the collection. The sterility of this collection cannot be determined on the basis of imaging. 2. Worsening moderate left pleural effusion.
[2018-06-14] MEDS ORDERED: Piperacillin/Tazobact 3.375 gm Inj IVPB ONE (12:34)
[2018-06-14 12:35] LABS: HDL CHOLESTEROL 21 MG/DL (30-70)
[2018-06-14 12:46] LABS: LDL CHOLESTEROL 41 mg/dL (0-129)
--- NOTE | 2018-06-14 13:42 | RAD ---
Date of service: 06/14/2018 HISTORY: Pleural effusion COMPARISON: CT angio chest PE study 05/26/2018 TECHNIQUE: Chest PA and lateral views FINDINGS: LUNGS: Right lung is clear. A moderate left pleural effusion at probably similar in size to the CT pharmacy order entry technician image. And study patient's upright prior study patient supine. Compressive left basal atelectasis and/or infiltrate inferred. Compressive atelectasis favored. PLEURA: Effusion moderate and similar. No pneumothorax seen. CARDIOVASCULAR: No aortic atherosclerotic calcification present. Normal cardiac size. No pulmonary vascular congestion. OSSEOUS STRUCTURES: No significant abnormalities. VISUALIZED UPPER ABDOMEN: Normal. OTHER FINDINGS: None. IMPRESSION: Similar moderate left pleural effusion. Inferred compressive left basal atelectasis no interval change in this regard seen. Some fluid is likely in the left major fissure.
[2018-06-14] MEDS ORDERED: Sodium Chloride 0.9% 1,000 ML IV SCH (13:45)
[2018-06-14] MEDS ORDERED: metroNIDAZOLE 500mg/100ml NS 100 ML IVPB ONE (13:54)
[2018-06-14 14:06] LABS: VENOUS BLOOD GAS BASE EXCESS -0.3 mmol/L (0.0-2.0); VENOUS BLOOD GAS PCO2 36 mmHg (40-60); VENOUS BLOOD GAS PO2 31 mm/Hg (30-55); VENOUS BLOOD PH 7.43 (7.32-7.43)
--- NOTE | 2018-06-14 16:41 | CP.PCM.HP ---
<Mara Leon - Last Filed: 06/14/18 16:57> History of Present Illness - History of Present Illness History of Present Illness: 43 y/o female presents to the ED from [facility] with intense left sided abdominal pain, specifically LLQ of 3 days duration. Pain radiates to the entire left side including back. Aggravating symptoms include movement and palpation, no alleviating symptoms. Associated with nausea but denies fever, vomiting and diarrhea. Patient was discharged one week prior after hospitalization for sepsis due to acute pancreatitis secondary to severe hypertriglyceridemia complicated by pseudocysts/phlegmon. PMD: [facility] PMH: anemia Meds: ferrous sulfate Social: denies FHx: Father - , DM; Mother - , unknown OBHx: , c/s x3, menstrual regular, pap UTD, no hx of STD Allergy: NKDA CT (06/14): 1. Redemonstration of large septated multilocular fluid collection i n the lesser sac extending to the left anterior and posterior pararenal spaces, left paracolic gutter, left lower quadrant and left hemipelvis. Scattered few foci of air within the collection. The sterility of this collection cannot be determined on the basis of imaging. 2. Worsening moderate left pleural effusion. Present on Admission - Present on Admission Any Indicators Present on Admission: No Review of Systems - Review of Systems Review of Systems: all other systems reviewed and negative unless otherwise noted in HPI Past Patient History - Infectious Disease Hx of Infectious Diseases: None - Past Medical History & Family History Past Medical History?: No - Past Social History Smoking Status: Never Smoked - CARDIAC Hx Cardiac Disorders: No - PULMONARY Hx Respiratory Disorders: No - NEUROLOGICAL Hx Neurological Disorder: No - HEENT Hx HEENT Problems: No - RENAL Hx Chronic Kidney Disease: No - ENDOCRINE/METABOLIC Hx Endocrine Disorders: No - HEMATOLOGICAL/ONCOLOGICAL Hx Human Immunodeficiency Virus (HIV): No - INTEGUMENTARY Hx Dermatological Problems: No - MUSCULOSKELETAL/RHEUMATOLOGICAL Hx Musculoskeletal Disorders: No Hx Falls: No - GASTROINTESTINAL Hx Gastrointestinal Disorders: Yes Hx Pancreatitis: Yes (ACUTE PANCREATITIS 05/19/18) - GENITOURINARY/GYNECOLOGICAL Hx Genitourinary Disorders: No - PSYCHIATRIC Hx Psychophysiologic Disorder: No Hx Substance Use: No - SURGICAL HISTORY Hx Surgeries: Yes Hx Section: Yes - ANESTHESIA Hx Anesthesia: Yes Hx Anesthesia Reactions: No Meds Allergies/Adverse Reactions: Allergies Allergy/AdvReac Type Severity Reaction Status Date / Time No Known Allergies Allergy Verified 04/28/17 11:54 Physical Exam - Constitutional Appears: Non-toxic, No Acute Distress - Eye Exam Eye Exam: Normal appearance - ENT Exam ENT Exam: Mucous Membranes Moist - Respiratory Exam Respiratory Exam: NORMAL BREATHING PATTERN. absent: Respiratory Distress - Cardiovascular Exam Cardiovascular Exam: Tachycardia - GI/Abdominal Exam GI & Abdominal Exam: Tenderness (very tender LUQ and LLQ) - Back Exam Back exam: NORMAL INSPECTION - Neurological Exam Neurological exam: Alert, Oriented x3 - Psychiatric Exam Psychiatric exam: Normal Affect, Normal Mood - Skin Skin Exam: Normal Color Results - Vital Signs Recent Vital Signs: Last Vital Signs Temp 98.3 F 06/14/18 16:19 Pulse 114 H 06/14/18 16:19 Resp 16 06/14/18 16:19 BP 101/64 06/14/18 16:19 Pulse Ox 97 06/14/18 16:19 - Labs Result Diagrams: 06/14/18 10:00 06/14/18 10:00 Labs: Laboratory Results - last 24 hr 06/14/18 06/14/18 06/14/18 10:00 10:00 10:00 WBC 9.8 RBC 3.67 L Hgb 9.9 L Hct 29.9 L MCV 81.5 MCH 26.8 L MCHC 32.9 L RDW 15.8 H Plt Count 547 H MPV 6.7 L Neut % (Auto) 75.3 H Lymph % (Auto) 13.8 L [place] % (Auto) 10.4 H Eos % (Auto) 0.1 Baso % (Auto) 0.4 Neut # (Auto) 7.3 H Lymph # (Auto) 1.3 [place] # (Auto) 1.0 H Eos # (Auto) 0.0 Baso # (Auto) 0.0 Neutrophils % (Manual) 62 Band Neutrophils % 5 H Lymphocytes % (Manual) 18 L Monocytes % (Manual) 15 H Platelet Estimate Normal Anisocytosis (manual) Slight pO2 VBG pH VBG pCO2 VBG HCO3 VBG Total CO2 VBG O2 Sat (Calc) VBG Base Excess VBG Potassium Glucose Lactate FiO2 Sodium 134 Potassium 4.1 Chloride 97 L Carbon Dioxide 23 Anion Gap 18 BUN 8 Creatinine 0.4 L Est GFR ( Amer) > 60 Est GFR (Non-Af Amer) > 60 POC Glucose (mg/dL) Random Glucose 112 H Calcium 8.9 Total Bilirubin 0.8 AST 73 H D ALT 17 Alkaline Phosphatase 71 Total Protein 7.4 Albumin 3.7 Globulin 3.8 Albumin/Globulin Ratio 1.0 Triglycerides 184 H D Cholesterol 96 LDL Cholesterol Direct 41 HDL Cholesterol 21 L Lipase 60 Venous Blood Potassium Urine Color Urine Clarity Urine pH Ur Specific E[place] Urine Protein Urine Glucose (UA) Urine Ketones Urine Blood Urine Nitrate Urine Bilirubin Urine Urobilinogen Ur Leukocyte Esterase Urine RBC (Auto) Urine Microscopic WBC Ur Squamous Epith Cells Amorphous Sediment Urine Bacteria Hyaline Casts 06/14/18 06/14/18 06/14/18 10:11 10:30 13:51 WBC RBC Hgb Hct MCV MCH MCHC RDW Plt Count MPV Neut % (Auto) Lymph % (Auto) [place] % (Auto) Eos % (Auto) Baso % (Auto) Neut # (Auto) Lymph # (Auto) [place] # (Auto) Eos # (Auto) Baso # (Auto) Neutrophils % (Manual) Band Neutrophils % Lymphocytes % (Manual) Monocytes % (Manual) Platelet Estimate Anisocytosis (manual) pO2 41 31 VBG pH 7.47 H 7.43 VBG pCO2 33 L 36 L VBG HCO3 25.1 24.1 VBG Total CO2 25.0 25.0 VBG O2 Sat (Calc) 82.2 H 65.0 VBG Base Excess 0.7 -0.3 L VBG Potassium 3.6 3.4 L Glucose 112 H 108 H Lactate 2.1 1.2 FiO2 21.0 21.0 Sodium 133.0 135.0 Potassium Chloride 99.0 104.0 Carbon Dioxide Anion Gap BUN Creatinine Est GFR ( Amer) Est GFR (Non-Af Amer) POC Glucose (mg/dL) Random Glucose Calcium Total Bilirubin AST ALT Alkaline Phosphatase Total Protein Albumin Globulin Albumin/Globulin Ratio Triglycerides Cholesterol LDL Cholesterol Direct HDL Cholesterol Lipase Venous Blood Potassium 3.6 3.4 L Urine Color [place] Urine Clarity Cloudy Urine pH 6.0 Ur Specific Eagan 1.017 Urine Protein 30 Urine Glucose (UA) Neg Urine Ketones Negative Urine Blood Small Urine Nitrate Negative Urine Bilirubin Negative Urine Urobilinogen 0.2-1.0 Ur Leukocyte Esterase Neg Urine RBC (Auto) 4 H Urine Microscopic WBC 4 Ur Squamous Epith Cells 5 Amorphous Sediment Rare H Urine Bacteria Rare Hyaline Casts 0-2 06/14/18 15:51 WBC RBC Hgb Hct MCV MCH MCHC RDW Plt Count MPV Neut % (Auto) Lymph % (Auto) [place] % (Auto) Eos % (Auto) Baso % (Auto) Neut # (Auto) Lymph # (Auto) [place] # (Auto) Eos # (Auto) Baso # (Auto) Neutrophils % (Manual) Band Neutrophils % Lymphocytes % (Manual) Monocytes % (Manual) Platelet Estimate Anisocytosis (manual) pO2 VBG pH VBG pCO2 VBG HCO3 VBG Total CO2 VBG O2 Sat (Calc) VBG Base Excess VBG Potassium Glucose Lactate FiO2 Sodium Potassium Chloride Carbon Dioxide Anion Gap BUN Creatinine Est GFR ( Amer) Est GFR (Non-Af Amer) POC Glucose (mg/dL) 108 Random Glucose Calcium Total Bilirubin AST ALT Alkaline Phosphatase Total Protein Albumin Globulin Albumin/Globulin Ratio Triglycerides Cholesterol LDL Cholesterol Direct HDL Cholesterol Lipase Venous Blood Potassium Urine Color Urine Clarity Urine pH Ur Specific E[place] Urine Protein Urine Glucose (UA) Urine Ketones Urine Blood Urine Nitrate Urine Bilirubin Urine Urobilinogen Ur Leukocyte Esterase Urine RBC (Auto) Urine Microscopic WBC Ur Squamous Epith Cells Amorphous Sediment Urine Bacteria Hyaline Casts Assessment & Plan - Assessment and Plan (Free Text) Assessment: 43 y/o female presents to the ED from [facility] 1 week after hospital discharge with intense left sided abdominal pain, specifically LLQ of 3 days duration. Patient was discharged one week prior after hospitalization for sepsis due to acute pancreatitis secondary to severe hypertriglyceridemia complicated by pseudocysts/phlegmon. Plan: Sepsis secondary to Pancreatic Pseudocyst -T 101.6F, tachycardic 113-140 bpm, hypotensive 97/60, tachypneic 27 -Lactate 2.1 on admission -IR consulted for drainage, Dr Rivera -IVF -Zosyn -NPO -CT: 1. Redemonstration of large septated multilocular fluid collection in the lesser sac extending to the left anterior and posterior pararenal spaces, left paracolic gutter, left lower quadrant and left hemipelvis. Scattered few foci of air within the collection. The sterility of this collection cannot be determined on the basis of imaging. 2. Worsening moderate left pleural effusion. DVT Prophylaxis SCD <Issac Prakash D - Last Filed: 06/14/18 17:17> Results - Vital Signs Recent Vital Signs: Last Vital Signs Temp 98.3 F 06/14/18 16:19 Pulse 114 H 06/14/18 16:19 Resp 16 06/14/18 16:19 BP 101/64 06/14/18 16:19 Pulse Ox 97 06/14/18 16:19 - Labs Result Diagrams: 06/14/18 10:00 06/14/18 10:00 Labs: Laboratory Results - last 24 hr 06/14/18 06/14/18 06/14/18 10:00 10:00 10:00 WBC 9.8 RBC 3.67 L Hgb 9.9 L Hct 29.9 L MCV 81.5 MCH 26.8 L MCHC 32.9 L RDW 15.8 H Plt Count 547 H MPV 6.7 L Neut % (Auto) 75.3 H Lymph % (Auto) 13.8 L [place] % (Auto) 10.4 H Eos % (Auto) 0.1 Baso % (Auto) 0.4 Neut # (Auto) 7.3 H Lymph # (Auto) 1.3 [place] # (Auto) 1.0 H Eos # (Auto) 0.0 Baso # (Auto) 0.0 Neutrophils % (Manual) 62 Band Neutrophils % 5 H Lymphocytes % (Manual) 18 L Monocytes % (Manual) 15 H Platelet Estimate Normal Anisocytosis (manual) Slight pO2 VBG pH VBG pCO2 VBG HCO3 VBG Total CO2 VBG O2 Sat (Calc) VBG Base Excess VBG Potassium Glucose Lactate FiO2 Sodium 134 Potassium 4.1 Chloride 97 L Carbon Dioxide 23 Anion Gap 18 BUN 8 Creatinine 0.4 L Est GFR ( Amer) > 60 Est GFR (Non-Af Amer) > 60 POC Glucose (mg/dL) Random Glucose 112 H Calcium 8.9 Total Bilirubin 0.8 AST 73 H D ALT 17 Alkaline Phosphatase 71 Total Protein 7.4 Albumin 3.7 Globulin 3.8 Albumin/Globulin Ratio 1.0 Triglycerides 184 H D Cholesterol 96 LDL Cholesterol Direct 41 HDL Cholesterol 21 L Lipase 60 Venous Blood Potassium Urine Color Urine Clarity Urine pH Ur Specific [place] Urine Protein Urine Glucose (UA) Urine Ketones Urine Blood Urine Nitrate Urine Bilirubin Urine Urobilinogen Ur Leukocyte Esterase Urine RBC (Auto) Urine Microscopic WBC Ur Squamous Epith Cells Amorphous Sediment Urine Bacteria Hyaline Casts 06/14/18 06/14/18 06/14/18 10:11 10:30 13:51 WBC RBC Hgb Hct MCV MCH MCHC RDW Plt Count MPV Neut % (Auto) Lymph % (Auto) [place] % (Auto) Eos % (Auto) Baso % (Auto) Neut # (Auto) Lymph # (Auto) [place] # (Auto) Eos # (Auto) Baso # (Auto) Neutrophils % (Manual) Band Neutrophils % Lymphocytes % (Manual) Monocytes % (Manual) Platelet Estimate Anisocytosis (manual) pO2 41 31 VBG pH 7.47 H 7.43 VBG pCO2 33 L 36 L VBG HCO3 25.1 24.1 VBG Total CO2 25.0 25.0 VBG O2 Sat (Calc) 82.2 H 65.0 VBG Base Excess 0.7 -0.3 L VBG Potassium 3.6 3.4 L Glucose 112 H 108 H Lactate 2.1 1.2 FiO2 21.0 21.0 Sodium 133.0 135.0 Potassium Chloride 99.0 104.0 Carbon Dioxide Anion Gap BUN Creatinine Est GFR ( Amer) Est GFR (Non-Af Amer) POC Glucose (mg/dL) Random Glucose Calcium Total Bilirubin AST ALT Alkaline Phosphatase Total Protein Albumin Globulin Albumin/Globulin Ratio Triglycerides Cholesterol LDL Cholesterol Direct HDL Cholesterol Lipase Venous Blood Potassium 3.6 3.4 L Urine Color [place] Urine Clarity Cloudy Urine pH 6.0 Ur Specific [place] 1.017 Urine Protein 30 Urine Glucose (UA) Neg Urine Ketones Negative Urine Blood Small Urine Nitrate Negative Urine Bilirubin Negative Urine Urobilinogen 0.2-1.0 Ur Leukocyte Esterase Neg Urine RBC (Auto) 4 H Urine Microscopic WBC 4 Ur Squamous Epith Cells 5 Amorphous Sediment Rare H Urine Bacteria Rare Hyaline Casts 0-2 06/14/18 15:51 WBC RBC Hgb Hct MCV MCH MCHC RDW Plt Count MPV Neut % (Auto) Lymph % (Auto) [place] % (Auto) Eos % (Auto) Baso % (Auto) Neut # (Auto) Lymph # (Auto) [place] # (Auto) Eos # (Auto) Baso # (Auto) Neutrophils % (Manual) Band Neutrophils % Lymphocytes % (Manual) Monocytes % (Manual) Platelet Estimate Anisocytosis (manual) pO2 VBG pH VBG pCO2 VBG HCO3 VBG Total CO2 VBG O2 Sat (Calc) VBG Base Excess VBG Potassium Glucose Lactate FiO2 Sodium Potassium Chloride Carbon Dioxide Anion Gap BUN Creatinine Est GFR ( Amer) Est GFR (Non-Af Amer) POC Glucose (mg/dL) 108 Random Glucose Calcium Total Bilirubin AST ALT Alkaline Phosphatase Total Protein Albumin Globulin Albumin/Globulin Ratio Triglycerides Cholesterol LDL Cholesterol Direct HDL Cholesterol Lipase Venous Blood Potassium Urine Color Urine Clarity Urine pH Ur Specific [place] Urine Protein Urine Glucose (UA) Urine Ketones Urine Blood Urine Nitrate Urine Bilirubin Urine Urobilinogen Ur Leukocyte Esterase Urine RBC (Auto) Urine Microscopic WBC Ur Squamous Epith Cells Amorphous Sediment Urine Bacteria Hyaline Casts Attending/Attestation - Attestation I have personally seen and examined this patient.: Yes I have fully participated in the care of the patient.: Yes I have reviewed all pertinent clinical information: Yes Notes (Text): 06/14/18 17:17 Patient seen and examined with resident. Case discussed and agreed with assessment and plan of management.
[2018-06-14] MEDS ORDERED: Piperacillin/Tazobact 3.375 GM in Sodium Chloride 0.9% 100 ML IVPB SCH (21:00)
[2018-06-14] MEDS: Piperacillin/Tazobact 3.375 GM in Sodium Chloride 0.9% 100 ML IVPB SCH (21:46)
[2018-06-15] MEDS: Piperacillin/Tazobact 3.375 GM in Sodium Chloride 0.9% 100 ML IVPB SCH ×3 (03:31→16:37)
[2018-06-15] MEDS: Lactated Ringer's 1,000 ML IV SCH ×3 (06:06→21:09)
[2018-06-15 06:10] LABS: HEMOGLOBIN 7.4 g/dL (12.0-16.0); MEAN CELL VOLUME 82.2 fl (81.0-99.0); MEAN CORPUSCULAR HEMOGLOBIN 26.4 pg (27.0-31.0); MEAN CORPUSCULAR HGB CONC 32.1 g/dL (33.0-37.0); RBC 2.82 Mil/uL (3.80-5.20); RED CELL DISTRIBUTION WIDTH 15.8 % (11.5-14.5); WHITE BLOOD COUNT 6.3 K/uL (4.8-10.8)
[2018-06-15 06:23] LABS: ALB/GLOB RATIO 0.9 (1.0-2.1); ALBUMIN 2.5 g/dL (3.5-5.0); ALT/SGPT 21 U/L (9-52); AST/SGOT 32 U/L (14-36); BLOOD UREA NITROGEN 9 mg/dl (7-17); GFR NON-AFRICAN AMERICAN > 60
--- NOTE | 2018-06-15 08:21 | CON ---
DATE: 06/14/2018 REFERRING PHYSICIAN: Issac Prakash MD REASON FOR CONSULTATION: Abdominal pain, fevers. HISTORY OF PRESENT ILLNESS: This is a 43-year-old female with history of severe pancreatitis which is resolved, was sent home, now comes in today with nausea and questionable fevers at home. The patient had a generalized discomfort, was tolerating diet at this point. Currently lying in bed, comfortable, in no apparent distress. PAST MEDICAL HISTORY: As above. SURGICAL HISTORY: As above. MEDICATIONS: Have been reviewed. REVIEW OF SYSTEMS: All other systems have been reviewed and negative apart from the HPI. PHYSICAL EXAMINATION: VITAL SIGNS: Here in the hospital are grossly unremarkable. GENERAL: A very pleasant middle-aged female, lying in bed, comfortable, in no apparent distress. HEENT: Head: Normocephalic and atraumatic. Eyes: Pupils are equal and reactive to light bilaterally. No conjunctival pallor or icterus. NECK: Supple. Normal range of motion. No lymph nodes appreciated. LUNGS: Coarse breath sounds bilaterally. HEART: S1 and S2. Regular rate and rhythm. No murmurs appreciated. ABDOMEN: Soft, nontender. Bowel sounds present. Some discomfort and some fullness in the lower quadrant. No rebound. No guarding. RECTAL: Deferred. EXTREMITIES: Pulse felt bilaterally. SKIN: Warm, dry and intact. NEUROLOGIC: A and O x3. LABORATORY DATA: Labs and radiology have been reviewed. WBC 9.8, hemoglobin , hematocrit 29.9, platelet count is 547. LFTs are essentially unremarkable. CAT scan essentially unchanged from previous multiple loculated collections in . ASSESSMENT AND PLAN: This is a 43-year-old female with resolving pancreatitis likely secondary to triglycerides. The patient has pleural effusion on CT which I suspect is likely the cause of fever. Would consider thoracentesis or diuresis if possible. From Gastroenterology standpoint, trial of diet to see if she can tolerate. Thank you for the consult. John Rizzo MD/ PhD cc: Issac Prakash MD KARRIE
--- NOTE | 2018-06-15 09:03 | CARD ---
APPROVED REPORT Date of service: 06/14/2018 EKG Measurement Heart [id number] <Conclusion> Sinus tachycardia Otherwise normal ECG
[2018-06-15 09:25] LABS: INR 1.5; PROTHROMBIN TIME 17.6 Seconds (9.8-13.1)
--- NOTE | 2018-06-15 10:55 | CP.PCM.PN ---
<Mara Leon - Last Filed: 06/15/18 11:39> Subjective - Date & Time of Evaluation Date of Evaluation: 06/15/18 Time of Evaluation: 10:53 - Subjective Subjective: Patient seen and examined bedside. Admits that pain is controlled but is upset/overwhelmed that she is readmitted - discussed with patient with current plan and she was reassured. Denies nausea, vomiting, diarrhea, SOB, CP and constipation. Objective - Vital Signs/Intake and Output Vital Signs (last 24 hours): Temp Pulse Resp BP Pulse Ox 99.4 F 105 H 20 101/62 98 06/15/18 07:55 06/15/18 09:00 06/15/18 07:55 06/15/18 07:55 06/15/18 07:55 - Medications Medications: Current Medications Acetaminophen (Tylenol 325mg Tab) 650 mg PO Q4 PRN PRN Reason: Fever >100.4 F Last Admin: 06/14/18 18:34 Dose: 650 mg Lactated Ringer's (Lactated Ringer's) 1,000 mls @ 150 mls/hr IV .Q6H40M ZARINA Last Admin: 06/15/18 06:06 Dose: 150 mls/hr Piperacillin Sod/Tazobactam (Sod 3.375 gm/ Sodium Chloride) 100 mls @ 100 mls/hr IVPB Q6 ZARINA; Protocol Last Admin: 06/15/18 09:15 Dose: 100 mls/hr Ketorolac Tromethamine (Toradol) 30 mg IM Q6 PRN PRN Reason: Pain, severe (8-10) Ketorolac Tromethamine (Toradol) 15 mg IVP Q6 PRN PRN Reason: Pain, moderate (4-7) Last Admin: 06/15/18 09:23 Dose: 15 mg Ondansetron HCl (Zofran Inj) 4 mg IVP Q4 PRN PRN Reason: Nausea/Vomiting Last Admin: 06/15/18 09:19 Dose: 4 mg - Labs Labs: 06/15/18 05:10 06/15/18 05:10 PT 17.6 Seconds (9.8-13.1) H 06/15/18 08:40 INR 1.5 06/15/18 08:40 - Constitutional Appears: No Acute Distress - Eye Exam Eye Exam: Normal appearance - ENT Exam ENT Exam: Mucous Membranes Moist - Cardiovascular Exam Cardiovascular Exam: Tachycardia - GI/Abdominal Exam GI & Abdominal Exam: Tenderness (LUQ, LLQ) - Extremities Exam Extremities Exam: Normal Inspection. absent: Pedal Edema - Neurological Exam Neurological Exam: Alert, Awake, Oriented x3 - Psychiatric Exam Psychiatric exam: Normal Affect, Normal Mood - Skin Skin Exam: Pallor Assessment and Plan - Assessment and Plan (Free Text) Assessment: 43 y/o female presents to the ED from [facility] 1 week after hospital discharge with intense left sided abdominal pain, specifically LLQ of 3 days duration. Patient was discharged one week prior after hospitalization for sepsis due to acute pancreatitis secondary to severe hypertriglyceridemia complicated by pseudocysts/phlegmon. Plan: Sepsis secondary to Pancreatic Pseudocyst -febrile (relieved with acetaminophen), tachycardic, hypotensive, tachypneic 27 -Lactate 2.1 on admission -IR consulted for drainage, Dr Rivera - plan for today ---f/u cell cytology, gram stain and culture -ID consulted, Dr Gould, input and recs appreciated -2 units PRBC, Hg 7.4 -IVF LR @ 150 mls/hr -Zosyn -NPO -CT: 1. Redemonstration of large septated multilocular fluid collection in the lesser sac extending to the left anterior and posterior pararenal spaces, left paracolic gutter, left lower quadrant and left hemipelvis. Scattered few foci of air within the collection. The sterility of this collection cannot be determined on the basis of imaging. 2. Worsening moderate left pleural effusion. DVT Prophylaxis SCD <Issac Prakash D - Last Filed: 06/15/18 13:05> Objective - Vital Signs/Intake and Output Vital Signs (last 24 hours): Temp Pulse Resp BP Pulse Ox 99.1 F 110 H 19 110/63 100 06/15/18 12:45 06/15/18 12:45 06/15/18 12:45 06/15/18 12:45 06/15/18 12:45 - Medications Medications: Current Medications Acetaminophen (Tylenol 325mg Tab) 650 mg PO Q4 PRN PRN Reason: Fever >100.4 F Last Admin: 06/14/18 18:34 Dose: 650 mg Lactated Ringer's (Lactated Ringer's) 1,000 mls @ 150 mls/hr IV .Q6H40M ZARINA Last Admin: 06/15/18 06:06 Dose: 150 mls/hr Piperacillin Sod/Tazobactam (Sod 3.375 gm/ Sodium Chloride) 100 mls @ 100 mls/hr IVPB Q6 ZARINA; Protocol Last Admin: 06/15/18 09:15 Dose: 100 mls/hr Potassium Chloride (Potassium Chloride 10 Meq/100 Ml) 100 mls @ 100 mls/hr IVPB Q1 ZARINA Stop: 06/15/18 13:59 Ketorolac Tromethamine (Toradol) 30 mg IM Q6 PRN PRN Reason: Pain, severe (8-10) Ketorolac Tromethamine (Toradol) 15 mg IVP Q6 PRN PRN Reason: Pain, moderate (4-7) Last Admin: 06/15/18 09:23 Dose: 15 mg Ondansetron HCl (Zofran Inj) 4 mg IVP Q4 PRN PRN Reason: Nausea/Vomiting Last Admin: 06/15/18 09:19 Dose: 4 mg - Labs Labs: 06/15/18 05:10 06/15/18 05:10 PT 17.6 Seconds (9.8-13.1) H 06/15/18 08:40 INR 1.5 06/15/18 08:40 Attending/Attestation - Attestation I have personally seen and examined this patient.: Yes I have fully participated in the care of the patient.: Yes I have reviewed all pertinent clinical information, including history, physical exam and plan: Yes Notes (Text): 06/15/18 13:05 Patient seen and examined with resident. Case discussed and agreed with assessment and plan.
[2018-06-15] MEDS ORDERED: Dextrose 50% SYRINGE Inj (50 ml) IVP ONE (11:05)
[2018-06-15] MEDS: Potassium CL 10mEq/100ml 100 ML IVPB SCH ×4 (11:06→16:38)
[2018-06-15] MEDS ORDERED: Lidocaine 1% Inj (20ml) ONE (12:30)
[2018-06-15] MEDS ORDERED: Midazolam 2 MG/2 ML VIAL ONE (12:49)
[2018-06-15] MEDS ORDERED: Ketamine 50 mg/ml Inj (10 ml) ONE (12:49)
[2018-06-15] MEDS ORDERED: Lidocaine Hydrochloride 1% 0 ML ONE (12:49)
[2018-06-15] MEDS ORDERED: Propofol 10 mg/ml Inj (20 ML) ONE (12:50)
--- NOTE | 2018-06-15 13:15 | PCM.SURG1 ---
Surgeon's Initial Post Op Note - Surgeon's Notes Surgeon: Randell rAtis MD Ground Equipment Mechanic: NONE Type of Anesthesia: IV Sedation Pre-Operative Diagnosis: Abdominal abscess Operative Findings: US confirmed complex peritoneal collection. Post-Operative Diagnosis: Abdominal abscess Operation Performed: Placement of a 10 fr multi-sidehole catheter within the abscess Specimen/Specimens Removed: 20 cc of purulent drainage Estimated Blood Loss: EBL {In ML}: 2 Blood Products Given: N/A Drains Used: Raphael Mcclendon Post-Op Condition: Fair Date of Surgery/Procedure: 06/15/18 Time of Surgery/Procedure: 13:10
[2018-06-15] MEDS ORDERED: HYDROmorphone 0.5 mg/0.5 ml ISec IVP PRN (13:23)
[2018-06-15] MEDS ORDERED: Sodium Chloride 0.9% 1,000 ML IV SCH (13:30)
[2018-06-15 14:06] LABS: BODY FLUID TYPE PERITONEAL
[2018-06-15 14:58] LABS: BF GROSS APPEARANCE TURBID (CLEAR)
[2018-06-15 16:03] LABS: BODY FLUID MONO/MACROPHAGE 7 % (0-0); BODY FLUID TOTAL COUNT 100 (0-0)
[2018-06-15 16:27] LABS: AMYLASE,BODY FLUID 60 mg/dL (NONE ESTABLISHED)
--- NOTE | 2018-06-15 16:32 | CP.PCM.CON ---
History of Present Illness - History of Present Illness History of Present Illness: 43 y/o female presents to the ED from [facility] with left sided abdominal pain, Associated with nausea Patient was discharged one week prior after hospitalization for sepsis due to acute pancreatitis secondary to severe hypertriglyceridemia complicated by pseudocysts/phlegmon. PMD: [facility] PMH: anemia Meds: ferrous sulfate Social: denies FHx: Father - , DM; Mother - , unknown OBHx: , c/s x3, menstrual regular, pap UTD, no hx of STD Allergy: NKDA Review of Systems - Review of Systems All systems: reviewed and no additional remarkable complaints except - Constitutional Constitutional: As Per HPI - EENT Eyes: absent: As Per HPI, Blind Spots, Blurred Vision, Change in Vision, Decreased Night Vision, Diplopia, Discharge, Dry Eye, Exophthalmos, Floaters, Irritation, Itchy Eyes, Loss of Peripheral Vision, Pain, Photophobia, Requires Corrective Lenses, Sees Flashes, Spots in Vision, Tunnel Vision, Other Visual Disturbances, Loss of Vision, Other Ears: absent: As Per HPI, Decreased Hearing, Ear Discharge, Ear Pain, Tinnitus, Abnormal Hearing, Disequilibrium, Dizziness, Other Nose/Mouth/Throat: absent: As Per HPI, Epistaxis, Nasal Congestion, Nasal Discharge, Nasal Obstruction, Nasal Trauma, Nose Pain, Post Nasal Drip, Sinus Pain, Sinus Pressure, Bleeding Gums, Change in Voice, Dental Pain, Dry Mouth, Dysphagia, Halitosis, Hoarsness, Lip Swelling, Mouth Lesions, Mouth Pain, Odynophagia, Sore Throat, Throat Swelling, Tongue Swelling, Facial Pain, Neck Pain, Neck Mass, Other - Cardiovascular Cardiovascular: absent: As Per HPI, Acrocyanosis, Chest Pain, Chest Pain at Re st, Chest Pain with Activity, Claudication, Diaphoresis, Dyspnea, Dyspnea on Exertion, Edema, Irregular Heart Rhythm, Pain Radiating to Arm/Neck/Jaw, Leg Edema, Leg Ulcers, Lightheadedness, Orthopnea, Palpitations, Paroxysmal Nocturnal Dyspnea, Pedal Edema, Radiating Pain, Rapid Heart Rate, Slow Heart Rate, Syncope, Other - Respiratory Respiratory: absent: As Per HPI, Cough, Dyspnea, Hemoptysis, Dyspnea on Exertion, Wheezing, Snoring, Stridor, Pain on Inspiration, Chest Congestion, Excessive Mucous Production, Change in Mucous Color, Pain with Coughing, Other - Gastrointestinal Gastrointestinal: As Per HPI - Reproductive: Female Reproductive:Female: absent: As Per HPI, Amenorrhea, Amenorrhea/ Control, Currently Menstual, Cycle <21 Days, Cycle >35 Days, Cycle Variable, Menses 1-7 Days, Menses >/= 8 Days, Menses Variable, Cycle > 4 Weeks Between, No Menses for 6 Months, Heavy Menses, Light Menses, Normal Menses, Spotting Between Cycles, S/P Hysterectomy, Menopausal, Post Menopausal, Premenarche, Abnormal Vaginal Bleeding, Dysmenorrhea, Dyspareunia, Genital Lesions, Genital Pruritis, Pelvic Pain, Prolapse Symptoms, Sexual Dysfunction, Vaginal Discharge, Vaginal Dryness, Vaginal Odor, Vaginal Pruritis, Other - Menstruation Menstruation: absent: As Per HPI, Amenorrhea, Amenorrhea/ Control, Currently Menstual, Cycle <21 Days, Cycle >35 Days, Cycle Variable, Menses 1-7 Days, Menses >/= 8 Days, Menses Variable, Cycle > 4 Weeks Between, No Menses for 6 Months, Heavy Menses, Light Menses, Normal Menses, Spotting Between Cycles, S/P Hysterectomy, Menopausal, Post Menopausal, Premenarche, Abnormal Vaginal Bleeding, Dysmenorrhea, Other - Musculoskeletal Musculoskeletal: absent: As Per HPI, Abnormal Gait, Arthralgias, Atrophy, Back Pain, Deformity, Joint Swelling, Limited Range of Motion, Loss of Height, Muscle Cramps, Muscle Weakness, Myalgias, Neck Pain, Numbness, Radiating Pain into Limb, Stiffness, Tingling, Other - Integumentary Integumentary: absent: As Per HPI, Acne, Alopecia, Bleeding Lesions, Change in Hair, Change in Nails, Change in Pigmentation, Changing Lesions, Dry Skin, Erythema, Furuncle, Hirsutism, Lesions, New Lesions, Non-Healing Lesions, Photosensitivity, Pruritus, Rash, Skin Pain, Skin Ulcer, Sores, Striae, Sw elling, Unusual Bruising, Wounds, Jaundice, Other - Neurological Neurological: absent: As Per HPI, Abnormal Gait, Abnormal Hearing, Abnormal Movements, Abnormal Speech, Behavioral Changes, Burning Sensations, Confusion, Convulsions, Disequilibrium, Dizziness, Numbness, Focal Weakness, Frequent Falls, Headaches, Lack of Coordination, Loss of Vision, Memory Loss, Paresthesias, Radicular Pain, Restless Legs, Sensory Deficit, Syncope, Tingling, Tremor, Vertigo, Weakness, Other Visual Disturbances, Other Past Patient History - Infectious Disease Hx of Infectious Diseases: None - Past Medical History & Family History Past Medical History?: No - Past Social History Smoking Status: Never Smoked - CARDIAC Hx Cardiac Disorders: No - PULMONARY Hx Respiratory Disorders: No - NEUROLOGICAL Hx Neurological Disorder: No - HEENT Hx HEENT Problems: No - RENAL Hx Chronic Kidney Disease: No - ENDOCRINE/METABOLIC Hx Endocrine Disorders: No - HEMATOLOGICAL/ONCOLOGICAL Hx Human Immunodeficiency Virus (HIV): No - INTEGUMENTARY Hx Dermatological Problems: No - MUSCULOSKELETAL/RHEUMATOLOGICAL Hx Musculoskeletal Disorders: No Hx Falls: No - GASTROINTESTINAL Hx Gastrointestinal Disorders: Yes Hx Pancreatitis: Yes (ACUTE PANCREATITIS 05/19/18) - GENITOURINARY/GYNECOLOGICAL Hx Genitourinary Disorders: No - PSYCHIATRIC Hx Psychophysiologic Disorder: No Hx Substance Use: No - SURGICAL HISTORY Hx Surgeries: Yes Hx Section: Yes - ANESTHESIA Hx Anesthesia: Yes Hx Anesthesia Reactions: No Meds Allergies/Adverse Reactions: Allergies Allergy/AdvReac Type Severity Reaction Status Date / Time No Known Allergies Allergy Verified 04/28/17 11:54 - Medications Medications: Current Medications Acetaminophen (Tylenol 325mg Tab) 650 mg PO Q4 PRN PRN Reason: Fever >100.4 F Last Admin: 06/15/18 15:00 Dose: 650 mg Lactated Ringer's (Lactated Ringer's) 1,000 mls @ 150 mls/hr IV .Q6H40M [facility] Last Admin: 06/15/18 16:02 Dose: Not Given Piperacillin Sod/Tazobactam (Sod 3.375 gm/ Sodium Chloride) 100 mls @ 100 mls/hr IVPB Q6 [facility]; Protocol Last Admin: 06/15/18 09:15 Dose: 100 mls/hr Sodium Chloride (Sodium Chloride 0.9%) 1,000 mls @ 100 mls/hr IV .Q10H [facility] Last Admin: 06/15/18 15:36 Dose: 200 mls Ketorolac Tromethamine (Toradol) 30 mg IM Q6 PRN PRN Reason: Pain, severe (8-10) Ketorolac Tromethamine (Toradol) 15 mg IVP Q6 PRN PRN Reason: Pain, moderate (4-7) Last Admin: 06/15/18 09:23 Dose: 15 mg Ondansetron HCl (Zofran Inj) 4 mg IVP Q4 PRN PRN Reason: Nausea/Vomiting Last Admin: 06/15/18 09:19 Dose: 4 mg Physical Exam - Constitutional Appears: No Acute Distress, Cachectic, Chronically Ill - Head Exam Head Exam: ATRAUMATIC, NORMAL INSPECTION, NORMOCEPHALIC - Eye Exam Eye Exam: EOMI, Normal appearance, PERRL Pupil Exam: NORMAL ACCOMODATION, PERRL - ENT Exam ENT Exam: Mucous Membranes Moist, Normal Exam - Neck Exam Neck exam: Positive for: Normal Inspection - Respiratory Exam Respiratory Exam: Clear to Auscultation Bilateral, NORMAL BREATHING PATTERN - Cardiovascular Exam Cardiovascular Exam: REGULAR RHYTHM - GI/Abdominal Exam GI & Abdominal Exam: Distended, Guarding, Hypoactive Bowel Sounds, Soft, Tenderness. absent: Rigid - Rectal Exam Rectal Exam: Deferred - Exam Exam: NORMAL INSPECTION - Extremities Exam Extremities exam: Positive for: normal inspection - Back Exam Back exam: NORMAL INSPECTION - Neurological Exam Neurological exam: Alert, CN II-XII Intact, Normal Gait, Oriented x3, Reflexes Normal - Psychiatric Exam Psychiatric exam: Normal Affect, Normal Mood - Skin Skin Exam: Dry, Intact, Normal Color, Warm Results - Vital Signs Recent Vital Signs: Last Vital Signs Temp 101.9 F H 06/15/18 15:47 Pulse 137 H 06/15/18 15:47 Resp 18 06/15/18 15:47 BP 97/61 L 06/15/18 15:47 Pulse Ox 94 L 06/15/18 15:47 - Labs Result Diagrams: 06/15/18 05:10 06/15/18 05:10 Labs: Laboratory Results - last 24 hr 06/14/18 06/15/18 06/15/18 21:19 05:09 05:10 WBC 6.3 RBC 2.82 L Hgb 7.4 L D Hct 23.2 L MCV 82.2 MCH 26.4 L MCHC 32.1 L RDW 15.8 H Plt Count 444 H D PT INR Sodium Potassium Chloride Carbon Dioxide Anion Gap BUN Creatinine Est GFR ( Amer) Est GFR (Non-Af Amer) POC Glucose (mg/dL) 101 82 Random Glucose Calcium Total Bilirubin AST ALT Alkaline Phosphatase Total Protein Albumin Globulin Albumin/Globulin Ratio Fluid Source Fluid Appearance Fluid WBC Fluid RBC Fluid Tot Cell Count Fluid Neutrophils Fluid Lymphocytes Fld Monocyte/Macrophag Fluid Comment Blood Type Blood Type Confirm Antibody Screen Crossmatch BBK History Checked 06/15/18 06/15/18 06/15/18 05:10 08:30 08:40 WBC RBC Hgb Hct MCV MCH MCHC RDW Plt Count PT 17.6 H INR 1.5 Sodium 137 Potassium 3.4 L Chloride 104 Carbon Dioxide 23 Anion Gap 13 BUN 9 Creatinine 0.4 L Est GFR ( Amer) > 60 Est GFR (Non-Af Amer) > 60 POC Glucose (mg/dL) Random Glucose 78 Calcium 8.0 L Total Bilirubin 0.5 AST 32 ALT 21 Alkaline Phosphatase 75 Total Protein 5.4 L Albumin 2.5 L D Globulin 2.9 Albumin/Globulin Ratio 0.9 L Fluid Source Fluid Appearance Fluid WBC Fluid RBC Fluid Tot Cell Count Fluid Neutrophils Fluid Lymphocytes Fld Monocyte/Macrophag Fluid Comment Blood Type O POSITIVE Blood Type Confirm Antibody Screen Negative Crossmatch See Detail BBK History Checked No verified bt 06/15/18 06/15/18 06/15/18 10:49 11:00 11:54 WBC RBC Hgb Hct MCV MCH MCHC RDW Plt Count PT INR Sodium Potassium Chloride Carbon Dioxide Anion Gap BUN Creatinine Est GFR ( Amer) Est GFR (Non-Af Amer) POC Glucose (mg/dL) 76 169 H Random Glucose Calcium Total Bilirubin AST ALT Alkaline Phosphatase Total Protein Albumin Globulin Albumin/Globulin Ratio Fluid Source Fluid Appearance Fluid WBC Fluid RBC Fluid Tot Cell Count Fluid Neutrophils Fluid Lymphocytes Fld Monocyte/Macrophag Fluid Comment Blood Type Blood Type Confirm O POSITIVE Antibody Screen Crossmatch BBK History Checked 06/15/18 06/15/18 14:00 16:06 WBC RBC Hgb Hct MCV MCH MCHC RDW Plt Count PT INR Sodium Potassium Chloride Carbon Dioxide Anion Gap BUN Creatinine Est GFR ( Amer) Est GFR (Non-Af Amer) POC Glucose (mg/dL) 95 Random Glucose Calcium Total Bilirubin AST ALT Alkaline Phosphatase Total Protein Albumin Globulin Albumin/Globulin Ratio Fluid Source Peritoneal Fluid Appearance Turbid Fluid WBC 071644.0 H Fluid RBC 513138.0 H Fluid Tot Cell Count 100 H Fluid Neutrophils 72.0 H Fluid Lymphocytes 21.0 H Fld Monocyte/Macrophag 7 H Fluid Comment Brownish Blood Type Blood Type Confirm Antibody Screen Crossmatch BBK History Checked - Impressions Impression: CT (06/14): 1. Redemonstration of large septated multilocular fluid collection in the lesser sac extending to the left anterior and posterior pararenal spaces, left paracolic gutter, left lower quadrant and left hemipelvis. Scattered few foci of air within the collection. The sterility of this collection cannot be determined on the basis of imaging. 2. Worsening moderate left pleural effusion. Assessment & Plan - Assessment and Plan (Free Text) Plan: 43 yo female with hx of chronic pancreatitis secondary to hypertriglyceridemia is re admitted with abd pain and fever - found to have a large pancreatic pse udocyst which was drained by Dr Win Cultures are pending May need long course of IV antibiotics depending on cultures obtained today ( cipro /flagyl may be acceptqable once sensitivities k nown )
[2018-06-15] MEDS: Meropenem 1 GM in Sodium Chloride 0.9% 100 ML IVPB SCH (18:40)
[2018-06-16] MEDS: Meropenem 1 GM in Sodium Chloride 0.9% 100 ML IVPB SCH ×3 (00:05→16:18)
[2018-06-16] MEDS: Lactated Ringer's 1,000 ML IV SCH ×2 (05:20→08:31)
[2018-06-16 05:36] LABS: BASO % 0.4 % (0.0-2.0); EOS # 0.3 K/uL (0.0-0.7); EOS % 4.6 % (0.0-4.0); LYMPH # 0.9 K/uL (1.0-4.3); LYMPH % 17.1 % (20.0-40.0); MEAN CELL VOLUME 82.5 fl (81.0-99.0); MEAN CORPUSCULAR HEMOGLOBIN 27.2 pg (27.0-31.0); MEAN CORPUSCULAR HGB CONC 32.9 g/dL (33.0-37.0); MEAN PLATELET VOLUME 6.7 fl (7.2-11.7); MONO # 1.1 K/uL (0.0-0.8); MONO % 19.3 % (0.0-10.0); NEUT # 3.2 K/uL (1.8-7.0); NEUT % 58.6 % (50.0-75.0); NRBC % 0.1 % (0.0-0.0); RBC 2.95 Mil/uL (3.80-5.20); RED CELL DISTRIBUTION WIDTH 15.8 % (11.5-14.5); WHITE BLOOD COUNT 5.4 K/uL (4.8-10.8)
[2018-06-16 05:47] LABS: ALB/GLOB RATIO 0.9 (1.0-2.1); ALBUMIN 2.5 g/dL (3.5-5.0); ALT/SGPT 22 U/L (9-52); AST/SGOT 27 U/L (14-36); BLOOD UREA NITROGEN 7 mg/dl (7-17); CALCIUM 7.7 mg/dL (8.4-10.2); GFR NON-AFRICAN AMERICAN > 60
--- NOTE | 2018-06-16 10:19 | CP.PCM.PN ---
<Mara Leon - Last Filed: 06/16/18 10:31> Subjective - Date & Time of Evaluation Date of Evaluation: 06/16/18 Time of Evaluation: 10:19 - Subjective Subjective: Pt seen sitting in chair next to bed eating. Reports that she is feeling better but does have pain around drainage site well controlled with Toradol 15. Denies nausea, vomiting, chills and dizziness. Objective - Vital Signs/Intake and Output Vital Signs (last 24 hours): Temp Pulse Resp BP Pulse Ox 97.5 F L 105 H 18 100/66 96 06/16/18 08:00 06/16/18 08:00 06/16/18 08:00 06/16/18 08:00 06/16/18 08:00 Intake and Output: 06/16/18 06/16/18 06:59 18:59 Intake Total 279 Output Total 150 Balance 129 - Medications Medications: Current Medications Acetaminophen (Tylenol 325mg Tab) 650 mg PO Q4 PRN PRN Reason: Fever >100.4 F Last Admin: 06/15/18 15:00 Dose: 650 mg Lactated Ringer's (Lactated Ringer's) 1,000 mls @ 150 mls/hr IV .Q6H40M [facility] Last Admin: 06/16/18 08:31 Dose: 150 mls/hr Sodium Chloride (Sodium Chloride 0.9%) 1,000 mls @ 100 mls/hr IV .Q10H [facility] Last Admin: 06/15/18 15:36 Dose: 200 mls Meropenem 1 gm/ Sodium (Chloride) 100 mls @ 100 mls/hr IVPB Q8 [facility]; Protocol Last Admin: 06/16/18 08:32 Dose: 100 mls/hr Ketorolac Tromethamine (Toradol) 15 mg IVP Q6 PRN PRN Reason: Pain, moderate (4-7) Last Admin: 06/16/18 08:33 Dose: 15 mg Ketorolac Tromethamine (Toradol) 30 mg IM Q6 PRN PRN Reason: Pain, severe (8-10) Ondansetron HCl (Zofran Inj) 4 mg IVP Q4 PRN PRN Reason: Nausea/Vomiting Last Admin: 06/15/18 09:19 Dose: 4 mg - Labs Labs: 06/16/18 04:35 06/16/18 04:35 PT 17.6 Seconds (9.8-13.1) H 06/15/18 08:40 INR 1.5 06/15/18 08:40 - Constitutional Appears: No Acute Distress - Head Exam Head Exam: NORMAL INSPECTION - Eye Exam Eye Exam: Normal appearance - ENT Exam ENT Exam: Mucous Membranes Moist - Respiratory Exam Respiratory Exam: NORMAL BREATHING PATTERN. absent: Respiratory Distress - Cardiovascular Exam Cardiovascular Exam: Tachycardia - GI/Abdominal Exam GI & Abdominal Exam: Tenderness (around drain) Additional comments: drain actively draining brown purulent material - Extremities Exam Extremities Exam: absent: Joint Swelling, Pedal Edema - Back Exam Back Exam: CVA tenderness (L) (around drain), NORMAL INSPECTION - Neurological Exam Neurological Exam: Alert, Awake, Normal Gait, Oriented x3 - Psychiatric Exam Psychiatric exam: Normal Affect, Normal Mood - Skin Skin Exam: Normal Color, Warm Assessment and Plan - Assessment and Plan (Free Text) Assessment: 43 y/o female presents to the ED from [facility] 1 week after hospital discharge with intense left sided abdominal pain, specifically LLQ of 3 days duration. Patient was discharged one week prior after hospitalization for sepsis due to acute pancreatitis secondary to severe hypertriglyceridemia complicated by pseudocysts/phlegmon. -IR drainage 06/15 Plan: Sepsis secondary to Pancreatic Pseudocyst -afebrile since (15:00 101.9F), tachycardic low 100's, hypotensive, WBC wnl -IR drainage, Dr Hancock 06/15 ---f/u cell cytology, gram stain and culture ---follow up drain output, 150 cc overnighgt -ID consulted, Dr Gould, input and recs appreciated -s/p 2 units PRBC, Hg stable at 8.0 today -IVF LR @ 150 mls/hr -Meropenem as per ID -NPO -CT: 1. Redemonstration of large septated multilocular fluid collection in the lesser sac extending to the left anterior and posterior pararenal spaces, left paracolic gutter, left lower quadrant and left hemipelvis. Scattered few foci of air within the collection. The sterility of this collection cannot be determined on the basis of imaging. 2. Worsening moderate left pleural effusion. DVT Prophylaxis SCD <Evelyn Heaton - Last Filed: 06/16/18 12:08> Objective - Vital Signs/Intake and Output Vital Signs (last 24 hours): Temp Pulse Resp BP Pulse Ox 97.5 F L 105 H 18 100/66 96 06/16/18 08:00 06/16/18 08:00 06/16/18 08:00 06/16/18 08:00 06/16/18 08:00 Intake and Output: 06/16/18 06/16/18 06:59 18:59 Intake Total 279 Output Total 150 Balance 129 - Medications Medications: Current Medications Acetaminophen (Tylenol 325mg Tab) 650 mg PO Q4 PRN PRN Reason: Fever >100.4 F Last Admin: 06/15/18 15:00 Dose: 650 mg Lactated Ringer's (Lactated Ringer's) 1,000 mls @ 150 mls/hr IV .Q6H40M [facility] Last Admin: 06/16/18 08:31 Dose: 150 mls/hr Sodium Chloride (Sodium Chloride 0.9%) 1,000 mls @ 100 mls/hr IV .Q10H [facility] Last Admin: 06/15/18 15:36 Dose: 200 mls Meropenem 1 gm/ Sodium (Chloride) 100 mls @ 100 mls/hr IVPB Q8 [facility]; Protocol Last Admin: 06/16/18 08:32 Dose: 100 mls/hr Ketorolac Tromethamine (Toradol) 15 mg IVP Q6 PRN PRN Reason: Pain, moderate (4-7) Last Admin: 06/16/18 08:33 Dose: 15 mg Ketorolac Tromethamine (Toradol) 30 mg IM Q6 PRN PRN Reason: Pain, severe (8-10) Ondansetron HCl (Zofran Inj) 4 mg IVP Q4 PRN PRN Reason: Nausea/Vomiting Last Admin: 06/15/18 09:19 Dose: 4 mg - Labs Labs: 06/16/18 04:35 06/16/18 04:35 PT 17.6 Seconds (9.8-13.1) H 06/15/18 08:40 INR 1.5 06/15/18 08:40 Attending/Attestation - Attestation I have personally seen and examined this patient.: Yes I have fully participated in the care of the patient.: Yes I have reviewed all pertinent clinical information, including history, physical exam and plan: Yes Notes (Text): Ct of the abdomen/Pelvis 1. Redemonstration of large septated multilocular fluid collection in the lesser sac extending to the left anterior and posterior pararenal spaces, left paracolic gutter, left lower quadrant and left hemipelvis. Scattered few foci of air within the collection. The sterility of this collection cannot be determined on the basis of imaging. 2. Worsening moderate left pleural effusion. 1. Sepsis due to Peritoneal Abscess due to Pancreatitis w/ Pseudocyst s/p Placement of Multihole catheter in Abscess 2.Hypertriglyceridemia - IR placed catheter into abscess, drainage of 500ml brownish purulent abscess overnight - cont IV Meropenem - restart Tricor -upgrade diet as tolerated
--- NOTE | 2018-06-16 13:45 | CP.PCM.PN ---
Subjective - Date & Time of Evaluation Date of Evaluation: 06/16/18 Time of Evaluation: 08:00 - Subjective Subjective: events noted afebrile Labs cultures imaging and notes reviewed Objective - Vital Signs/Intake and Output Vital Signs (last 24 hours): Temp Pulse Resp BP Pulse Ox 97.5 F L 97 H 18 100/66 96 06/16/18 08:00 06/16/18 09:00 06/16/18 08:00 06/16/18 08:00 06/16/18 08:00 Intake and Output: 06/16/18 06/16/18 06:59 18:59 Intake Total 279 Output Total 150 Balance 129 - Medications Medications: Current Medications Acetaminophen (Tylenol 325mg Tab) 650 mg PO Q4 PRN PRN Reason: Fever >100.4 F Last Admin: 06/15/18 15:00 Dose: 650 mg Enoxaparin Sodium (Lovenox) 40 mg SC DAILY [facility]; Protocol Fenofibrate (Tricor) 145 mg PO DAILY [facility] Meropenem 1 gm/ Sodium (Chloride) 100 mls @ 100 mls/hr IVPB Q8 [facility]; Protocol Last Admin: 06/16/18 08:32 Dose: 100 mls/hr Ketorolac Tromethamine (Toradol) 15 mg IVP Q6 PRN PRN Reason: Pain, moderate (4-7) Last Admin: 06/16/18 08:33 Dose: 15 mg Ketorolac Tromethamine (Toradol) 30 mg IM Q6 PRN PRN Reason: Pain, severe (8-10) Ondansetron HCl (Zofran Inj) 4 mg IVP Q4 PRN PRN Reason: Nausea/Vomiting Last Admin: 06/15/18 09:19 Dose: 4 mg - Labs Labs: 06/16/18 04:35 06/16/18 04:35 PT 17.6 Seconds (9.8-13.1) H 06/15/18 08:40 INR 1.5 06/15/18 08:40 - Constitutional Appears: Non-toxic, Chronically Ill - Head Exam Head Exam: ATRAUMATIC, NORMAL INSPECTION, NORMOCEPHALIC - Eye Exam Eye Exam: EOMI, Normal appearance, PERRL Pupil Exam: NORMAL ACCOMODATION, PERRL - ENT Exam ENT Exam: Mucous Membranes Moist, Normal Exam - Neck Exam Neck Exam: Full ROM, Normal Inspection. absent: Lymphadenopathy - Respiratory Exam Respiratory Exam: Clear to Ausculation Bilateral, NORMAL BREATHING PATTERN - Cardiovascular Exam Cardiovascular Exam: REGULAR RHYTHM, +S1, +S2. absent: Murmur - GI/Abdominal Exam GI & Abdominal Exam: Soft, Normal Bowel Sounds. absent: Tenderness - Rectal Exam Rectal Exam: Deferred - Exam Exam: NORMAL INSPECTION - Extremities Exam Extremities Exam: Full ROM, Normal Capillary Refill, Normal Inspection. absent: Joint Swelling, Pedal Edema - Back Exam Back Exam: NORMAL INSPECTION - Neurological Exam Neurological Exam: Alert, Awake, CN II-XII Intact, Normal Gait, Oriented x3 - Psychiatric Exam Psychiatric exam: Normal Affect, Normal Mood - Skin Skin Exam: Dry, Intact, Normal Color, Warm Assessment and Plan (1) Pseudocyst of pancreas Status: Acute (2) Sepsis Status: Acute (3) Abdominal pain Status: Acute - Assessment and Plan (Free Text) Assessment: cultures growing gram neg rods cont merrem will need long course rx consider consult with hepatobiliary surgery
[2018-06-16] MEDS: Enoxaparin 40 mg Syringe SC SCH (14:38)
[2018-06-17] MEDS: Meropenem 1 GM in Sodium Chloride 0.9% 100 ML IVPB SCH ×3 (01:40→17:05)
[2018-06-17 06:51] LABS: BASO % 0.3 % (0.0-2.0); EOS # 0.3 K/uL (0.0-0.7); EOS % 4.1 % (0.0-4.0); HEMOGLOBIN 8.8 g/dL (12.0-16.0); LYMPH # 1.1 K/uL (1.0-4.3); LYMPH % 15.6 % (20.0-40.0); MEAN CELL VOLUME 82.2 fl (81.0-99.0); MEAN CORPUSCULAR HEMOGLOBIN 27.1 pg (27.0-31.0); MEAN PLATELET VOLUME 6.8 fl (7.2-11.7); MONO % 14.1 % (0.0-10.0); NEUT # 4.5 K/uL (1.8-7.0); NEUT % 65.9 % (50.0-75.0); NRBC % 0.1 % (0.0-0.0); RBC 3.23 Mil/uL (3.80-5.20); RED CELL DISTRIBUTION WIDTH 16.2 % (11.5-14.5); WHITE BLOOD COUNT 6.8 K/uL (4.8-10.8)
[2018-06-17 07:24] LABS: ALB/GLOB RATIO 0.9 (1.0-2.1); ALBUMIN 2.6 g/dL (3.5-5.0); ALT/SGPT 22 U/L (9-52); AST/SGOT 25 U/L (14-36); BLOOD UREA NITROGEN 5 mg/dl (7-17); CALCIUM 7.9 mg/dL (8.4-10.2); GFR NON-AFRICAN AMERICAN > 60
[2018-06-17] MEDS: Enoxaparin 40 mg Syringe SC SCH (09:14)
--- NOTE | 2018-06-17 11:30 | CP.PCM.PN ---
Subjective - Date & Time of Evaluation Date of Evaluation: 06/17/18 Time of Evaluation: 09:30 - Subjective Subjective: minimal pain on the left flank Febrile this am 100.9 F Drained about 300ml total of brownish/purulent discharge from the peritoneum yesterday Tolerating Regular diet no CP no SOB, saturating 98% on RA Objective - Vital Signs/Intake and Output Vital Signs (last 24 hours): Temp Pulse Resp BP Pulse Ox 98.4 F 104 H 20 100/70 96 06/17/18 08:35 06/17/18 08:35 06/17/18 08:35 06/17/18 08:35 06/17/18 08:35 Intake and Output: 06/17/18 06/17/18 06:59 18:59 Output Total 100 Balance -100 - Medications Medications: Current Medications Acetaminophen (Tylenol 325mg Tab) 650 mg PO Q4 PRN PRN Reason: Fever >100.4 F Last Admin: 06/16/18 16:30 Dose: 650 mg Enoxaparin Sodium (Lovenox) 40 mg SC DAILY [facility]; Protocol Last Admin: 06/17/18 09:14 Dose: 40 mg Fenofibrate (Tricor) 145 mg PO DAILY [facility] Last Admin: 06/17/18 09:13 Dose: 145 mg Meropenem 1 gm/ Sodium (Chloride) 100 mls @ 100 mls/hr IVPB Q8 [facility]; Protocol Last Admin: 06/17/18 10:28 Dose: 100 mls/hr Ketorolac Tromethamine (Toradol) 15 mg IVP Q6 PRN PRN Reason: Pain, moderate (4-7) Last Admin: 06/17/18 10:31 Dose: 15 mg Ondansetron HCl (Zofran Inj) 4 mg IVP Q4 PRN PRN Reason: Nausea/Vomiting Last Admin: 06/15/18 09:19 Dose: 4 mg - Labs Labs: 06/17/18 04:35 06/17/18 04:35 PT 17.6 Seconds (9.8-13.1) H 06/15/18 08:40 INR 1.5 06/15/18 08:40 - Constitutional Appears: Non-toxic, No Acute Distress - Head Exam Head Exam: ATRAUMATIC, NORMAL INSPECTION, NORMOCEPHALIC - Eye Exam Eye Exam: EOMI, Normal appearance, PERRL Pupil Exam: NORMAL ACCOMODATION - ENT Exam ENT Exam: Mucous Membranes Moist, Normal External Ear Exam - Neck Exam Neck Exam: Full ROM. absent: Meningismus - Respiratory Exam Respiratory Exam: Rales, NORMAL BREATHING PATTERN. absent: Wheezes, Respiratory Distress - Cardiovascular Exam Cardiovascular Exam: REGULAR RHYTHM, +S1, +S2 - GI/Abdominal Exam GI & Abdominal Exam: Soft, Tenderness, Normal Bowel Sounds Additional comments: Left flank tenderness , drainage catheter on the left abd , BERHANE drain and bag - Extremities Exam Extremities Exam: Full ROM, Normal Capillary Refill. absent: Calf Tenderness, Pedal Edema - Back Exam Back Exam: CVA tenderness (L), Full ROM. absent: CVA tenderness (R), paraspinal tenderness, vertebral tenderness - Neurological Exam Neurological Exam: Alert, Awake, CN II-XII Intact, Normal Gait, Oriented x3, Reflexes Normal. absent: Motor Sensory Deficit Neuro motor strength exam: Left Upper Extremity: 5, Right Upper Extremity: 5, Left Lower Extremity: 5, Right Lower Extremity: 5 - Psychiatric Exam Psychiatric exam: Normal Affect, Normal Mood - Skin Skin Exam: Dry, Normal Color, Warm Assessment and Plan - Assessment and Plan (Free Text) Plan: Ct of the abdomen/Pelvis (done on admission) 1. Redemonstration of large septated multilocular fluid collection in the lesser sac extending to the left anterior and posterior pararenal spaces, left paracolic gutter, left lower quadrant and left hemipelvis. Scattered few foci o f air within the collection. The sterility of this collection cannot be determined on the basis of imaging. 2. Worsening moderate left pleural effusion. 1. Sepsis due to Peritoneal Abscess due to Pancreatitis w/ Pseudocyst s/p Placement of Multihole catheter in Abscess 2.Hypertriglyceridemia 3. Pleural Effusion - IR placed catheter into abscess, drainage of 500ml + 200 ml + 100 ml brownish purulent abscess ( total the past 3 days ) - Abscess c/s: E coli - cont IV Meropenem, can deescalate abx as E coli is sensitive to most abx - cont Tricor -upgraded diet as tolerated- pt tolerating diet - still with fever 100.9 this am - no SOB, hold off on Thoracentesis, diuretics prn
[2018-06-18] MEDS: Meropenem 1 GM in Sodium Chloride 0.9% 100 ML IVPB SCH ×3 (01:10→16:44)
[2018-06-18] MEDS: Enoxaparin 40 mg Syringe SC SCH (09:08)
--- NOTE | 2018-06-18 10:39 | CP.PCM.PN ---
Subjective - Date & Time of Evaluation Date of Evaluation: 06/18/18 Time of Evaluation: 08:45 - Subjective Subjective: No fever x 24 hrs still with some pain still draining brownish purulent material from catheter denies CP no SOB Objective - Vital Signs/Intake and Output Vital Signs (last 24 hours): Temp Pulse Resp BP Pulse Ox 98.1 F 92 H 20 102/70 96 06/18/18 08:17 06/18/18 08:17 06/18/18 08:17 06/18/18 08:17 06/18/18 08:17 Intake and Output: 06/18/18 06/18/18 06:59 18:59 Intake Total 100 Output Total 200 Balance -100 - Medications Medications: Current Medications Acetaminophen (Tylenol 325mg Tab) 650 mg PO Q4 PRN PRN Reason: Fever >100.4 F Last Admin: 06/16/18 16:30 Dose: 650 mg Enoxaparin Sodium (Lovenox) 40 mg SC DAILY [facility]; Protocol Last Admin: 06/18/18 09:08 Dose: 40 mg Fenofibrate (Tricor) 145 mg PO DAILY [facility] Last Admin: 06/18/18 09:10 Dose: 145 mg Meropenem 1 gm/ Sodium (Chloride) 100 mls @ 100 mls/hr IVPB Q8 [facility]; Protocol Last Admin: 06/18/18 09:09 Dose: 100 mls/hr Ketorolac Tromethamine (Toradol) 15 mg IVP Q6 PRN PRN Reason: Pain, moderate (4-7) Last Admin: 06/18/18 02:28 Dose: 15 mg Ondansetron HCl (Zofran Inj) 4 mg IVP Q4 PRN PRN Reason: Nausea/Vomiting Last Admin: 06/17/18 17:07 Dose: 4 mg - Labs Labs: 06/17/18 04:35 06/17/18 04:35 PT 17.6 Seconds (9.8-13.1) H 06/15/18 08:40 INR 1.5 06/15/18 08:40 - Constitutional Appears: Non-toxic, No Acute Distress - Head Exam Head Exam: ATRAUMATIC, NORMAL INSPECTION, NORMOCEPHALIC - Eye Exam Eye Exam: EOMI, Normal appearance, PERRL Pupil Exam: NORMAL ACCOMODATION - ENT Exam ENT Exam: Mucous Membranes Moist, Normal External Ear Exam - Neck Exam Neck Exam: Full ROM. absent: Meningismus - Respiratory Exam Respiratory Exam: Rales, NORMAL BREATHING PATTERN. absent: Wheezes, Respiratory Distress - Cardiovascular Exam Cardiovascular Exam: REGULAR RHYTHM, +S1, +S2 - GI/Abdominal Exam GI & Abdominal Exam: Soft, Tenderness, Normal Bowel Sounds Additional comments: Left flank tenderness , drainage catheter on the left abd , BERHANE drain and bag - Extremities Exam Extremities Exam: Full ROM, Normal Capillary Refill. absent: Calf Tenderness, P edal Edema - Back Exam Back Exam: CVA tenderness (L), Full ROM. absent: CVA tenderness (R), paraspinal tenderness, vertebral tenderness - Neurological Exam Neurological Exam: Alert, Awake, CN II-XII Intact, Normal Gait, Oriented x3, Reflexes Normal. absent: Motor Sensory Deficit Neuro motor strength exam: Left Upper Extremity: 5, Right Upper Extremity: 5, Left Lower Extremity: 5, Right Lower Extremity: 5 - Psychiatric Exam Psychiatric exam: Normal Affect, Normal Mood - Skin Skin Exam: Dry, Normal Color, Warm Assessment and Plan - Assessment and Plan (Free Text) Plan: Ct of the abdomen/Pelvis (done on admission) 1. Redemonstration of large septated multilocular fluid collection in the lesser sac extending to the left anterior and posterior pararenal spaces, left paracolic gutter, left lower quadrant and left hemipelvis. Scattered few foci of air within the collection. The sterility of this collection cannot be determined on the basis of imaging. 2. Worsening moderate left pleural effusion. 1. Sepsis (POA) due to Peritoneal Abscess due to Pancreatitis w/ Pseudocyst s/p Placement of Multihole catheter/Drainage of Abscess 2.Hypertriglyceridemia 3. Pleural Effusion - IR placed catheter into abscess, drainage of 700ml + 200 ml + 300 ml brownish purulent abscess ( total the past 3 days ) - Abscess c/s: E coli - cont IV Meropenem, can deescalate abx as E coli is sensitive to most abx once fever resolves ( Meropenem lowest ANKIT) - cont Tricor -upgraded diet as tolerated- pt tolerating diet - no SOB, hold off on Thoracentesis, diuretics prn -Pain mgt
--- NOTE | 2018-06-18 14:23 | CP.PCM.PN ---
Subjective - Date & Time of Evaluation Date of Evaluation: 06/18/18 Time of Evaluation: 08:00 - Subjective Subjective: events noted tmax down cont IV rx for now Objective - Vital Signs/Intake and Output Vital Signs (last 24 hours): Temp Pulse Resp BP Pulse Ox 98.6 F 113 H 20 101/67 96 06/18/18 12:25 06/18/18 12:25 06/18/18 12:25 06/18/18 12:25 06/18/18 12:25 Intake and Output: 06/18/18 06/18/18 06:59 18:59 Intake Total 100 Output Total 200 Balance -100 - Medications Medications: Current Medications Acetaminophen (Tylenol 325mg Tab) 650 mg PO Q4 PRN PRN Reason: Fever >100.4 F Last Admin: 06/16/18 16:30 Dose: 650 mg Enoxaparin Sodium (Lovenox) 40 mg SC DAILY [facility]; Protocol Last Admin: 06/18/18 09:08 Dose: 40 mg Fenofibrate (Tricor) 145 mg PO DAILY [facility] Last Admin: 06/18/18 09:10 Dose: 145 mg Meropenem 1 gm/ Sodium (Chloride) 100 mls @ 100 mls/hr IVPB Q8 [facility]; Protocol Last Admin: 06/18/18 09:09 Dose: 100 mls/hr Ketorolac Tromethamine (Toradol) 15 mg IVP Q6 PRN PRN Reason: Pain, moderate (4-7) Last Admin: 06/18/18 13:39 Dose: 15 mg Ondansetron HCl (Zofran Inj) 4 mg IVP Q4 PRN PRN Reason: Nausea/Vomiting Last Admin: 06/17/18 17:07 Dose: 4 mg - Labs Labs: 06/17/18 04:35 06/17/18 04:35 PT 17.6 Seconds (9.8-13.1) H 06/15/18 08:40 INR 1.5 06/15/18 08:40 - Constitutional Appears: No Acute Distress, Cachectic, Chronically Ill - Head Exam Head Exam: ATRAUMATIC, NORMAL INSPECTION, NORMOCEPHALIC - Eye Exam Eye Exam: EOMI, Normal appearance, PERRL Pupil Exam: NORMAL ACCOMODATION, PERRL - ENT Exam ENT Exam: Mucous Membranes Moist, Normal Exam - Neck Exam Neck Exam: Full ROM, Normal Inspection. absent: Lymphadenopathy - Respiratory Exam Respiratory Exam: Clear to Ausculation Bilateral, NORMAL BREATHING PATTERN - Cardiovascular Exam Cardiovascular Exam: REGULAR RHYTHM, +S1, +S2. absent: Murmur - GI/Abdominal Exam GI & Abdominal Exam: Distended, Soft, Tenderness. absent: Normal Bowel Sounds - Rectal Exam Rectal Exam: Deferred - Exam Exam: NORMAL INSPECTION - Extremities Exam Extremities Exam: Full ROM, Normal Capillary Refill, Normal Inspection. absent: Joint Swelling, Pedal Edema - Back Exam Back Exam: NORMAL INSPECTION - Neurological Exam Neurological Exam: Alert, Awake, CN II-XII Intact, Normal Gait, Oriented x3 - Psychiatric Exam Psychiatric exam: Normal Affect, Normal Mood - Skin Skin Exam: Dry, Intact, Normal Color, Warm Assessment and Plan (1) Pseudocyst of pancreas Status: Acute (2) Sepsis Status: Acute (3) Abdominal pain Status: Acute - Assessment and Plan (Free Text) Assessment: cont IV antibiotics and drainage
[2018-06-19] MEDS: Meropenem 1 GM in Sodium Chloride 0.9% 100 ML IVPB SCH ×3 (00:15→17:33)
[2018-06-19 09:15] LABS: HEMOGLOBIN 9.8 g/dL (12.0-16.0); MEAN CELL VOLUME 82.6 fl (81.0-99.0); MEAN CORPUSCULAR HEMOGLOBIN 27.2 pg (27.0-31.0); MEAN CORPUSCULAR HGB CONC 32.9 g/dL (33.0-37.0); RBC 3.6 Mil/uL (3.80-5.20); RED CELL DISTRIBUTION WIDTH 16.4 % (11.5-14.5)
[2018-06-19] MEDS: Enoxaparin 40 mg Syringe SC SCH (09:16)
--- NOTE | 2018-06-19 10:36 | CP.PCM.PN ---
Subjective - Date & Time of Evaluation Date of Evaluation: 06/19/18 Time of Evaluation: 10:35 - Subjective Subjective: Pt seen sitting in chair next to bed eating. Reports that she is feeling better but does have pain around drainage site well controlled with Toradol 15. Denies nausea, vomiting, chills and dizziness. Objective - Vital Signs/Intake and Output Vital Signs (last 24 hours): Temp Pulse Resp BP Pulse Ox 98.4 F 92 H 20 105/65 96 06/19/18 08:20 06/19/18 08:20 06/19/18 08:20 06/19/18 08:20 06/19/18 08:20 Intake and Output: 06/19/18 06/19/18 06:59 18:59 Intake Total 400 Output Total 10 Balance 390 - Medications Medications: Current Medications Acetaminophen (Tylenol 325mg Tab) 650 mg PO Q4 PRN PRN Reason: Fever >100.4 F Last Admin: 06/19/18 04:03 Dose: 650 mg Enoxaparin Sodium (Lovenox) 40 mg SC DAILY [facility]; Protocol Last Admin: 06/19/18 09:16 Dose: 40 mg Fenofibrate (Tricor) 145 mg PO DAILY [facility] Last Admin: 06/19/18 09:17 Dose: 145 mg Meropenem 1 gm/ Sodium (Chloride) 100 mls @ 100 mls/hr IVPB Q8 [facility]; Protocol Last Admin: 06/19/18 09:16 Dose: 100 mls/hr Ketorolac Tromethamine (Toradol) 15 mg IVP Q6 PRN PRN Reason: Pain, moderate (4-7) Last Admin: 06/19/18 04:05 Dose: 15 mg Ondansetron HCl (Zofran Inj) 4 mg IVP Q4 PRN PRN Reason: Nausea/Vomiting Last Admin: 06/17/18 17:07 Dose: 4 mg - Labs Labs: 06/19/18 08:30 06/17/18 04:35 PT 17.6 Seconds (9.8-13.1) H 06/15/18 08:40 INR 1.5 06/15/18 08:40 - Constitutional Appears: Non-toxic, No Acute Distress - Eye Exam Eye Exam: Normal appearance - ENT Exam ENT Exam: Mucous Membranes Moist - Neck Exam Neck Exam: Normal Inspection - Respiratory Exam Respiratory Exam: NORMAL BREATHING PATTERN. absent: Respiratory Distress - Cardiovascular Exam Cardiovascular Exam: REGULAR RHYTHM - GI/Abdominal Exam GI & Abdominal Exam: Soft, Tenderness (around drain site) - Neurological Exam Neurological Exam: Alert, Awake, Oriented x3 - Psychiatric Exam Psychiatric exam: Normal Affect, Normal Mood - Skin Skin Exam: Normal Color, Warm Assessment and Plan - Assessment and Plan (Free Text) Assessment: 43 y/o female presents to the ED from [facility] 1 week after hospital discharge with intense left sided abdominal pain, specifically LLQ of 3 days duration. Patient was discharged one week prior after hospitalization for sepsis due to acute pancreatitis secondary to severe hypertriglyceridemia complicated by p seudocysts/phlegmon. -IR drainage 06/15: 700 (5/) -200 (06/17) -400 (06/18)-10 so far today (06/19) Plan: Sepsis secondary to Pancreatic Pseudocyst -febrile overnight (100.5F), tachycardic, normotensive, WBC wnl -IR drainage, Dr Hancock 06/15 ---e.coli ray-sensitive ---follow up drain output: 700 (5/3) -200 (06/17) -400 (5/)-10 so far today (06/19) ---nurses to flush drain 2x/day -ID consulted, Dr Gould, input and recs appreciated -s/p 2 units PRBC, Hg stable at 9.8 today -IVF LR @ 150 mls/hr -Meropenem as per ID -NPO -CT: 1. Redemonstration of large septated multilocular fluid collection in the lesser sac extending to the left anterior and posterior pararenal spaces, left paracolic gutter, left lower quadrant and left hemipelvis. Scattered few foci of air within the collection. The sterility of this collection cannot be determined on the basis of imaging. 2. Worsening moderate left pleural effusion. DVT Prophylaxis SCD
--- NOTE | 2018-06-19 12:20 | US ---
PROCEDURE: Date of procedure: 06/15/2018 Procedure: 1. Abdominal abscess drainage with ultrasound guidance Medications: The patient received IV sedation administered by anesthesiologist HISTORY: Abdominal abscess TECHNIQUE: Following informed consent procedure time-out, limited ultrasound performed the patient showed a large complex peritoneal collection consistent with findings seen on CT scan. After the patient right flank was prepped and draped in the usual sterile fashion, the skin was anesthetized with 1 % lidocaine. A 5 Japanese Yueh catheter was advanced under ultrasound guidance into the collection. On return of purulent drainage, an 035 guidewire was advanced through the Yueh catheter. A 10 Japanese multi side hole drainage catheter was then advanced over the wire and formed within the abscess. 20 cubic centimeters of purulent drainage from wound was sent for culture and sensitivity. The catheter was secured the patient's skin. A dressing was applied. IMPRESSION: Ultrasound-guided abscess drainage with placement of a 10 Japanese multi side-hole drainage catheter with abscess. The fluid specimen was sent for culture sensitivity.
--- NOTE | 2018-06-19 21:32 | CP.PCM.PN ---
Subjective - Date & Time of Evaluation Date of Evaluation: 06/19/18 Time of Evaluation: 08:00 - Subjective Subjective: awake alert OOB to chair IN NAD labs reviewed orders written Objective - Vital Signs/Intake and Output Vital Signs (last 24 hours): Temp Pulse Resp BP Pulse Ox 97.8 F 106 H 20 110/74 100 06/19/18 20:18 06/19/18 20:18 06/19/18 20:18 06/19/18 20:18 06/19/18 20:18 Intake and Output: 06/19/18 06/20/18 18:59 06:59 Intake Total 1400 Output Total 50 Balance 1350 - Medications Medications: Current Medications Acetaminophen (Tylenol 325mg Tab) 650 mg PO Q4 PRN PRN Reason: Fever >100.4 F Last Admin: 06/19/18 12:57 Dose: 650 mg Enoxaparin Sodium (Lovenox) 40 mg SC DAILY [facility]; Protocol Last Admin: 06/19/18 09:16 Dose: 40 mg Fenofibrate (Tricor) 145 mg PO DAILY [facility] Last Admin: 06/19/18 09:17 Dose: 145 mg Ferrous Sulfate (Feosol) 325 mg PO BID [facility] Meropenem 1 gm/ Sodium (Chloride) 100 mls @ 100 mls/hr IVPB Q8 [facility]; Protocol Last Admin: 06/19/18 17:33 Dose: 100 mls/hr Ketorolac Tromethamine (Toradol) 15 mg IVP Q6 PRN PRN Reason: Pain, moderate (4-7) Last Admin: 06/19/18 14:52 Dose: 15 mg Ondansetron HCl (Zofran Inj) 4 mg IVP Q4 PRN PRN Reason: Nausea/Vomiting Last Admin: 06/17/18 17:07 Dose: 4 mg - Labs Labs: 06/19/18 08:30 06/17/18 04:35 PT 17.6 Seconds (9.8-13.1) H 06/15/18 08:40 INR 1.5 06/15/18 08:40 - Constitutional Appears: Well - Head Exam Head Exam: ATRAUMATIC, NORMAL INSPECTION, NORMOCEPHALIC - Eye Exam Eye Exam: EOMI, Normal appearance, PERRL Pupil Exam: NORMAL ACCOMODATION, PERRL - ENT Exam ENT Exam: Mucous Membranes Moist, Normal Exam - Neck Exam Neck Exam: Full ROM, Normal Inspection. absent: Lymphadenopathy - Respiratory Exam Respiratory Exam: Clear to Ausculation Bilateral, NORMAL BREATHING PATTERN - Cardiovascular Exam Cardiovascular Exam: REGULAR RHYTHM, +S1, +S2. absent: Murmur - GI/Abdominal Exam GI & Abdominal Exam: Soft, Normal Bowel Sounds. absent: Tenderness - Rectal Exam Rectal Exam: Deferred - Extremities Exam Extremities Exam: Full ROM, Normal Capillary Refill, Normal Inspection. absent: Joint Swelling, Pedal Edema - Back Exam Back Exam: NORMAL INSPECTION - Neurological Exam Neurological Exam: Alert, Awake, CN II-XII Intact, Normal Gait, Oriented x3 - Psychiatric Exam Psychiatric exam: Normal Affect, Normal Mood - Skin Skin Exam: Dry, Intact, Normal Color, Warm Assessment and Plan (1) Pseudocyst of pancreas Status: Acute (2) Sepsis Status: Acute (3) Abdominal pain Status: Acute - Assessment and Plan (Free Text) Assessment: improvin on IV rx 'drains in place IV rx reordered
[2018-06-20] MEDS: Meropenem 1 GM in Sodium Chloride 0.9% 100 ML IVPB SCH ×3 (00:26→16:44)
[2018-06-20 05:54] LABS: HEMOGLOBIN 9.1 g/dL (12.0-16.0); MEAN CORPUSCULAR HEMOGLOBIN 26.6 pg (27.0-31.0); MEAN CORPUSCULAR HGB CONC 32.4 g/dL (33.0-37.0); RBC 3.41 Mil/uL (3.80-5.20); WHITE BLOOD COUNT 8.9 K/uL (4.8-10.8)
[2018-06-20 06:14] LABS: ALB/GLOB RATIO 0.9 (1.0-2.1); ALBUMIN 2.7 g/dL (3.5-5.0); ALT/SGPT 29 U/L (9-52); AST/SGOT 32 U/L (14-36); BLOOD UREA NITROGEN 7 mg/dl (7-17); CALCIUM 8.5 mg/dL (8.4-10.2); GFR NON-AFRICAN AMERICAN > 60
[2018-06-20] MEDS: Enoxaparin 40 mg Syringe SC SCH (09:07)
[2018-06-20] MEDS ORDERED: Iohexol 240 (10 ml) PO ONE (09:10)
[2018-06-20] MEDS ORDERED: Iohexol 240 (50 ml) PO ONE (09:29)
--- NOTE | 2018-06-20 10:58 | CP.PCM.PN ---
Subjective - Date & Time of Evaluation Date of Evaluation: 06/20/18 Time of Evaluation: 10:57 - Subjective Subjective: Pt seen and evaluated bedside. Reports that she is feeling better but does have pain around drainage site well controlled with Toradol. Increased fatigure from inability to sleep in hospital. Denies nausea, vomiting, chills and dizziness. Objective - Vital Signs/Intake and Output Vital Signs (last 24 hours): Temp Pulse Resp BP Pulse Ox 98.8 F 86 20 105/69 97 06/20/18 08:12 06/20/18 08:12 06/20/18 08:12 06/20/18 08:12 06/20/18 08:12 Intake and Output: 06/20/18 06/20/18 06:59 18:59 Intake Total 340 Output Total 370 Balance -30 - Medications Medications: Current Medications Acetaminophen (Tylenol 325mg Tab) 650 mg PO Q4 PRN PRN Reason: Fever >100.4 F Last Admin: 06/19/18 12:57 Dose: 650 mg Enoxaparin Sodium (Lovenox) 40 mg SC DAILY [facility]; Protocol Last Admin: 06/20/18 09:07 Dose: 40 mg Fenofibrate (Tricor) 145 mg PO DAILY [facility] Last Admin: 06/20/18 09:08 Dose: Not Given Ferrous Sulfate (Feosol) 325 mg PO BID [facility] Last Admin: 06/20/18 09:06 Dose: Not Given Meropenem 1 gm/ Sodium (Chloride) 100 mls @ 100 mls/hr IVPB Q8 [facility]; Protocol Last Admin: 06/20/18 09:08 Dose: 100 mls/hr Ketorolac Tromethamine (Toradol) 15 mg IVP Q6 PRN PRN Reason: Pain, moderate (4-7) Last Admin: 06/20/18 05:59 Dose: 15 mg Ondansetron HCl (Zofran Inj) 4 mg IVP Q4 PRN PRN Reason: Nausea/Vomiting Last Admin: 06/17/18 17:07 Dose: 4 mg - Labs Labs: 06/20/18 05:25 06/20/18 05:25 PT 17.6 Seconds (9.8-13.1) H 06/15/18 08:40 INR 1.5 06/15/18 08:40 - Constitutional Appears: Non-toxic, No Acute Distress - Eye Exam Eye Exam: Normal appearance - ENT Exam ENT Exam: Mucous Membranes Moist - Neck Exam Neck Exam: Full ROM - Respiratory Exam Respiratory Exam: NORMAL BREATHING PATTERN. absent: Respiratory Distress - Cardiovascular Exam Cardiovascular Exam: REGULAR RHYTHM - GI/Abdominal Exam GI & Abdominal Exam: Tenderness (around drainage site on left, mostly posterior/flank) - Extremities Exam Extremities Exam: Full ROM - Back Exam Back Exam: CVA tenderness (L) (@ drain site). absent: CVA tenderness (R) - Neurological Exam Neurological Exam: Alert, Awake, Oriented x3 - Psychiatric Exam Psychiatric exam: Normal Affect, Normal Mood - Skin Skin Exam: Dry, Intact, Pallor, Warm Assessment and Plan - Assessment and Plan (Free Text) Assessment: 43 y/o female presents to the ED from [facility] 1 week after hospital discharge with intense left sided abdominal pain, specifically LLQ of 3 days duration. Patient was discharged one week prior after hospitalization for sepsis due to acute pa ncreatitis secondary to severe hypertriglyceridemia complicated by pseudocysts/phlegmon. -IR drainage 06/15: 700 (5/3) -200 (5/4) -400 (5/5)-450 (5/6)- Plan: Sepsis secondary to Pancreatic Pseudocyst -febrile yesterday, 100.5F tmax, vitally stable -IR drainage, Dr Hancock 06/15 ---e.coli ray-sensitive ---follow up drain output: 700 (5/3) -200 (5/4) -400 (5/5)-110 (5/6)- 420 (5/7) ---nurses to flush drain 2x/day -ID consulted, Dr Gould, input and recs appreciated -s/p 2 units PRBC, Hg stable at 9.1 today -IVF LR @ 150 mls/hr -Meropenem as per ID -CT: 1. Redemonstration of large septated multilocular fluid collection in the lesser sac extending to the left anterior and posterior pararenal spaces, left paracolic gutter, left lower quadrant and left hemipelvis. Scattered few foci of air within the collection. The sterility of this collection cannot be determined on the basis of imaging. 2. Worsening moderate left pleural effusion. - f/u repeat CT today DVT Prophylaxis SCD
[2018-06-20] MEDS ORDERED: Iohexol 300 100 ML IJ ONE (13:06)
[2018-06-20] MEDS ORDERED: Sodium Chloride 0.9% 50 ML IV ONE (13:06)
--- NOTE | 2018-06-20 15:45 | CT ---
Date of service: 06/20/2018 PROCEDURE: CT Abdomen and Pelvis with contrast HISTORY: s/p/current pseudocyst drainage COMPARISON: Abdomen pelvis CT with contrast 06/14/2018. TECHNIQUE: Following the menstruation of oral and intravenous contrast material, a CT examination of the abdomen and pelvis was performed from the domes of the diaphragms to the symphysis pubis with reformatted datasets provided in axial, sagittal and coronal planes. Contrast dose: Omnipaque 300, 95 cc Radiation dose: Total exam DLP = 388.29 mGy-cm. This CT exam was performed using one or more of the following dose reduction techniques: Automated exposure control, adjustment of the mA and/or kV according to patient size, and/or use of iterative reconstruction technique. FINDINGS: LOWER THORAX: Prominent left pleural effusion is reiterated exerting prominent compression atelectasis at the left lower lobe and lingula linear atelectasis or fibrosis again seen the medial right lower lobe. Mild shift of the heart toward the right is seen likely related to left pleural effusion. LIVER: Unremarkable. No gross lesion or ductal dilatation. GALLBLADDER AND BILE DUCTS: Stable moderate gallbladder distention is appreciated with sympathetic mild mural thickening reiterated. No radiodense cholelithiasis appreciable. PANCREAS: Pancreas remains normal in size and homogeneous enhancement with poor definition of the margins of the body and tail due to pancreatitis once again with extensive cystic collection surrounding the body and tail once again extending into the lesser sac and the lateral left para renal space with trace gas associated once again. Drainage catheter is seen coiled in the inferolateral portion of this collection. The overall volume is slightly decreased in the interval. SPLEEN: Unremarkable. ADRENALS: Unremarkable. No mass. KIDNEYS AND URETERS: Unremarkable. No hydronephrosis. No solid mass. VASCULATURE: Unremarkable. No aortic aneurysm. No aortic atherosclerotic calcification or mural plaque present. BOWEL: Once again no bowel obstruction is identified involving small or large bowel loops. Sympathetic thickening of the left hemicolon is seen as well as limited portions of the transverse colon. Sympathetic thickening of the antrum and distal fundus is seen particularly along the greater curvature. APPENDIX: Normal appendix. PERITONEUM: Unremarkable. No free fluid. No free air. LYMPH NODES: Unremarkable. No enlarged lymph nodes. BLADDER: Unremarkable. REPRODUCTIVE: Prominent left ovary versus extension of the lesser slack/perirenal and pericolic fluid collection or pseudocyst reiterated. BONES: No acute fracture. OTHER FINDINGS: None. IMPRESSION: 1. Persistent pancreatitis pattern though mildly diminished lesser slack/para renal and pericolic gutter fluid collection with drainage catheter in situ at the inferolateral margins of the collection. Sympathetic left pleural effusion remains prominent with some mass effect exerted displacing the heart slightly to the right. 2. Enlarged left ovary versus possible extension of aforementioned fluid collection into the upper left adnexal compartment.
[2018-06-21 05:48] LABS: HEMOGLOBIN 9.2 g/dL (12.0-16.0); MEAN CELL VOLUME 81.1 fl (81.0-99.0); MEAN CORPUSCULAR HGB CONC 33.3 g/dL (33.0-37.0); RBC 3.42 Mil/uL (3.80-5.20); RED CELL DISTRIBUTION WIDTH 16.4 % (11.5-14.5); WHITE BLOOD COUNT 8.2 K/uL (4.8-10.8)
[2018-06-21 05:57] LABS: ALB/GLOB RATIO 0.9 (1.0-2.1); ALBUMIN 2.9 g/dL (3.5-5.0); ALT/SGPT 26 U/L (9-52); AST/SGOT 37 U/L (14-36); BLOOD UREA NITROGEN 7 mg/dl (7-17); CALCIUM 8.3 mg/dL (8.4-10.2); GFR NON-AFRICAN AMERICAN > 60
[2018-06-21] MEDS: Enoxaparin 40 mg Syringe SC SCH (10:06)
[2018-06-21] MEDS: Meropenem 1 GM in Sodium Chloride 0.9% 100 ML IVPB SCH ×2 (10:07→16:36)
--- NOTE | 2018-06-21 11:15 | CP.PCM.CON ---
<Neda Degroot - Last Filed: 06/21/18 11:13> History of Present Illness - History of Present Illness History of Present Illness: General surgery consult note for Dr. Samreen Degroot, PGY-2 Pt seen/examined at bedside with attending 43F w/PMH sig for anemia consulted for sepsis due to pancreatic pseudocyst s/p IR drain placement. Pt admitted to hospital for Left sided abdominal pain, ev aluation positive for hypertriglyceridemia induced pancreatic pseudocyst. Pt reports continued left sided abdominal pain. No other complaints at this time. PMH: Anemia PSH: x 3 All: NDKA SH: Denies ETOH, tobacco or illicit drug use PMD: Clinic Review of Systems - Review of Systems All systems: reviewed and no additional remarkable complaints except - Constitutional Constitutional: absent: Chills, Fever Past Patient History - Infectious Disease Hx of Infectious Diseases: None - Past Medical History & Family History Past Medical History?: No - Past Social History Smoking Status: Never Smoked - CARDIAC Hx Cardiac Disorders: No - PULMONARY Hx Respiratory Disorders: No - NEUROLOGICAL Hx Neurological Disorder: No - HEENT Hx HEENT Problems: No - RENAL Hx Chronic Kidney Disease: No - ENDOCRINE/METABOLIC Hx Endocrine Disorders: No - HEMATOLOGICAL/ONCOLOGICAL Hx Human Immunodeficiency Virus (HIV): No - INTEGUMENTARY Hx Dermatological Problems: No - MUSCULOSKELETAL/RHEUMATOLOGICAL Hx Musculoskeletal Disorders: No Hx Falls: No - GASTROINTESTINAL Hx Gastrointestinal Disorders: Yes Hx Pancreatitis: Yes (ACUTE PANCREATITIS 05/19/18) - GENITOURINARY/GYNECOLOGICAL Hx Genitourinary Disorders: No - PSYCHIATRIC Hx Psychophysiologic Disorder: No Hx Substance Use: No - SURGICAL HISTORY Hx Surgeries: Yes Hx Section: Yes - ANESTHESIA Hx Anesthesia: Yes Hx Anesthesia Reactions: No Meds Allergies/Adverse Reactions: Allergies Allergy/AdvReac Type Severity Reaction Status Date / Time No Known Allergies Allergy Verified 04/28/17 11:54 - Medications Medications: Current Medications Acetaminophen (Tylenol 325mg Tab) 650 mg PO Q4 PRN PRN Reason: Fever >100.4 F Last Admin: 06/19/18 12:57 Dose: 650 mg Enoxaparin Sodium (Lovenox) 40 mg SC DAILY [facility]; Protocol Last Admin: 06/21/18 10:06 Dose: 40 mg Fenofibrate (Tricor) 145 mg PO DAILY [facility] Last Admin: 06/21/18 10:08 Dose: 145 mg Ferrous Sulfate (Feosol) 325 mg PO BID [facility] Last Admin: 06/21/18 10:06 Dose: 325 mg Meropenem 1 gm/ Sodium (Chloride) 100 mls @ 100 mls/hr IVPB Q8 [facility]; Protocol Last Admin: 06/21/18 10:07 Dose: 100 mls/hr Ketorolac Tromethamine (Toradol) 15 mg IVP Q6 PRN PRN Reason: Pain, moderate (4-7) Last Admin: 06/21/18 06:51 Dose: 15 mg Ondansetron HCl (Zofran Inj) 4 mg IVP Q4 PRN PRN Reason: Nausea/Vomiting Last Admin: 06/17/18 17:07 Dose: 4 mg Physical Exam - Constitutional Appears: Non-toxic, No Acute Distress - Head Exam Head Exam: ATRAUMATIC, NORMAL INSPECTION, NORMOCEPHALIC - Eye Exam Eye Exam: EOMI, Normal appearance - ENT Exam ENT Exam: Mucous Membranes Moist, Normal Exam - Neck Exam Neck exam: Positive for: Full Rom - Respiratory Exam Respiratory Exam: NORMAL BREATHING PATTERN - Cardiovascular Exam Cardiovascular Exam: REGULAR RHYTHM, +S1, +S2 - GI/Abdominal Exam GI & Abdominal Exam: Soft, Tenderness (Left side, especially over drain insertion side. Drain with purulen material ). absent: Distended, Firm, Guarding - Extremities Exam Extremities exam: Positive for: normal inspection - Skin Skin Exam: Dry, Intact, Normal Color, Warm Results - Vital Signs Recent Vital Signs: Last Vital Signs Temp 99.2 F 06/21/18 08:11 Pulse 89 06/21/18 08:11 Resp 18 06/21/18 08:11 BP 98/63 L 06/21/18 08:11 Pulse Ox 98 06/21/18 08:11 - Labs Result Diagrams: 06/21/18 04:30 06/21/18 04:30 Labs: Laboratory Results - last 24 hr 06/21/18 06/21/18 04:30 04:30 WBC 8.2 RBC 3.42 L Hgb 9.2 L Hct 27.7 L MCV 81.1 MCH 27.0 MCHC 33.3 RDW 16.4 H Plt Count 680 H Sodium 136 Potassium 3.9 Chloride 103 Carbon Dioxide 26 Anion Gap 11 BUN 7 Creatinine 0.3 L Est GFR ( Amer) > 60 Est GFR (Non-Af Amer) > 60 Random Glucose 89 Calcium 8.3 L Total Bilirubin 0.2 AST 37 H ALT 26 Alkaline Phosphatase 83 Total Protein 6.0 L Albumin 2.9 L Globulin 3.1 Albumin/Globulin Ratio 0.9 L Assessment & Plan - Assessment and Plan (Free Text) Assessment: 43F w/pancreatic pseudocyst s/p IR drainage with drain in place Plan: Monitor drain output Continue Abx Pain control Further surgical recommendations pending imaging evaluation by attending Further care as per primary team DW Dr. Reginald Degroot, PGY-2 - Date & Time Date: 06/21/18 Time: 11:14 <Avery Montelongo - Last Filed: 06/22/18 14:45> Meds - Medications Medications: Current Medications Acetaminophen (Tylenol 325mg Tab) 650 mg PO Q4 PRN PRN Reason: Fever >100.4 F Last Admin: 06/19/18 12:57 Dose: 650 mg Enoxaparin Sodium (Lovenox) 40 mg SC DAILY [facility]; Protocol Last Admin: 06/22/18 09:35 Dose: 40 mg Fenofibrate (Tricor) 145 mg PO DAILY [facility] Last Admin: 06/22/18 09:39 Dose: 145 mg Ferrous Sulfate (Feosol) 325 mg PO BID [facility] Last Admin: 06/22/18 09:35 Dose: 325 mg Meropenem 1 gm/ Sodium (Chloride) 100 mls @ 100 mls/hr IVPB Q8 [facility]; Protocol Last Admin: 06/22/18 09:39 Dose: 100 mls/hr Ketorolac Tromethamine (Toradol) 15 mg IVP Q6 PRN PRN Reason: Pain, moderate (4-7) Last Admin: 06/22/18 05:31 Dose: 15 mg Ondansetron HCl (Zofran Inj) 4 mg IVP Q4 PRN PRN Reason: Nausea/Vomiting Last Admin: 06/17/18 17:07 Dose: 4 mg Results - Vital Signs Recent Vital Signs: Last Vital Signs Temp 98.8 F 06/22/18 08:00 Pulse 88 06/22/18 08:00 Resp 18 06/22/18 08:00 BP 93/58 L 06/22/18 08:00 Pulse Ox 97 06/22/18 08:00 - Labs Result Diagrams: 06/22/18 05:00 06/22/18 05:00 Labs: Laboratory Results - last 24 hr 06/21/18 06/22/18 06/22/18 14:30 05:00 05:00 WBC 9.4 RBC 3.47 L Hgb 9.4 L Hct 28.4 L MCV 81.9 MCH 27.2 MCHC 33.1 RDW 16.4 H Plt Count 633 H Sodium 136 Potassium 4.1 Chloride 103 Carbon Dioxide 26 Anion Gap 11 BUN 8 Creatinine 0.4 L Est GFR ( Amer) > 60 Est GFR (Non-Af Amer) > 60 Random Glucose 87 Calcium 8.1 L Total Bilirubin 0.2 AST 34 ALT 28 Alkaline Phosphatase 76 Total Protein 5.8 L Albumin 2.8 L Globulin 3.0 Albumin/Globulin Ratio 0.9 L Fluid Source Pleural Fluid Appearance Sl cloudy Fluid WBC 1492.0 H Fluid RBC 1502.0 H Fluid Tot Cell Count 100 H Fluid Neutrophils 32.0 H Fluid Lymphocytes 53.0 H Fld Monocyte/Macrophag 15 H Fluid Comment Yellowish Assessment & Plan - Assessment and Plan (Free Text) Plan: All medical record entries made by the resident were at my direction. I have rev iewed the chart and agree that the record accurately reflects my personal performance of the history, physical exam, and medical decision making. Given size and fact the cyst extends down to the pelvis, will likely need cystjejunostomy
[2018-06-21] MEDS ORDERED: Sodium Chloride 0.9% 500 ML IV ONE (12:46)
--- NOTE | 2018-06-21 12:53 | CP.PCM.PN ---
Subjective - Date & Time of Evaluation Date of Evaluation: 06/21/18 Time of Evaluation: 12:53 - Subjective Subjective: Pt seen and evaluated bedside. Reports that she is feeling better but does have pain around drainage site well controlled. Denies nausea, vomiting, chills and dizziness; tolerating PO. Objective - Vital Signs/Intake and Output Vital Signs (last 24 hours): Temp Pulse Resp BP Pulse Ox 98.7 F 97 H 18 95/59 L 97 06/21/18 12:16 06/21/18 12:16 06/21/18 12:16 06/21/18 12:16 06/21/18 12:16 Intake and Output: 06/21/18 06/21/18 06:59 18:59 Intake Total 100 100 Output Total 100 Balance 0 100 - Medications Medications: Current Medications Acetaminophen (Tylenol 325mg Tab) 650 mg PO Q4 PRN PRN Reason: Fever >100.4 F Last Admin: 06/19/18 12:57 Dose: 650 mg Enoxaparin Sodium (Lovenox) 40 mg SC DAILY [facility]; Protocol Last Admin: 06/21/18 10:06 Dose: 40 mg Fenofibrate (Tricor) 145 mg PO DAILY [facility] Last Admin: 06/21/18 10:08 Dose: 145 mg Ferrous Sulfate (Feosol) 325 mg PO BID [facility] Last Admin: 06/21/18 10:06 Dose: 325 mg Meropenem 1 gm/ Sodium (Chloride) 100 mls @ 100 mls/hr IVPB Q8 [facility]; Protocol Last Admin: 06/21/18 10:07 Dose: 100 mls/hr Sodium Chloride (Sodium Chloride 0.9%) 500 mls @ 500 mls/hr IV .Q1H ONE Stop: 06/21/18 13:45 Ketorolac Tromethamine (Toradol) 15 mg IVP Q6 PRN PRN Reason: Pain, moderate (4-7) Last Admin: 06/21/18 06:51 Dose: 15 mg Ondansetron HCl (Zofran Inj) 4 mg IVP Q4 PRN PRN Reason: Nausea/Vomiting Last Admin: 06/17/18 17:07 Dose: 4 mg - Labs Labs: 06/21/18 04:30 06/21/18 04:30 PT 17.6 Seconds (9.8-13.1) H 06/15/18 08:40 INR 1.5 06/15/18 08:40 - Constitutional Appears: Non-toxic, No Acute Distress - Eye Exam Eye Exam: Normal appearance - Respiratory Exam Respiratory Exam: NORMAL BREATHING PATTERN. absent: Respiratory Distress - Cardiovascular Exam Cardiovascular Exam: REGULAR RHYTHM - GI/Abdominal Exam GI & Abdominal Exam: Tenderness (LUQ and LLQ) - Extremities Exam Extremities Exam: absent: Pedal Edema - Neurological Exam Neurological Exam: Alert, Awake, Oriented x3 - Psychiatric Exam Psychiatric exam: Normal Affect, Normal Mood - Skin Skin Exam: Normal Color, Warm Assessment and Plan - Assessment and Plan (Free Text) Assessment: 43 y/o female presents to the ED from [facility] 1 week after hospital discharge with intense left sided abdominal pain, specifically LLQ of 3 days duration. Patient was discharged one week prior after hospitalization for sepsis due to acute pancreatitis secondary to severe hypertriglyceridemia complicated by pseudocyst s/phlegmon. -IR abd drainage 06/15: 700 (5/3) -200 (5/4) -400 (5/5)-110 (5/6)- 420 (5/7)- 200 (/8) Plan: Sepsis secondary to Pancreatic Pseudocyst -afebrile >24hrs, vitally stable -IR drainage, Dr Hancock 06/15 ---e.coli ray-sensitive ---follow up drain output: 700 (5/3) -200 (5/4) -400 (5/5)-110 (5/6)- 420 (5/7)- 200 (/8) ---nurses to flush drain 2x/day -ID consulted, Dr Gould, input and recs appreciated -s/p 2 units PRBC, Hg stable at 9.1 today -IVF LR @ 150 mls/hr -Meropenem as per ID -CT: 1. Redemonstration of large septated multilocular fluid collection in the lesser sac extending to the left anterior and posterior pararenal spaces, left paracolic gutter, left lower quadrant and left hemipelvis. Scattered few foci of air within the collection. The sterility of this collection cannot be determined on the basis of imaging. 2. Worsening moderate left pleural effusion. - f/u repeat CT today Pleural Effusion, Left -CT (06/21): mass effect displacing heart -for IR drainage today -f/u fluid labs DVT Prophylaxis SCD
[2018-06-21] MEDS ORDERED: Lidocaine Hydrochloride 1% 10 ML ONE (13:42)
--- NOTE | 2018-06-21 14:29 | PCM.SURG1 ---
Surgeon's Initial Post Op Note - Surgeon's Notes Surgeon: Randell Win MD Trust Mail Clerk: NONE Type of Anesthesia: Local Pre-Operative Diagnosis: Left pleural effusion Operative Findings: US showed a large left effusion Post-Operative Diagnosis: Left pleural effusion Operation Performed: US guided left thoracentesis Specimen/Specimens Removed: 1400 cc of yellow fluid Estimated Blood Loss: EBL {In ML}: 0 Drains Used: No Drains Date of Surgery/Procedure: 06/21/18 Time of Surgery/Procedure: 14:25
[2018-06-21 14:42] LABS: BODY FLUID TYPE PLEURAL
[2018-06-21 15:43] LABS: BF GROSS APPEARANCE SL CLOUDY (CLEAR)
--- NOTE | 2018-06-21 16:23 | RAD ---
Date of service: 06/21/2018 PROCEDURE: CHEST RADIOGRAPH, 1 VIEW HISTORY: Status post left thoracentesis COMPARISON: 06/14/2018 FINDINGS: LUNGS: The size of left pleural effusion is less now than before. Concomitant compressive atelectasis and or infiltrate here also inferred. Similar density consolidation noted previously less pronounced now than before. Right lung is clear. PLEURA: No gross pneumothorax seen. Left pleural effusion persist 1/5 the height of the left hemithorax less now than before. CARDIOVASCULAR: No aortic atherosclerotic calcification present. Normal. OSSEOUS STRUCTURES: No significant abnormalities. VISUALIZED UPPER ABDOMEN: Faint contrast within the left colon compatible with prior CT study from 06/20/2018 OTHER FINDINGS: None. IMPRESSION: Interval decrease left pleural effusion now mild-moderate. No interval pneumothorax seen. Inferred left basal compressive atelectasis (and/or infiltrate) is less now than before.
[2018-06-21 16:48] LABS: BODY FLUID MONO/MACROPHAGE 15 % (0-0); BODY FLUID TOTAL COUNT 100 (0-0)
[2018-06-22] MEDS: Meropenem 1 GM in Sodium Chloride 0.9% 100 ML IVPB SCH ×3 (00:24→17:07)
[2018-06-22 06:01] LABS: HEMOGLOBIN 9.4 g/dL (12.0-16.0); MEAN CELL VOLUME 81.9 fl (81.0-99.0); MEAN CORPUSCULAR HEMOGLOBIN 27.2 pg (27.0-31.0); MEAN CORPUSCULAR HGB CONC 33.1 g/dL (33.0-37.0); RBC 3.47 Mil/uL (3.80-5.20); RED CELL DISTRIBUTION WIDTH 16.4 % (11.5-14.5); WHITE BLOOD COUNT 9.4 K/uL (4.8-10.8)
[2018-06-22 06:12] LABS: ALB/GLOB RATIO 0.9 (1.0-2.1); ALBUMIN 2.8 g/dL (3.5-5.0); ALT/SGPT 28 U/L (9-52); AST/SGOT 34 U/L (14-36); BLOOD UREA NITROGEN 8 mg/dl (7-17); CALCIUM 8.1 mg/dL (8.4-10.2); GFR NON-AFRICAN AMERICAN > 60
--- NOTE | 2018-06-22 08:12 | CP.PCM.PN ---
<Pam Rodríguez-Greyson - Last Filed: 06/22/18 08:06> Subjective - Date & Time of Evaluation Date of Evaluation: 06/22/18 Time of Evaluation: 08:06 - Subjective Subjective: Surgery: Dr. Montelongo Patient still with pain to the left abdominal area. She reports fever last night. Denies n/v. Tolerating diet. Pain does not get worse with food. Objective - Vital Signs/Intake and Output Vital Signs (last 24 hours): Temp Pulse Resp BP Pulse Ox 99.3 F 96 H 18 94/60 L 97 06/22/18 05:58 06/22/18 05:58 06/22/18 05:58 06/22/18 05:58 06/22/18 05:58 Intake and Output: 06/22/18 06/22/18 06:59 18:59 Output Total 50 Balance -50 - Medications Medications: Current Medications Acetaminophen (Tylenol 325mg Tab) 650 mg PO Q4 PRN PRN Reason: Fever >100.4 F Last Admin: 06/19/18 12:57 Dose: 650 mg Enoxaparin Sodium (Lovenox) 40 mg SC DAILY [facility]; Protocol Last Admin: 06/21/18 10:06 Dose: 40 mg Fenofibrate (Tricor) 145 mg PO DAILY [facility] Last Admin: 06/21/18 10:08 Dose: 145 mg Ferrous Sulfate (Feosol) 325 mg PO BID [facility] Last Admin: 06/21/18 16:35 Dose: 325 mg Meropenem 1 gm/ Sodium (Chloride) 100 mls @ 100 mls/hr IVPB Q8 [facility]; Protocol Last Admin: 06/22/18 00:24 Dose: 100 mls/hr Ketorolac Tromethamine (Toradol) 15 mg IVP Q6 PRN PRN Reason: Pain, moderate (4-7) Last Admin: 06/22/18 05:31 Dose: 15 mg Ondansetron HCl (Zofran Inj) 4 mg IVP Q4 PRN PRN Reason: Nausea/Vomiting Last Admin: 06/17/18 17:07 Dose: 4 mg - Labs Labs: 06/22/18 05:00 06/22/18 05:00 PT 17.6 Seconds (9.8-13.1) H 06/15/18 08:40 INR 1.5 06/15/18 08:40 - Constitutional Appears: Non-toxic, No Acute Distress - Head Exam Head Exam: ATRAUMATIC, NORMOCEPHALIC - Eye Exam Eye Exam: EOMI, Normal appearance - ENT Exam ENT Exam: Mucous Membranes Moist - Respiratory Exam Respiratory Exam: NORMAL BREATHING PATTERN. absent: Respiratory Distress - Cardiovascular Exam Cardiovascular Exam: REGULAR RHYTHM. absent: Tachycardia - GI/Abdominal Exam GI & Abdominal Exam: Soft, Tenderness (left abdomen). absent: Guarding, Rebound - Extremities Exam Extremities Exam: Normal Inspection. absent: Calf Tenderness - Neurological Exam Neurological Exam: Alert, Awake, Oriented x3 - Skin Skin Exam: Dry, Normal Color, Warm Assessment and Plan - Assessment and Plan (Free Text) Assessment: 43 y/o female with pancreatic pseudocyst Plan: -s/p IR drain, output appropriate -rec flushing drain daily with 5cc sterile irrigation then aspirating drain to assist with output -if drain output decreases may need IR drain upsizing -will need repeat CT scan in about 3 weeks to re-asses pseudocyst -after CT scan surgical options can be discussed pending results -cont care per primary team and ID -d/w Dr. Montelongo [facility] PGY4 <Avery Montelongo - Last Filed: 06/22/18 14:26> Objective - Vital Signs/Intake and Output Vital Signs (last 24 hours): Temp Pulse Resp BP Pulse Ox 98.8 F 88 18 93/58 L 97 06/22/18 08:00 06/22/18 08:00 06/22/18 08:00 06/22/18 08:00 06/22/18 08:00 Intake and Output: 06/22/18 06/22/18 06:59 18:59 Output Total 50 Balance -50 - Medications Medications: Current Medications Acetaminophen (Tylenol 325mg Tab) 650 mg PO Q4 PRN PRN Reason: Fever >100.4 F Last Admin: 06/19/18 12:57 Dose: 650 mg Enoxaparin Sodium (Lovenox) 40 mg SC DAILY [facility]; Protocol Last Admin: 06/22/18 09:35 Dose: 40 mg Fenofibrate (Tricor) 145 mg PO DAILY [facility] Last Admin: 06/22/18 09:39 Dose: 145 mg Ferrous Sulfate (Feosol) 325 mg PO BID [facility] Last Admin: 06/22/18 09:35 Dose: 325 mg Meropenem 1 gm/ Sodium (Chloride) 100 mls @ 100 mls/hr IVPB Q8 [facility]; Protocol Last Admin: 06/22/18 09:39 Dose: 100 mls/hr Ketorolac Tromethamine (Toradol) 15 mg IVP Q6 PRN PRN Reason: Pain, moderate (4-7) Last Admin: 06/22/18 05:31 Dose: 15 mg Ondansetron HCl (Zofran Inj) 4 mg IVP Q4 PRN PRN Reason: Nausea/Vomiting Last Admin: 06/17/18 17:07 Dose: 4 mg - Labs Labs: 06/22/18 05:00 06/22/18 05:00 PT 17.6 Seconds (9.8-13.1) H 06/15/18 08:40 INR 1.5 06/15/18 08:40 Assessment and Plan - Assessment and Plan (Free Text) Plan: All medical record entries made by the resident were at my direction. I have reviewed the chart and agree that the record accurately reflects my personal performance of the history, physical exam, and medical decision making. Patient has large left sided retroperitoneal pseudocyst. Will likely need surgical internal drainage. Will need 2 more weeks for pseudocyst wall to mature
[2018-06-22] MEDS: Enoxaparin 40 mg Syringe SC SCH (09:35)
[2018-06-22] MEDS ORDERED: Sodium Chloride 0.9% 500 ML IV ONE (12:07)
--- NOTE | 2018-06-22 12:10 | CP.PCM.PN ---
<Mara Leon - Last Filed: 06/22/18 12:33> Subjective - Date & Time of Evaluation Date of Evaluation: 06/22/18 Time of Evaluation: 12:10 - Subjective Subjective: Pt seen and evaluated bedside. Reports that she is feeling better but does have pain around drainage site well controlled. Denies nausea, vomiting, chills and dizziness; tolerating PO. Objective - Vital Signs/Intake and Output Vital Signs (last 24 hours): Temp Pulse Resp BP Pulse Ox 98.8 F 88 18 93/58 L 97 06/22/18 08:00 06/22/18 08:00 06/22/18 08:00 06/22/18 08:00 06/22/18 08:00 Intake and Output: 06/22/18 06/22/18 06:59 18:59 Output Total 50 Balance -50 - Medications Medications: Current Medications Acetaminophen (Tylenol 325mg Tab) 650 mg PO Q4 PRN PRN Reason: Fever >100.4 F Last Admin: 06/19/18 12:57 Dose: 650 mg Enoxaparin Sodium (Lovenox) 40 mg SC DAILY [facility]; Protocol Last Admin: 06/22/18 09:35 Dose: 40 mg Fenofibrate (Tricor) 145 mg PO DAILY [facility] Last Admin: 06/22/18 09:39 Dose: 145 mg Ferrous Sulfate (Feosol) 325 mg PO BID [facility] Last Admin: 06/22/18 09:35 Dose: 325 mg Meropenem 1 gm/ Sodium (Chloride) 100 mls @ 100 mls/hr IVPB Q8 [facility]; Protocol Last Admin: 06/22/18 09:39 Dose: 100 mls/hr Sodium Chloride (Sodium Chloride 0.9%) 500 mls @ 500 mls/hr IV .Q1H ONE Stop: 06/22/18 13:06 Ketorolac Tromethamine (Toradol) 15 mg IVP Q6 PRN PRN Reason: Pain, moderate (4-7) Last Admin: 06/22/18 05:31 Dose: 15 mg Ondansetron HCl (Zofran Inj) 4 mg IVP Q4 PRN PRN Reason: Nausea/Vomiting Last Admin: 06/17/18 17:07 Dose: 4 mg - Labs Labs: 06/22/18 05:00 06/22/18 05:00 PT 17.6 Seconds (9.8-13.1) H 06/15/18 08:40 INR 1.5 06/15/18 08:40 - Constitutional Appears: Non-toxic, No Acute Distress - Eye Exam Eye Exam: Normal appearance - ENT Exam ENT Exam: Mucous Membranes Dry - Respiratory Exam Respiratory Exam: Chest Wall Tenderness (left mid-axiallry, mild), NORMAL BREATHING PATTERN. absent: Respiratory Distress - GI/Abdominal Exam GI & Abdominal Exam: Soft, Tenderness (around drain site) - Neurological Exam Neurological Exam: Alert, Awake, Oriented x3 - Psychiatric Exam Psychiatric exam: Normal Affect, Normal Mood - Skin Skin Exam: Normal Color, Warm Assessment and Plan - Assessment and Plan (Free Text) Assessment: 43 y/o female presents to the ED from [facility] 1 week after hospital discharge with intense left sided abdominal pain, specifically LLQ of 3 days duration. Patient was discharged one week prior after hospitalization for sepsis due to acute pancreatitis secondary to severe hypertriglyceridemia complicated by pseudocysts/phlegmon. -IR abd drainage 06/15: 700 (5/3) -200 (5/4) -400 (5/5)-110 (5/6)- 420 (5/7)- 200 (5/8)- (50) so far today 06/22 Plan: Sepsis secondary to Pancreatic Pseudocyst -afebrile >24hrs, vitally stable -IR drainage, Dr Hancock 06/15 ---e.coli ray-sensitive ---follow up drain output: 700 (5/3) -200 (5/4) -400 (5/5)-110 (5/6)- 420 (5/7)- 200 (5/8)- (50) so far today 06/22 ---nurses to flush drain 2x/day, Q12 *did not get flushed yesterday* -ID consulted, Dr Gould, input and recs appreciated -s/p 2 units PRBC, Hg stable at 9.1 today -IVF LR @ 150 mls/hr -Meropenem as per ID -CT: 1. Redemonstration of large septated multilocular fluid collection in the lesser sac extending to the left anterior and posterior pararenal spaces, left paracolic gutter, left lower quadrant and left hemipelvis. Scattered few foci of air within the collection. The sterility of this collection cannot be determined on the basis of imaging. 2. Worsening moderate left pleural effusion. - f/u repeat CT today Pleural Effusion, Left -CT (06/21): mass effect displacing heart -IR drainage, Dr Win, 1400cc sl cloudy fluid -f/u fluid labs DVT Prophylaxis SCD <SudarshanEvelyn Lewis - Last Filed: 06/22/18 15:55> Objective - Vital Signs/Intake and Output Vital Signs (last 24 hours): Temp Pulse Resp BP Pulse Ox 98.8 F 88 18 93/58 L 97 06/22/18 08:00 06/22/18 08:00 06/22/18 08:00 06/22/18 08:00 06/22/18 08:00 Intake and Output: 06/22/18 06/22/18 06:59 18:59 Output Total 50 Balance -50 - Medications Medications: Current Medications Acetaminophen (Tylenol 325mg Tab) 650 mg PO Q4 PRN PRN Reason: Fever >100.4 F Last Admin: 06/19/18 12:57 Dose: 650 mg Enoxaparin Sodium (Lovenox) 40 mg SC DAILY [facility]; Protocol Last Admin: 06/22/18 09:35 Dose: 40 mg Fenofibrate (Tricor) 145 mg PO DAILY [facility] Last Admin: 06/22/18 09:39 Dose: 145 mg Ferrous Sulfate (Feosol) 325 mg PO BID [facility] Last Admin: 06/22/18 09:35 Dose: 325 mg Meropenem 1 gm/ Sodium (Chloride) 100 mls @ 100 mls/hr IVPB Q8 [facility]; Protocol Last Admin: 06/22/18 09:39 Dose: 100 mls/hr Ketorolac Tromethamine (Toradol) 15 mg IVP Q6 PRN PRN Reason: Pain, moderate (4-7) Last Admin: 06/22/18 05:31 Dose: 15 mg Ondansetron HCl (Zofran Inj) 4 mg IVP Q4 PRN PRN Reason: Nausea/Vomiting Last Admin: 06/17/18 17:07 Dose: 4 mg - Labs Labs: 06/22/18 05:00 06/22/18 05:00 PT 17.6 Seconds (9.8-13.1) H 06/15/18 08:40 INR 1.5 06/15/18 08:40 Attending/Attestation - Attestation I have personally seen and examined this patient.: Yes I have fully participated in the care of the patient.: Yes I have reviewed all pertinent clinical information, including history, physical exam and plan: Yes Notes (Text): Rpt CT of abd 06/20 1. Persistent pancreatitis pattern though mildly diminished lesser slack/para renal and pericolic gutter fluid collection with drainage catheter in situ at the inferolateral margins of the collection. Sympathetic left pleural effusion remains prominent with some mass effect exerted displacing the heart slightly to the right. 2. Enlarged left ovary versus possible extension of aforementioned fluid collection into the upper left adnexal compartment. 1. Sepsis (POA) due to Peritoneal Abscess due to Pancreatitis w/ Pseudocyst s/p Placement of Multihole catheter/Drainage of Abscess 2. Pleural Effusion s/p Thoracentesis 3. Hypertriglyceridemia - IR placed catheter into abscess, drainage of brownish purulent abscess ( drained 200ml yesterday) - Abscess c/s: E coli - cont IV Meropenem, can deescalate abx as E coli is sensitive to most abx once fever resolves ( Meropenem lowest ANKIT) - cont Tricor -tolerating diet -Pain mgt -s/p Thoracentesis 1400ml clear pleural fluid - Lovenox for DVT proph
[2018-06-23] MEDS: Meropenem 1 GM in Sodium Chloride 0.9% 100 ML IVPB SCH ×4 (00:57→17:48)
[2018-06-23 05:36] LABS: HEMOGLOBIN 8.8 g/dL (12.0-16.0); MEAN CELL VOLUME 82.3 fl (81.0-99.0); MEAN CORPUSCULAR HEMOGLOBIN 26.9 pg (27.0-31.0); MEAN CORPUSCULAR HGB CONC 32.7 g/dL (33.0-37.0); RBC 3.28 Mil/uL (3.80-5.20); RED CELL DISTRIBUTION WIDTH 16.3 % (11.5-14.5); WHITE BLOOD COUNT 9.3 K/uL (4.8-10.8)
[2018-06-23 05:51] LABS: ALB/GLOB RATIO 0.9 (1.0-2.1); ALBUMIN 2.8 g/dL (3.5-5.0); ALT/SGPT 27 U/L (9-52); AST/SGOT 36 U/L (14-36); BLOOD UREA NITROGEN 7 mg/dl (7-17); CALCIUM 8.1 mg/dL (8.4-10.2); GFR NON-AFRICAN AMERICAN > 60
[2018-06-23] MEDS: Enoxaparin 40 mg Syringe SC SCH (09:12)
[2018-06-23] MEDS: Sodium Chloride 0.9% 1,000 ML IV SCH ×2 (09:15→17:53)
--- NOTE | 2018-06-23 13:08 | CP.PCM.PN ---
<Mara Leon - Last Filed: 06/23/18 13:17> Subjective - Date & Time of Evaluation Date of Evaluation: 06/23/18 Time of Evaluation: 13:08 - Subjective Subjective: Pt seen and evaluated bedside. Reports that she is feeling better but does have pain around drainage site well controlled. Denies nausea, vomiting, chills and dizziness; tolerating PO. Afebrile >24 hrs. Objective - Vital Signs/Intake and Output Vital Signs (last 24 hours): Temp Pulse Resp BP Pulse Ox 99.9 F H 104 H 20 99/66 L 96 06/23/18 12:42 06/23/18 12:42 06/23/18 12:42 06/23/18 12:42 06/23/18 12:42 Intake and Output: 06/23/18 06/23/18 06:59 18:59 Intake Total 300 Output Total 130 Balance 170 - Medications Medications: Current Medications Acetaminophen (Tylenol 325mg Tab) 650 mg PO Q4 PRN PRN Reason: Fever >100.4 F Last Admin: 06/19/18 12:57 Dose: 650 mg Enoxaparin Sodium (Lovenox) 40 mg SC DAILY [facility]; Protocol Last Admin: 06/23/18 09:12 Dose: 40 mg Fenofibrate (Tricor) 145 mg PO DAILY [facility] Last Admin: 06/23/18 09:14 Dose: 145 mg Ferrous Sulfate (Feosol) 325 mg PO BID [facility] Last Admin: 06/23/18 09:12 Dose: 325 mg Meropenem 1 gm/ Sodium (Chloride) 100 mls @ 100 mls/hr IVPB Q8 [facility]; Protocol Last Admin: 06/23/18 09:13 Dose: 100 mls/hr Sodium Chloride (Sodium Chloride 0.9%) 1,000 mls @ 125 mls/hr IV .Q8H [facility] Stop: 06/24/18 07:34 Last Admin: 06/23/18 09:15 Dose: 125 mls/hr Ketorolac Tromethamine (Toradol) 15 mg IVP Q6 PRN PRN Reason: Pain, moderate (4-7) Last Admin: 06/23/18 12:27 Dose: 15 mg Ondansetron HCl (Zofran Inj) 4 mg IVP Q4 PRN PRN Reason: Nausea/Vomiting Last Admin: 06/17/18 17:07 Dose: 4 mg - Labs Labs: 06/23/18 04:35 06/23/18 04:35 PT 17.6 Seconds (9.8-13.1) H 06/15/18 08:40 INR 1.5 06/15/18 08:40 - Constitutional Appears: Non-toxic, No Acute Distress - Eye Exam Eye Exam: Normal appearance - ENT Exam ENT Exam: Mucous Membranes Moist - Respiratory Exam Respiratory Exam: NORMAL BREATHING PATTERN. absent: Respiratory Distress - Cardiovascular Exam Cardiovascular Exam: REGULAR RHYTHM - GI/Abdominal Exam GI & Abdominal Exam: Soft, Tenderness (around drain) - Extremities Exam Extremities Exam: absent: Pedal Edema - Back Exam Back Exam: CVA tenderness (L) (around site), NORMAL INSPECTION. absent: CVA tenderness (R) - Neurological Exam Neurological Exam: Alert, Awake, Normal Gait, Oriented x3 - Psychiatric Exam Psychiatric exam: Normal Affect, Normal Mood - Skin Skin Exam: Normal Color, Warm Assessment and Plan - Assessment and Plan (Free Text) Assessment: 43 y/o female presents to the ED from [facility] 1 week after hospital discharge with intense left sided abdominal pain, specifically LLQ of 3 days duration. Patient was discharged one week prior after hospitalization for sepsis due to acute pancreatitis secondary to severe hypertriglyceridemia complicated by pseudocysts/phlegmon. Abd drain output: 700 (5/3) -200 (5/4) -400 (5/5)-110 (5/6)- 420 (5/7)- 200 (/8)- 50 (06/22)- 60 (/) Plan: Sepsis secondary to Pancreatic Pseudocyst -afebrile >24hrs, vitally stable -IR drainage, Dr Hancock 06/15 ---e.coli ray-sensitive ---follow up drain output: 700 (5/3) -200 (5/4) -400 (5/5)-110 (5/6)- 420 (5/7)- 200 (/8)- 50 (/9)- 60 (/10) ---nurses to flush drain 2x/day, Q12 *did not get flushed yesterday* -ID consulted, Dr Gould, input and recs appreciated -s/p 2 units PRBC, Hg stable at 9.1 today -IVF LR @ 150 mls/hr -Meropenem as per ID -CT: 1. Redemonstration of large septated multilocular fluid collection in the lesser sac extending to the left anterior and posterior pararenal spaces, left paracolic gutter, left lower quadrant and left hemipelvis. Scattered few foci of air within the collection. The sterility of this collection cannot be determined on the basis of imaging. 2. Worsening moderate left pleural effusion. Pleural Effusion, Left -CT (06/21): mass effect displacing heart -IR drainage, Dr Win, 1400cc sl cloudy fluid DVT Prophylaxis SCD <Evelyn Heaton - Last Filed: 06/23/18 16:33> Objective - Vital Signs/Intake and Output Vital Signs (last 24 hours): Temp Pulse Resp BP Pulse Ox 98.8 F 104 H 18 95/59 L 97 06/23/18 15:41 06/23/18 15:41 06/23/18 15:41 06/23/18 15:41 06/23/18 15:41 Intake and Output: 06/23/18 06/23/18 06:59 18:59 Intake Total 1000 Output Total 430 Balance 570 - Medications Medications: Current Medications Acetaminophen (Tylenol 325mg Tab) 650 mg PO Q4 PRN PRN Reason: Fever >100.4 F Last Admin: 06/19/18 12:57 Dose: 650 mg Enoxaparin Sodium (Lovenox) 40 mg SC DAILY [facility]; Protocol Last Admin: 06/23/18 09:12 Dose: 40 mg Fenofibrate (Tricor) 145 mg PO DAILY [facility] Last Admin: 06/23/18 09:14 Dose: 145 mg Ferrous Sulfate (Feosol) 325 mg PO BID [facility] Last Admin: 06/23/18 09:12 Dose: 325 mg Meropenem 1 gm/ Sodium (Chloride) 100 mls @ 100 mls/hr IVPB Q8 [facility]; Protocol Last Admin: 06/23/18 09:13 Dose: 100 mls/hr Sodium Chloride (Sodium Chloride 0.9%) 1,000 mls @ 125 mls/hr IV .Q8H [facility] Stop: 06/24/18 07:34 Last Admin: 06/23/18 09:15 Dose: 125 mls/hr Ketorolac Tromethamine (Toradol) 15 mg IVP Q6 PRN PRN Reason: Pain, moderate (4-7) Last Admin: 06/23/18 12:27 Dose: 15 mg Ondansetron HCl (Zofran Inj) 4 mg IVP Q4 PRN PRN Reason: Nausea/Vomiting Last Admin: 06/17/18 17:07 Dose: 4 mg - Labs Labs: 06/23/18 04:35 06/23/18 04:35 PT 17.6 Seconds (9.8-13.1) H 06/15/18 08:40 INR 1.5 06/15/18 08:40 Attending/Attestation - Attestation I have personally seen and examined this patient.: Yes I have fully participated in the care of the patient.: Yes I have reviewed all pertinent clinical information, including history, physical exam and plan: Yes Notes (Text): Rpt CT of abd 06/20 1. Persistent pancreatitis pattern though mildly diminished lesser slack/para renal and pericolic gutter fluid collection with drainage catheter in situ at the inferolateral margins of the collection. Sympathetic left pleural effusion remains prominent with some mass effect exerted displacing the heart slightly to the right. 2. Enlarged left ovary versus possible extension of aforementioned fluid collection into the upper left adnexal compartment. 1. Sepsis (POA) due to Peritoneal Abscess due to Pancreatitis w/ Pseudocyst s/p Placement of Multihole catheter/Drainage of Abscess 2. Pleural Effusion s/p Thoracentesis 3. Hypertriglyceridemia - IR placed catheter into abscess, drainage of brownish purulent abscess ( drained 130ml yesterday) - Abscess c/s: E coli - cont IV Meropenem, can deescalate abx as E coli is sensitive to most abx once fever resolves ( Meropenem lowest ANKIT) - Surgery consulted- rec to rpt CT scan in 2-3 wks and she will be reassessed for need for surgical drainage - cont Tricor -tolerating diet -Pain mgt -s/p Thoracentesis 1400ml clear pleural fluid - Lovenox for DVT proph
[2018-06-23] MEDS ORDERED: Sterile Water 20 ML IV ONE (20:52)
[2018-06-24] MEDS: Meropenem 1 GM in Sodium Chloride 0.9% 100 ML IVPB SCH ×3 (00:32→16:37)
[2018-06-24] MEDS: Sodium Chloride 0.9% 1,000 ML IV SCH (00:32)
[2018-06-24 00:57] LABS: SQUAMOUS EPITHIAL 1 /hpf (0-5); URINE BILIRUBIN NEGATIVE (NEGATIVE); URINE BLOOD NEGATIVE (NEGATIVE); URINE CLARITY CLEAR (Clear); URINE COLOR STRAW (YELLOW); URINE GLUCOSE (UA) NEG (NEGATIVE); URINE LEUKOCYTE ESTERASE NEG Leu/uL (Negative); URINE PROTEIN NEGATIVE (NEGATIVE); URINE UROBILINOGEN 0.2-1.0 mg/dL (0.2-1.0)
[2018-06-24 07:11] LABS: HEMOGLOBIN 8.9 g/dL (12.0-16.0); MEAN CELL VOLUME 81.1 fl (81.0-99.0); MEAN CORPUSCULAR HEMOGLOBIN 26.6 pg (27.0-31.0); MEAN CORPUSCULAR HGB CONC 32.8 g/dL (33.0-37.0); RBC 3.33 Mil/uL (3.80-5.20); RED CELL DISTRIBUTION WIDTH 16.5 % (11.5-14.5); WHITE BLOOD COUNT 8.5 K/uL (4.8-10.8)
[2018-06-24 07:34] LABS: ALB/GLOB RATIO 0.9 (1.0-2.1); ALBUMIN 2.8 g/dL (3.5-5.0); ALT/SGPT 24 U/L (9-52); AST/SGOT 27 U/L (14-36); BLOOD UREA NITROGEN 5 mg/dl (7-17); CALCIUM 8.1 mg/dL (8.4-10.2); GFR NON-AFRICAN AMERICAN > 60
--- NOTE | 2018-06-24 09:58 | CP.PCM.PN ---
<Sangeeta Razo - Last Filed: 06/24/18 13:50> Subjective - Date & Time of Evaluation Date of Evaluation: 06/24/18 Time of Evaluation: 09:10 - Subjective Subjective: Patient seen and examined at bedside. In no acute distress. Had fever of 100.4 F overnight. Denies weakness, dizziness, chills, nausea or vomiting. Reports normal urine output. Patient states abd drain was already flushed by nurse this AM. Objective - Vital Signs/Intake and Output Vital Signs (last 24 hours): Temp Pulse Resp BP Pulse Ox 99.5 F 90 18 95/57 L 96 06/24/18 08:25 06/24/18 08:25 06/24/18 08:25 06/24/18 08:25 06/24/18 08:25 Intake and Output: 06/24/18 06/24/18 06:59 18:59 Intake Total 825 Output Total 125 Balance 700 - Medications Medications: Current Medications Acetaminophen (Tylenol 325mg Tab) 650 mg PO Q4 PRN PRN Reason: Fever >100.4 F Last Admin: 06/23/18 21:29 Dose: 650 mg Enoxaparin Sodium (Lovenox) 40 mg SC DAILY [facility]; Protocol Last Admin: 06/23/18 09:12 Dose: 40 mg Fenofibrate (Tricor) 145 mg PO DAILY [facility] Last Admin: 06/23/18 09:14 Dose: 145 mg Ferrous Sulfate (Feosol) 325 mg PO BID [facility] Last Admin: 06/23/18 17:49 Dose: 325 mg Meropenem 1 gm/ Sodium (Chloride) 100 mls @ 100 mls/hr IVPB Q8 [facility]; Protocol Last Admin: 06/24/18 00:32 Dose: 100 mls/hr Ketorolac Tromethamine (Toradol) 15 mg IVP Q6 PRN PRN Reason: Pain, moderate (4-7) Last Admin: 06/24/18 06:59 Dose: 15 mg Ondansetron HCl (Zofran Inj) 4 mg IVP Q4 PRN PRN Reason: Nausea/Vomiting Last Admin: 06/17/18 17:07 Dose: 4 mg - Labs Labs: 06/24/18 05:35 06/24/18 05:35 PT 17.6 Seconds (9.8-13.1) H 06/15/18 08:40 INR 1.5 06/15/18 08:40 - Constitutional Appears: No Acute Distress - Head Exam Head Exam: NORMAL INSPECTION - Eye Exam Eye Exam: EOMI - ENT Exam ENT Exam: Mucous Membranes Moist - Respiratory Exam Respiratory Exam: NORMAL BREATHING PATTERN - Cardiovascular Exam Cardiovascular Exam: REGULAR RHYTHM, +S1, +S2 - GI/Abdominal Exam GI & Abdominal Exam: Soft, Tenderness (mild-surrounding left abd drain site), Normal Bowel Sounds - Back Exam Back Exam: CVA tenderness (L) (mild -surrounding drain site) Assessment and Plan - Assessment and Plan (Free Text) Assessment: 43 yr old F presents to the ED from [facility] 1 week after hospital discharge with int ense left sided abdominal pain, specifically LLQ of 3 days duration. Patient was discharged one week prior after hospitalization for sepsis due to acute pancreatitis secondary to severe hypertriglyceridemia complicated by pseudocysts/phlegmon. Patient continues to have drain output. Abd drain output: 700 (5/3) -200 (5/4) -400 (5/5)-110 (5/6)- 420 (5/7)- 200 (/8)- 50 (9)- 60 (06/23) - 255 (06/24) Plan: Sepsis secondary to Pancreatic Pseudocyst -fever 100.4 overnight, rest of vitals stable -IR drainage, Dr Hancock 06/15 ---e.coli ray-sensitive ---follow up drain output: 700 (5/3) -200 (5/4) -400 (5/5)-110 (5/6)- 420 (5/7)- 200 (/8)- 50 (/9)- 60 (/10)- 255 (06/24) ---nurses to flush drain 2x/day, Q12 -ID consulted, Dr Gould, input and recs appreciated -s/p 2 units PRBC, Hg stable at 8.9 today -Meropenem as per ID -CT: 1. Redemonstration of large septated multilocular fluid collection in the lesser sac extending to the left anterior and posterior pararenal spaces, left paracolic gutter, left lower quadrant and left hemipelvis. Scattered few foci of air within the collection. The sterility of this collection cannot be determined on the basis of imaging. 2. Worsening moderate left pleural effusion. Pleural Effusion, Left -CT (06/21): mass effect displacing heart -IR drainage, Dr Win, 1400cc sl cloudy fluid -culture: no growth x 2 days DVT Prophylaxis -SCD's <Issac Prakash D - Last Filed: 06/25/18 11:08> Objective - Vital Signs/Intake and Output Vital Signs (last 24 hours): Temp Pulse Resp BP Pulse Ox 99.5 F 90 18 95/57 L 96 06/24/18 08:25 06/24/18 08:25 06/24/18 08:25 06/24/18 08:25 06/24/18 08:25 Intake and Output: 06/24/18 06/24/18 06:59 18:59 Intake Total 825 Output Total 125 Balance 700 - Medications Medications: Current Medications Acetaminophen (Tylenol 325mg Tab) 650 mg PO Q4 PRN PRN Reason: Fever >100.4 F Last Admin: 06/23/18 21:29 Dose: 650 mg Enoxaparin Sodium (Lovenox) 40 mg SC DAILY [facility]; Protocol Last Admin: 06/24/18 10:08 Dose: 40 mg Fenofibrate (Tricor) 145 mg PO DAILY [facility] Last Admin: 06/24/18 12:03 Dose: 145 mg Ferrous Sulfate (Feosol) 325 mg PO BID [facility] Last Admin: 06/24/18 10:08 Dose: 325 mg Meropenem 1 gm/ Sodium (Chloride) 100 mls @ 100 mls/hr IVPB Q8 [facility]; Protocol Last Admin: 06/24/18 12:02 Dose: 100 mls/hr Ketorolac Tromethamine (Toradol) 15 mg IVP Q6 PRN PRN Reason: Pain, moderate (4-7) Last Admin: 06/24/18 15:18 Dose: 15 mg Ondansetron HCl (Zofran Inj) 4 mg IVP Q4 PRN PRN Reason: Nausea/Vomiting Last Admin: 06/17/18 17:07 Dose: 4 mg - Labs Labs: 06/24/18 05:35 06/24/18 05:35 PT 17.6 Seconds (9.8-13.1) H 06/15/18 08:40 INR 1.5 06/15/18 08:40 Attending/Attestation - Attestation I have personally seen and examined this patient.: Yes I have fully participated in the care of the patient.: Yes I have reviewed all pertinent clinical information, including history, physical exam and plan: Yes Notes (Text): 06/24/18 15:23 Patient seen and examined with resident. Case discussed and agreed with assessment and plan.
[2018-06-24] MEDS: Enoxaparin 40 mg Syringe SC SCH (10:08)
[2018-06-25] MEDS: Meropenem 1 GM in Sodium Chloride 0.9% 100 ML IVPB SCH ×3 (00:31→16:36)
[2018-06-25 06:30] LABS: BASO # 0.1 K/uL (0.0-0.2); BASO % 0.5 % (0.0-2.0); EOS # 0.2 K/uL (0.0-0.7); EOS % 1.7 % (0.0-4.0); HEMOGLOBIN 9.4 g/dL (12.0-16.0); LYMPH # 1.6 K/uL (1.0-4.3); LYMPH % 14.3 % (20.0-40.0); MEAN CELL VOLUME 81.3 fl (81.0-99.0); MEAN CORPUSCULAR HEMOGLOBIN 26.9 pg (27.0-31.0); MEAN CORPUSCULAR HGB CONC 33.1 g/dL (33.0-37.0); MEAN PLATELET VOLUME 6.3 fl (7.2-11.7); MONO # 0.7 K/uL (0.0-0.8); MONO % 6.2 % (0.0-10.0); NEUT # 8.5 K/uL (1.8-7.0); NEUT % 77.3 % (50.0-75.0); RBC 3.5 Mil/uL (3.80-5.20); RED CELL DISTRIBUTION WIDTH 16.6 % (11.5-14.5); WHITE BLOOD COUNT 10.9 K/uL (4.8-10.8)
[2018-06-25 06:33] LABS: BLOOD UREA NITROGEN 6 mg/dl (7-17); CALCIUM 8.7 mg/dL (8.4-10.2); GFR NON-AFRICAN AMERICAN > 60
[2018-06-25] MEDS ORDERED: Iohexol 240 (50 ml) PO STA (08:03)
[2018-06-25] MEDS: Enoxaparin 40 mg Syringe SC SCH (09:02)
--- NOTE | 2018-06-25 09:23 | CP.PCM.PN ---
<Mara Leon - Last Filed: 06/25/18 09:28> Subjective - Date & Time of Evaluation Date of Evaluation: 06/25/18 Time of Evaluation: 09:22 - Subjective Subjective: Pt seen and evaluated bedside. Reports that she is feeling better but does have pain around drainage site well controlled. Denies nausea, vomiting, chills and dizziness; tolerating PO. Afebrile >24 hrs. Drain flushed 6am today, RN will fush 6pm. Objective - Vital Signs/Intake and Output Vital Signs (last 24 hours): Temp Pulse Resp BP Pulse Ox 99.3 F 94 H 20 99/64 L 97 06/25/18 07:53 06/25/18 07:53 06/25/18 07:53 06/25/18 07:53 06/25/18 07:53 Intake and Output: 06/25/18 06/25/18 06:59 18:59 Intake Total 340 Output Total 5 Balance 335 - Medications Medications: Current Medications Acetaminophen (Tylenol 325mg Tab) 650 mg PO Q4 PRN PRN Reason: Fever >100.4 F Last Admin: 06/23/18 21:29 Dose: 650 mg Enoxaparin Sodium (Lovenox) 40 mg SC DAILY [facility]; Protocol Last Admin: 06/25/18 09:02 Dose: 40 mg Fenofibrate (Tricor) 145 mg PO DAILY [facility] Last Admin: 06/25/18 09:02 Dose: 145 mg Ferrous Sulfate (Feosol) 325 mg PO BID [facility] Last Admin: 06/25/18 09:02 Dose: 325 mg Meropenem 1 gm/ Sodium (Chloride) 100 mls @ 100 mls/hr IVPB Q8 [facility]; Protocol Last Admin: 06/25/18 09:01 Dose: 100 mls/hr Ketorolac Tromethamine (Toradol) 15 mg IVP Q6 PRN PRN Reason: Pain, moderate (4-7) Last Admin: 06/25/18 07:44 Dose: 15 mg Ondansetron HCl (Zofran Inj) 4 mg IVP Q4 PRN PRN Reason: Nausea/Vomiting Last Admin: 06/17/18 17:07 Dose: 4 mg - Labs Labs: 06/25/18 05:05 06/25/18 05:05 PT 17.6 Seconds (9.8-13.1) H 05/02/19 08:40 INR 1.5 06/15/18 08:40 - Constitutional Appears: Non-toxic, No Acute Distress - Eye Exam Eye Exam: Normal appearance - ENT Exam ENT Exam: Mucous Membranes Moist - Neck Exam Neck Exam: Full ROM - Cardiovascular Exam Cardiovascular Exam: REGULAR RHYTHM - GI/Abdominal Exam GI & Abdominal Exam: Soft, Tenderness (around draine site) - Neurological Exam Neurological Exam: Alert, Awake, Oriented x3 - Psychiatric Exam Psychiatric exam: Normal Affect, Normal Mood - Skin Skin Exam: Normal Color, Warm Assessment and Plan - Assessment and Plan (Free Text) Assessment: 43 yr old F presents to the ED from [facility] 1 week after hospital discharge with intense left sided abdominal pain, specifically LLQ of 3 days duration. Patient was discharged one week prior after hospitalization for sepsis due to acute pancreatitis secondary to severe hypertriglyceridemia complicated by pseudocysts/phlegmon. Patient continues to have drain output. Abd drain output: 700 (5/3) -200 (5/4) -400 (5/5)-110 (5/6)- 420 (5/7)- 200 (/8)- 50 (06/22)- 60 (06/23) - 255 (06/24) Plan: Sepsis secondary to Pancreatic Pseudocyst -Afebril >24 hrs, VSS -IR drainage, Dr Hancock 06/15 ---e.coli ray-sensitive ---follow up drain output: 700 (5/3) -200 (5/4) -400 (5/5)-110 (5/6)- 420 (5/7)- 200 (/8)- 50 (9)- 60 (10)- 255 (06/24) ---nurses to flush drain 2x/day, Q12 -ID consulted, Dr Gould, input and recs appreciated -Surgery consulted, Dr Belle, input and recs appreciated -s/p 2 units PRBC, Hg stable -Meropenem as per ID -CT: 1. Redemonstration of large septated multilocular fluid collection in the lesser sac extending to the left anterior and posterior pararenal spaces, left paracolic gutter, left lower quadrant and left hemipelvis. Scattered few foci of air within the collection. The sterility of this collection cannot be determined on the basis of imaging. 2. Worsening moderate left pleural effusion. -CT TOMORROW Pleural Effusion, Left -CT (06/21): mass effect displacing heart -IR drainage, Dr Win, 1400cc sl cloudy fluid -Culture: no growth x 2 days DVT Prophylaxis -SCD's <PrakashIssac nance D - Last Filed: 06/25/18 17:29> Objective - Vital Signs/Intake and Output Vital Signs (last 24 hours): Temp Pulse Resp BP Pulse Ox 99.3 F 94 H 20 99/64 L 97 06/25/18 07:53 06/25/18 07:53 06/25/18 07:53 06/25/18 07:53 06/25/18 07:53 Intake and Output: 06/25/18 06/25/18 06:59 18:59 Intake Total 340 Output Total 5 Balance 335 - Medications Medications: Current Medications Acetaminophen (Tylenol 325mg Tab) 650 mg PO Q4 PRN PRN Reason: Fever >100.4 F Last Admin: 06/23/18 21:29 Dose: 650 mg Enoxaparin Sodium (Lovenox) 40 mg SC DAILY [facility]; Protocol Last Admin: 06/25/18 09:02 Dose: 40 mg Fenofibrate (Tricor) 145 mg PO DAILY [facility] Last Admin: 06/25/18 09:02 Dose: 145 mg Ferrous Sulfate (Feosol) 325 mg PO BID [facility] Last Admin: 06/25/18 09:02 Dose: 325 mg Meropenem 1 gm/ Sodium (Chloride) 100 mls @ 100 mls/hr IVPB Q8 [facility]; Protocol Last Admin: 06/25/18 09:01 Dose: 100 mls/hr Iohexol (Omnipaque 240 (50 Ml)) 50 ml PO ONCE ONE Stop: 06/26/18 07:01 Ketorolac Tromethamine (Toradol) 15 mg IVP Q6 PRN PRN Reason: Pain, moderate (4-7) Last Admin: 06/25/18 07:44 Dose: 15 mg Ondansetron HCl (Zofran Inj) 4 mg IVP Q4 PRN PRN Reason: Nausea/Vomiting Last Admin: 06/17/18 17:07 Dose: 4 mg - Labs Labs: 06/25/18 05:05 06/25/18 05:05 PT 17.6 Seconds (9.8-13.1) H 06/15/18 08:40 INR 1.5 06/15/18 08:40 Attending/Attestation - Attestation I have personally seen and examined this patient.: Yes I have fully participated in the care of the patient.: Yes I have reviewed all pertinent clinical information, including history, physical exam and plan: Yes Notes (Text): 06/25/18 11:09 Patient seen and examined with resident. Case discussed and agreed with assessment and plan.
[2018-06-26] MEDS: Meropenem 1 GM in Sodium Chloride 0.9% 100 ML IVPB SCH ×3 (01:45→16:20)
[2018-06-26 06:32] LABS: MEAN CELL VOLUME 81.1 fl (81.0-99.0); MEAN CORPUSCULAR HEMOGLOBIN 26.5 pg (27.0-31.0); MEAN CORPUSCULAR HGB CONC 32.8 g/dL (33.0-37.0); RBC 3.4 Mil/uL (3.80-5.20); RED CELL DISTRIBUTION WIDTH 16.7 % (11.5-14.5); WHITE BLOOD COUNT 15.1 K/uL (4.8-10.8)
[2018-06-26 06:52] LABS: BLOOD UREA NITROGEN 9 mg/dl (7-17); CALCIUM 8.5 mg/dL (8.4-10.2); GFR NON-AFRICAN AMERICAN > 60
[2018-06-26] MEDS ORDERED: Iohexol 240 (50 ml) PO ONE (07:00)
[2018-06-26] MEDS ORDERED: Sodium Chloride 0.9% 50 ML IV ONE (11:51)
[2018-06-26] MEDS ORDERED: Iohexol 300 100 ML IJ ONE (11:51)
[2018-06-26] MEDS ORDERED: Sodium Chloride 0.9% 500 ML IV ONE (12:06)
--- NOTE | 2018-06-26 12:10 | CP.PCM.PN ---
<Mara Leon - Last Filed: 06/26/18 12:22> Subjective - Date & Time of Evaluation Date of Evaluation: 06/26/18 Time of Evaluation: 12:08 - Subjective Subjective: Pt seen and evaluated bedside. Denies nausea, vomiting, chills and dizziness; tolerating PO. Afebrile >24 hrs. No new complaints, tenderness around drain remains. Objective - Vital Signs/Intake and Output Vital Signs (last 24 hours): Temp Pulse Resp BP Pulse Ox 99.4 F 107 H 18 90/59 L 97 06/26/18 08:20 06/26/18 08:20 06/26/18 08:20 06/26/18 08:20 06/26/18 08:20 Intake and Output: 06/26/18 06/26/18 06:59 18:59 Intake Total 900 Output Total 2 Balance 898 - Medications Medications: Current Medications Acetaminophen (Tylenol 325mg Tab) 650 mg PO Q4 PRN PRN Reason: Fever >100.4 F Last Admin: 06/23/18 21:29 Dose: 650 mg Enoxaparin Sodium (Lovenox) 40 mg SC DAILY [facility]; Protocol Last Admin: 06/25/18 09:02 Dose: 40 mg Fenofibrate (Tricor) 145 mg PO DAILY [facility] Last Admin: 06/25/18 09:02 Dose: 145 mg Ferrous Sulfate (Feosol) 325 mg PO BID [facility] Last Admin: 06/25/18 16:40 Dose: 325 mg Meropenem 1 gm/ Sodium (Chloride) 100 mls @ 100 mls/hr IVPB Q8 [facility]; Protocol Last Admin: 06/26/18 09:18 Dose: 100 mls/hr Sodium Chloride (Sodium Chloride 0.9%) 500 mls @ 500 mls/hr IV .Q1H [facility] Stop: 06/26/18 13:05 Ketorolac Tromethamine (Toradol) 15 mg IVP Q6 PRN PRN Reason: Pain, moderate (4-7) Last Admin: 06/26/18 06:17 Dose: 15 mg Ondansetron HCl (Zofran Inj) 4 mg IVP Q4 PRN PRN Reason: Nausea/Vomiting Last Admin: 06/17/18 17:07 Dose: 4 mg - Labs Labs: 06/26/18 04:40 06/26/18 04:40 PT 17.6 Seconds (9.8-13.1) H 06/15/18 08:40 INR 1.5 06/15/18 08:40 - Constitutional Appears: Non-toxic, No Acute Distress - Head Exam Head Exam: NORMAL INSPECTION - Respiratory Exam Respiratory Exam: NORMAL BREATHING PATTERN. absent: Respiratory Distress - Cardiovascular Exam Cardiovascular Exam: REGULAR RHYTHM - GI/Abdominal Exam GI & Abdominal Exam: Soft, Tenderness (around site) - Extremities Exam Extremities Exam: Normal Inspection Additional comments: drain leaking at insertion site - surgical corsetier made aware - Neurological Exam Neurological Exam: Alert, Awake, Oriented x3 - Psychiatric Exam Psychiatric exam: Normal Affect, Normal Mood - Skin Skin Exam: Pallor, Warm Assessment and Plan - Assessment and Plan (Free Text) Assessment: 43 yr old F presents to the ED from [facility] 1 week after hospital discharge with intense left sided abdominal pain, specifically LLQ of 3 days duration. Patient was discharged one week prior after hospitalization for sepsis due to acute pancreatitis secondary to severe hypertriglyceridemia complicated by pseudocysts/phlegmon. Patient continues to have drain output. Abd drain output: 700 (5/3) -200 (5/4) -400 (5/5)-110 (/6)- 420 (/7)- 200 (06/21)- 50 (06/22)- 60 (06/23) - 255 (06/24)- 10 (06/25) Plan: Sepsis secondary to Pancreatic Pseudocyst -Afebril >24 hrs, VSS -IR drainage, Dr Hancock 06/15 ---e.coli ray-sensitive ---follow up drain output: 700 (5/3) -200 (5/4) -400 (5/5)-110 (/6)- 420 (/7)- 200 (/8)- 50 (06/22)- 60 (06/23)- 255 (06/24)- 10 (06/25) ---nurses to flush drain 2x/day, Q12 -ID consulted, Dr Gould, input and recs appreciated -Surgery consulted, Dr Belle, input and recs appreciated -s/p 2 units PRBC, Hg stable -Meropenem as per ID -CT: 1. Redemonstration of large septated multilocular fluid collection in the lesser sac extending to the left anterior and posterior pararenal spaces, left paracolic gutter, left lower quadrant and left hemipelvis. Scattered few foci of air within the collection. The sterility of this collection cannot be determined on the basis of imaging. 2. Worsening moderate left pleural effusion. -CT today, f/u results Pleural Effusion, Left -CT (06/21): mass effect displacing heart -IR drainage, Dr Win, 1400cc sl cloudy fluid -Culture: no growth x 2 days DVT Prophylaxis -SCD's <Issac Prakash D - Last Filed: 06/26/18 17:54> Objective - Vital Signs/Intake and Output Vital Signs (last 24 hours): Temp Pulse Resp BP Pulse Ox 100.2 F H 110 H 18 99/64 L 97 06/26/18 15:53 06/26/18 15:53 06/26/18 15:53 06/26/18 15:53 06/26/18 15:53 Intake and Output: 06/26/18 06/26/18 06:59 18:59 Intake Total 900 Output Total 2 Balance 898 - Medications Medications: Current Medications Acetaminophen (Tylenol 325mg Tab) 650 mg PO Q4 PRN PRN Reason: Fever >100.4 F Last Admin: 06/26/18 15:40 Dose: 650 mg Enoxaparin Sodium (Lovenox) 40 mg SC DAILY [facility]; Protocol Last Admin: 06/26/18 13:59 Dose: 40 mg Fenofibrate (Tricor) 145 mg PO DAILY [facility] Last Admin: 06/26/18 13:58 Dose: 145 mg Ferrous Sulfate (Feosol) 325 mg PO BID [facility] Last Admin: 06/26/18 13:51 Dose: Not Given Meropenem 1 gm/ Sodium (Chloride) 100 mls @ 100 mls/hr IVPB Q8 [facility]; Protocol Last Admin: 06/26/18 09:18 Dose: 100 mls/hr Ketorolac Tromethamine (Toradol) 15 mg IVP Q6 PRN PRN Reason: Pain, moderate (4-7) Last Admin: 06/26/18 15:45 Dose: 15 mg Ondansetron HCl (Zofran Inj) 4 mg IVP Q4 PRN PRN Reason: Nausea/Vomiting Last Admin: 06/17/18 17:07 Dose: 4 mg - Labs Labs: 06/26/18 04:40 06/26/18 04:40 PT 17.6 Seconds (9.8-13.1) H 06/15/18 08:40 INR 1.5 06/15/18 08:40 Attending/Attestation - Attestation I have personally seen and examined this patient.: Yes I have fully participated in the care of the patient.: Yes I have reviewed all pertinent clinical information, including history, physical exam and plan: Yes Notes (Text): 06/26/18 16:02 Patient seen and examined with resident. Case discussed and agreed with assessment and plan.
--- NOTE | 2018-06-26 13:38 | CT ---
Date of service: 06/26/2018 PROCEDURE: CT Abdomen and Pelvis with and without intravenous contrast HISTORY: abd abscess COMPARISON: Abdomen pelvis CT with contrast 06/20/2018. TECHNIQUE: Axial images of the abdomen and pelvis were obtained prior to and following intravenous contrast administration. Coronal and sagittal reformats were generated. Oral contrast was administered prior to both sets of scans. Contrast dose: Omnipaque 300, 95 cc Radiation dose: Total exam DLP = 652.94 mGy-cm. This CT exam was performed using one or more of the following dose reduction techniques: Automated exposure control, adjustment of the mA and/or kV according to patient size, and/or use of iterative reconstruction technique. FINDINGS: LOWER THORAX: Left pleural effusion appears significantly diminished in size. LIVER: Unremarkable. No gross lesion or ductal dilatation. GALLBLADDER AND BILE DUCTS: Unremarkable. PANCREAS: No definitive pancreatic mass or pancreatic duct dilatation is appreciated once again. However, relatively prominent fluid collection representing a pseudocyst is again seen associated with the body and tail occupying the lesser sac and left para renal space as well as extending into the inferior left pericolic gutter. Due to its reversed C-shaped contour, is difficult to measure is 1 solitary block. The largest upper segment is not significantly changed in size measuring 12.2 x 4.0 x 7.1 cm compared to 12.4 x 5.2 x 6.2 cm. The left pararenal/pericolic component is increased in size measuring 6.9 x 8.0 x 20.4 cm compared to 6.6 x 7.3 x 19.0. Increasing emphysematous changes are identified in the pericolic gutter segment of the collection appears unclear whether this reflects developing abscess or directly transmitted or inspissated air related to drainage catheter which is unchanged in position. No definitive new collection appreciable within the peritoneal space of the abdomen and pelvis. SPLEEN: Unremarkable. ADRENALS: Unremarkable. No mass. KIDNEYS AND URETERS: Unremarkable. No hydronephrosis. No solid mass. VASCULATURE: Unremarkable. No aortic aneurysm. No aortic atherosclerotic calcification or mural plaque present. BOWEL: No interval bowel obstruction appreciated. Residual likely thickening of the stomach is seen related to lesser sac portion of pseudocyst. APPENDIX: Normal appendix. PERITONEUM: Small umbilical hernia reiterated containing only fat. LYMPH NODES: Unremarkable. No enlarged lymph nodes. BLADDER: Unremarkable. REPRODUCTIVE: Stable left adnexal cyst remains favored over pseudocyst 3.7 cm greatest dimension. BONES: No acute fracture. OTHER FINDINGS: None. IMPRESSION: Complex pseudocyst related to the body and tail the pancreas is again seen at the lesser sac extending into the left para renal space and pericolic gutter into the left hemipelvis with drainage catheter unchanged in position. There is a slight increase in the volume of the pararenal/pericolic gutter segment of the collection with lesser sac collection not simply changed in position. Increased limited gas is seen within the pararenal/pericolic gutter component possibly related to the catheter though an abscess may be developing. No significant change in minimal gas in the lesser sac portion of the pseudocyst. Clinically correlate with daily drainage from catheter. In addition, surgical consultation is advised as well. Left adnexal cyst appears stable, favored over pseudocyst component.
[2018-06-26] MEDS: Enoxaparin 40 mg Syringe SC SCH (13:59)
--- NOTE | 2018-06-26 16:43 | CP.PCM.PN ---
<Saman Winters - Last Filed: 06/26/18 16:40> Subjective - Date & Time of Evaluation Date of Evaluation: 06/26/18 Time of Evaluation: 16:40 - Subjective Subjective: [facility] Surgery Progress note. Dr. Hyman Pt seen and examined at bedside. No acute events overnight. Still with low-grade fever with Tmax of 100.4F, on ABX as per ID. Had repeat CT A/P today. IR guided drain in place. No Urinary complaints. Still with some abdominal pain. No N/V. No new complaints. Objective - Vital Signs/Intake and Output Vital Signs (last 24 hours): Temp Pulse Resp BP Pulse Ox 100.2 F H 110 H 18 99/64 L 97 06/26/18 15:53 06/26/18 15:53 06/26/18 15:53 06/26/18 15:53 06/26/18 15:53 Intake and Output: 06/26/18 06/26/18 06:59 18:59 Intake Total 900 Output Total 2 Balance 898 - Medications Medications: Current Medications Acetaminophen (Tylenol 325mg Tab) 650 mg PO Q4 PRN PRN Reason: Fever >100.4 F Last Admin: 06/26/18 15:40 Dose: 650 mg Enoxaparin Sodium (Lovenox) 40 mg SC DAILY [facility]; Protocol Last Admin: 06/26/18 13:59 Dose: 40 mg Fenofibrate (Tricor) 145 mg PO DAILY [facility] Last Admin: 06/26/18 13:58 Dose: 145 mg Ferrous Sulfate (Feosol) 325 mg PO BID [facility] Last Admin: 06/26/18 16:20 Dose: 325 mg Meropenem 1 gm/ Sodium (Chloride) 100 mls @ 100 mls/hr IVPB Q8 [facility]; Protocol Last Admin: 06/26/18 16:20 Dose: 100 mls/hr Ketorolac Tromethamine (Toradol) 15 mg IVP Q6 PRN PRN Reason: Pain, moderate (4-7) Last Admin: 06/26/18 15:45 Dose: 15 mg Ondansetron HCl (Zofran Inj) 4 mg IVP Q4 PRN PRN Reason: Nausea/Vomiting Last Admin: 06/17/18 17:07 Dose: 4 mg - Labs Labs: 06/26/18 04:40 06/26/18 04:40 PT 17.6 Seconds (9.8-13.1) H 06/15/18 08:40 INR 1.5 06/15/18 08:40 - Constitutional Appears: Non-toxic - Head Exam Head Exam: ATRAUMATIC, NORMAL INSPECTION, NORMOCEPHALIC - Eye Exam Eye Exam: EOMI, Normal appearance. absent: Scleral icterus - ENT Exam ENT Exam: Mucous Membranes Moist - Respiratory Exam Respiratory Exam: NORMAL BREATHING PATTERN. absent: Accessory Muscle Use, Respiratory Distress - GI/Abdominal Exam GI & Abdominal Exam: Soft. absent: Distended, Firm, Guarding Additional comments: Mild tenderness to palpation. IR drain in place via left flank. Purulent drainage noted. - Neurological Exam Neurological Exam: Alert, Awake, Normal Gait, Oriented x3 - Psychiatric Exam Psychiatric exam: Normal Affect, Normal Mood Assessment and Plan - Assessment and Plan (Free Text) Assessment: 43yo F with pancreatic pseudocyst s/p IR drain. Plan: - Will plan for OR Tuesday, for laparascopic cystenterostomy - NPO past mn 06/27 for surgery 06/28 - Continue IV Abx as per ID team - Pain management - Antiemetics - Medical Maximization as per Primary team Further recs as per Dr. Dr Givens PGY2 Surgery <Avery Montelongo - Last Filed: 07/02/18 12:29> Objective - Vital Signs/Intake and Output Vital Signs (last 24 hours): Temp Pulse Resp BP Pulse Ox 98.7 F 90 18 114/74 96 07/02/18 08:45 07/02/18 08:45 07/02/18 08:45 07/02/18 08:45 07/02/18 08:45 Intake and Output: 07/02/18 07/02/18 06:59 18:59 Intake Total 1800 Output Total 945 Balance 855 - Medications Medications: Current Medications Acetaminophen (Tylenol 325mg Tab) 650 mg PO Q4 PRN PRN Reason: Fever >100.4 F Last Admin: 06/27/18 15:56 Dose: 650 mg Benzocaine/Menthol (Cepacol Sore Throat) 1 ab PO Q2 PRN PRN Reason: Sore Throat Last Admin: 07/02/18 10:32 Dose: 1 ab Enoxaparin Sodium (Lovenox) 40 mg SC DAILY [facility]; Protocol Last Admin: 07/02/18 10:19 Dose: 40 mg Fenofibrate (Tricor) 145 mg PO DAILY [facility] Last Admin: 07/02/18 10:19 Dose: 145 mg Ferrous Sulfate (Feosol) 325 mg PO BID [facility] Last Admin: 07/02/18 10:20 Dose: 325 mg Meropenem 1 gm/ Sodium (Chloride) 100 mls @ 100 mls/hr IVPB Q8 [facility]; Protocol Last Admin: 07/02/18 10:22 Dose: 100 mls/hr Lactated Ringer's (Lactated Ringer's) 1,000 mls @ 150 mls/hr IV .Q6H40M [facility] Last Admin: 07/02/18 08:38 Dose: Not Given Ketorolac Tromethamine (Toradol) 15 mg IVP Q6 PRN PRN Reason: Pain, moderate (4-7) Last Admin: 07/02/18 12:01 Dose: 15 mg Ondansetron HCl (Zofran Inj) 4 mg IVP Q4 PRN PRN Reason: Nausea/Vomiting Last Admin: 06/28/18 16:00 Dose: 4 mg - Labs Labs: 07/02/18 09:20 07/02/18 09:20 PT 14.6 Seconds (9.8-13.1) H 06/28/18 05:35 INR 1.3 06/28/18 05:35 APTT 29.7 Seconds (25.6-37.1) 06/28/18 05:35 Assessment and Plan - Assessment and Plan (Free Text) Plan: All medical record entries made by the resident were at my direction. I have reviewed the chart and agree that the record accurately reflects my personal performance of the history, physical exam, and medical decision making.
[2018-06-27] MEDS: Meropenem 1 GM in Sodium Chloride 0.9% 100 ML IVPB SCH ×3 (02:06→16:00)
[2018-06-27 06:55] LABS: HEMOGLOBIN 8.8 g/dL (12.0-16.0); MEAN CELL VOLUME 80.6 fl (81.0-99.0); MEAN CORPUSCULAR HEMOGLOBIN 25.8 pg (27.0-31.0); RBC 3.41 Mil/uL (3.80-5.20); RED CELL DISTRIBUTION WIDTH 16.8 % (11.5-14.5); WHITE BLOOD COUNT 14.6 K/uL (4.8-10.8)
[2018-06-27 07:10] LABS: ALB/GLOB RATIO 0.9 (1.0-2.1); ALBUMIN 3.1 g/dL (3.5-5.0); ALT/SGPT 27 U/L (9-52); AST/SGOT 31 U/L (14-36); BLOOD UREA NITROGEN 10 mg/dl (7-17); CALCIUM 8.5 mg/dL (8.4-10.2); GFR NON-AFRICAN AMERICAN > 60
--- NOTE | 2018-06-27 08:49 | CP.PCM.PN ---
<SinghSaman - Last Filed: 06/27/18 08:52> Subjective - Date & Time of Evaluation Date of Evaluation: 06/27/18 Time of Evaluation: 07:40 - Subjective Subjective: HBP surgery Progress note. Dr. Hyman Pt seen and examined at bedside this morning. Tmax 100.4F yesterday afternoon. Still with mild abdominal pain. No N/V/D. Tolerating diet. No urinary complaints. Has been having some leaking around IR placed drain while flushes. CT A/P obtained yesterday. Objective - Vital Signs/Intake and Output Vital Signs (last 24 hours): Temp Pulse Resp BP Pulse Ox 99 F 92 H 20 100/64 95 06/27/18 08:10 06/27/18 08:10 06/27/18 08:10 06/27/18 08:10 06/27/18 08:10 Intake and Output: 06/27/18 06/27/18 06:59 18:59 Output Total 55 Balance -55 - Medications Medications: Current Medications Acetaminophen (Tylenol 325mg Tab) 650 mg PO Q4 PRN PRN Reason: Fever >100.4 F Last Admin: 06/26/18 15:40 Dose: 650 mg Enoxaparin Sodium (Lovenox) 40 mg SC DAILY [facility]; Protocol Last Admin: 06/26/18 13:59 Dose: 40 mg Fenofibrate (Tricor) 145 mg PO DAILY [facility] Last Admin: 06/26/18 13:58 Dose: 145 mg Ferrous Sulfate (Feosol) 325 mg PO BID [facility] Last Admin: 06/26/18 16:20 Dose: 325 mg Meropenem 1 gm/ Sodium (Chloride) 100 mls @ 100 mls/hr IVPB Q8 [facility]; Protocol Last Admin: 06/27/18 02:06 Dose: 100 mls/hr Ketorolac Tromethamine (Toradol) 15 mg IVP Q6 PRN PRN Reason: Pain, moderate (4-7) Last Admin: 06/27/18 05:55 Dose: 15 mg Ondansetron HCl (Zofran Inj) 4 mg IVP Q4 PRN PRN Reason: Nausea/Vomiting Last Admin: 06/17/18 17:07 Dose: 4 mg - Labs Labs: 06/27/18 06:40 06/27/18 06:40 PT 17.6 Seconds (9.8-13.1) H 06/15/18 08:40 INR 1.5 06/15/18 08:40 - Constitutional Appears: Non-toxic - Head Exam Head Exam: ATRAUMATIC, NORMAL INSPECTION, NORMOCEPHALIC - Eye Exam Eye Exam: EOMI, Normal appearance. absent: Scleral icterus - ENT Exam ENT Exam: Mucous Membranes Moist - Respiratory Exam Respiratory Exam: NORMAL BREATHING PATTERN. absent: Accessory Muscle Use, Respiratory Distress - GI/Abdominal Exam GI & Abdominal Exam: Soft. absent: Distended, Firm, Guarding, Rigid, Rebound Additional comments: Mild tenderness to palpation in epigastrum. No rebound. Drain in place with purulent drainage noted - Extremities Exam Extremities Exam: Normal Inspection. absent: Calf Tenderness - Neurological Exam Neurological Exam: Alert, Awake, Oriented x3 - Psychiatric Exam Psychiatric exam: Normal Affect, Normal Mood - Skin Skin Exam: Dry, Intact, Normal Color, Warm Assessment and Plan - Assessment and Plan (Free Text) Assessment: 43yo F with Pancreatic pseudocyst s/p IR drain Plan: - NPO past midnight - To OR tomorrow, 06/28 for lap cystenterostomy - IV Abx as per ID - Pain management - Antiemetics as needed - Medical optimization for OR Further recs as per Dr. Elaine PGY2 Surgery <Avery Montelongo - Last Filed: 07/02/18 12:28> Objective - Vital Signs/Intake and Output Vital Signs (last 24 hours): Temp Pulse Resp BP Pulse Ox 98.7 F 90 18 114/74 96 07/02/18 08:45 07/02/18 08:45 07/02/18 08:45 07/02/18 08:45 07/02/18 08:45 Intake and Output: 07/02/18 07/02/18 06:59 18:59 Intake Total 1800 Output Total 945 Balance 855 - Medications Medications: Current Medications Acetaminophen (Tylenol 325mg Tab) 650 mg PO Q4 PRN PRN Reason: Fever >100.4 F Last Admin: 06/27/18 15:56 Dose: 650 mg Benzocaine/Menthol (Cepacol Sore Throat) 1 ab PO Q2 PRN PRN Reason: Sore Throat Last Admin: 07/02/18 10:32 Dose: 1 ab Enoxaparin Sodium (Lovenox) 40 mg SC DAILY [facility]; Protocol Last Admin: 07/02/18 10:19 Dose: 40 mg Fenofibrate (Tricor) 145 mg PO DAILY [facility] Last Admin: 07/02/18 10:19 Dose: 145 mg Ferrous Sulfate (Feosol) 325 mg PO BID [facility] Last Admin: 07/02/18 10:20 Dose: 325 mg Meropenem 1 gm/ Sodium (Chloride) 100 mls @ 100 mls/hr IVPB Q8 [facility]; Protocol Last Admin: 07/02/18 10:22 Dose: 100 mls/hr Lactated Ringer's (Lactated Ringer's) 1,000 mls @ 150 mls/hr IV .Q6H40M [facility] Last Admin: 07/02/18 08:38 Dose: Not Given Ketorolac Tromethamine (Toradol) 15 mg IVP Q6 PRN PRN Reason: Pain, moderate (4-7) Last Admin: 07/02/18 12:01 Dose: 15 mg Ondansetron HCl (Zofran Inj) 4 mg IVP Q4 PRN PRN Reason: Nausea/Vomiting Last Admin: 06/28/18 16:00 Dose: 4 mg - Labs Labs: 07/02/18 09:20 07/02/18 09:20 PT 14.6 Seconds (9.8-13.1) H 06/28/18 05:35 INR 1.3 06/28/18 05:35 APTT 29.7 Seconds (25.6-37.1) 06/28/18 05:35 Assessment and Plan - Assessment and Plan (Free Text) Plan: All medical record entries made by the resident were at my direction. I have reviewed the chart and agree that the record accurately reflects my personal performance of the history, physical exam, and medical decision making.
[2018-06-27] MEDS: Enoxaparin 40 mg Syringe SC SCH (08:56)
--- NOTE | 2018-06-27 09:55 | CP.PCM.PN ---
<Mara Leon - Last Filed: 06/27/18 10:11> Subjective - Date & Time of Evaluation Date of Evaluation: 06/27/18 Time of Evaluation: 09:55 - Subjective Subjective: Pt seen bedside. Complains of pain around drainage site which seems to be leaking. Febrile yesterday. Surgery plans for OR tomorrow. Objective - Vital Signs/Intake and Output Vital Signs (last 24 hours): Temp Pulse Resp BP Pulse Ox 99 F 92 H 20 100/64 95 06/27/18 08:10 06/27/18 08:10 06/27/18 08:10 06/27/18 08:10 06/27/18 08:10 Intake and Output: 06/27/18 06/27/18 06:59 18:59 Output Total 55 Balance -55 - Medications Medications: Current Medications Acetaminophen (Tylenol 325mg Tab) 650 mg PO Q4 PRN PRN Reason: Fever >100.4 F Last Admin: 06/26/18 15:40 Dose: 650 mg Enoxaparin Sodium (Lovenox) 40 mg SC DAILY [facility]; Protocol Last Admin: 06/27/18 08:56 Dose: 40 mg Fenofibrate (Tricor) 145 mg PO DAILY [facility] Last Admin: 06/27/18 08:56 Dose: 145 mg Ferrous Sulfate (Feosol) 325 mg PO BID [facility] Last Admin: 06/27/18 08:55 Dose: 325 mg Meropenem 1 gm/ Sodium (Chloride) 100 mls @ 100 mls/hr IVPB Q8 [facility]; Protocol Last Admin: 06/27/18 08:57 Dose: 100 mls/hr Ketorolac Tromethamine (Toradol) 15 mg IVP Q6 PRN PRN Reason: Pain, moderate (4-7) Last Admin: 06/27/18 05:55 Dose: 15 mg Ondansetron HCl (Zofran Inj) 4 mg IVP Q4 PRN PRN Reason: Nausea/Vomiting Last Admin: 06/17/18 17:07 Dose: 4 mg - Labs Labs: 06/27/18 06:40 06/27/18 06:40 PT 17.6 Seconds (9.8-13.1) H 06/15/18 08:40 INR 1.5 06/15/18 08:40 - Constitutional Appears: Non-toxic, No Acute Distress - Head Exam Head Exam: NORMAL INSPECTION - Eye Exam Eye Exam: Normal appearance - ENT Exam ENT Exam: Mucous Membranes Moist - Respiratory Exam Respiratory Exam: NORMAL BREATHING PATTERN. absent: Respiratory Distress - Cardiovascular Exam Cardiovascular Exam: Tachycardia - GI/Abdominal Exam GI & Abdominal Exam: Soft, Tenderness (around drainage site) - Neurological Exam Neurological Exam: Alert, Awake, Normal Gait - Psychiatric Exam Psychiatric exam: Normal Affect, Normal Mood - Skin Skin Exam: Normal Color, Warm Assessment and Plan - Assessment and Plan (Free Text) Assessment: 43 yr old F presents to the ED from [facility] 1 week after hospital discharge with intense left sided abdominal pain, specifically LLQ of 3 days duration. Patient was discharged one week prior after hospitalization for sepsis due to acute p ancreatitis secondary to severe hypertriglyceridemia complicated by pseudocysts/phlegmon. Patient continues to have drain output. Abd drain output: 700 (5/3) -200 (5/4) -400 (5/5)-110 (/6)- 420 (7)- 200 (8)- 50 (06/22)- 60 (06/23) - 255 (06/24)- 10 (06/25)- 55 (06/26)- 7 (06/27) Plan: Sepsis secondary to Pancreatic Pseudocyst -Afebril >24 hrs, VSS -IR drainage, Dr Hancock 06/15 ---e.coli ray-sensitive ---follow up drain output: 700 (5/3) -200 (5/4) -400 (5/5)-110 (/6)- 420 (/7)- 200 (8)- 50 (06/22)- 60 (06/23)- 255 (06/24)- 10 (06/25)- 55 (06/26)- 7 (06/27) ---nurses to flush drain 2x/day, Q12 -ID consulted, Dr Gould, input and recs appreciated -Surgery consulted, Dr Belle, OR TOMORROW 06/28 -s/p 2 units PRBC, Hg stable -Meropenem as per ID -CT: 1. Redemonstration of large septated multilocular fluid collection in the lesser sac extending to the left anterior and posterior pararenal spaces, left paracolic gutter, left lower quadrant and left hemipelvis. Scattered few foci of air within the collection. The sterility of this collection cannot be determined on the basis of imaging. 2. Worsening moderate left pleural effusion. Pleural Effusion, Left -CT (06/21): mass effect displacing heart -IR drainage, Dr Win, 1400cc sl cloudy fluid -Culture: no growth x 2 days DVT Prophylaxis -SCD's <PrakashIssac D - Last Filed: 06/27/18 12:04> Objective - Vital Signs/Intake and Output Vital Signs (last 24 hours): Temp Pulse Resp BP Pulse Ox 99 F 92 H 20 100/64 95 06/27/18 08:10 06/27/18 08:10 06/27/18 08:10 06/27/18 08:10 06/27/18 08:10 Intake and Output: 06/27/18 06/27/18 06:59 18:59 Output Total 55 Balance -55 - Medications Medications: Current Medications Acetaminophen (Tylenol 325mg Tab) 650 mg PO Q4 PRN PRN Reason: Fever >100.4 F Last Admin: 06/26/18 15:40 Dose: 650 mg Enoxaparin Sodium (Lovenox) 40 mg SC DAILY [facility]; Protocol Last Admin: 06/27/18 08:56 Dose: 40 mg Fenofibrate (Tricor) 145 mg PO DAILY [facility] Last Admin: 06/27/18 08:56 Dose: 145 mg Ferrous Sulfate (Feosol) 325 mg PO BID [facility] Last Admin: 06/27/18 08:55 Dose: 325 mg Meropenem 1 gm/ Sodium (Chloride) 100 mls @ 100 mls/hr IVPB Q8 [facility]; Protocol Last Admin: 06/27/18 08:57 Dose: 100 mls/hr Ketorolac Tromethamine (Toradol) 15 mg IVP Q6 PRN PRN Reason: Pain, moderate (4-7) Last Admin: 06/27/18 05:55 Dose: 15 mg Ondansetron HCl (Zofran Inj) 4 mg IVP Q4 PRN PRN Reason: Nausea/Vomiting Last Admin: 06/17/18 17:07 Dose: 4 mg - Labs Labs: 06/27/18 06:40 06/27/18 06:40 PT 17.6 Seconds (9.8-13.1) H 06/15/18 08:40 INR 1.5 06/15/18 08:40 Attending/Attestation - Attestation I have personally seen and examined this patient.: Yes I have fully participated in the care of the patient.: Yes I have reviewed all pertinent clinical information, including history, physical exam and plan: Yes Notes (Text): 06/27/18 12:03 Patient seen and examined with resident. Case discussed and agreed with assessment.
--- NOTE | 2018-06-27 12:38 | US ---
PROCEDURE: Date of procedure: 06/21/2018 Procedure: 1. Ultrasound-guided left thoracentesis, CPT 55184 Medications: 6 cc 1% Lidocaine HISTORY: Left pleural effusion, shortness of breath TECHNIQUE: Following informed consent ,the Patients' left chest was marked. Procedure time-out was called, and the patient was placed in the sitting position and limited ultrasound showed a large left effusion. The patient's left back was prepped and draped in the usual sterile fashion. After the skin was anesthetized with lidocaine, a drainage catheter was advanced under ultrasound guidance into the pleural space. Ultrasound-guided thoracentesis was performed. A total of 1500 cubic centimeters of straw-colored fluid removed without complication. A Xeroform dressing was applied. IMPRESSION: Ultrasound guided left thoracentesis. There were no immediate complications.
[2018-06-28] MEDS ORDERED: Lactated Ringer's 1,000 ML IV SCH (00:01)
[2018-06-28] MEDS: Meropenem 1 GM in Sodium Chloride 0.9% 100 ML IVPB SCH ×3 (00:32→17:18)
[2018-06-28 06:28] LABS: INR 1.3; PROTHROMBIN TIME 14.6 Seconds (9.8-13.1)
[2018-06-28 06:29] LABS: BASO % 0.3 % (0.0-2.0); EOS # 0.2 K/uL (0.0-0.7); EOS % 1.3 % (0.0-4.0); HEMOGLOBIN 9.1 g/dL (12.0-16.0); LYMPH % 14.3 % (20.0-40.0); MEAN CELL VOLUME 80.5 fl (81.0-99.0); MEAN CORPUSCULAR HEMOGLOBIN 26.6 pg (27.0-31.0); MEAN PLATELET VOLUME 6.4 fl (7.2-11.7); MONO # 0.7 K/uL (0.0-0.8); MONO % 5.3 % (0.0-10.0); NEUT % 78.8 % (50.0-75.0); RBC 3.41 Mil/uL (3.80-5.20); RED CELL DISTRIBUTION WIDTH 16.7 % (11.5-14.5); WHITE BLOOD COUNT 13.9 K/uL (4.8-10.8)
[2018-06-28 06:31] LABS: PARTIAL THROMBOPLASTIN TIME 29.7 Seconds (25.6-37.1)
[2018-06-28 06:54] LABS: ALBUMIN 3.3 g/dL (3.5-5.0); ALT/SGPT 24 U/L (9-52); AST/SGOT 49 U/L (14-36); BLOOD UREA NITROGEN 7 mg/dl (7-17); CALCIUM 8.7 mg/dL (8.4-10.2); GFR NON-AFRICAN AMERICAN > 60
[2018-06-28] MEDS ORDERED: Rocuronium 10 mg/ml (5 ml) ONE ×2 (09:52→12:17)
[2018-06-28] MEDS ORDERED: Etomidate 20 mg/10ml Inj IV ONE (09:52)
[2018-06-28] MEDS ORDERED: Succinylcholine 200 mg/10 ml Inj IV ONE (09:52)
[2018-06-28] MEDS ORDERED: Propofol 10 mg/ml Inj (20 ML) ONE (09:52)
[2018-06-28] MEDS ORDERED: Phenylephrine 10 mg/ml Inj ONE (09:55)
--- NOTE | 2018-06-28 09:59 | CP.PCM.PN ---
<Mara Leon - Last Filed: 06/28/18 10:06> Subjective - Date & Time of Evaluation Date of Evaluation: 06/28/18 Time of Evaluation: 09:59 - Subjective Subjective: Pt seen and evaluated bedside. Febrile overnight, tmax 100.6. No new complaints. OR today, will reassess s/p lap cystenterostomy. Objective - Vital Signs/Intake and Output Vital Signs (last 24 hours): Temp Pulse Resp BP Pulse Ox 99.4 F 91 H 18 98/65 L 96 06/28/18 08:05 06/28/18 08:05 06/28/18 08:05 06/28/18 08:05 06/28/18 08:05 - Medications Medications: Current Medications Acetaminophen (Tylenol 325mg Tab) 650 mg PO Q4 PRN PRN Reason: Fever >100.4 F Last Admin: 06/27/18 15:56 Dose: 650 mg Enoxaparin Sodium (Lovenox) 40 mg SC DAILY [facility]; Protocol Last Admin: 06/27/18 08:56 Dose: 40 mg Fenofibrate (Tricor) 145 mg PO DAILY [facility] Last Admin: 06/28/18 08:46 Dose: Not Given Ferrous Sulfate (Feosol) 325 mg PO BID [facility] Last Admin: 06/28/18 08:46 Dose: Not Given Meropenem 1 gm/ Sodium (Chloride) 100 mls @ 100 mls/hr IVPB Q8 [facility]; Protocol Last Admin: 06/28/18 08:47 Dose: 100 mls/hr Lactated Ringer's (Lactated Ringer's) 1,000 mls @ 100 mls/hr IV .Q10H [facility] Last Admin: 06/28/18 00:32 Dose: 100 mls/hr Ketorolac Tromethamine (Toradol) 15 mg IVP Q6 PRN PRN Reason: Pain, moderate (4-7) Last Admin: 06/28/18 05:25 Dose: 15 mg Ondansetron HCl (Zofran Inj) 4 mg IVP Q4 PRN PRN Reason: Nausea/Vomiting Last Admin: 06/17/18 17:07 Dose: 4 mg - Labs Labs: 06/28/18 05:35 06/28/18 05:35 PT 14.6 Seconds (9.8-13.1) H 06/28/18 05:35 INR 1.3 06/28/18 05:35 APTT 29.7 Seconds (25.6-37.1) 06/28/18 05:35 - Constitutional Appears: Non-toxic, No Acute Distress - Head Exam Head Exam: NORMAL INSPECTION - Eye Exam Eye Exam: Normal appearance - ENT Exam ENT Exam: Mucous Membranes Dry - Respiratory Exam Respiratory Exam: Clear to Ausculation Bilateral, NORMAL BREATHING PATTERN. ab sent: Decreased Breath Sounds, Respiratory Distress - Cardiovascular Exam Cardiovascular Exam: Tachycardia (range 90-110) - GI/Abdominal Exam GI & Abdominal Exam: Soft, Tenderness (around drain insertion site) - Extremities Exam Extremities Exam: Normal Inspection. absent: Pedal Edema - Back Exam Back Exam: NORMAL INSPECTION - Neurological Exam Neurological Exam: Alert, Awake, Normal Gait, Oriented x3 - Psychiatric Exam Psychiatric exam: Normal Affect, Normal Mood - Skin Skin Exam: Pallor, Warm Assessment and Plan - Assessment and Plan (Free Text) Assessment: 43 yr old F presents to the ED from [facility] 1 week after hospital discharge with intense left sided abdominal pain, specifically LLQ of 3 days duration. Patient was discharged one week prior after hospitalization for sepsis due to acute pancreatitis secondary to severe hypertriglyceridemia complicated by pseudocysts/phlegmon. Patient continues to have drain output. Lap cystenterostomy with Dr Belle 06/28. Meropenem day #10 Abd drain output: 700 (5/3) -200 (5/4) -400 (/5)-110 (6)- 420 (06/20)- 200 (06/21)- 50 (06/22)- 60 (06/23)- 255 (06/24)- 10 (06/25)- 7 (06/26)- 75 (06/27)- 100 (06/28) Plan: Sepsis secondary to Pancreatic Pseudocyst -febrile overnight, tmax 100.6F -IR drainage, Dr Hancock 06/15 ---e.coli ray-sensitive ---follow up drain output: 700 (5/3) -200 (5/4) -400 (5/5)-110 (/6)- 420 (06/20)- 200 (06/21)- 50 (06/22)- 60 (06/23)- 255 (06/24)- 10 (06/25)- 7 (06/26)- 75 (06/27)- 100 (06/28) ---nurses to flush drain 2x/day, Q12 -ID consulted, Dr Gould, input and recs appreciated -Surgery consulted, Dr Belle, OR TODAY -s/p 2 units PRBC, Hg stable -Meropenem as per ID -CT: 1. Redemonstration of large septated multilocular fluid collection in the lesser sac extending to the left anterior and posterior pararenal spaces, left paracolic gutter, left lower quadrant and left hemipelvis. Scattered few foci of air within the collection. The sterility of this collection cannot be determined on the basis of imaging. 2. Worsening moderate left pleural effusion. Pleural Effusion, Left -CT (06/21): mass effect displacing heart -IR drainage, Dr Win, 1400cc sl cloudy fluid -Culture: no growth x 2 days DVT Prophylaxis -SCD's <Issac Prakash D - Last Filed: 06/28/18 11:03> Objective - Vital Signs/Intake and Output Vital Signs (last 24 hours): Temp Pulse Resp BP Pulse Ox 99.4 F 91 H 18 98/65 L 96 06/28/18 08:05 06/28/18 08:05 06/28/18 08:05 06/28/18 08:05 06/28/18 08:05 - Medications Medications: Current Medications Acetaminophen (Tylenol 325mg Tab) 650 mg PO Q4 PRN PRN Reason: Fever >100.4 F Last Admin: 06/27/18 15:56 Dose: 650 mg Enoxaparin Sodium (Lovenox) 40 mg SC DAILY [facility]; Protocol Last Admin: 06/27/18 08:56 Dose: 40 mg Fenofibrate (Tricor) 145 mg PO DAILY [facility] Last Admin: 06/28/18 08:46 Dose: Not Given Ferrous Sulfate (Feosol) 325 mg PO BID [facility] Last Admin: 06/28/18 08:46 Dose: Not Given Meropenem 1 gm/ Sodium (Chloride) 100 mls @ 100 mls/hr IVPB Q8 [facility]; Protocol Last Admin: 06/28/18 08:47 Dose: 100 mls/hr Lactated Ringer's (Lactated Ringer's) 1,000 mls @ 100 mls/hr IV .Q10H [facility] Last Admin: 06/28/18 00:32 Dose: 100 mls/hr Ketorolac Tromethamine (Toradol) 15 mg IVP Q6 PRN PRN Reason: Pain, moderate (4-7) Last Admin: 06/28/18 05:25 Dose: 15 mg Ondansetron HCl (Zofran Inj) 4 mg IVP Q4 PRN PRN Reason: Nausea/Vomiting Last Admin: 06/17/18 17:07 Dose: 4 mg - Labs Labs: 06/28/18 05:35 06/28/18 05:35 PT 14.6 Seconds (9.8-13.1) H 06/28/18 05:35 INR 1.3 06/28/18 05:35 APTT 29.7 Seconds (25.6-37.1) 06/28/18 05:35 Attending/Attestation - Attestation I have personally seen and examined this patient.: Yes I have fully participated in the care of the patient.: Yes I have reviewed all pertinent clinical information, including history, physical exam and plan: Yes Notes (Text): 06/28/18 11:03 Patient seen and examined with resident. Case discussed and agreed with assessment and plan.
[2018-06-28] MEDS ORDERED: Bupivacaine 0.5% Inj(30mL) ONE (11:00)
[2018-06-28] MEDS ORDERED: Morphine 5 mg/10 ml preservative-free Inj(Duramorph) ONE (11:01)
[2018-06-28] MEDS ORDERED: Midazolam 2 MG/2 ML VIAL ONE (11:01)
[2018-06-28 11:58] LABS: ABG ALLEN TEST YES; ARTERIAL BLOOD GAS HCO3 24.5 mmol/L (21-28); ARTERIAL BLOOD GAS O2 SAT 99.3 % (95-98); ARTERIAL BLOOD GAS PCO2 36 mm/Hg (35-45); ARTERIAL BLOOD GAS PH 7.42 (7.35-7.45); ARTERIAL BLOOD GAS PO2 270 mm/Hg (80-100); ARTERIAL BLOOD GAS TCO2 24.5 mmol/L (22-28)
[2018-06-28 13:19] LABS: ABG ALLEN TEST YES; ARTERIAL BLOOD GAS HCO3 25.3 mmol/L (21-28); ARTERIAL BLOOD GAS HEMOGLOBIN 8.6 g/dL (11.7-17.4); ARTERIAL BLOOD GAS O2 CAPACITY 12.4 mL/dL (16-24); ARTERIAL BLOOD GAS O2 CONTENT 12.3 ML/dL (15-23); ARTERIAL BLOOD GAS O2 SAT 99.5 % (95-98); ARTERIAL BLOOD GAS PCO2 34 mm/Hg (35-45); ARTERIAL BLOOD GAS PH 7.46 (7.35-7.45); ARTERIAL BLOOD GAS PO2 192 mm/Hg (80-100); ARTERIAL BLOOD GAS TCO2 25.2 mmol/L (22-28)
[2018-06-28] MEDS ORDERED: Neostigmine 1:1000 (1 mg/ml) Inj ONE (14:52)
[2018-06-28 15:11] LABS: ABG ALLEN TEST YES; ARTERIAL BLOOD GAS HCO3 23.7 mmol/L (21-28); ARTERIAL BLOOD GAS O2 SAT 100.7 % (95-98); ARTERIAL BLOOD GAS PCO2 34 mm/Hg (35-45); ARTERIAL BLOOD GAS PH 7.42 (7.35-7.45); ARTERIAL BLOOD GAS PO2 187 mm/Hg (80-100); ARTERIAL BLOOD GAS TCO2 23.1 mmol/L (22-28)
[2018-06-28] MEDS: Lactated Ringer's 1,000 ML IV SCH ×3 (15:30→23:30)
--- NOTE | 2018-06-28 15:42 | PCM.SURG1 ---
Surgeon's Initial Post Op Note - Surgeon's Notes Surgeon: Dr. Hyman Model Engine Mechanic: Dr. Rodríguez PGY4 Type of Anesthesia: General Endo, Spinal, Local Anesthesia Administered By: Dr. Dagoberto Toledo Pre-Operative Diagnosis: pancreatic pseudocyst Operative Findings: pancreatic pseudocyst with small bowel adhesed to hortencia Post-Operative Diagnosis: pancreatic pseudocyst Operation Performed: diagnostic laparoscopy converted to simone en y pancreatic cystjejunostomy Specimen/Specimens Removed: none Estimated Blood Loss: EBL {In ML}: 250 Blood Products Given: PRBC Drains Used: Carlton Post-Op Condition: Good Date of Surgery/Procedure: 06/28/18 Time of Surgery/Procedure: 15:42
--- NOTE | 2018-06-28 15:48 | CP.CCUPN ---
CCU Subjective - Physician Review Subjective (Free Text): Direct transfer to ICU from OR room for Recovery and post-op stay and mgmt. 43F admitted 2 weeks ago for persistent left sided abdominal pain related to recent pancreatitis from Hypertriglyceridemia, complicated by pseudocyst and phlegmon formation. Had IR placement of a peritoneal catheter for abscess drainage on 06/15, then later had Left thoracentesis on 06/21 for 1.4 L pleural fluid. Today underwent cyst entereostomy for pseudocyst drainage. Injtra-op, EBL approx. 250ml, recd 2.5 L flids, and urine output at approx. 100ml/hr; also recd 1 unit PRBCs, BPs approx. 90/50. Extubated prior to arrival to ICU. Afebrile, with temps mostly 98-99F with T max 100.6F last 24H; SBP 90-100s, HR 100s, 98% on RA; no Urine output quantification over the last week. ROS: No other pertinent negs or positives on 10+ system review obtainable. PMSFH: All other Nursing and physician documentation reviewed to date; no new pertinent info noted relevant to current medical problems. Allergies: NKDA Home Meds: Tricor, [place] 3 FFA Hosp Meds: Lovenox. Tricor, Feosol, Toradol, Ofirmev, LR 100ml/hr, Meropenem. EXAM- HEENT: no icterus, no gaze preference, pupils equal and reactive, no nystagmus; NGT in place. NECK: supple, no visible JVD, no adenopathy, thyroid non-palpable. CHEST: decreased BS at the bases, no wheezes audible bilaterally. HEART: regular, distant, tachy S1S2, no rubs or murmurs noted ABD: soft, no distention or tympany, no guarding or focal tenderness; BS absent, drain intact. EXT: no leg edema and thigh edema, no cyanosis, calf tenderness or palpable cords, distal pulses intact and symmetrical. NEURO: no focal motor deficits. SKIN: no rashes, warm and dry LABS: WBC= 13.9 HGB= 9.1 PLTs= 743 K INR 1.3 7.42/34/187 Na= 138 K= 3.9 CL= 103 HCO3= 25 BUN/Cr= 7/0.4 BS= 87 Mag 2.0 Phos= 3.6 IMPRESSION / MAJOR PROBLEMS NOW: 1. s/p Cyst Enterostomy, with drainage of pus/necrotic fluid, previously E. Coli cultured from peritoneal drainage catheter, sensitive to Meropenem 2. Chronic Pancreatitis 3. Chronic disease Anemia 4. HyperTG PLAN: 1. Monitoring in ICU overnight. 2. Serial Hgb, check repeat Coags. 3. Meropenem coverage ongoing. 4. Analgesics, IVFs as per Surgical team. 5. SCDs for now.
[2018-06-28] MEDS ORDERED: Lactated Ringer's 500 ML IV SCH (19:45)
[2018-06-29] MEDS: Meropenem 1 GM in Sodium Chloride 0.9% 100 ML IVPB SCH ×3 (01:42→16:07)
[2018-06-29 05:08] LABS: BASO % 0.2 % (0.0-2.0); HEMOGLOBIN 8.8 g/dL (12.0-16.0); LYMPH # 1.9 K/uL (1.0-4.3); LYMPH % 12.3 % (20.0-40.0); MEAN CELL VOLUME 81.6 fl (81.0-99.0); MEAN CORPUSCULAR HEMOGLOBIN 26.1 pg (27.0-31.0); MEAN PLATELET VOLUME 6.3 fl (7.2-11.7); MONO # 0.9 K/uL (0.0-0.8); MONO % 5.6 % (0.0-10.0); NEUT # 12.5 K/uL (1.8-7.0); NEUT % 81.9 % (50.0-75.0); RBC 3.38 Mil/uL (3.80-5.20); RED CELL DISTRIBUTION WIDTH 16.8 % (11.5-14.5); WHITE BLOOD COUNT 15.3 K/uL (4.8-10.8)
[2018-06-29 05:18] LABS: ALB/GLOB RATIO 0.8 (1.0-2.1); ALBUMIN 2.1 g/dL (3.5-5.0); ALT/SGPT 23 U/L (9-52); AST/SGOT 33 U/L (14-36); BLOOD UREA NITROGEN 8 mg/dl (7-17); CALCIUM 7.8 mg/dL (8.4-10.2); GFR NON-AFRICAN AMERICAN > 60
[2018-06-29] MEDS ORDERED: Lactated Ringer's 1,000 ML IV SCH (06:15)
--- NOTE | 2018-06-29 07:45 | CP.PCM.PN ---
<Angela Valdez - Last Filed: 06/29/18 10:27> Subjective - Date & Time of Evaluation Date of Evaluation: 06/29/18 Time of Evaluation: 07:45 - Subjective Subjective: 43 yr old F presented to the ED with intense left sided abdominal pain, specifically LLQ of 3 days duration admitted for acute pancreatitis secondary to severe hypertriglyceridemia complicated by pseudocysts/phlegmon. Patient is POD #1; reports mild abdominal pain, feels abdominal gases but has not passed flatus per rectum or passed a BM. Is NPO, NG tube is in place. Denies angina, dypsnea, nausea, diarrhea. Urine output is 900 mL since operation. Ir drain in place- serosanguinous and Drain placed lower mid abdomen: serosanguinous Objective - Vital Signs/Intake and Output Vital Signs (last 24 hours): Temp Pulse Resp BP Pulse Ox 98.2 F 79 17 90/54 L 96 06/29/18 04:00 06/29/18 06:00 06/29/18 06:00 06/29/18 06:00 06/29/18 06:00 Intake and Output: 06/29/18 06/29/18 06:59 18:59 Intake Total 3500 Output Total 1095 Balance 2405 - Medications Medications: Current Medications Acetaminophen (Tylenol 325mg Tab) 650 mg PO Q4 PRN PRN Reason: Fever >100.4 F Last Admin: 06/27/18 15:56 Dose: 650 mg Enoxaparin Sodium (Lovenox) 40 mg SC DAILY [facility]; Protocol Last Admin: 06/27/18 08:56 Dose: 40 mg Fenofibrate (Tricor) 145 mg PO DAILY [facility] Last Admin: 06/28/18 08:46 Dose: Not Given Ferrous Sulfate (Feosol) 325 mg PO BID [facility] Last Admin: 06/28/18 17:17 Dose: Not Given Hydromorphone HCl (Dilaudid) 0.5 mg IVP Q3H PRN PRN Reason: Pain, severe (8-10) Meropenem 1 gm/ Sodium (Chloride) 100 mls @ 100 mls/hr IVPB Q8 [facility]; Protocol Last Admin: 06/29/18 01:42 Dose: 100 mls/hr Acetaminophen (Ofirmev) 100 mls @ 400 mls/hr IVPB Q6H [facility]; Protocol Stop: 06/29/18 13:01 Last Admin: 06/29/18 01:42 Dose: 400 mls/hr Lactated Ringer's (Lactated Ringer's) 1,000 mls @ 150 mls/hr IV .Q6H40M [facility] Last Admin: 06/28/18 23:30 Dose: Not Given Lactated Ringer's (Lactated Ringer's 500ml) 500 mls @ 999 mls/hr IV .Q31M [facility] Last Admin: 06/28/18 18:00 Dose: 999 mls/hr Lactated Ringer's (Lactated Ringer's) 1,000 mls @ 1,000 mls/hr IV .Q1H [facility] Last Admin: 06/29/18 06:34 Dose: 1,000 mls/hr Ketorolac Tromethamine (Toradol) 15 mg IVP Q6 PRN PRN Reason: Pain, moderate (4-7) Last Admin: 06/28/18 05:25 Dose: 15 mg Ondansetron HCl (Zofran Inj) 4 mg IVP Q4 PRN PRN Reason: Nausea/Vomiting Last Admin: 06/28/18 16:00 Dose: 4 mg - Labs Labs: 06/29/18 04:53 06/29/18 04:53 PT 14.6 Seconds (9.8-13.1) H 06/28/18 05:35 INR 1.3 06/28/18 05:35 APTT 29.7 Seconds (25.6-37.1) 06/28/18 05:35 - Constitutional Appears: Chronically Ill - Eye Exam Eye Exam: Normal appearance - ENT Exam ENT Exam: Mucous Membranes Moist, TM's Normal Bilaterally - Respiratory Exam Respiratory Exam: Clear to Ausculation Bilateral, NORMAL BREATHING PATTERN. absent: Accessory Muscle Use, Chest Wall Tenderness, Decreased Breath Sounds, Prolonged Expiratory Phase, Rales, Rhonchi, Wheezes, Respiratory Distress, Stridor - Cardiovascular Exam Cardiovascular Exam: REGULAR RHYTHM, +S1, +S2 - GI/Abdominal Exam GI & Abdominal Exam: Distended, Soft, Tenderness (Mildly tender to exam; IR drain in place in left flank; drain placed in mid abdomen. Both serosanguinous fluid drainage), Hypoactive Bowel Sounds. absent: Firm, Guarding, Rigid, Rebound Additional comments: NGT tube in place Carlton drain with 200 and IR drain 175 cc of output over 24 hrs - Extremities Exam Extremities Exam: Normal Capillary Refill, Normal Inspection. absent: Calf Tenderness, Joint Swelling, Pedal Edema, Tenderness Additional comments: SCD's in place - Neurological Exam Neurological Exam: Alert, Awake, Oriented x3 - Skin Skin Exam: Dry, Intact, Normal Color, Warm Assessment and Plan - Assessment and Plan (Free Text) Assessment: 43 yr old F presented to the ED with intense left sided abdominal pain, specifically LLQ of 3 days duration admitted for acute pancreatitis secondary to severe hypertriglyceridemia complicated by pseudocysts/phlegmon. Patient is POD #1 Lap converted to simone en y pancreatic cystjejunostomy with Dr. Montelongo06/28. Meropenem day #11 Abd drain output: 700 (5/3) -200 (5/4) -400 (5/5)-110 (/6)- 420 (/7)- 200 (/8)- 50 (06/22)- 60 (06/23)- 255 (06/24)- 10 (06/25)- 7 (06/26)- 75 (06/27)- 100 (06/28)- 200 (06/29) Plan: 1. Sepsis secondary to Pancreatic Pseudocyst - POD 1; - Incentive spirometer -Last fever: 06/27/18 : tmax 100.6F; afebrile overnight - s/p IR drainage, Dr Hancock 06/15 ---e.coli ray-sensitive ---follow up drain output: 700 (5/3) -200 (5/4) -400 (5/5)-110 (/6)- 420 (/7)- 200 (/8)- 50 (06/22)- 60 (06/23)- 255 (06/24)- 10 (06/25)- 7 (06/26)- 75 (06/27)- 100 (06/28); 200 (06/29) ---nurses to flush drain 2x/day, Q12 -ID consulted, Dr Gould, input and recs appreciated -Surgery rec appreciated -s/p 2 units PRBC, Hg stable -Meropenem as per ID (day 11) -CT: 1. Redemonstration of large septated multilocular fluid collection in the lesser sac extending to the left anterior and posterior pararenal spaces, left paracolic gutter, left lower quadrant and left hemipelvis. Scattered few foci of air within the collection. The sterility of this collection cannot be determined on the basis of imaging. 2. Worsening moderate left pleural effusion. 2. Pleural Effusion, Left -CT (06/21): mass effect displacing heart -IR drainage on 06/15, Dr Win, 1400cc sl cloudy fluid; IR drain in place- serosanguinous fluid -Culture: no growth x 2 days 3. DVT Prophylaxis -SCD's <Evelyn Heaton - Last Filed: 06/29/18 13:40> Objective - Vital Signs/Intake and Output Vital Signs (last 24 hours): Temp Pulse Resp BP Pulse Ox 99 F 102 H 17 102/59 L 98 06/29/18 12:00 06/29/18 12:00 06/29/18 12:00 06/29/18 12:00 06/29/18 12:00 Intake and Output: 06/29/18 06/29/18 06:59 18:59 Intake Total 3500 Output Total 1095 Balance 2405 - Medications Medications: Current Medications Acetaminophen (Tylenol 325mg Tab) 650 mg PO Q4 PRN PRN Reason: Fever >100.4 F Last Admin: 06/27/18 15:56 Dose: 650 mg Enoxaparin Sodium (Lovenox) 40 mg SC DAILY [facility]; Protocol Last Admin: 06/29/18 10:00 Dose: 40 mg Fenofibrate (Tricor) 145 mg PO DAILY [facility] Last Admin: 06/29/18 10:35 Dose: Not Given Ferrous Sulfate (Feosol) 325 mg PO BID [facility] Last Admin: 06/29/18 08:41 Dose: Not Given Hydromorphone HCl (Dilaudid) 0.5 mg IVP Q3H PRN PRN Reason: Pain, severe (8-10) Last Admin: 06/29/18 10:35 Dose: 0.5 mg Meropenem 1 gm/ Sodium (Chloride) 100 mls @ 100 mls/hr IVPB Q8 [facility]; Protocol Last Admin: 06/29/18 08:44 Dose: 100 mls/hr Lactated Ringer's (Lactated Ringer's) 1,000 mls @ 150 mls/hr IV .Q6H40M [facility] Last Admin: 06/29/18 10:44 Dose: 150 mls/hr Lactated Ringer's (Lactated Ringer's 500ml) 500 mls @ 999 mls/hr IV .Q31M [facility] Last Admin: 06/28/18 18:00 Dose: 999 mls/hr Lactated Ringer's (Lactated Ringer's) 1,000 mls @ 1,000 mls/hr IV .Q1H [facility] Last Admin: 06/29/18 06:34 Dose: 1,000 mls/hr Ketorolac Tromethamine (Toradol) 15 mg IVP Q6 PRN PRN Reason: Pain, moderate (4-7) Last Admin: 06/28/18 05:25 Dose: 15 mg Ondansetron HCl (Zofran Inj) 4 mg IVP Q4 PRN PRN Reason: Nausea/Vomiting Last Admin: 06/28/18 16:00 Dose: 4 mg - Labs Labs: 06/29/18 04:53 06/29/18 04:53 PT 14.6 Seconds (9.8-13.1) H 06/28/18 05:35 INR 1.3 06/28/18 05:35 APTT 29.7 Seconds (25.6-37.1) 06/28/18 05:35 Attending/Attestation - Attestation I have personally seen and examined this patient.: Yes I have fully participated in the care of the patient.: Yes I have reviewed all pertinent clinical information, including history, physical exam and plan: Yes Notes (Text): 1. Sepsis (POA) due to Peritoneal Abscess due to Pancreatitis w/ Pseudocyst s/p Placement of Multihole catheter/Drainage of Abscess s/p Simone en Y Pancreatic Cystjejunostomy (06/28) 2. Pleural Effusion s/p Thoracentesis 3. Hypertriglyceridemia Rpt CT of abd and pelvis 06/26 -Complex pseudocyst related to the body and tail the pancreas is again seen at the lesser sac extending into the left para renal space and pericolic gutter into the left hemipelvis with drainage catheter unchanged in position. There is a slight increase in the volume of the pararenal/pericolic gutter segment of the collection with lesser sac collection not simply changed in position. Increased limited gas is seen within the pararenal/pericolic gutter component possibly related to the catheter though an abscess may be developing. No significant change in minimal gas in the lesser sac portion of the pseudocyst. Clinically correlate with daily drainage from catheter. In addition, surgical consultation is advised as well. - due to the increase in volume of abscess in the gutter, persistent fever and leukocytosis , decision was made by Surgery to do Diagnostic Laparoscopy w/c then was converted to a Simone en Y Cystojejunostomy - cont IV Meropenem -Pt is NPO, NGT in place - ant abd BERHANE drain in place, drain placed by IR on the left flank -Pain mgt - IVF hydration -Lovenox for DVT proph
--- NOTE | 2018-06-29 08:03 | CP.PCM.PN ---
<Sonu Dash - Last Filed: 06/29/18 08:12> Subjective - Date & Time of Evaluation Date of Evaluation: 06/29/18 Time of Evaluation: 08:00 - Subjective Subjective: HBP Surgery Note for Dr. Hyman Patient seen and examined at bedside. Overnight, patient became oliguric. Bolus was given and UOP increased. Patient is s/p lap converted open simone en y cystjejunstomy POD#1. UOP was 900 cc since OR. Carlton drain with 200 and IR drain 175 cc of output over 24 hrs. Patient complaining of abd pain controlled with meds. She is still NPO with NGT. NGT had cc of ouput. She is also complaining about NGT and sore throat. Objective - Vital Signs/Intake and Output Vital Signs (last 24 hours): Temp Pulse Resp BP Pulse Ox 98.2 F 79 17 90/54 L 96 06/29/18 04:00 06/29/18 06:00 06/29/18 06:00 06/29/18 06:00 06/29/18 06:00 Intake and Output: 06/29/18 06/29/18 06:59 18:59 Intake Total 3500 Output Total 1095 Balance 2405 - Medications Medications: Current Medications Acetaminophen (Tylenol 325mg Tab) 650 mg PO Q4 PRN PRN Reason: Fever >100.4 F Last Admin: 06/27/18 15:56 Dose: 650 mg Enoxaparin Sodium (Lovenox) 40 mg SC DAILY [facility]; Protocol Last Admin: 06/27/18 08:56 Dose: 40 mg Fenofibrate (Tricor) 145 mg PO DAILY [facility] Last Admin: 06/28/18 08:46 Dose: Not Given Ferrous Sulfate (Feosol) 325 mg PO BID [facility] Last Admin: 06/28/18 17:17 Dose: Not Given Hydromorphone HCl (Dilaudid) 0.5 mg IVP Q3H PRN PRN Reason: Pain, severe (8-10) Meropenem 1 gm/ Sodium (Chloride) 100 mls @ 100 mls/hr IVPB Q8 [facility]; Protocol Last Admin: 06/29/18 01:42 Dose: 100 mls/hr Acetaminophen (Ofirmev) 100 mls @ 400 mls/hr IVPB Q6H [facility]; Protocol Stop: 06/29/18 13:01 Last Admin: 06/29/18 01:42 Dose: 400 mls/hr Lactated Ringer's (Lactated Ringer's) 1,000 mls @ 150 mls/hr IV .Q6H40M [facility] Last Admin: 06/28/18 23:30 Dose: Not Given Lactated Ringer's (Lactated Ringer's 500ml) 500 mls @ 999 mls/hr IV .Q31M [facility] Last Admin: 06/28/18 18:00 Dose: 999 mls/hr Lactated Ringer's (Lactated Ringer's) 1,000 mls @ 1,000 mls/hr IV .Q1H [facility] Last Admin: 06/29/18 06:34 Dose: 1,000 mls/hr Ketorolac Tromethamine (Toradol) 15 mg IVP Q6 PRN PRN Reason: Pain, moderate (4-7) Last Admin: 06/28/18 05:25 Dose: 15 mg Ondansetron HCl (Zofran Inj) 4 mg IVP Q4 PRN PRN Reason: Nausea/Vomiting Last Admin: 06/28/18 16:00 Dose: 4 mg - Labs Labs: 06/29/18 04:53 06/29/18 04:53 PT 14.6 Seconds (9.8-13.1) H 06/28/18 05:35 INR 1.3 06/28/18 05:35 APTT 29.7 Seconds (25.6-37.1) 06/28/18 05:35 - Constitutional Appears: No Acute Distress - Head Exam Head Exam: ATRAUMATIC, NORMOCEPHALIC - Eye Exam Eye Exam: EOMI, Normal appearance Pupil Exam: PERRL - ENT Exam ENT Exam: Mucous Membranes Moist - Respiratory Exam Respiratory Exam: NORMAL BREATHING PATTERN - Cardiovascular Exam Cardiovascular Exam: REGULAR RHYTHM - GI/Abdominal Exam GI & Abdominal Exam: Soft, Tenderness, Normal Bowel Sounds. absent: Distended, Guarding, Rigid, Rebound Additional comments: Surgical sites clean dry and intact carlton drain lower abd IR drain still in place left flank - Extremities Exam Extremities Exam: Normal Capillary Refill - Back Exam Back Exam: absent: CVA tenderness (L), CVA tenderness (R) - Neurological Exam Neurological Exam: Alert, Awake, Oriented x3 - Psychiatric Exam Psychiatric exam: Normal Affect, Normal Mood - Skin Skin Exam: Dry, Intact, Warm Assessment and Plan - Assessment and Plan (Free Text) Assessment: 43 F with PMH of extensive pancreatitis with pseudocyst s/p s/p lap converted open simone en y cystjejunstomy POD#1 Plan: -NPO -NGT low continuous suction -IVF -IV abx -Pain control -Antiemetics PRN -Strict I's & O's -PT -OOB/IS/Ambulation -Further recs as per Dr. [place] PGY2 <Avery Montelongo - Last Filed: 06/30/18 16:16> Objective - Vital Signs/Intake and Output Vital Signs (last 24 hours): Temp Pulse Resp BP Pulse Ox 99 F 110 H 20 113/74 97 06/30/18 15:58 06/30/18 15:58 06/30/18 15:58 06/30/18 15:58 06/30/18 15:58 Intake and Output: 06/30/18 06/30/18 06:59 18:59 Intake Total 1450 Output Total 725 Balance 725 - Medications Medications: Current Medications Acetaminophen (Tylenol 325mg Tab) 650 mg PO Q4 PRN PRN Reason: Fever >100.4 F Last Admin: 06/27/18 15:56 Dose: 650 mg Enoxaparin Sodium (Lovenox) 40 mg SC DAILY [facility]; Protocol Last Admin: 06/30/18 11:36 Dose: 40 mg Fenofibrate (Tricor) 145 mg PO DAILY [facility] Last Admin: 06/30/18 09:15 Dose: Not Given Ferrous Sulfate (Feosol) 325 mg PO BID [facility] Last Admin: 06/30/18 09:15 Dose: Not Given Hydromorphone HCl (Dilaudid) 0.5 mg IVP Q3H PRN PRN Reason: Pain, severe (8-10) Last Admin: 06/30/18 09:32 Dose: 0.5 mg Meropenem 1 gm/ Sodium (Chloride) 100 mls @ 100 mls/hr IVPB Q8 [facility]; Protocol Last Admin: 06/30/18 11:33 Dose: 100 mls/hr Lactated Ringer's (Lactated Ringer's) 1,000 mls @ 150 mls/hr IV .Q6H40M [facility] Last Admin: 06/30/18 15:10 Dose: Not Given Lactated Ringer's (Lactated Ringer's) 1,000 mls @ 1,000 mls/hr IV .Q1H [facility] Last Admin: 06/30/18 15:12 Dose: 1,000 mls/hr Ketorolac Tromethamine (Toradol) 15 mg IVP Q6 PRN PRN Reason: Pain, moderate (4-7) Last Admin: 06/28/18 05:25 Dose: 15 mg Ondansetron HCl (Zofran Inj) 4 mg IVP Q4 PRN PRN Reason: Nausea/Vomiting Last Admin: 06/28/18 16:00 Dose: 4 mg - Labs Labs: 06/30/18 06:15 06/30/18 06:15 PT 14.6 Seconds (9.8-13.1) H 06/28/18 05:35 INR 1.3 06/28/18 05:35 APTT 29.7 Seconds (25.6-37.1) 06/28/18 05:35 Assessment and Plan - Assessment and Plan (Free Text) Assessment: All medical record entries made by the resident were at my direction. I have reviewed the chart and agree that the record accurately reflects my personal performance of the history, physical exam, and medical decision making. Plan: All medical record entries made by the resident were at my direction. I have reviewed the chart and agree that the record accurately reflects my personal pe rformance of the history, physical exam, and medical decision making.
[2018-06-29] MEDS: Enoxaparin 40 mg Syringe SC SCH (10:00)
[2018-06-29] MEDS: Lactated Ringer's 1,000 ML IV SCH ×2 (10:44→20:11)
[2018-06-30] MEDS: Lactated Ringer's 1,000 ML IV SCH ×5 (00:36→21:00)
[2018-06-30] MEDS: Meropenem 1 GM in Sodium Chloride 0.9% 100 ML IVPB SCH ×3 (01:11→17:03)
[2018-06-30 06:38] LABS: BASO # 0.1 K/uL (0.0-0.2); BASO % 0.4 % (0.0-2.0); EOS # 0.1 K/uL (0.0-0.7); EOS % 0.6 % (0.0-4.0); HEMOGLOBIN 9.1 g/dL (12.0-16.0); LYMPH # 1.7 K/uL (1.0-4.3); LYMPH % 11.6 % (20.0-40.0); MEAN CELL VOLUME 82.7 fl (81.0-99.0); MEAN CORPUSCULAR HEMOGLOBIN 26.6 pg (27.0-31.0); MEAN CORPUSCULAR HGB CONC 32.1 g/dL (33.0-37.0); MEAN PLATELET VOLUME 6.1 fl (7.2-11.7); MONO # 0.7 K/uL (0.0-0.8); MONO % 4.6 % (0.0-10.0); NEUT # 12.2 K/uL (1.8-7.0); NEUT % 82.8 % (50.0-75.0); RBC 3.41 Mil/uL (3.80-5.20); WHITE BLOOD COUNT 14.7 K/uL (4.8-10.8)
[2018-06-30 06:42] LABS: BLOOD UREA NITROGEN 5 mg/dl (7-17); CALCIUM 7.7 mg/dL (8.4-10.2); GFR NON-AFRICAN AMERICAN > 60
--- NOTE | 2018-06-30 10:11 | CP.PCM.PN ---
<Angela Valdez - Last Filed: 06/30/18 10:57> Subjective - Date & Time of Evaluation Date of Evaluation: 06/30/18 Time of Evaluation: 10:11 - Subjective Subjective: Patient reports feeling well and that her abdominal pain is well controlled with pain. Denies chest pain, dyspnea, nausea, vomiting, dysuria. UOP was 875 mL. Carlton drain with 130. She is still NPO with NGT. Reports continued swelling of right hand and sore throat from the NGT tube. Objective - Vital Signs/Intake and Output Vital Signs (last 24 hours): Temp Pulse Resp BP Pulse Ox 98.8 F 78 18 115/68 95 06/30/18 08:10 06/30/18 08:10 06/30/18 08:10 06/30/18 08:10 06/30/18 08:10 Intake and Output: 06/30/18 06/30/18 06:59 18:59 Intake Total 1450 Output Total 725 Balance 725 - Medications Medications: Current Medications Acetaminophen (Tylenol 325mg Tab) 650 mg PO Q4 PRN PRN Reason: Fever >100.4 F Last Admin: 06/27/18 15:56 Dose: 650 mg Enoxaparin Sodium (Lovenox) 40 mg SC DAILY [facility]; Protocol Last Admin: 06/29/18 10:00 Dose: 40 mg Fenofibrate (Tricor) 145 mg PO DAILY [facility] Last Admin: 06/30/18 09:15 Dose: Not Given Ferrous Sulfate (Feosol) 325 mg PO BID [facility] Last Admin: 06/30/18 09:15 Dose: Not Given Hydromorphone HCl (Dilaudid) 0.5 mg IVP Q3H PRN PRN Reason: Pain, severe (8-10) Last Admin: 06/30/18 09:32 Dose: 0.5 mg Meropenem 1 gm/ Sodium (Chloride) 100 mls @ 100 mls/hr IVPB Q8 [facility]; Protocol Last Admin: 06/30/18 01:11 Dose: 100 mls/hr Lactated Ringer's (Lactated Ringer's) 1,000 mls @ 150 mls/hr IV .Q6H40M [facility] Last Admin: 06/30/18 09:15 Dose: Not Given Ketorolac Tromethamine (Toradol) 15 mg IVP Q6 PRN PRN Reason: Pain, moderate (4-7) Last Admin: 06/28/18 05:25 Dose: 15 mg Ondansetron HCl (Zofran Inj) 4 mg IVP Q4 PRN PRN Reason: Nausea/Vomiting Last Admin: 06/28/18 16:00 Dose: 4 mg - Labs Labs: 06/30/18 06:15 06/30/18 06:15 PT 14.6 Seconds (9.8-13.1) H 06/28/18 05:35 INR 1.3 06/28/18 05:35 APTT 29.7 Seconds (25.6-37.1) 06/28/18 05:35 - Constitutional Appears: Non-toxic, No Acute Distress - Eye Exam Eye Exam: Normal appearance - ENT Exam ENT Exam: Mucous Membranes Moist Additional comments: NGT in place. - Respiratory Exam Respiratory Exam: Clear to Ausculation Bilateral, NORMAL BREATHING PATTERN. absent: Accessory Muscle Use, Chest Wall Tenderness, Decreased Breath Sounds, Prolonged Expiratory Phase, Rales, Rhonchi, Wheezes, Respiratory Distress, Stridor - Cardiovascular Exam Cardiovascular Exam: REGULAR RHYTHM, +S1, +S2 - GI/Abdominal Exam GI & Abdominal Exam: Soft, Tenderness (Generalized tenderness), Normal Bowel Sounds. absent: Distended, Firm, Guarding, Rigid, Hernia, Mass, Rebound Additional comments: Clean incision sites; IR drain in place with green fluid in bag; mid line Abdominal drain in place - serosanguinous fluid. - Extremities Exam Extremities Exam: Normal Capillary Refill, Normal Inspection. absent: Calf Tenderness, Pedal Edema, Tenderness - Neurological Exam Neurological Exam: Alert, Awake, Oriented x3 - Psychiatric Exam Psychiatric exam: Normal Affect, Normal Mood - Skin Skin Exam: Dry, Intact, Normal Color, Warm Assessment and Plan - Assessment and Plan (Free Text) Assessment: 43 yr old F presented to the ED with intense left sided abdominal pain, specifically LLQ of 3 days duration admitted for acute pancreatitis secondary to severe hypertriglyceridemia complicated by pseudocysts/phlegmon. Patient is POD #2 Lap converted to simone en y pancreatic cystjejunostomy with Dr. Montelongo 06/28. Meropenem day #11 Abd drain output: 700 (5/3) -200 (5/4) -400 (5/5)-110 (5/6)- 420 (06/20)- 200 (8)- 50 (06/22)- 60 (06/23)- 255 (06/24)- 10 (06/25)- 7 (06/26)- 75 (06/27)- 100 (06/28)- 200 (06/29)- 130 (06/30/18) Plan: 1. Sepsis secondary to Pancreatic Pseudocyst - POD 2 - Incentive spirometer -Last fever: 06/27/18 : tmax 100.6F; afebrile overnight - s/p IR drainage, Dr Hancock 06/15 ---e.coli ray-sensitive ---follow up drain output: 700 (06/16) -200 (06/17) -400 (06/18)-110 (06/19)- 420 (06/20)- 200 (06/21)- 50 (06/22)- 60 (06/23)- 255 (06/24)- 10 (06/25)- 7 (06/26)- 75 (06/27)- 100 (06/28); 200 (06/29); 130 (06/30/18) ---nurses to flush drain 2x/day, Q12 -ID consulted, Dr Gould, input and recs appreciated -Surgery rec appreciated -s/p 2 units PRBC, Hg stable -Meropenem as per ID (day 12) -CT: 1. Redemonstration of large septated multilocular fluid collection in the lesser sac extending to the left anterior and posterior pararenal spaces, left paracolic gutter, left lower quadrant and left hemipelvis. Scattered few foci of air within the collection. The sterility of this collection cannot be determined on the basis of imaging. 2. Worsening moderate left pleural effusion. 2. Pleural Effusion, Left -CT (06/21): mass effect displacing heart -IR drainage on 06/15, Dr Win, 1400cc sl cloudy fluid; IR drain in place- serosanguinous fluid -Culture: no growth x 2 days 3. DVT Prophylaxis -SCD's <Evelyn Heaton - Last Filed: 06/30/18 15:04> Objective - Vital Signs/Intake and Output Vital Signs (last 24 hours): Temp Pulse Resp BP Pulse Ox 99.9 F H 108 H 18 108/71 95 06/30/18 13:00 06/30/18 13:00 06/30/18 13:00 06/30/18 13:00 06/30/18 13:00 Intake and Output: 06/30/18 06/30/18 06:59 18:59 Intake Total 1450 Output Total 725 Balance 725 - Medications Medications: Current Medications Acetaminophen (Tylenol 325mg Tab) 650 mg PO Q4 PRN PRN Reason: Fever >100.4 F Last Admin: 06/27/18 15:56 Dose: 650 mg Enoxaparin Sodium (Lovenox) 40 mg SC DAILY [facility]; Protocol Last Admin: 06/30/18 11:36 Dose: 40 mg Fenofibrate (Tricor) 145 mg PO DAILY [facility] Last Admin: 06/30/18 09:15 Dose: Not Given Ferrous Sulfate (Feosol) 325 mg PO BID [facility] Last Admin: 06/30/18 09:15 Dose: Not Given Hydromorphone HCl (Dilaudid) 0.5 mg IVP Q3H PRN PRN Reason: Pain, severe (8-10) Last Admin: 06/30/18 09:32 Dose: 0.5 mg Meropenem 1 gm/ Sodium (Chloride) 100 mls @ 100 mls/hr IVPB Q8 [facility]; Protocol Last Admin: 06/30/18 11:33 Dose: 100 mls/hr Lactated Ringer's (Lactated Ringer's) 1,000 mls @ 150 mls/hr IV .Q6H40M [facility] Last Admin: 06/30/18 09:15 Dose: Not Given Lactated Ringer's (Lactated Ringer's) 1,000 mls @ 1,000 mls/hr IV .Q1H [facility] Ketorolac Tromethamine (Toradol) 15 mg IVP Q6 PRN PRN Reason: Pain, moderate (4-7) Last Admin: 06/28/18 05:25 Dose: 15 mg Ondansetron HCl (Zofran Inj) 4 mg IVP Q4 PRN PRN Reason: Nausea/Vomiting Last Admin: 06/28/18 16:00 Dose: 4 mg - Labs Labs: 06/30/18 06:15 06/30/18 06:15 PT 14.6 Seconds (9.8-13.1) H 06/28/18 05:35 INR 1.3 06/28/18 05:35 APTT 29.7 Seconds (25.6-37.1) 06/28/18 05:35 Attending/Attestation - Attestation I have personally seen and examined this patient.: Yes I have fully participated in the care of the patient.: Yes I have reviewed all pertinent clinical information, including history, physical exam and plan: Yes Notes (Text): 1. Sepsis due to Peritoneal Abscess due to Pancreatitis w/ Pseudocyst s/p Placement of Multihole catheter/Drainage of Abscess, s/p Simone en Y Pancreatic Cystjejunostomy (06/28) 2. Pleural Effusion s/p Thoracentesis 3. Hypertriglyceridemia Rpt CT of abd and pelvis 06/26 -Complex pseudocyst related to the body and tail the pancreas is again seen at the lesser sac extending into the left para renal space and pericolic gutter into the left hemipelvis with drainage catheter unchanged in position. There is a slight increase in the volume of the pararenal/pericolic gutter segment of the collection with lesser sac collection not simply changed in position. Increased limited gas is seen within the pararenal/pericolic gutter component possibly related to the catheter though an abscess may be developing. No significant change in minimal gas in the lesser sac portion of the pseudocyst. Clinically correlate with daily drainage from catheter. In addition, surgical consultation is advised as well. - due to the increase in volume of abscess in the gutter, persistent fever and leukocytosis , decision was made by Surgery to do Diagnostic Laparoscopy w/c then was converted to a Simone en Y Cystojejunostomy - no BM nor flatus, hypoactive BS - cont IV Meropenem -Pt is NPO, NGT in place draining bilious fluid - [address] : ant abd drain ( placed in OR) and drain placed by IR on the left flank ( 290 ml + 130 ml) -Pain mgt - IVF hydration -Lovenox for DVT proph
[2018-06-30] MEDS: Enoxaparin 40 mg Syringe SC SCH (11:36)
--- NOTE | 2018-06-30 13:51 | CP.PCM.PN ---
<Sam Lane - Last Filed: 06/30/18 16:30> Subjective - Date & Time of Evaluation Date of Evaluation: 06/30/18 Time of Evaluation: 13:49 - Subjective Subjective: Surgery Progress Note for Dr. Hyman 43F seen and evaluated at bedside this morning. No acute events overnight. NGT to suction, 150cc overnight. Carlton drain 110cc and IR drain 90cc serosanguinous output. UOP 375cc overnight. Complaints of nose, throat pain. Abdominal pain controlled. No nausea or vomiting. Denies BM or passing flatus. Denies f/c, SOB, CP, or urinary symptoms. Objective - Vital Signs/Intake and Output Vital Signs (last 24 hours): Temp Pulse Resp BP Pulse Ox 99.9 F H 108 H 18 108/71 95 06/30/18 13:00 06/30/18 13:00 06/30/18 13:00 06/30/18 13:00 06/30/18 13:00 Intake and Output: 06/30/18 06/30/18 06:59 18:59 Intake Total 1450 Output Total 725 Balance 725 - Medications Medications: Current Medications Acetaminophen (Tylenol 325mg Tab) 650 mg PO Q4 PRN PRN Reason: Fever >100.4 F Last Admin: 06/27/18 15:56 Dose: 650 mg Enoxaparin Sodium (Lovenox) 40 mg SC DAILY [facility]; Protocol Last Admin: 06/30/18 11:36 Dose: 40 mg Fenofibrate (Tricor) 145 mg PO DAILY [facility] Last Admin: 06/30/18 09:15 Dose: Not Given Ferrous Sulfate (Feosol) 325 mg PO BID [facility] Last Admin: 06/30/18 09:15 Dose: Not Given Hydromorphone HCl (Dilaudid) 0.5 mg IVP Q3H PRN PRN Reason: Pain, severe (8-10) Last Admin: 06/30/18 09:32 Dose: 0.5 mg Meropenem 1 gm/ Sodium (Chloride) 100 mls @ 100 mls/hr IVPB Q8 [facility]; Protocol Last Admin: 06/30/18 11:33 Dose: 100 mls/hr Lactated Ringer's (Lactated Ringer's) 1,000 mls @ 150 mls/hr IV .Q6H40M [facility] Last Admin: 06/30/18 09:15 Dose: Not Given Ketorolac Tromethamine (Toradol) 15 mg IVP Q6 PRN PRN Reason: Pain, moderate (4-7) Last Admin: 06/28/18 05:25 Dose: 15 mg Ondansetron HCl (Zofran Inj) 4 mg IVP Q4 PRN PRN Reason: Nausea/Vomiting Last Admin: 06/28/18 16:00 Dose: 4 mg - Labs Labs: 06/30/18 06:15 06/30/18 06:15 PT 14.6 Seconds (9.8-13.1) H 06/28/18 05:35 INR 1.3 06/28/18 05:35 APTT 29.7 Seconds (25.6-37.1) 06/28/18 05:35 - Constitutional Appears: Well, Non-toxic, No Acute Distress - Eye Exam Eye Exam: EOMI - ENT Exam ENT Exam: Mucous Membranes Dry - Respiratory Exam Respiratory Exam: NORMAL BREATHING PATTERN. absent: Wheezes, Respiratory Distress - Cardiovascular Exam Cardiovascular Exam: REGULAR RHYTHM, +S1, +S2 - GI/Abdominal Exam GI & Abdominal Exam: Soft, Tenderness, Normal Bowel Sounds. absent: Distended Additional comments: surgical incision site c/d/i - Neurological Exam Neurological Exam: Alert, Awake, Oriented x3 - Psychiatric Exam Psychiatric exam: Normal Affect, Normal Mood - Skin Skin Exam: Dry, Intact, Normal Color, Warm Assessment and Plan - Assessment and Plan (Free Text) Assessment: 43 F with PMH of extensive pancreatitis with pseudocyst s/p lap converted open simone en y cystjejunstomy POD#2 Plan: NPO NGT to suction FU upper GI series LR @ 150 Decreased UOP overnight - 1L bolus LR ordered IV abx Analgesics and Antiemetics PRN Strict I's & O's Aggressive PT Encourage OOB/IS/Ambulation Further recs as per Dr. Mariee PGY1 <Avery Montelongo - Last Filed: 07/02/18 12:26> Objective - Vital Signs/Intake and Output Vital Signs (last 24 hours): Temp Pulse Resp BP Pulse Ox 98.7 F 90 18 114/74 96 07/02/18 08:45 07/02/18 08:45 07/02/18 08:45 07/02/18 08:45 07/02/18 08:45 Intake and Output: 07/02/18 07/02/18 06:59 18:59 Intake Total 1800 Output Total 945 Balance 855 - Medications Medications: Current Medications Acetaminophen (Tylenol 325mg Tab) 650 mg PO Q4 PRN PRN Reason: Fever >100.4 F Last Admin: 06/27/18 15:56 Dose: 650 mg Benzocaine/Menthol (Cepacol Sore Throat) 1 ab PO Q2 PRN PRN Reason: Sore Throat Last Admin: 07/02/18 10:32 Dose: 1 ab Enoxaparin Sodium (Lovenox) 40 mg SC DAILY [facility]; Protocol Last Admin: 07/02/18 10:19 Dose: 40 mg Fenofibrate (Tricor) 145 mg PO DAILY [facility] Last Admin: 07/02/18 10:19 Dose: 145 mg Ferrous Sulfate (Feosol) 325 mg PO BID [facility] Last Admin: 07/02/18 10:20 Dose: 325 mg Meropenem 1 gm/ Sodium (Chloride) 100 mls @ 100 mls/hr IVPB Q8 [facility]; Protocol Last Admin: 07/02/18 10:22 Dose: 100 mls/hr Lactated Ringer's (Lactated Ringer's) 1,000 mls @ 150 mls/hr IV .Q6H40M [facility] Last Admin: 07/02/18 08:38 Dose: Not Given Ketorolac Tromethamine (Toradol) 15 mg IVP Q6 PRN PRN Reason: Pain, moderate (4-7) Last Admin: 07/02/18 12:01 Dose: 15 mg Ondansetron HCl (Zofran Inj) 4 mg IVP Q4 PRN PRN Reason: Nausea/Vomiting Last Admin: 06/28/18 16:00 Dose: 4 mg - Labs Labs: 07/02/18 09:20 07/02/18 09:20 PT 14.6 Seconds (9.8-13.1) H 06/28/18 05:35 INR 1.3 06/28/18 05:35 APTT 29.7 Seconds (25.6-37.1) 06/28/18 05:35 Assessment and Plan - Assessment and Plan (Free Text) Plan: All medical record entries made by the resident were at my direction. I have reviewed the chart and agree that the record accurately reflects my personal performance of the history, physical exam, and medical decision making.
[2018-06-30] MEDS ORDERED: Lactated Ringer's 1,000 ML IV SCH (14:00)
[2018-06-30] MEDS ORDERED: Iohexol 350mg/ml 100 ML PO ONE (19:52)
[2018-07-01] MEDS: Meropenem 1 GM in Sodium Chloride 0.9% 100 ML IVPB SCH ×3 (00:12→17:13)
[2018-07-01] MEDS: Lactated Ringer's 1,000 ML IV SCH ×2 (02:00→12:42)
[2018-07-01] MEDS: Benzocaine/Menthol (Cepacol) Lozenge PO PRN ×2 (06:22→12:47)
[2018-07-01 07:19] LABS: BASO % 0.3 % (0.0-2.0); EOS # 0.2 K/uL (0.0-0.7); EOS % 2.3 % (0.0-4.0); HEMOGLOBIN 8.6 g/dL (12.0-16.0); LYMPH # 1.6 K/uL (1.0-4.3); LYMPH % 14.5 % (20.0-40.0); MEAN CELL VOLUME 81.5 fl (81.0-99.0); MEAN CORPUSCULAR HGB CONC 33.2 g/dL (33.0-37.0); MEAN PLATELET VOLUME 6.5 fl (7.2-11.7); MONO # 0.7 K/uL (0.0-0.8); NEUT # 8.5 K/uL (1.8-7.0); NEUT % 76.9 % (50.0-75.0); RBC 3.18 Mil/uL (3.80-5.20); RED CELL DISTRIBUTION WIDTH 17.2 % (11.5-14.5); WHITE BLOOD COUNT 11.1 K/uL (4.8-10.8)
[2018-07-01 08:09] LABS: ALB/GLOB RATIO 0.9 (1.0-2.1); ALBUMIN 2.5 g/dL (3.5-5.0); ALT/SGPT 21 U/L (9-52); AST/SGOT 19 U/L (14-36); BLOOD UREA NITROGEN < 2 mg/dl (7-17); CALCIUM 7.8 mg/dL (8.4-10.2); GFR NON-AFRICAN AMERICAN > 60
--- NOTE | 2018-07-01 08:39 | CP.PCM.PN ---
<SinghSaman - Last Filed: 07/01/18 08:36> Subjective - Date & Time of Evaluation Date of Evaluation: 07/01/18 Time of Evaluation: 08:36 - Subjective Subjective: HBP Surgery Progress noted. Dr. Hyman Pt seen and examined at bedside. No fevers or chills. Administered 100cc of omnipaque 350mg/ml yesterday via NGT. Abd Xray 2 hours after with contrast in what seems to be colon. Patient reports having liquid bowel movement yesterday. Awaiting AM Abd XRay. Patient states that she wants the NGT out. No other complaints. Objective - Vital Signs/Intake and Output Vital Signs (last 24 hours): Temp Pulse Resp BP Pulse Ox 99.2 F 107 H 19 107/72 96 07/01/18 05:00 07/01/18 05:00 07/01/18 05:00 07/01/18 05:00 07/01/18 05:00 Intake and Output: 07/01/18 07/01/18 06:59 18:59 Intake Total 1800 Output Total 1975 Balance -175 - Medications Medications: Current Medications Acetaminophen (Tylenol 325mg Tab) 650 mg PO Q4 PRN PRN Reason: Fever >100.4 F Last Admin: 06/27/18 15:56 Dose: 650 mg Benzocaine/Menthol (Cepacol Sore Throat) 1 ab PO Q2 PRN PRN Reason: Sore Throat Last Admin: 07/01/18 06:22 Dose: 1 ab Enoxaparin Sodium (Lovenox) 40 mg SC DAILY [facility]; Protocol Last Admin: 06/30/18 11:36 Dose: 40 mg Fenofibrate (Tricor) 145 mg PO DAILY [facility] Last Admin: 06/30/18 09:15 Dose: Not Given Ferrous Sulfate (Feosol) 325 mg PO BID [facility] Last Admin: 06/30/18 17:04 Dose: Not Given Hydromorphone HCl (Dilaudid) 0.5 mg IVP Q3H PRN PRN Reason: Pain, severe (8-10) Last Admin: 07/01/18 06:22 Dose: 0.5 mg Meropenem 1 gm/ Sodium (Chloride) 100 mls @ 100 mls/hr IVPB Q8 [facility]; Protocol Last Admin: 07/01/18 00:12 Dose: 100 mls/hr Lactated Ringer's (Lactated Ringer's) 1,000 mls @ 150 mls/hr IV .Q6H40M [facility] Last Admin: 07/01/18 02:00 Dose: 150 mls/hr Lactated Ringer's (Lactated Ringer's) 1,000 mls @ 1,000 mls/hr IV .Q1H [facility] Last Admin: 06/30/18 15:12 Dose: 1,000 mls/hr Ketorolac Tromethamine (Toradol) 15 mg IVP Q6 PRN PRN Reason: Pain, moderate (4-7) Last Admin: 06/28/18 05:25 Dose: 15 mg Ondansetron HCl (Zofran Inj) 4 mg IVP Q4 PRN PRN Reason: Nausea/Vomiting Last Admin: 06/28/18 16:00 Dose: 4 mg - Labs Labs: 07/01/18 05:20 07/01/18 05:20 PT 14.6 Seconds (9.8-13.1) H 06/28/18 05:35 INR 1.3 06/28/18 05:35 APTT 29.7 Seconds (25.6-37.1) 06/28/18 05:35 - Constitutional Appears: Well, Non-toxic, No Acute Distress - Head Exam Head Exam: ATRAUMATIC, NORMAL INSPECTION, NORMOCEPHALIC - Eye Exam Eye Exam: EOMI, Normal appearance. absent: Scleral icterus Pupil Exam: absent: PERRL - ENT Exam ENT Exam: Mucous Membranes Moist - Respiratory Exam Respiratory Exam: NORMAL BREATHING PATTERN. absent: Accessory Muscle Use, Respiratory Distress - Cardiovascular Exam Cardiovascular Exam: RRR. absent: JVD - GI/Abdominal Exam GI & Abdominal Exam: Soft. absent: Distended, Firm, Guarding, Rebound Additional comments: Soft, non-distended. Mildly tender to palpation roxi-incision. Carlton Drain with seropurulent output noted. - Extremities Exam Extremities Exam: Normal Inspection. absent: Calf Tenderness - Neurological Exam Neurological Exam: Alert, Awake, Oriented x3 - Psychiatric Exam Psychiatric exam: Normal Affect, Normal Mood - Skin Skin Exam: Dry, Intact, Normal Color, Warm Assessment and Plan - Assessment and Plan (Free Text) Assessment: 43yo F s/p Lap converted to open Leeann en Y pancreatic cystjejunostomy. POD 3 Plan: - Has return of bowel function - d/c NGT - continue to monitor bowel function - will monitor Abd Xray from this morning. May consider liquid diet if improvement noted. - Continue IVF for now - Antiemetics as needed - pain control Further recs as per Dr. Elaine PGY2 surgery <Avery Montelongo - Last Filed: 07/02/18 12:23> Objective - Vital Signs/Intake and Output Vital Signs (last 24 hours): Temp Pulse Resp BP Pulse Ox 98.7 F 90 18 114/74 96 07/02/18 08:45 07/02/18 08:45 07/02/18 08:45 07/02/18 08:45 07/02/18 08:45 Intake and Output: 07/02/18 07/02/18 06:59 18:59 Intake Total 1800 Output Total 945 Balance 855 - Medications Medications: Current Medications Acetaminophen (Tylenol 325mg Tab) 650 mg PO Q4 PRN PRN Reason: Fever >100.4 F Last Admin: 06/27/18 15:56 Dose: 650 mg Benzocaine/Menthol (Cepacol Sore Throat) 1 ab PO Q2 PRN PRN Reason: Sore Throat Last Admin: 07/02/18 10:32 Dose: 1 ab Enoxaparin Sodium (Lovenox) 40 mg SC DAILY [facility]; Protocol Last Admin: 07/02/18 10:19 Dose: 40 mg Fenofibrate (Tricor) 145 mg PO DAILY [facility] Last Admin: 07/02/18 10:19 Dose: 145 mg Ferrous Sulfate (Feosol) 325 mg PO BID [facility] Last Admin: 07/02/18 10:20 Dose: 325 mg Meropenem 1 gm/ Sodium (Chloride) 100 mls @ 100 mls/hr IVPB Q8 [facility]; Protocol Last Admin: 07/02/18 10:22 Dose: 100 mls/hr Lactated Ringer's (Lactated Ringer's) 1,000 mls @ 150 mls/hr IV .Q6H40M [facility] Last Admin: 07/02/18 08:38 Dose: Not Given Ketorolac Tromethamine (Toradol) 15 mg IVP Q6 PRN PRN Reason: Pain, moderate (4-7) Last Admin: 07/02/18 12:01 Dose: 15 mg Ondansetron HCl (Zofran Inj) 4 mg IVP Q4 PRN PRN Reason: Nausea/Vomiting Last Admin: 06/28/18 16:00 Dose: 4 mg - Labs Labs: 07/02/18 09:20 07/02/18 09:20 PT 14.6 Seconds (9.8-13.1) H 06/28/18 05:35 INR 1.3 06/28/18 05:35 APTT 29.7 Seconds (25.6-37.1) 06/28/18 05:35 Assessment and Plan - Assessment and Plan (Free Text) Plan: All medical record entries made by the resident were at my direction. I have reviewed the chart and agree that the record accurately reflects my personal performance of the history, physical exam, and medical decision making.
[2018-07-01] MEDS ORDERED: Magnesium Sulfate 1 gm in D5W 1 GM/100 ML BAG IVPB ONE (09:00)
[2018-07-01] MEDS: Potassium Chloride 20 mEq/15 ml LIQ UD PO SCH ×2 (09:37→11:39)
[2018-07-01] MEDS: Enoxaparin 40 mg Syringe SC SCH (09:52)
--- NOTE | 2018-07-01 11:04 | CP.PCM.PN ---
Subjective - Date & Time of Evaluation Date of Evaluation: 07/01/18 Time of Evaluation: 11:00 - Subjective Subjective: no fever Pt had passed gas and had BM this am mild abd pain no CP no cough no SOB NGT + 150ml over 24 hr Left flank drain 115 ml Ant lower abd drain: 10ml Objective - Vital Signs/Intake and Output Vital Signs (last 24 hours): Temp Pulse Resp BP Pulse Ox 98.7 F 115 H 20 112/75 97 07/01/18 08:47 07/01/18 08:47 07/01/18 08:47 07/01/18 08:47 07/01/18 08:47 Intake and Output: 07/01/18 07/01/18 06:59 18:59 Intake Total 2175 Output Total 2525 Balance -350 - Medications Medications: Current Medications Acetaminophen (Tylenol 325mg Tab) 650 mg PO Q4 PRN PRN Reason: Fever >100.4 F Last Admin: 06/27/18 15:56 Dose: 650 mg Benzocaine/Menthol (Cepacol Sore Throat) 1 ab PO Q2 PRN PRN Reason: Sore Throat Last Admin: 07/01/18 06:22 Dose: 1 ab Enoxaparin Sodium (Lovenox) 40 mg SC DAILY [facility]; Protocol Last Admin: 07/01/18 09:52 Dose: 40 mg Fenofibrate (Tricor) 145 mg PO DAILY [facility] Last Admin: 07/01/18 09:35 Dose: Not Given Ferrous Sulfate (Feosol) 325 mg PO BID [facility] Last Admin: 07/01/18 09:34 Dose: Not Given Hydromorphone HCl (Dilaudid) 0.5 mg IVP Q3H PRN PRN Reason: Pain, severe (8-10) Last Admin: 07/01/18 06:22 Dose: 0.5 mg Meropenem 1 gm/ Sodium (Chloride) 100 mls @ 100 mls/hr IVPB Q8 [facility]; Protocol Last Admin: 07/01/18 09:50 Dose: 100 mls/hr Lactated Ringer's (Lactated Ringer's) 1,000 mls @ 150 mls/hr IV .Q6H40M [facility] Last Admin: 07/01/18 02:00 Dose: 150 mls/hr Lactated Ringer's (Lactated Ringer's) 1,000 mls @ 1,000 mls/hr IV .Q1H [facility] Last Admin: 06/30/18 15:12 Dose: 1,000 mls/hr Ketorolac Tromethamine (Toradol) 15 mg IVP Q6 PRN PRN Reason: Pain, moderate (4-7) Last Admin: 06/28/18 05:25 Dose: 15 mg Ondansetron HCl (Zofran Inj) 4 mg IVP Q4 PRN PRN Reason: Nausea/Vomiting Last Admin: 06/28/18 16:00 Dose: 4 mg - Labs Labs: 07/01/18 05:20 07/01/18 05:20 PT 14.6 Seconds (9.8-13.1) H 06/28/18 05:35 INR 1.3 06/28/18 05:35 APTT 29.7 Seconds (25.6-37.1) 06/28/18 05:35 - Constitutional Appears: Non-toxic, No Acute Distress - Head Exam Head Exam: ATRAUMATIC, NORMAL INSPECTION, NORMOCEPHALIC - Eye Exam Eye Exam: EOMI, Normal appearance, PERRL Pupil Exam: NORMAL ACCOMODATION - ENT Exam ENT Exam: Mucous Membranes Dry, Normal External Ear Exam - Neck Exam Neck Exam: Full ROM. absent: Meningismus - Respiratory Exam Respiratory Exam: NORMAL BREATHING PATTERN. absent: Respiratory Distress - Cardiovascular Exam Cardiovascular Exam: REGULAR RHYTHM, +S1, +S2 - GI/Abdominal Exam GI & Abdominal Exam: Soft, Tenderness, Normal Bowel Sounds Additional comments: NGT in place Left Flank drain ant abd drain - Extremities Exam Extremities Exam: Full ROM, Normal Capillary Refill. absent: Calf Tenderness, Pedal Edema - Back Exam Back Exam: Full ROM. absent: CVA tenderness (L), CVA tenderness (R) - Neurological Exam Neurological Exam: Alert, Awake, CN II-XII Intact, Normal Gait, Oriented x3 Neuro motor strength exam: Left Upper Extremity: 5, Right Upper Extremity: 5, Left Lower Extremity: 5, Right Lower Extremity: 5 - Psychiatric Exam Psychiatric exam: Normal Affect, Normal Mood - Skin Skin Exam: Dry, Normal Color, Warm Assessment and Plan - Assessment and Plan (Free Text) Plan: 1. Sepsis due to Peritoneal Abscess due to Pancreatitis w/ Pseudocyst s/p Placement of Multihole catheter/Drainage of Abscess, s/p Leeann en Y Pancreatic Cystjejunostomy (06/28) Rpt CT of abd and pelvis 06/26 -Complex pseudocyst related to the body and tail the pancreas is again seen at the lesser sac extending into the left para renal space and pericolic gutter into the left hemipelvis with drainage catheter unchanged in position. There is a slight increase in the volume of the pararenal/pericolic gutter segment of the collection with lesser sac collection not simply changed in position. Increased limited gas is seen within the pararenal/pericolic gutter component possibly related to the catheter though an abscess may be developing. No significant change in minimal gas in the lesser sac portion of the pseudocyst. Clinically correlate with daily drainage from catheter. In addition, surgical consultation is advised as well. - due to the increase in volume of abscess in the gutter, persistent fever and leukocytosis , decision was made by Surgery to do Diagnostic Laparoscopy w/c then was converted to a Leeann en Y Cystojejunostomy - Pt had BM today, normoactive BS - per Surgery - june d/c NGT, poss upgrade diet today -cont IV Meropenem for now - still draining brownish drainage from the left flank drain placed by IR - minimal serosanguinous drainage from the ant abd drain placed intraop - minimal drainage from NGT overnight 100ml 2. Pleural Effusion s/p Thoracentesis 3. Hypertriglyceridemia - restart Tricor when PO diet resumes Lovenox for DVT proph
--- NOTE | 2018-07-01 11:28 | RAD ---
Date of service: 06/30/2018 HISTORY: Possible obstruction. Relevant interventional procedure(s): 06/15/2018 abdominal abscess drainage. COMPARISON: 06/26/2018. CT abdomen and pelvis. TECHNIQUE: 1 view obtained. FINDINGS: BOWEL: Nasogastric tube in satisfactory position in a decompressed stomach. Contrast in nondistended colon. BONES: Normal. OTHER FINDINGS: Postoperative changes and pigtail catheter identified.. Left lower lobe infiltrate/left pleural effusion. IMPRESSION: No evidence of mechanical bowel obstruction or visible free air
--- NOTE | 2018-07-01 11:41 | RAD ---
Date of service: 07/01/2018 HISTORY: possible obstruction COMPARISON: June 30, 2018. Study performed 22:52. TECHNIQUE: 1 view obtained. FINDINGS: BOWEL: Contrast remains in the nondistended colon. Nasogastric tube again identified in the stomach. BONES: Normal. OTHER FINDINGS: Postoperative changes left jonathan abdomen. IMPRESSION: No acute findings related to/ accounting for the clinical presentation.No significant interval change compared to the prior examination(s).
[2018-07-02] MEDS: Meropenem 1 GM in Sodium Chloride 0.9% 100 ML IVPB SCH ×3 (00:38→16:39)
[2018-07-02] MEDS: Lactated Ringer's 1,000 ML IV SCH ×4 (00:41→16:40)
--- NOTE | 2018-07-02 09:35 | CP.PCM.PN ---
<Saman Winters - Last Filed: 07/02/18 09:32> Subjective - Date & Time of Evaluation Date of Evaluation: 07/02/18 Time of Evaluation: 08:12 - Subjective Subjective: HBP Surgery Progress note. Dr. Hyman Pt seen and examined at bedside. No acute events overnight. Denies any N/V. Reports BMs and flatus. Denies any new complaints. States that she would like to eat regular food. Abd pain well tolerated. Objective - Vital Signs/Intake and Output Vital Signs (last 24 hours): Temp Pulse Resp BP Pulse Ox 98.7 F 90 18 114/74 96 07/02/18 08:45 07/02/18 08:45 07/02/18 08:45 07/02/18 08:45 07/02/18 08:45 Intake and Output: 07/02/18 07/02/18 06:59 18:59 Intake Total 1800 Output Total 945 Balance 855 - Medications Medications: Current Medications Acetaminophen (Tylenol 325mg Tab) 650 mg PO Q4 PRN PRN Reason: Fever >100.4 F Last Admin: 06/27/18 15:56 Dose: 650 mg Benzocaine/Menthol (Cepacol Sore Throat) 1 ab PO Q2 PRN PRN Reason: Sore Throat Last Admin: 07/01/18 12:47 Dose: 1 ab Enoxaparin Sodium (Lovenox) 40 mg SC DAILY [facility]; Protocol Last Admin: 07/01/18 09:52 Dose: 40 mg Fenofibrate (Tricor) 145 mg PO DAILY [facility] Last Admin: 07/01/18 09:35 Dose: Not Given Ferrous Sulfate (Feosol) 325 mg PO BID [facility] Last Admin: 07/01/18 17:12 Dose: 325 mg Meropenem 1 gm/ Sodium (Chloride) 100 mls @ 100 mls/hr IVPB Q8 [facility]; Protocol Last Admin: 07/02/18 00:38 Dose: 100 mls/hr Lactated Ringer's (Lactated Ringer's) 1,000 mls @ 150 mls/hr IV .Q6H40M [facility] Last Admin: 07/02/18 00:41 Dose: 150 mls/hr Lactated Ringer's (Lactated Ringer's) 1,000 mls @ 1,000 mls/hr IV .Q1H [facility] Last Admin: 06/30/18 15:12 Dose: 1,000 mls/hr Iohexol (Omnipaque 350mg/Ml 100 Ml) 100 ml PO ONCE ONE Stop: 07/02/18 09:20 Ketorolac Tromethamine (Toradol) 15 mg IVP Q6 PRN PRN Reason: Pain, moderate (4-7) Last Admin: 07/02/18 03:49 Dose: 15 mg Ondansetron HCl (Zofran Inj) 4 mg IVP Q4 PRN PRN Reason: Nausea/Vomiting Last Admin: 06/28/18 16:00 Dose: 4 mg - Labs Labs: 07/01/18 05:20 07/01/18 05:20 PT 14.6 Seconds (9.8-13.1) H 06/28/18 05:35 INR 1.3 06/28/18 05:35 APTT 29.7 Seconds (25.6-37.1) 06/28/18 05:35 - Constitutional Appears: Well, Non-toxic, No Acute Distress - Head Exam Head Exam: ATRAUMATIC, NORMAL INSPECTION, NORMOCEPHALIC - Eye Exam Eye Exam: EOMI, Normal appearance. absent: Scleral icterus - ENT Exam ENT Exam: Mucous Membranes Moist - Respiratory Exam Respiratory Exam: NORMAL BREATHING PATTERN. absent: Accessory Muscle Use, Respiratory Distress - Cardiovascular Exam Cardiovascular Exam: RRR. absent: JVD - GI/Abdominal Exam GI & Abdominal Exam: Soft. absent: Distended, Guarding, Rebound Additional comments: Mild tenderness to palpation roxi-incision. Skin intact with michelle. Carlton drain in place with 30cc serosang. IR drain in place with 330cc in 24 hours. - Extremities Exam Extremities Exam: Normal Inspection. absent: Calf Tenderness - Neurological Exam Neurological Exam: Alert, Awake, Oriented x3 - Psychiatric Exam Psychiatric exam: Normal Affect, Normal Mood - Skin Skin Exam: Dry, Intact, Normal Color, Warm Assessment and Plan - Assessment and Plan (Free Text) Assessment: 43yo F s/p Lap converted to open Leeann en Y pancreatic cystjejunostomy. POD 4 Plan: - Will perform tube study today: 100cc omipaque via IR drain and Abd Xray 2 hours after to ensure patency of cystjejunostomy. - Advance diet today as tolerated - Antiemetics as needed - Pain control - continue strict Is and Os Further recs as per Dr. Elaine PGY2 surgery <Avery Montelongo - Last Filed: 07/02/18 12:14> Objective - Vital Signs/Intake and Output Vital Signs (last 24 hours): Temp Pulse Resp BP Pulse Ox 98.7 F 90 18 114/74 96 07/02/18 08:45 07/02/18 08:45 07/02/18 08:45 07/02/18 08:45 07/02/18 08:45 Intake and Output: 07/02/18 07/02/18 06:59 18:59 Intake Total 1800 Output Total 945 Balance 855 - Medications Medications: Current Medications Acetaminophen (Tylenol 325mg Tab) 650 mg PO Q4 PRN PRN Reason: Fever >100.4 F Last Admin: 06/27/18 15:56 Dose: 650 mg Benzocaine/Menthol (Cepacol Sore Throat) 1 ab PO Q2 PRN PRN Reason: Sore Throat Last Admin: 07/02/18 10:32 Dose: 1 ab Enoxaparin Sodium (Lovenox) 40 mg SC DAILY [facility]; Protocol Last Admin: 07/02/18 10:19 Dose: 40 mg Fenofibrate (Tricor) 145 mg PO DAILY [facility] Last Admin: 07/02/18 10:19 Dose: 145 mg Ferrous Sulfate (Feosol) 325 mg PO BID [facility] Last Admin: 07/02/18 10:20 Dose: 325 mg Meropenem 1 gm/ Sodium (Chloride) 100 mls @ 100 mls/hr IVPB Q8 [facility]; Protocol Last Admin: 07/02/18 10:22 Dose: 100 mls/hr Lactated Ringer's (Lactated Ringer's) 1,000 mls @ 150 mls/hr IV .Q6H40M [facility] Last Admin: 07/02/18 08:38 Dose: Not Given Ketorolac Tromethamine (Toradol) 15 mg IVP Q6 PRN PRN Reason: Pain, moderate (4-7) Last Admin: 07/02/18 12:01 Dose: 15 mg Ondansetron HCl (Zofran Inj) 4 mg IVP Q4 PRN PRN Reason: Nausea/Vomiting Last Admin: 06/28/18 16:00 Dose: 4 mg - Labs Labs: 07/02/18 09:20 07/02/18 09:20 PT 14.6 Seconds (9.8-13.1) H 06/28/18 05:35 INR 1.3 06/28/18 05:35 APTT 29.7 Seconds (25.6-37.1) 06/28/18 05:35 Assessment and Plan - Assessment and Plan (Free Text) Plan: All medical record entries made by the resident were at my direction. I have reviewed the chart and agree that the record accurately reflects my personal performance of the history, physical exam, and medical decision making.
[2018-07-02] MEDS ORDERED: Iohexol 240 (50 ml) ONE (09:49)
[2018-07-02] MEDS ORDERED: Iohexol 350mg/ml 100 ML PO ONE (10:00)
[2018-07-02 10:11] LABS: BASO % 0.2 % (0.0-2.0); EOS # 0.4 K/uL (0.0-0.7); EOS % 3.3 % (0.0-4.0); HEMOGLOBIN 9.2 g/dL (12.0-16.0); LYMPH # 1.4 K/uL (1.0-4.3); LYMPH % 13.1 % (20.0-40.0); MEAN CELL VOLUME 81.8 fl (81.0-99.0); MEAN CORPUSCULAR HEMOGLOBIN 27.2 pg (27.0-31.0); MEAN CORPUSCULAR HGB CONC 33.3 g/dL (33.0-37.0); MEAN PLATELET VOLUME 6.5 fl (7.2-11.7); MONO # 0.6 K/uL (0.0-0.8); MONO % 5.5 % (0.0-10.0); NEUT # 8.5 K/uL (1.8-7.0); NEUT % 77.9 % (50.0-75.0); RBC 3.39 Mil/uL (3.80-5.20); RED CELL DISTRIBUTION WIDTH 17.5 % (11.5-14.5)
[2018-07-02] MEDS ORDERED: Iohexol 240 (50 ml) PO ONE (10:11)
[2018-07-02] MEDS: Enoxaparin 40 mg Syringe SC SCH (10:19)
[2018-07-02 10:29] LABS: ALB/GLOB RATIO 0.9 (1.0-2.1); ALBUMIN 2.8 g/dL (3.5-5.0); ALT/SGPT 18 U/L (9-52); AST/SGOT 18 U/L (14-36); BLOOD UREA NITROGEN < 2 mg/dl (7-17); GFR NON-AFRICAN AMERICAN > 60
[2018-07-02] MEDS: Benzocaine/Menthol (Cepacol) Lozenge PO PRN ×2 (10:32→20:55)
--- NOTE | 2018-07-02 14:23 | RAD ---
Date of service: 07/02/2018 HISTORY: IR tube study. Eval patency of cystjejunostomy COMPARISON: None available. TECHNIQUE: Three view obtained. FINDINGS: BOWEL: There is contrast material throughout the colon and loops of small bowel. There is a drainage catheter seen in the left lateral mid abdomen there is no free intraperitoneal contrast appreciated. There is no evidence of pneumoperitoneum. There is no evidence of bowel obstruction. Surgical michelle are seen over the left upper quadrant of the abdomen with several surgical michelle over the left lateral pelvis BONES: Normal. OTHER FINDINGS: None. IMPRESSION: Contrast material in small and large bowel loops. Left sided percutaneous drainage catheter noted.
--- NOTE | 2018-07-02 19:04 | CP.PCM.PN ---
Subjective - Date & Time of Evaluation Date of Evaluation: 07/02/18 Time of Evaluation: 11:30 - Subjective Subjective: Patient seen and examined bedside .All chart and clinical data reviewed . Feeling better. Pain is controlled. Hemodynamically stable, afebrile Passing flatus but has not had a BM yet . Bowel sounds are normal Tolerating liquid diet, denies any nausea or vomiting , asking for regular food Objective - Vital Signs/Intake and Output Vital Signs (last 24 hours): Temp Pulse Resp BP Pulse Ox 98.7 F 90 18 114/74 96 07/02/18 17:00 07/02/18 17:00 07/02/18 17:00 07/02/18 17:00 07/02/18 17:00 Intake and Output: 07/02/18 07/03/18 18:59 06:59 Output Total 5 Balance -5 - Medications Medications: Current Medications Acetaminophen (Tylenol 325mg Tab) 650 mg PO Q4 PRN PRN Reason: Fever >100.4 F Last Admin: 06/27/18 15:56 Dose: 650 mg Benzocaine/Menthol (Cepacol Sore Throat) 1 ab PO Q2 PRN PRN Reason: Sore Throat Last Admin: 07/02/18 10:32 Dose: 1 ab Enoxaparin Sodium (Lovenox) 40 mg SC DAILY [facility]; Protocol Last Admin: 07/02/18 10:19 Dose: 40 mg Fenofibrate (Tricor) 145 mg PO DAILY [facility] Last Admin: 07/02/18 10:19 Dose: 145 mg Ferrous Sulfate (Feosol) 325 mg PO BID [facility] Last Admin: 07/02/18 16:41 Dose: 325 mg Meropenem 1 gm/ Sodium (Chloride) 100 mls @ 100 mls/hr IVPB Q8 [facility]; Protocol Last Admin: 07/02/18 16:39 Dose: 100 mls/hr Lactated Ringer's (Lactated Ringer's) 1,000 mls @ 150 mls/hr IV .Q6H40M [facility] Last Admin: 07/02/18 16:40 Dose: 150 mls/hr Ketorolac Tromethamine (Toradol) 15 mg IVP Q6 PRN PRN Reason: Pain, moderate (4-7) Last Admin: 07/02/18 12:01 Dose: 15 mg Ondansetron HCl (Zofran Inj) 4 mg IVP Q4 PRN PRN Reason: Nausea/Vomiting Last Admin: 06/28/18 16:00 Dose: 4 mg - Labs Labs: 07/02/18 09:20 07/02/18 09:20 PT 14.6 Seconds (9.8-13.1) H 06/28/18 05:35 INR 1.3 06/28/18 05:35 APTT 29.7 Seconds (25.6-37.1) 06/28/18 05:35 - Constitutional Appears: Non-toxic, No Acute Distress - Head Exam Head Exam: ATRAUMATIC - Eye Exam Eye Exam: EOMI, Normal appearance, PERRL Pupil Exam: NORMAL ACCOMODATION - ENT Exam ENT Exam: Mucous Membranes Moist, Normal Exam - Neck Exam Neck Exam: Full ROM, Normal Inspection - Respiratory Exam Respiratory Exam: Clear to Ausculation Bilateral, NORMAL BREATHING PATTERN. absent: Rales, Rhonchi, Wheezes - Cardiovascular Exam Cardiovascular Exam: REGULAR RHYTHM, RRR, +S1, +S2. absent: JVD - GI/Abdominal Exam GI & Abdominal Exam: Soft, Normal Bowel Sounds. absent: Distended, Guarding, Rebound Additional comments: left upper quadrant surgical michelle BERHANE drain to Right mid quadrant Drain to left mid abdomen - Rectal Exam Rectal Exam: Deferred - Extremities Exam Extremities Exam: Full ROM, Normal Capillary Refill, Normal Inspection. absent: Calf Tenderness, Pedal Edema - Back Exam Back Exam: NORMAL INSPECTION - Neurological Exam Neurological Exam: Alert, Awake, CN II-XII Intact, Oriented x3 - Psychiatric Exam Psychiatric exam: Normal Affect - Skin Skin Exam: Dry, Pallor, Warm Assessment and Plan - Assessment and Plan (Free Text) Assessment: 43 y/o female with PMH recent acute pancreatitis complicated with phlegmon formation admitted for sepsis secondary to intraperitoneal abscess She underwent IR drainage of abscess with multifenestrated drain placed 06/15/18 wit minimal improvement of pseudocyst Cultures from fluid were reported positive for E. Coli and she has been on IV Meropenem since admission Surgery was consulted and she was taken to OR and underwent Leeann &Y pancreatic Cysjejunostomy on 06/28 At present doing better, hemodynamically stable, afebrile 1.Sepsis secondary to intraperitoneal abscess --improving Hemodynamically stable, afebrile, WBC - wnl Cultures from abscess positive for E. Coli continue IV Meropenem. s/p drain placement and Leeann & Y Cystjejunostomy 2. Intraperitoneal abscess / infected pseudocyst/ complication of recent acute pancreatitis Surgery on board following S/p Cystjejunostomy 06/28 Tolerating liquid diet .IR tube study today showed no bowel obstruction Will advance diet to low fat today promote ambulation Will follow up with surgery for further recommendations. 3.Hypertrigliceridemia-- continue Fenofibrate 4. Anemia of acute illness and blood loss- s/p 1 unit PRBC. Monitor . On Ferrous sulfate 5. Left pleural effusion - no respiratory distress.s/p thoracenthesis with removal of 1400 ml of clear fluid( transudate) 6. DVT prophylaxis- lovenox
[2018-07-03] MEDS: Meropenem 1 GM in Sodium Chloride 0.9% 100 ML IVPB SCH ×3 (00:38→17:26)
[2018-07-03 06:48] LABS: BASO % 0.2 % (0.0-2.0); EOS # 0.4 K/uL (0.0-0.7); EOS % 4.1 % (0.0-4.0); HEMOGLOBIN 8.6 g/dL (12.0-16.0); LYMPH # 1.3 K/uL (1.0-4.3); MEAN CELL VOLUME 81.5 fl (81.0-99.0); MEAN CORPUSCULAR HEMOGLOBIN 27.4 pg (27.0-31.0); MEAN CORPUSCULAR HGB CONC 33.6 g/dL (33.0-37.0); MEAN PLATELET VOLUME 6.2 fl (7.2-11.7); MONO # 0.6 K/uL (0.0-0.8); MONO % 7.2 % (0.0-10.0); NEUT # 6.5 K/uL (1.8-7.0); NEUT % 73.5 % (50.0-75.0); RBC 3.13 Mil/uL (3.80-5.20); RED CELL DISTRIBUTION WIDTH 17.3 % (11.5-14.5); WHITE BLOOD COUNT 8.9 K/uL (4.8-10.8)
[2018-07-03 06:57] LABS: CALCIUM 7.8 mg/dL (8.4-10.2); GFR NON-AFRICAN AMERICAN > 60
[2018-07-03 06:58] LABS: BLOOD UREA NITROGEN < 2 mg/dl (7-17)
--- NOTE | 2018-07-03 07:48 | CP.PCM.PN ---
Subjective - Date & Time of Evaluation Date of Evaluation: 07/03/18 Time of Evaluation: 07:46 - Subjective Subjective: Surgery Progress Note for Dr. Spaulding 43F seen and evaluated at bedside this morning. No acute events overnight. Complains of abdominal pain after eating and need to go to the bathroom. Patient is having soft/liquid BM and passing flatus. Denies nausea or vomiting. IR drain remains clamped. Carlton drain 2cc serous output overnight. Denies f/c, SOB, CP, or urinary symptoms. Objective - Vital Signs/Intake and Output Vital Signs (last 24 hours): Temp Pulse Resp BP Pulse Ox 97.9 F 90 19 116/64 96 07/03/18 05:00 07/03/18 05:00 07/03/18 05:00 07/03/18 05:00 07/03/18 05:00 Intake and Output: 07/03/18 07/03/18 06:59 18:59 Output Total 2 Balance -2 - Medications Medications: Current Medications Acetaminophen (Tylenol 325mg Tab) 650 mg PO Q4 PRN PRN Reason: Fever >100.4 F Last Admin: 06/27/18 15:56 Dose: 650 mg Benzocaine/Menthol (Cepacol Sore Throat) 1 ab PO Q2 PRN PRN Reason: Sore Throat Last Admin: 07/02/18 20:55 Dose: 1 ab Enoxaparin Sodium (Lovenox) 40 mg SC DAILY [facility]; Protocol Last Admin: 07/02/18 10:19 Dose: 40 mg Fenofibrate (Tricor) 145 mg PO DAILY [facility] Last Admin: 07/02/18 10:19 Dose: 145 mg Ferrous Sulfate (Feosol) 325 mg PO BID [facility] Last Admin: 07/02/18 16:41 Dose: 325 mg Meropenem 1 gm/ Sodium (Chloride) 100 mls @ 100 mls/hr IVPB Q8 [facility]; Protocol Last Admin: 07/03/18 00:38 Dose: 100 mls/hr Ketorolac Tromethamine (Toradol) 15 mg IVP Q6 PRN PRN Reason: Pain, moderate (4-7) Last Admin: 07/03/18 05:46 Dose: 15 mg Ondansetron HCl (Zofran Inj) 4 mg IVP Q4 PRN PRN Reason: Nausea/Vomiting Last Admin: 06/28/18 16:00 Dose: 4 mg - Labs Labs: 07/03/18 06:00 07/03/18 06:00 PT 14.6 Seconds (9.8-13.1) H 06/28/18 05:35 INR 1.3 06/28/18 05:35 APTT 29.7 Seconds (25.6-37.1) 06/28/18 05:35 - Constitutional Appears: Well, Non-toxic, No Acute Distress - Head Exam Head Exam: ATRAUMATIC, NORMAL INSPECTION, NORMOCEPHALIC - Eye Exam Eye Exam: EOMI - ENT Exam ENT Exam: Mucous Membranes Moist - Respiratory Exam Respiratory Exam: NORMAL BREATHING PATTERN. absent: Wheezes, Respiratory Distress - Cardiovascular Exam Cardiovascular Exam: REGULAR RHYTHM, +S1, +S2. absent: Murmur - GI/Abdominal Exam GI & Abdominal Exam: Soft, Normal Bowel Sounds. absent: Tenderness Additional comments: surgical incisions c/d/i w/ michelle, no erythema or drainage - Neurological Exam Neurological Exam: Alert, Awake, Oriented x3 - Psychiatric Exam Psychiatric exam: Normal Affect, Normal Mood - Skin Skin Exam: Dry, Intact, Normal Color, Warm Assessment and Plan - Assessment and Plan (Free Text) Assessment: 43yo F s/p Lap converted to open Leeann en Y pancreatic cystjejunostomy. POD5 Plan: Tube study showed contrast throughout colon Regular diet as tolerated Antiemetics and analgesics as needed Monitor bowel function Continue strict Is and Os Aggressive PT Further recs as per Dr. Mariee PGY1
[2018-07-03] MEDS: Enoxaparin 40 mg Syringe SC SCH (08:47)
--- NOTE | 2018-07-03 12:04 | CP.PCM.PN ---
Subjective - Date & Time of Evaluation Date of Evaluation: 07/03/18 Time of Evaluation: 09:30 - Subjective Subjective: Patient reports feeling well and that her abdominal pain is well controlled with pain. Denies chest pain, dyspnea, nausea, vomiting, dysuria, frequency and urgency. Tolerating PO with mild epigastric pain. Hemodynamically stable. Last BM was this morning. Objective - Vital Signs/Intake and Output Vital Signs (last 24 hours): Temp Pulse Resp BP Pulse Ox 98.2 F 75 20 107/68 97 07/03/18 08:07 07/03/18 08:07 07/03/18 08:07 07/03/18 08:07 07/03/18 08:07 Intake and Output: 07/03/18 07/03/18 06:59 18:59 Output Total 2 Balance -2 - Medications Medications: Current Medications Acetaminophen (Tylenol 325mg Tab) 650 mg PO Q4 PRN PRN Reason: Fever >100.4 F Last Admin: 06/27/18 15:56 Dose: 650 mg Benzocaine/Menthol (Cepacol Sore Throat) 1 ab PO Q2 PRN PRN Reason: Sore Throat Last Admin: 07/02/18 20:55 Dose: 1 ab Enoxaparin Sodium (Lovenox) 40 mg SC DAILY [facility]; Protocol Last Admin: 07/03/18 08:47 Dose: 40 mg Fenofibrate (Tricor) 145 mg PO DAILY [facility] Last Admin: 07/03/18 08:47 Dose: 145 mg Ferrous Sulfate (Feosol) 325 mg PO BID [facility] Last Admin: 07/03/18 08:47 Dose: 325 mg Meropenem 1 gm/ Sodium (Chloride) 100 mls @ 100 mls/hr IVPB Q8 [facility]; Protocol Last Admin: 07/03/18 08:43 Dose: 100 mls/hr Ketorolac Tromethamine (Toradol) 15 mg IVP Q6 PRN PRN Reason: Pain, moderate (4-7) Last Admin: 07/03/18 05:46 Dose: 15 mg Ondansetron HCl (Zofran Inj) 4 mg IVP Q4 PRN PRN Reason: Nausea/Vomiting Last Admin: 06/28/18 16:00 Dose: 4 mg - Labs Labs: 07/03/18 06:00 07/03/18 06:00 PT 14.6 Seconds (9.8-13.1) H 06/28/18 05:35 INR 1.3 06/28/18 05:35 APTT 29.7 Seconds (25.6-37.1) 06/28/18 05:35 - Constitutional Appears: Non-toxic, No Acute Distress - Eye Exam Eye Exam: Normal appearance - ENT Exam ENT Exam: Mucous Membranes Moist - Respiratory Exam Respiratory Exam: Clear to Ausculation Bilateral, NORMAL BREATHING PATTERN. absent: Accessory Muscle Use, Chest Wall Tenderness, Decreased Breath Sounds, Prolonged Expiratory Phase, Rales, Rhonchi, Wheezes, Respiratory Distress, Stridor - Cardiovascular Exam Cardiovascular Exam: REGULAR RHYTHM, +S1, +S2 - GI/Abdominal Exam GI & Abdominal Exam: Soft, Normal Bowel Sounds. absent: Distended, Firm, Guarding, Rigid, Rebound Additional comments: Incision sites dry and clean. Drains in place- minimal amount of drainage from the BERHANE drain (serosanguinous) and Left IR drain (green fluids) - Extremities Exam Extremities Exam: Normal Capillary Refill, Normal Inspection. absent: Calf Tenderness, Pedal Edema, Tenderness - Neurological Exam Neurological Exam: Alert, Awake, Oriented x3 - Psychiatric Exam Psychiatric exam: Normal Affect, Normal Mood - Skin Skin Exam: Dry, Intact, Normal Color, Warm Assessment and Plan - Assessment and Plan (Free Text) Assessment: 43 yr old F presented to the ED with intense left sided abdominal pain, sp ecifically LLQ of 3 days duration admitted for acute pancreatitis secondary to severe hypertriglyceridemia complicated by pseudocysts/phlegmon. Patient is POD #5 Lap converted to simone en y pancreatic cystjejunostomy with Dr. Montelongo 06/28. Meropenem day #20 Plan: 1. Sepsis secondary to Pancreatic Pseudocyst - POD 5 - Incentive spirometer -Last fever: 06/27/18 : tmax 100.6F; afebrile overnight - s/p IR drainage, Dr Hancock 06/15 ---e.coli ray-sensitive ---follow up drain output: 700 (5/3) -200 (/4) -400 (/5)-110 (/6)- 420 (06/20)- 200 (06/21)- 50 (06/22)- 60 (06/23)- 255 (06/24)- 10 (06/25)- 7 (06/26)- 75 (06/27)- 100 (06/28); 200 (06/29); 130 (06/30/18) ---nurses to flush drain 2x/day, Q12 -ID consulted, Dr Gould, input and recs appreciated -Surgery rec appreciated -s/p 2 units PRBC, Hg stable -Meropenem as per ID (day 20) -CT: 1. Redemonstration of large septated multilocular fluid collection in the lesser sac extending to the left anterior and posterior pararenal spaces, left paracolic gutter, left lower quadrant and left hemipelvis. Scattered few foci of air within the collection. The sterility of this collection cannot be determined on the basis of imaging. 2. Worsening moderate left pleural effusion. 2. Pleural Effusion, Left -CT (06/21): mass effect displacing heart -IR drainage on 06/15, Dr Win, 1400cc sl cloudy fluid; IR drain in place- serosanguinous fluid -Culture: no growth x 2 days 3. DVT Prophylaxis -SCD's - Lovenox
[2018-07-04] MEDS: Meropenem 1 GM in Sodium Chloride 0.9% 100 ML IVPB SCH ×3 (01:26→16:03)
[2018-07-04 06:27] LABS: HEMOGLOBIN 8.9 g/dL (12.0-16.0); MEAN CELL VOLUME 81.6 fl (81.0-99.0); MEAN CORPUSCULAR HEMOGLOBIN 27.1 pg (27.0-31.0); MEAN CORPUSCULAR HGB CONC 33.3 g/dL (33.0-37.0); RBC 3.28 Mil/uL (3.80-5.20); RED CELL DISTRIBUTION WIDTH 17.5 % (11.5-14.5); WHITE BLOOD COUNT 7.4 K/uL (4.8-10.8)
[2018-07-04 06:40] LABS: CALCIUM 8.2 mg/dL (8.4-10.2); GFR NON-AFRICAN AMERICAN > 60
[2018-07-04 06:41] LABS: BLOOD UREA NITROGEN < 2 mg/dl (7-17)
[2018-07-04] MEDS: Enoxaparin 40 mg Syringe SC SCH (08:30)
--- NOTE | 2018-07-04 08:41 | CP.PCM.PN ---
Subjective - Date & Time of Evaluation Date of Evaluation: 07/04/18 Time of Evaluation: 08:41 - Subjective Subjective: Surgery Progress Note for Dr. Hyman 43F seen and evaluated at bedside this morning. No acute events overnight. No complaints this morning. IR drain clamped. Carlton drain 4cc serosangiounos output. Tolerating diet and having BM. Denies f/c, n/v/d, SOB, CP, or urinary symptoms. Objective - Vital Signs/Intake and Output Vital Signs (last 24 hours): Temp Pulse Resp BP Pulse Ox 98.0 F 78 18 103/70 98 07/04/18 07:52 07/04/18 07:52 07/04/18 07:52 07/04/18 07:52 07/04/18 07:52 Intake and Output: 07/04/18 07/04/18 06:59 18:59 Output Total 2 Balance -2 - Medications Medications: Current Medications Acetaminophen (Tylenol 325mg Tab) 650 mg PO Q4 PRN PRN Reason: Fever >100.4 F Last Admin: 06/27/18 15:56 Dose: 650 mg Benzocaine/Menthol (Cepacol Sore Throat) 1 ab PO Q2 PRN PRN Reason: Sore Throat Last Admin: 07/02/18 20:55 Dose: 1 ab Enoxaparin Sodium (Lovenox) 40 mg SC DAILY [facility]; Protocol Last Admin: 07/04/18 08:30 Dose: 40 mg Fenofibrate (Tricor) 145 mg PO DAILY [facility] Last Admin: 07/04/18 08:32 Dose: 145 mg Ferrous Sulfate (Feosol) 325 mg PO BID [facility] Last Admin: 07/04/18 08:32 Dose: 325 mg Meropenem 1 gm/ Sodium (Chloride) 100 mls @ 100 mls/hr IVPB Q8 [facility]; Protocol Last Admin: 07/04/18 08:39 Dose: 100 mls/hr Ketorolac Tromethamine (Toradol) 15 mg IVP Q6 PRN PRN Reason: Pain, moderate (4-7) Last Admin: 07/04/18 05:19 Dose: 15 mg Ondansetron HCl (Zofran Inj) 4 mg IVP Q4 PRN PRN Reason: Nausea/Vomiting Last Admin: 06/28/18 16:00 Dose: 4 mg Pantoprazole Sodium (Protonix Inj) 40 mg IVP DAILY [facility] Last Admin: 07/04/18 08:29 Dose: 40 mg - Labs Labs: 07/04/18 06:05 07/04/18 06:05 PT 14.6 Seconds (9.8-13.1) H 06/28/18 05:35 INR 1.3 06/28/18 05:35 APTT 29.7 Seconds (25.6-37.1) 06/28/18 05:35 - Constitutional Appears: Well, Non-toxic, No Acute Distress - Head Exam Head Exam: ATRAUMATIC, NORMAL INSPECTION, NORMOCEPHALIC - Eye Exam Eye Exam: EOMI - ENT Exam ENT Exam: Mucous Membranes Moist - Respiratory Exam Respiratory Exam: Clear to Ausculation Bilateral, NORMAL BREATHING PATTERN - Cardiovascular Exam Cardiovascular Exam: REGULAR RHYTHM, +S1, +S2. absent: Murmur - GI/Abdominal Exam GI & Abdominal Exam: Soft, Normal Bowel Sounds. absent: Distended, Tenderness - Neurological Exam Neurological Exam: Alert, Awake, Oriented x3 - Psychiatric Exam Psychiatric exam: Normal Affect, Normal Mood - Skin Skin Exam: Dry, Intact, Normal Color, Warm Assessment and Plan - Assessment and Plan (Free Text) Assessment: 43yo F s/p Lap converted to open Leeann en Y pancreatic cystjejunostomy POD6 Plan: Unclamp IR drain and moinitor output for next 24 hours Regular diet as tolerated Ordered pancreatic enzymes Antiemetics and analgesics as needed Monitor bowel function Continue strict Is and Os Aggressive PT Discharge planning for tomorrow Further recs as per Dr. Mariee PGY1
[2018-07-04] MEDS ORDERED: Amylase/Lipase/Protease 5,000 Units ECC PO SCH (09:00)
--- NOTE | 2018-07-04 10:29 | CP.PCM.PN ---
<Angela Valdez - Last Filed: 07/04/18 10:36> Subjective - Date & Time of Evaluation Date of Evaluation: 07/04/18 Time of Evaluation: 10:27 - Subjective Subjective: Patient seen and examined at bedside. Denies any complaints. Is tolerating PO intake and had two bowel movements yesterday. Denies angina, dypsnea, nausea, vomiting or diarrhea. Objective - Vital Signs/Intake and Output Vital Signs (last 24 hours): Temp Pulse Resp BP Pulse Ox 98.0 F 78 18 103/70 98 07/04/18 07:52 07/04/18 07:52 07/04/18 07:52 07/04/18 07:52 07/04/18 07:52 Intake and Output: 07/04/18 07/04/18 06:59 18:59 Output Total 2 Balance -2 - Medications Medications: Current Medications Acetaminophen (Tylenol 325mg Tab) 650 mg PO Q4 PRN PRN Reason: Fever >100.4 F Last Admin: 06/27/18 15:56 Dose: 650 mg Amylase (Pancrease 71361 U-5000 [id number] U) 5,000 unit PO TID [facility] Benzocaine/Menthol (Cepacol Sore Throat) 1 ab PO Q2 PRN PRN Reason: Sore Throat Last Admin: 07/02/18 20:55 Dose: 1 ab Enoxaparin Sodium (Lovenox) 40 mg SC DAILY [facility]; Protocol Last Admin: 07/04/18 08:30 Dose: 40 mg Fenofibrate (Tricor) 145 mg PO DAILY [facility] Last Admin: 07/04/18 08:32 Dose: 145 mg Ferrous Sulfate (Feosol) 325 mg PO BID [facility] Last Admin: 07/04/18 08:32 Dose: 325 mg Meropenem 1 gm/ Sodium (Chloride) 100 mls @ 100 mls/hr IVPB Q8 [facility]; Protocol Last Admin: 07/04/18 08:39 Dose: 100 mls/hr Ketorolac Tromethamine (Toradol) 15 mg IVP Q6 PRN PRN Reason: Pain, moderate (4-7) Last Admin: 07/04/18 05:19 Dose: 15 mg Ondansetron HCl (Zofran Inj) 4 mg IVP Q4 PRN PRN Reason: Nausea/Vomiting Last Admin: 06/28/18 16:00 Dose: 4 mg Pantoprazole Sodium (Protonix Inj) 40 mg IVP DAILY [facility] Last Admin: 07/04/18 08:29 Dose: 40 mg - Labs Labs: 07/04/18 06:05 07/04/18 06:05 PT 14.6 Seconds (9.8-13.1) H 06/28/18 05:35 INR 1.3 06/28/18 05:35 APTT 29.7 Seconds (25.6-37.1) 06/28/18 05:35 - Constitutional Appears: Non-toxic, No Acute Distress - Eye Exam Eye Exam: Normal appearance - ENT Exam ENT Exam: Mucous Membranes Moist - Respiratory Exam Respiratory Exam: Clear to Ausculation Bilateral, NORMAL BREATHING PATTERN. absent: Accessory Muscle Use, Chest Wall Tenderness, Decreased Breath Sounds, Prolonged Expiratory Phase, Rales, Rhonchi, Wheezes, Respiratory Distress, Stridor - Cardiovascular Exam Cardiovascular Exam: REGULAR RHYTHM, +S1, +S2 - GI/Abdominal Exam GI & Abdominal Exam: Soft, Tenderness (mild tenderness near incision sites), Normal Bowel Sounds. absent: Distended, Firm, Guarding, Rigid, Rebound Additional comments: incision sites clean and non-draining. Drain in place with minimal drainage. IR drain in place with minimal drainage. - Extremities Exam Extremities Exam: Full ROM, Normal Capillary Refill, Normal Inspection. absent: Calf Tenderness, Pedal Edema, Tenderness - Neurological Exam Neurological Exam: Alert, Awake, Oriented x3 - Psychiatric Exam Psychiatric exam: Normal Affect, Normal Mood - Skin Skin Exam: Dry, Intact, Normal Color, Warm Assessment and Plan - Assessment and Plan (Free Text) Assessment: 43 yr old F presented to the ED with intense left sided abdominal pain, specifically LLQ of 3 days duration admitted for acute pancreatitis secondary to severe hypertriglyceridemia complicated by pseudocysts/phlegmon. Patient is POD #6 Lap converted to simone en y pancreatic cystjejunostomy with Dr. Montelongo 06/28. Meropenem day #21 Plan: 1. Sepsis secondary to Pancreatic Pseudocyst - POD 6 - Incentive spirometer -Last fever: 06/27/18 : tmax 100.6F; afebrile overnight - s/p IR drainage, Dr Hancock 06/15 ---e.coli ray-sensitive ---follow up drain output: 700 (5/3) -200 (/4) -400 (5)-110 (6)- 420 (06/20)- 200 (06/21)- 50 (06/22)- 60 (06/23)- 255 (06/24)- 10 (06/25)- 7 (06/26)- 75 (06/27)- 100 (06/28); 200 (06/29); 130 (06/30/18) ---nurses to flush drain 2x/day, Q12 -ID consulted, Dr Gould, input and recs appreciated -Surgery rec appreciated -s/p 2 units PRBC, Hg stable -Meropenem as per ID (day 21) -CT: 1. Re-demonstration of large septated multilocular fluid collection in the lesser sac extending to the left anterior and posterior pararenal spaces, left paracolic gutter, left lower quadrant and left hemipelvis. Scattered few foci of air within the collection. The sterility of this collection cannot be determined on the basis of imaging. 2. Worsening moderate left pleural effusion. 2. Pleural Effusion, Left -CT (06/21): mass effect displacing heart -IR drainage on 06/15, Dr Win, 1400cc sl cloudy fluid; IR drain in place -Culture: no growth x 2 days 3. DVT Prophylaxis -SCD's - Lovenox <Evelyn Heaton - Last Filed: 07/04/18 16:29> Objective - Vital Signs/Intake and Output Vital Signs (last 24 hours): Temp Pulse Resp BP Pulse Ox 99.5 F 95 H 18 106/73 96 07/04/18 16:10 07/04/18 16:10 07/04/18 16:10 07/04/18 16:10 07/04/18 16:10 Intake and Output: 07/04/18 07/04/18 06:59 18:59 Output Total 2 Balance -2 - Medications Medications: Current Medications Acetaminophen (Tylenol 325mg Tab) 650 mg PO Q4 PRN PRN Reason: Fever >100.4 F Last Admin: 06/27/18 15:56 Dose: 650 mg Amylase (Pancrease 76353 U-5000 [id number] U) 5,000 unit PO TID [facility] Last Admin: 07/04/18 14:00 Dose: 5,000 unit Benzocaine/Menthol (Cepacol Sore Throat) 1 ab PO Q2 PRN PRN Reason: Sore Throat Last Admin: 07/02/18 20:55 Dose: 1 ab Enoxaparin Sodium (Lovenox) 40 mg SC DAILY [facility]; Protocol Last Admin: 07/04/18 08:30 Dose: 40 mg Fenofibrate (Tricor) 145 mg PO DAILY [facility] Last Admin: 07/04/18 08:32 Dose: 145 mg Ferrous Sulfate (Feosol) 325 mg PO BID [facility] Last Admin: 07/04/18 16:04 Dose: 325 mg Meropenem 1 gm/ Sodium (Chloride) 100 mls @ 100 mls/hr IVPB Q8 [facility]; Protocol Last Admin: 07/04/18 16:03 Dose: 100 mls/hr Ketorolac Tromethamine (Toradol) 15 mg IVP Q6 PRN PRN Reason: Pain, moderate (4-7) Last Admin: 07/04/18 15:43 Dose: 15 mg Ondansetron HCl (Zofran Inj) 4 mg IVP Q4 PRN PRN Reason: Nausea/Vomiting Last Admin: 06/28/18 16:00 Dose: 4 mg Pantoprazole Sodium (Protonix Inj) 40 mg IVP DAILY [facility] Last Admin: 07/04/18 08:29 Dose: 40 mg - Labs Labs: 07/04/18 06:05 07/04/18 06:05 PT 14.6 Seconds (9.8-13.1) H 06/28/18 05:35 INR 1.3 06/28/18 05:35 APTT 29.7 Seconds (25.6-37.1) 06/28/18 05:35 Attending/Attestation - Attestation I have personally seen and examined this patient.: Yes I have fully participated in the care of the patient.: Yes I have reviewed all pertinent clinical information, including history, physical exam and plan: Yes Notes (Text): 07/04/18 16:26 1. Sepsis due to Peritoneal Abscess due to Pancreatitis w/ Pseudocyst s/p Placement of Multihole catheter/Drainage of Abscess, s/p Simone en Y Pancreatic Cystjejunostomy (06/28) - Tolerating Regular diet, + BM - on IV Meropenem -Left flank draining some brownisg discharge, ant abd drain, minimal serosaguinous drainage- will monitor overnight 2. Pleural Effusion s/p Thoracentesis 3. Hypertriglyceridemia - restart Tricor when PO diet resumes
[2018-07-04] MEDS: Amylase/Lipase/Protease 5,000 Units ECC PO SCH ×3 (10:38→18:04)
--- NOTE | 2018-07-04 20:45 | OP ---
PROCEDURE DATE: 06/28/2018 PREOPERATIVE DIAGNOSIS: Large retroperitoneal pancreatic pseudocyst. POSTOPERATIVE DIAGNOSIS: Large retroperitoneal pancreatic pseudocyst. PROCEDURE: Diagnostic laparoscopy, converted to Leeann-en-Y limb pancreatic cyst-jejunostomy. SURGEON: Avery العلي MD POLE INSPECTOR: Dr. Rodríguez. TYPE OF ANESTHESIA: General with spinal local. ANESTHESIA ADMINISTERED BY: Dagoberto Toledo MD INDICATIONS: This is a 43-year-old female who came in about six weeks ago with hypertriglyceridemia related pancreatitis with extensive peripancreatic inflammation and a pseudocyst. Her imaging from the first week of May showed a large pseudocyst with extension down the left side of retroperitoneum all the way to the pelvis. It was quite a very large pseudocyst. The patient had followup CT imaging and multiple admissions and showed over the 5 to 6 week period, the generation of a rind. During this hospitalization, the patient had a percutaneous drain placed with 300 to 400 mL of murky fluid out a day. As such, given the extent of the cyst along the left retroperitoneum down to the pelvis, she was offered a Leeann-en-Y pancreatic cyst-jejunostomy. DESCRIPTION OF PROCEDURE: After the patient was provided informed consent and given all the risks of the procedure, she was brought to the OR and anesthesia was induced. She was also given a local spinal and the patient was induced with general anesthesia and intubated. Her abdomen was thoroughly prepped and draped. At this point, she had an infraumbilical 5-mm incision. Using a Veress needle, her abdomen was insufflated, 5-mm port was placed, and camera was placed. We placed two other ports and the abdomen was explored. Along the left side, there were bowels of small intestine that were densely adhered to the left side of retroperitoneum consistent with a pseudocyst. Given the extent of the inflammation, the bowel did not mobilize laparoscopically. Given the situation, she was converted to open procedure. She had a left-sided subcostal incision made and at this point in time, the peritoneum was entered. We had a Bookwalter retractor set up for exposure. We then commenced to mobilize the intestine off of the pseudocyst on the left side. There were dense adhesions, which were needed to be lysed. We freed up all the bowel up unto the ligament of Treitz, at which point we the made our Leeann limb. We measured about 40 to 50 cm from the ligament of Treitz and we divided the bowel and then made our Leeann about 50 to 60 cm in length. Using an endovascular ELISA with 45-mm blue load, we then did our [id number] anastomosis and we closed the enterotomy sites. At this point, we opened the pseudocyst on the left side. Also to be noted that as we the intestine from the pseudocyst, there was a break in the pseudocyst wall. So, we used this break to extend the cystostomy to about 60 to 70 mm. We then brought the proximal end of the Leeann-en down to the cyst. We then performed our enterotomy and then we matched the size of the enterotomy to the size of the cystostomy and then using a 3-0 PDS and a SH needle, we commenced to perform our cyst-jejunostomy using a simple continuous stitch. The anastomosis was ultimately completed. We made sure that the sutures were secured and tight, after which we secured the ties and then brought the sutures down and tied them. At this point, there was good hemostasis. There was some spillage from the pseudocyst. We did irrigate the abdomen with 2 L of sterile saline solution and after which, we placed a 15 Carlton along the medial aspect of the anastomosis. We left the percutaneous drain in, which we were able to see within the cyst itself. At this point again, we then checked again our lap, sponge and instrument count. We then commenced to close the lesser costal incision with a #1 PDS in a simple continuous fashion, single layered fashion. The skin was loosely approximated with michelle and then a sterile dressing was applied. The drain was secured to the skin with an 0 silk suture. It should be noted that we did have a small deserosalization that we closed with interrupted Lembert. The estimated blood loss was about 200 to 300 mL. The patient received one unit of packed cells. There were no complications. At this point, the case was completed and the patient was extubated at the table and transferred to the recovery room. Avery العلي MD cc: Issac Prakash MD [facility] # [id number]
[2018-07-05] MEDS: Meropenem 1 GM in Sodium Chloride 0.9% 100 ML IVPB SCH ×3 (00:13→16:03)
[2018-07-05] MEDS: Amylase/Lipase/Protease 5,000 Units ECC PO SCH ×3 (09:24→16:03)
[2018-07-05] MEDS: Enoxaparin 40 mg Syringe SC SCH (09:24)
[2018-07-05 09:47] LABS: MEAN CELL VOLUME 82.5 fl (81.0-99.0); MEAN CORPUSCULAR HEMOGLOBIN 26.4 pg (27.0-31.0); RBC 3.4 Mil/uL (3.80-5.20); RED CELL DISTRIBUTION WIDTH 17.8 % (11.5-14.5); WHITE BLOOD COUNT 8.8 K/uL (4.8-10.8)
--- NOTE | 2018-07-05 10:10 | CP.PCM.PN ---
Subjective - Date & Time of Evaluation Date of Evaluation: 07/05/18 Time of Evaluation: 10:43 - Subjective Subjective: Surgery Progress Note for Dr. Hyman Patient seen and evaluated at bedside. No acute events overnight. No complaints. IR drain with 45 cc of output and Carlton drain 5cc serosangiounos output. Tolerating diet and having BM. Denies f/c, n/v/d, SOB, CP, or urinary symptoms. Objective - Vital Signs/Intake and Output Vital Signs (last 24 hours): Temp Pulse Resp BP Pulse Ox 98.4 F 82 20 98/65 L 98 07/05/18 08:27 07/05/18 08:27 07/05/18 08:27 07/05/18 08:27 07/05/18 08:27 - Medications Medications: Current Medications Acetaminophen (Tylenol 325mg Tab) 650 mg PO Q4 PRN PRN Reason: Fever >100.4 F Last Admin: 06/27/18 15:56 Dose: 650 mg Amylase (Pancrease 57242 U-5000 [id number] U) 5,000 unit PO TID [facility] Last Admin: 07/05/18 09:24 Dose: 5,000 unit Benzocaine/Menthol (Cepacol Sore Throat) 1 ab PO Q2 PRN PRN Reason: Sore Throat Last Admin: 07/02/18 20:55 Dose: 1 ab Enoxaparin Sodium (Lovenox) 40 mg SC DAILY [facility]; Protocol Last Admin: 07/05/18 09:24 Dose: 40 mg Fenofibrate (Tricor) 145 mg PO DAILY [facility] Last Admin: 07/05/18 09:23 Dose: 145 mg Ferrous Sulfate (Feosol) 325 mg PO BID [facility] Last Admin: 07/05/18 09:24 Dose: 325 mg Meropenem 1 gm/ Sodium (Chloride) 100 mls @ 100 mls/hr IVPB Q8 [facility]; Protocol Last Admin: 07/05/18 09:23 Dose: 100 mls/hr Ketorolac Tromethamine (Toradol) 15 mg IVP Q6 PRN PRN Reason: Pain, moderate (4-7) Last Admin: 07/05/18 04:40 Dose: 15 mg Ondansetron HCl (Zofran Inj) 4 mg IVP Q4 PRN PRN Reason: Nausea/Vomiting Last Admin: 06/28/18 16:00 Dose: 4 mg Pantoprazole Sodium (Protonix Inj) 40 mg IVP DAILY [facility] Last Admin: 07/05/18 09:23 Dose: 40 mg - Labs Labs: 07/05/18 08:45 07/04/18 06:05 PT 14.6 Seconds (9.8-13.1) H 06/28/18 05:35 INR 1.3 06/28/18 05:35 APTT 29.7 Seconds (25.6-37.1) 06/28/18 05:35 - Additional Findings Additional findings: - Constitutional Appears: Well, Non-toxic, No Acute Distress - Head Exam Head Exam: ATRAUMATIC, NORMAL INSPECTION, NORMOCEPHALIC - Eye Exam Eye Exam: EOMI - ENT Exam ENT Exam: Mucous Membranes Moist - Respiratory Exam Respiratory Exam: Clear to Ausculation Bilateral, NORMAL BREATHING PATTERN - Cardiovascular Exam Cardiovascular Exam: REGULAR RHYTHM, +S1, +S2. absent: Murmur - GI/Abdominal Exam GI & Abdominal Exam: Soft, Normal Bowel Sounds. absent: Distended, Tenderness - Neurological Exam Neurological Exam: Alert, Awake, Oriented x3 - Psychiatric Exam Psychiatric exam: Normal Affect, Normal Mood - Skin Skin Exam: Dry, Intact, Normal Color, Warm Assessment and Plan - Assessment and Plan (Free Text) Assessment: 43F s/p Lap converted to open Leeann en Y pancreatic cystjejunostomy POD#7 Plan: Regular diet Antiemetics and analgesics as needed Monitor bowel function Continue strict Is and Os Aggressive PT Clear for discharge from surgical standpoint f/u within [address] Hyman as outpatient [facility]
[2018-07-05 11:26] LABS: BLOOD UREA NITROGEN 4 mg/dl (7-17); CALCIUM 8.5 mg/dL (8.4-10.2); GFR NON-AFRICAN AMERICAN > 60
[2018-07-05] MEDS ORDERED: Iohexol 240 (50 ml) PO ONE (12:43)
--- NOTE | 2018-07-05 14:40 | CP.PCM.PN ---
<Angela Valdez - Last Filed: 07/05/18 15:41> Subjective - Date & Time of Evaluation Date of Evaluation: 07/05/18 Time of Evaluation: 09:00 - Subjective Subjective: Patient seen and examined at bedside. Denies any complaints. Is tolerating PO diet and had a BM yesterday. Afebrile. Minimal drainage from both Drains. No acu te overnight events. Objective - Vital Signs/Intake and Output Vital Signs (last 24 hours): Temp Pulse Resp BP Pulse Ox 98.4 F 82 20 98/65 L 98 07/05/18 08:27 07/05/18 08:27 07/05/18 08:27 07/05/18 08:27 07/05/18 08:27 - Medications Medications: Current Medications Acetaminophen (Tylenol 325mg Tab) 650 mg PO Q4 PRN PRN Reason: Fever >100.4 F Last Admin: 06/27/18 15:56 Dose: 650 mg Amylase (Pancrease 90148 U-5000 U-[id number] U) 5,000 unit PO TID [facility] Last Admin: 07/05/18 12:20 Dose: 5,000 unit Benzocaine/Menthol (Cepacol Sore Throat) 1 ab PO Q2 PRN PRN Reason: Sore Throat Last Admin: 07/02/18 20:55 Dose: 1 ab Enoxaparin Sodium (Lovenox) 40 mg SC DAILY [facility]; Protocol Last Admin: 07/05/18 09:24 Dose: 40 mg Fenofibrate (Tricor) 145 mg PO DAILY [facility] Last Admin: 07/05/18 09:23 Dose: 145 mg Ferrous Sulfate (Feosol) 325 mg PO BID [facility] Last Admin: 07/05/18 09:24 Dose: 325 mg Meropenem 1 gm/ Sodium (Chloride) 100 mls @ 100 mls/hr IVPB Q8 [facility]; Protocol Last Admin: 07/05/18 09:23 Dose: 100 mls/hr Ketorolac Tromethamine (Toradol) 15 mg IVP Q6 PRN PRN Reason: Pain, moderate (4-7) Last Admin: 07/05/18 04:40 Dose: 15 mg Ondansetron HCl (Zofran Inj) 4 mg IVP Q4 PRN PRN Reason: Nausea/Vomiting Last Admin: 06/28/18 16:00 Dose: 4 mg Pantoprazole Sodium (Protonix Inj) 40 mg IVP DAILY [facility] Last Admin: 07/05/18 09:23 Dose: 40 mg - Labs Labs: 07/05/18 08:45 07/05/18 10:30 PT 14.6 Seconds (9.8-13.1) H 06/28/18 05:35 INR 1.3 06/28/18 05:35 APTT 29.7 Seconds (25.6-37.1) 06/28/18 05:35 - Constitutional Appears: Non-toxic, No Acute Distress - Eye Exam Eye Exam: Normal appearance - ENT Exam ENT Exam: Mucous Membranes Moist - Respiratory Exam Respiratory Exam: Clear to Ausculation Bilateral, NORMAL BREATHING PATTERN. absent: Accessory Muscle Use, Chest Wall Tenderness, Decreased Breath Sounds, Prolonged Expiratory Phase, Rales, Rhonchi, Wheezes, Respiratory Distress, Stridor - Cardiovascular Exam Cardiovascular Exam: REGULAR RHYTHM, +S1, +S2 - GI/Abdominal Exam GI & Abdominal Exam: Soft, Tenderness (Left sided tenderness; incision sites clean and non-draining), Normal Bowel Sounds. absent: Distended, Guarding, Rigid, Rebound - Extremities Exam Extremities Exam: Normal Capillary Refill, Normal Inspection. absent: Calf Tenderness, Pedal Edema, Tenderness - Back Exam Back Exam: NORMAL INSPECTION - Neurological Exam Neurological Exam: Alert, Awake, Oriented x3 - Psychiatric Exam Psychiatric exam: Normal Affect, Normal Mood - Skin Skin Exam: Dry, Intact, Normal Color, Warm Assessment and Plan - Assessment and Plan (Free Text) Assessment: 43 yr old F presented to the ED with intense left sided abdominal pain, specifically LLQ of 3 days duration admitted for acute pancreatitis secondary to severe hypertriglyceridemia complicated by pseudocysts/phlegmon. Patient is POD #7 Lap converted to simone en y pancreatic cystjejunostomy with Dr. Montelongo 06/28. Plan: 1. Sepsis secondary to Pancreatic Pseudocyst - POD 7 - Incentive spirometer -afebrile overnight - s/p IR drainage, Dr Hancock 06/15 ---e.coli ray-sensitive ---follow up drain output: 700 (5/3) -200 (5/4) -400 (5/5)-110 (5/6)- 420 (/7)- 200 (/8)- 50 (06/22)- 60 (06/23)- 255 (06/24)- 10 (06/25)- 7 (06/26)- 75 (06/27)- 100 (06/28); 200 (06/29); 130 (06/30/18) ---nurses to flush drain 2x/day, Q12 -ID consulted, Dr Goudl, input and recs appreciated -Surgery rec appreciated -s/p 2 units PRBC, Hg stable -Meropenem as per ID -CT: 1. Redemonstration of large septated multilocular fluid collection in the lesser sac extending to the left anterior and posterior pararenal spaces, left paracolic gutter, left lower quadrant and left hemipelvis. Scattered few foci of air within the collection. The sterility of this collection cannot be determined on the basis of imaging. 2. Worsening moderate left pleural effusion. - Follow up CT scan of abdomen 2. Pleural Effusion, Left -CT (06/21): mass effect displacing heart -IR drainage on 06/15, Dr Win, 1400cc sl cloudy fluid; IR drain in place- serosanguinous fluid -Culture: no growth 3. DVT Prophylaxis -SCD's - Lovenox <Evelyn Heaton - Last Filed: 07/05/18 17:08> Objective - Vital Signs/Intake and Output Vital Signs (last 24 hours): Temp Pulse Resp BP Pulse Ox 97.8 F 91 H 18 99/68 L 97 07/05/18 16:12 07/05/18 16:12 07/05/18 16:12 07/05/18 16:12 07/05/18 16:12 - Medications Medications: Current Medications Acetaminophen (Tylenol 325mg Tab) 650 mg PO Q4 PRN PRN Reason: Fever >100.4 F Last Admin: 06/27/18 15:56 Dose: 650 mg Amylase (Pancrease 86998 U-5000 U-50085 U) 5,000 unit PO TID [facility] Last Admin: 07/05/18 16:03 Dose: 5,000 unit Benzocaine/Menthol (Cepacol Sore Throat) 1 ab PO Q2 PRN PRN Reason: Sore Throat Last Admin: 07/02/18 20:55 Dose: 1 ab Enoxaparin Sodium (Lovenox) 40 mg SC DAILY [facility]; Protocol Last Admin: 07/05/18 09:24 Dose: 40 mg Fenofibrate (Tricor) 145 mg PO DAILY [facility] Last Admin: 07/05/18 09:23 Dose: 145 mg Ferrous Sulfate (Feosol) 325 mg PO BID [facility] Last Admin: 07/05/18 16:03 Dose: 325 mg Meropenem 1 gm/ Sodium (Chloride) 100 mls @ 100 mls/hr IVPB Q8 [facility]; Protocol Last Admin: 07/05/18 16:03 Dose: 100 mls/hr Ketorolac Tromethamine (Toradol) 15 mg IVP Q6 PRN PRN Reason: Pain, moderate (4-7) Last Admin: 07/05/18 16:03 Dose: 15 mg Ondansetron HCl (Zofran Inj) 4 mg IVP Q4 PRN PRN Reason: Nausea/Vomiting Last Admin: 06/28/18 16:00 Dose: 4 mg Pantoprazole Sodium (Protonix Inj) 40 mg IVP DAILY [facility] Last Admin: 07/05/18 09:23 Dose: 40 mg - Labs Labs: 07/05/18 08:45 07/05/18 10:30 PT 14.6 Seconds (9.8-13.1) H 06/28/18 05:35 INR 1.3 06/28/18 05:35 APTT 29.7 Seconds (25.6-37.1) 06/28/18 05:35 Attending/Attestation - Attestation I have personally seen and examined this patient.: Yes I have fully participated in the care of the patient.: Yes I have reviewed all pertinent clinical information, including history, physical exam and plan: Yes Notes (Text): 1. Sepsis due to Peritoneal Abscess due to Pancreatitis w/ Pseudocyst s/p Placement of Multihole catheter/Drainage of Abscess, s/p Simone en Y Pancreatic Cystjejunostomy (06/28) - Tolerating Regular diet, + BM - on IV Meropenem - plan to rpt CT of the abd today - if better , to d/c drains and plan for d/c home 2. Pleural Effusion s/p Thoracentesis 3. Hypertriglyceridemia - Tricor
[2018-07-05 16:13] VITALS: BP 99/68; PULSE 91; RESP 18; TEMP 97.8; O2SAT 97
[2018-07-05] MEDS ORDERED: Iohexol 300 100 ML IJ ONE (16:36)
[2018-07-05] MEDS ORDERED: Sodium Chloride 0.9% 50 ML IV ONE (16:36)
--- NOTE | 2018-07-05 18:16 | CT ---
PROCEDURE: CT Abdomen and Pelvis with oral and IV contrast. HISTORY: evaluate pseudocyst size COMPARISON: CT of the abdomen pelvis with contrast performed 06/26/18 TECHNIQUE: Contiguous axial images of the abdomen and pelvis. Oral and IV contrast was administered. Coronal and Sagittal reformats generated and reviewed. Contrast dose: 90 mL Omnipaque 300 IV Radiation dose: Total exam DLP = 298.04 mGy-cm. This CT exam was performed using one or more of the following dose reduction techniques: Automated exposure control, adjustment of the mA and/or kV according to patient size, and/or use of iterative reconstruction technique. FINDINGS: LOWER THORAX: Subsegmental atelectasis, right lung base. Partially imaged left pleural effusion and associated consolidation. LIVER: Hypoattenuation of the liver compatible with hepatic steatosis. GALLBLADDER AND BILE DUCTS: Unremarkable. PANCREAS: Large fluid collection presumed to represent pseudocyst re-identified at the level of the body tail with extension to the lesser sac/lateral left para renal space. Small associated gas noted. Drainage catheter noted within the inferior lateral portion of this collection. Collection measures up approximately 2.9 x 15.1 x 4.1 cm (AP by transverse x CC dimensions), approximately 4.0 x 13.8 x 4.9 cm when measured in a similar location on prior study performed 06/26/18. SPLEEN: Unremarkable. ADRENALS: Unremarkable. KIDNEYS AND URETERS: The kidneys enhance symmetrically. No hydronephrosis or obstructing renal calculus. BLADDER: Under distended urinary bladder limits evaluation. REPRODUCTIVE: Uterus is present. Left cystic appearing adnexal structures at least 1 of which appears tubular; considerations include cysts, hydrosalpinx, pseudocyst. APPENDIX: The appendix appears within normal limits of caliber. No secondary signs of acute appendicitis. BOWEL: The stomach is nondistended. Gastric wall thickening. Moderate constipation. The bowel loops appear within normal limits of caliber without evidence of intestinal obstruction. LYMPH NODES: No bulky lymphadenopathy identified. VASCULATURE: No aortic aneurysm. No atherosclerotic calcification or mural plaque present. BONES: No acute osseous abnormality is detected. OTHER FINDINGS: Abdominal surgical michelle. IMPRESSION: Large fluid collection presumed to represent pseudocyst re-identified at the level of the body tail with extension to the lesser sac/lateral left para renal space. Small associated gas noted. Drainage catheter noted within the inferior lateral portion of this collection. Collection demonstrates interval decrease in size measuring approximately 2.9 x 15.1 x 4.1 cm, previously approximately 4.0 x 13.8 x 4.9 cm (06/26/18). Left cystic adnexal structures least 1 of which appears tubular; considerations include cyst, hydrosalpinx, pseudocyst. Gastric wall thickening. Partially imaged left pleural effusion associated consolidation. Subsegmental atelectasis, right lung base. Additional findings as above.
--- NOTE | 2018-07-06 06:47 | CP.PCM.DIS ---
<IpasummerrehanAngela swann - Last Filed: 07/06/18 12:12> Provider - Provider Date of Admission: 06/14/18 11:43 Attending physician: Issac Prakash MD Consults: 06/14/18 13:48 Physician Consult Stat Comment: Consulting Provider: Stephen Fu Consulting Physician: Stephen Fu Reason for Consult: eval for drainage of large abdominal fluid collection 06/14/18 13:59 Gastroenterology Consult Stat Comment: Consulting Provider: John Rizzo Consulting Physician: oJhn Rizzo Reason for Consult: pancreatic pseudocyst 06/15/18 10:50 Infectious Disease Consult Routine Comment: Consulting Provider: Isaac Gould Consulting Physician: Isaac Gould Reason for Consult: pseudocyst, sepsis - readmission 06/21/18 08:12 Surgical [General Surgery Consult] Routine Comment: Consulting Provider: Avery Belle Consulting Physician: Avery eBlle Reason for Consult: draining pseudocyst Time Spent in preparation of Discharge (in minutes): 30 Diagnosis - Discharge Diagnosis (1) Pseudocyst of pancreas Status: Acute Hospital Course - Lab Results Lab Results: Micro Results 06/29/18 07:00 Naris MRSA Culture (Admit) - Final MRSA NOT DETECTED 06/28/18 07:00 Naris MRSA Culture (Admit) - Final MRSA NOT DETECTED 06/23/18 21:15 Blood Blood Culture - Final NO GROWTH AFTER 5 DAYS 06/23/18 21:15 Blood Gram Stain - Final TEST NOT PERFORMED 06/23/18 21:00 Blood Blood Culture - Final NO GROWTH AFTER 5 DAYS 06/23/18 21:00 Blood Gram Stain - Final TEST NOT PERFORMED 06/22/18 00:45 Stool Ova and Parasite Concentrate Exam - Final 06/21/18 14:30 Pleural Fluid Gram Stain - Final 06/21/18 14:30 Pleural Fluid Body Fluid Culture - Final No growth. 06/24/18 00:35 Urine Random Urine Culture - Final No Growth (<1,000 CFU/ML) 06/14/18 12:50 Blood Blood Culture - Final NO GROWTH AFTER 5 DAYS 06/14/18 12:50 Blood Gram Stain - Final TEST NOT PERFORMED 06/14/18 10:00 Blood Blood Culture - Final NO GROWTH AFTER 5 DAYS 06/14/18 10:00 Blood Gram Stain - Final TEST NOT PERFORMED 06/15/18 14:00 Other: Please Indicate Gram Stain - Final 06/15/18 14:00 Other: Please Indicate Body Fluid Culture - Final Escherichia Coli 06/15/18 14:00 Abdominal Fluid Gram Stain - Final 06/15/18 14:00 Abdominal Fluid Body Fluid Culture - Final Escherichia Coli 06/14/18 10:30 Urine,Clean Catch Urine Culture - Final 50-100,000 CFU/ML. MULTIPLE SPECIES. SUGGEST REPEAT SPECIMEN. Most Recent Lab Values WBC 8.8 K/uL (4.8-10.8) 07/05/18 08:45 RBC 3.40 Mil/uL (3.80-5.20) L 07/05/18 08:45 Hgb 9.0 g/dL (12.0-16.0) L 07/05/18 08:45 Hct 28.1 % (34.0-47.0) L 07/05/18 08:45 MCV 82.5 fl (81.0-99.0) 07/05/18 08:45 MCH 26.4 pg (27.0-31.0) L 07/05/18 08:45 MCHC 32.0 g/dL (33.0-37.0) L 07/05/18 08:45 RDW 17.8 % (11.5-14.5) H 07/05/18 08:45 Plt Count 611 K/uL (130-400) H 07/05/18 08:45 MPV 6.2 fl (7.2-11.7) L 07/03/18 06:00 Neut % (Auto) 73.5 % (50.0-75.0) 07/03/18 06:00 Lymph % (Auto) 15.0 % (20.0-40.0) L 07/03/18 06:00 Evans % (Auto) 7.2 % (0.0-10.0) 07/03/18 06:00 Eos % (Auto) 4.1 % (0.0-4.0) H 07/03/18 06:00 Baso % (Auto) 0.2 % (0.0-2.0) 07/03/18 06:00 Neut # (Auto) 6.5 K/uL (1.8-7.0) 07/03/18 06:00 Lymph # (Auto) 1.3 K/uL (1.0-4.3) 07/03/18 06:00 Evans # (Auto) 0.6 K/uL (0.0-0.8) 07/03/18 06:00 Eos # (Auto) 0.4 K/uL (0.0-0.7) 07/03/18 06:00 Baso # (Auto) 0.0 K/uL (0.0-0.2) 07/03/18 06:00 Neutrophils % (Manual) 62 % (42-75) 06/14/18 10:00 Band Neutrophils % 5 % (0-2) H 06/14/18 10:00 Lymphocytes % (Manual) 18 % (20-50) L 06/14/18 10:00 Monocytes % (Manual) 15 % (0-10) H 06/14/18 10:00 Platelet Estimate Normal (NORMAL) 06/14/18 10:00 Anisocytosis (manual) Slight 06/14/18 10:00 PT 14.6 Seconds (9.8-13.1) H 06/28/18 05:35 INR 1.3 06/28/18 05:35 APTT 29.7 Seconds (25.6-37.1) 06/28/18 05:35 pCO2 34 mm/Hg (35-45) L 06/28/18 15:05 pO2 187 mm/Hg (80-100) H 06/28/18 15:05 HCO3 23.7 mmol/L (21-28) 06/28/18 15:05 ABG pH 7.42 (7.35-7.45) 06/28/18 15:05 ABG Total CO2 23.1 mmol/L (22-28) 06/28/18 15:05 ABG O2 Saturation 100.7 % (95-98) H 06/28/18 15:05 ABG O2 Content 12.3 ML/dL (15-23) L 06/28/18 13:14 ABG Base Excess -1.7 mmol/L (-2.0-3.0) 06/28/18 15:05 ABG Hemoglobin 8.6 g/dL (11.7-17.4) L 06/28/18 13:14 ABG Carboxyhemoglobin 0.4 % (0.5-1.5) L 06/28/18 13:14 POC ABG HHb (Measured) 0.5 % (0.0-5.0) 06/28/18 13:14 ABG Methemoglobin 1.7 % (0.0-3.0) 06/28/18 13:14 ABG O2 Capacity 12.4 mL/dL (16-24) L 06/28/18 13:14 Pj Test Yes 06/28/18 15:05 ABG Potassium 4.4 mmol/L (3.6-5.2) 06/28/18 15:05 VBG pH 7.43 (7.32-7.43) 06/14/18 13:51 VBG pCO2 36 mmHg (40-60) L 06/14/18 13:51 VBG HCO3 24.1 mmol/L 06/14/18 13:51 VBG Total CO2 25.0 mmol/L (22-28) 06/14/18 13:51 VBG O2 Sat (Calc) 65.0 % (40-65) 06/14/18 13:51 VBG Base Excess -0.3 mmol/L (0.0-2.0) L 06/14/18 13:51 VBG Potassium 3.4 mmol/L (3.6-5.2) L 06/14/18 13:51 A-a O2 Difference 127.0 mm/Hg 06/28/18 15:05 Hgb O2 Saturation 97.5 % (95.0-98.0) 06/28/18 13:14 Sodium 132.0 mmol/L (132-148) 06/28/18 15:05 Chloride 108.0 mmol/L (98-107) H 06/28/18 15:05 Glucose 101 mg/dL (65-105) 06/28/18 15:05 Lactate 2.1 mmol/L (0.7-2.1) 06/28/18 15:05 FiO2 50.0 % 06/28/18 15:05 Blood Gas Comments Lac=2.1 06/28/18 15:05 Crit Value Called To goran Burrows 06/28/18 15:05 Crit Value Called By 06/28/18 15:05 Crit Value Read Back Y 06/28/18 15:05 Blood Gas Notified Time 1511 06/28/18 15:05 Sodium 138 mmol/l (132-148) 07/05/18 10:30 Potassium 4.0 MMOL/L (3.6-5.0) 07/05/18 10:30 Chloride 104 mmol/L (98-107) 07/05/18 10:30 Carbon Dioxide 27 mmol/L (22-30) 07/05/18 10:30 Anion Gap 11 (10-20) 07/05/18 10:30 BUN 4 mg/dl (7-17) L 07/05/18 10:30 Creatinine 0.3 mg/dl (0.7-1.2) L 07/05/18 10:30 Est GFR ( Amer) > 60 07/05/18 10:30 Est GFR (Non-Af Amer) > 60 07/05/18 10:30 POC Glucose (mg/dL) 108 mg/dL (65-110) 06/18/18 05:59 Random Glucose 74 mg/dL (65-105) 07/05/18 10:30 Calcium 8.5 mg/dL (8.4-10.2) 07/05/18 10:30 Phosphorus 3.0 mg/dl (2.5-4.5) 07/01/18 05:20 Magnesium 1.7 MG/DL (1.6-2.3) 07/01/18 05:20 Total Bilirubin 0.4 mg/dl (0.2-1.3) 07/02/18 09:20 AST 18 U/L (14-36) 07/02/18 09:20 ALT 18 U/L (9-52) 07/02/18 09:20 Alkaline Phosphatase 90 U/L (38-126) 07/02/18 09:20 Total Protein 5.9 G/DL (6.3-8.2) L 07/02/18 09:20 Albumin 2.8 g/dL (3.5-5.0) L 07/02/18 09:20 Globulin 3.1 gm/dL (2.2-3.9) 07/02/18 09:20 Albumin/Globulin Ratio 0.9 (1.0-2.1) L 07/02/18 09:20 Triglycerides 184 mg/DL (0-149) H D 06/14/18 10:00 Cholesterol 96 mg/dL (0-199) 06/14/18 10:00 LDL Cholesterol Direct 41 mg/dL (0-129) 06/14/18 10:00 HDL Cholesterol 21 MG/DL (30-70) L 06/14/18 10:00 Lipase 60 U/L (23-300) 06/14/18 10:00 Arterial Blood Potassium 4.4 mmol/L (3.6-5.2) 06/28/18 15:05 Venous Blood Potassium 3.4 mmol/L (3.6-5.2) L 06/14/18 13:51 Urine Color Straw (YELLOW) 06/24/18 00:35 Urine Clarity Clear (Clear) 06/24/18 00:35 Urine pH 7.0 (5.0-8.0) 06/24/18 00:35 Ur Specific [place] 1.005 (1.003-1.030) 06/24/18 00:35 Urine Protein Negative mg/dL (NEGATIVE) 06/24/18 00:35 Urine Glucose (UA) Neg mg/dL (NEGATIVE) 06/24/18 00:35 Urine Ketones Negative mg/dL (NEGATIVE) 06/24/18 00:35 Urine Blood Negative (NEGATIVE) 06/24/18 00:35 Urine Nitrate Negative (NEGATIVE) 06/24/18 00:35 Urine Bilirubin Negative (NEGATIVE) 06/24/18 00:35 Urine Urobilinogen 0.2-1.0 mg/dL (0.2-1.0) 06/24/18 00:35 Ur Leukocyte Esterase Neg Adriana/uL (Negative) 06/24/18 00:35 Urine RBC (Auto) < 1 /hpf (0-3) 06/24/18 00:35 Urine Microscopic WBC 1 /hpf (0-5) 06/24/18 00:35 Ur Squamous Epith Cells 1 /hpf (0-5) 06/24/18 00:35 Amorphous Sediment Rare /ul (<OCC) H 06/14/18 10:30 Urine Bacteria Rare (<OCC) 06/14/18 10:30 Hyaline Casts 0-2 /hpf (0-2) 06/14/18 10:30 Urine HCG, Qual Negative (NEGATIVE) 06/27/18 14:33 Fluid Source Pleural 06/21/18 14:30 Fluid Appearance Sl cloudy (CLEAR) 06/21/18 14:30 Fluid WBC 1492.0 /mm3 (0.0-300.0) H 06/21/18 14:30 Fluid RBC 1502.0 /mm3 (0.0-0.0) H 06/21/18 14:30 Fluid Tot Cell Count 100 (0-0) H 06/21/18 14:30 Fluid Neutrophils 32.0 % (0-0) H 06/21/18 14:30 Fluid Lymphocytes 53.0 % (0-0) H 06/21/18 14:30 Fld Monocyte/Macrophag 15 % (0-0) H 06/21/18 14:30 Fluid Amylase 60 mg/dL (NONE ESTABLISHED) 06/15/18 14:00 Fluid Comment Yellowish 06/21/18 14:30 Blood Type O POSITIVE 06/28/18 05:35 Blood Type Confirm O POSITIVE 06/15/18 11:00 Antibody Screen Negative 06/28/18 05:35 Crossmatch See Detail 06/28/18 05:35 BBK History Checked Patient has bt 06/28/18 05:35 - Hospital Course Hospital Course: 43 yr old F presented to the ED with intense left sided abdominal pain, specifically LLQ of 3 days duration admitted for sepsis secondary to acute pancreatitis secondary to severe hypertriglyceridemia complicated by pseudocysts/phlegmon s/p Lap converted to simone en y pancreatic cystjejunostomy with Dr. Belle 06/28. Patient had two drains placed one by IR (drainage of abscess 06/15) and the other by surgery after pancreatic cystjejunostomy. After surgery she was brought to the ICU and an NGT was placed and she was kept NPO f or a day. She was then transferred to Med/Surg, NGT was removed and her diet was advanced as she tolerated PO intake. Body fluid culture yielded E. Coli ray sensitive. ID was consulted during hospital stay- patient was kept on Meropenem during her stay (total of 22 days). She recieved a total of 2 units of pRBC during her stay. The amount of fluid drained into the two drains decreased over the span of a week and the drains were removed prior to discharge. Repeat CT scan prior to discharge demonstrated significant decrease in fluid collection. Patient stable for discharge and will be following up with PMD. To continue to take Tricor, feosol and pancrease. Discharge Exam - Head Exam Head Exam: ATRAUMATIC, NORMAL INSPECTION, NORMOCEPHALIC - Eye Exam Eye Exam: Normal appearance - ENT Exam ENT Exam: Mucous Membranes Moist - Respiratory Exam Respiratory Exam: Clear to PA & Lateral, NORMAL BREATHING PATTERN, UNREMARKABLE. absent: Accessory Muscle Use, Chest Wall Tenderness, Decreased Breath Sounds, Prolonged Expiratory Phase, Rales, Rhonchi, Wheezes, Respiratory Distress, Stridor - Cardiovascular Exam Cardiovascular Exam: REGULAR RHYTHM, +S1, +S2 - GI/Abdominal Exam GI & Abdominal Exam: Normal Bowel Sounds, Soft, Unremarkable. absent: Diminished Bowel Sounds, Distended, Firm, Rebound, Rigid, Tenderness Additional comments: Incision sites clean , no drainage. - Extremities Exam Extremities exam: normal capillary refill, normal inspection, pedal pulses present - Neurological Exam Neurological exam: Alert, Oriented x3 - Psychiatric Exam Psychiatric exam: Normal Affect, Normal Mood - Skin Skin Exam: Dry, Intact, Normal Color, Warm Discharge Plan - Discharge Medications Prescriptions: RX: Amylase/Lipase/Protease [Pancrease 00925 U-5000 [id number] U] 5,000 unit PO TID #90 ecc RX: Fenofibrate [Tricor] 145 mg PO DAILY #30 tab RX: Ferrous Sulfate [Feosol] 325 mg PO DAILY #30 tab - Follow Up Plan Condition: STABLE Disposition: HOME/ ROUTINE Patient education suggested?: Yes Instructions: Pancreatitis (DC), Pleural Effusion (DC), Sepsis, Adult (DC), How to Keep Track of Your Drainage Additional Instructions: hacer josh con centeno doctor primario dentro de 1 semana Patient to follow up with PMD in 1 week, clinic will call to schedule patient Follow up in surgery clinic for staple removal and follow up in 1 week Referrals: Avery Belle MD [Staff Provider] - John Rizzo MD, PhD [Staff Provider] - Isaac Gould MD [Staff Provider] - <Evelyn Heaton - Last Filed: 07/06/18 17:38> Provider - Provider Date of Admission: 06/14/18 11:43 Attending physician: Issac Prakash MD Consults: 06/14/18 13:48 Physician Consult Stat Comment: Consulting Provider: Stephen Fu Consulting Physician: Stephen Fu Reason for Consult: eval for drainage of large abdominal fluid collection 06/14/18 13:59 Gastroenterology Consult Stat Comment: Consulting Provider: John Rizzo Consulting Physician: John Rizzo Reason for Consult: pancreatic pseudocyst 06/15/18 10:50 Infectious Disease Consult Routine Comment: Consulting Provider: Isaac Gould Consulting Physician: Isaac Gould Reason for Consult: pseudocyst, sepsis - readmission 06/21/18 08:12 Surgical [General Surgery Consult] Routine Comment: Consulting Provider: Avery Belle Consulting Physician: Avery Belle Reason for Consult: draining pseudocyst Hospital Course - Lab Results Lab Results: Micro Results 06/29/18 07:00 Naris MRSA Culture (Admit) - Final MRSA NOT DETECTED 06/28/18 07:00 Naris MRSA Culture (Admit) - Final MRSA NOT DETECTED 06/23/18 21:15 Blood Blood Culture - Final NO GROWTH AFTER 5 DAYS 06/23/18 21:15 Blood Gram Stain - Final TEST NOT PERFORMED 06/23/18 21:00 Blood Blood Culture - Final NO GROWTH AFTER 5 DAYS 06/23/18 21:00 Blood Gram Stain - Final TEST NOT PERFORMED 06/22/18 00:45 Stool Ova and Parasite Concentrate Exam - Final 06/21/18 14:30 Pleural Fluid Gram Stain - Final 06/21/18 14:30 Pleural Fluid Body Fluid Culture - Final No growth. 06/24/18 00:35 Urine Random Urine Culture - Final No Growth (<1,000 CFU/ML) 06/14/18 12:50 Blood Blood Culture - Final NO GROWTH AFTER 5 DAYS 06/14/18 12:50 Blood Gram Stain - Final TEST NOT PERFORMED 06/14/18 10:00 Blood Blood Culture - Final NO GROWTH AFTER 5 DAYS 06/14/18 10:00 Blood Gram Stain - Final TEST NOT PERFORMED 06/15/18 14:00 Other: Please Indicate Gram Stain - Final 06/15/18 14:00 Other: Please Indicate Body Fluid Culture - Final Escherichia Coli 06/15/18 14:00 Abdominal Fluid Gram Stain - Final 06/15/18 14:00 Abdominal Fluid Body Fluid Culture - Final Escherichia Coli 06/14/18 10:30 Urine,Clean Catch Urine Culture - Final 50-100,000 CFU/ML. MULTIPLE SPECIES. SUGGEST REPEAT SPECIMEN. Most Recent Lab Values WBC 8.8 K/uL (4.8-10.8) 07/05/18 08:45 RBC 3.40 Mil/uL (3.80-5.20) L 07/05/18 08:45 Hgb 9.0 g/dL (12.0-16.0) L 07/05/18 08:45 Hct 28.1 % (34.0-47.0) L 07/05/18 08:45 MCV 82.5 fl (81.0-99.0) 07/05/18 08:45 MCH 26.4 pg (27.0-31.0) L 07/05/18 08:45 MCHC 32.0 g/dL (33.0-37.0) L 07/05/18 08:45 RDW 17.8 % (11.5-14.5) H 07/05/18 08:45 Plt Count 611 K/uL (130-400) H 07/05/18 08:45 MPV 6.2 fl (7.2-11.7) L 07/03/18 06:00 Neut % (Auto) 73.5 % (50.0-75.0) 07/03/18 06:00 Lymph % (Auto) 15.0 % (20.0-40.0) L 07/03/18 06:00 Evans % (Auto) 7.2 % (0.0-10.0) 07/03/18 06:00 Eos % (Auto) 4.1 % (0.0-4.0) H 07/03/18 06:00 Baso % (Auto) 0.2 % (0.0-2.0) 07/03/18 06:00 Neut # (Auto) 6.5 K/uL (1.8-7.0) 07/03/18 06:00 Lymph # (Auto) 1.3 K/uL (1.0-4.3) 07/03/18 06:00 Evans # (Auto) 0.6 K/uL (0.0-0.8) 07/03/18 06:00 Eos # (Auto) 0.4 K/uL (0.0-0.7) 07/03/18 06:00 Baso # (Auto) 0.0 K/uL (0.0-0.2) 07/03/18 06:00 Neutrophils % (Manual) 62 % (42-75) 06/14/18 10:00 Band Neutrophils % 5 % (0-2) H 06/14/18 10:00 Lymphocytes % (Manual) 18 % (20-50) L 06/14/18 10:00 Monocytes % (Manual) 15 % (0-10) H 06/14/18 10:00 Platelet Estimate Normal (NORMAL) 06/14/18 10:00 Anisocytosis (manual) Slight 06/14/18 10:00 PT 14.6 Seconds (9.8-13.1) H 06/28/18 05:35 INR 1.3 06/28/18 05:35 APTT 29.7 Seconds (25.6-37.1) 06/28/18 05:35 pCO2 34 mm/Hg (35-45) L 06/28/18 15:05 pO2 187 mm/Hg (80-100) H 06/28/18 15:05 HCO3 23.7 mmol/L (21-28) 06/28/18 15:05 ABG pH 7.42 (7.35-7.45) 06/28/18 15:05 ABG Total CO2 23.1 mmol/L (22-28) 06/28/18 15:05 ABG O2 Saturation 100.7 % (95-98) H 06/28/18 15:05 ABG O2 Content 12.3 ML/dL (15-23) L 06/28/18 13:14 ABG Base Excess -1.7 mmol/L (-2.0-3.0) 06/28/18 15:05 ABG Hemoglobin 8.6 g/dL (11.7-17.4) L 06/28/18 13:14 ABG Carboxyhemoglobin 0.4 % (0.5-1.5) L 06/28/18 13:14 POC ABG HHb (Measured) 0.5 % (0.0-5.0) 06/28/18 13:14 ABG Methemoglobin 1.7 % (0.0-3.0) 06/28/18 13:14 ABG O2 Capacity 12.4 mL/dL (16-24) L 06/28/18 13:14 Pj Test Yes 06/28/18 15:05 ABG Potassium 4.4 mmol/L (3.6-5.2) 06/28/18 15:05 VBG pH 7.43 (7.32-7.43) 06/14/18 13:51 VBG pCO2 36 mmHg (40-60) L 06/14/18 13:51 VBG HCO3 24.1 mmol/L 06/14/18 13:51 VBG Total CO2 25.0 mmol/L (22-28) 06/14/18 13:51 VBG O2 Sat (Calc) 65.0 % (40-65) 06/14/18 13:51 VBG Base Excess -0.3 mmol/L (0.0-2.0) L 06/14/18 13:51 VBG Potassium 3.4 mmol/L (3.6-5.2) L 06/14/18 13:51 A-a O2 Difference 127.0 mm/Hg 06/28/18 15:05 Hgb O2 Saturation 97.5 % (95.0-98.0) 06/28/18 13:14 Sodium 132.0 mmol/L (132-148) 06/28/18 15:05 Chloride 108.0 mmol/L (98-107) H 06/28/18 15:05 Glucose 101 mg/dL (65-105) 06/28/18 15:05 Lactate 2.1 mmol/L (0.7-2.1) 06/28/18 15:05 FiO2 50.0 % 06/28/18 15:05 Blood Gas Comments Lac=2.1 06/28/18 15:05 Crit Value Called To goran Burrows 06/28/18 15:05 Crit Value Called By 06/28/18 15:05 Crit Value Read Back Y 06/28/18 15:05 Blood Gas Notified Time 1511 06/28/18 15:05 Sodium 138 mmol/l (132-148) 07/05/18 10:30 Potassium 4.0 MMOL/L (3.6-5.0) 07/05/18 10:30 Chloride 104 mmol/L (98-107) 07/05/18 10:30 Carbon Dioxide 27 mmol/L (22-30) 07/05/18 10:30 Anion Gap 11 (10-20) 07/05/18 10:30 BUN 4 mg/dl (7-17) L 07/05/18 10:30 Creatinine 0.3 mg/dl (0.7-1.2) L 07/05/18 10:30 Est GFR ( Amer) > 60 07/05/18 10:30 Est GFR (Non-Af Amer) > 60 07/05/18 10:30 POC Glucose (mg/dL) 108 mg/dL (65-110) 06/18/18 05:59 Random Glucose 74 mg/dL (65-105) 07/05/18 10:30 Calcium 8.5 mg/dL (8.4-10.2) 07/05/18 10:30 Phosphorus 3.0 mg/dl (2.5-4.5) 07/01/18 05:20 Magnesium 1.7 MG/DL (1.6-2.3) 07/01/18 05:20 Total Bilirubin 0.4 mg/dl (0.2-1.3) 07/02/18 09:20 AST 18 U/L (14-36) 07/02/18 09:20 ALT 18 U/L (9-52) 07/02/18 09:20 Alkaline Phosphatase 90 U/L (38-126) 07/02/18 09:20 Total Protein 5.9 G/DL (6.3-8.2) L 07/02/18 09:20 Albumin 2.8 g/dL (3.5-5.0) L 07/02/18 09:20 Globulin 3.1 gm/dL (2.2-3.9) 07/02/18 09:20 Albumin/Globulin Ratio 0.9 (1.0-2.1) L 07/02/18 09:20 Triglycerides 184 mg/DL (0-149) H D 06/14/18 10:00 Cholesterol 96 mg/dL (0-199) 06/14/18 10:00 LDL Cholesterol Direct 41 mg/dL (0-129) 06/14/18 10:00 HDL Cholesterol 21 MG/DL (30-70) L 06/14/18 10:00 Lipase 60 U/L (23-300) 06/14/18 10:00 Arterial Blood Potassium 4.4 mmol/L (3.6-5.2) 06/28/18 15:05 Venous Blood Potassium 3.4 mmol/L (3.6-5.2) L 06/14/18 13:51 Urine Color Straw (YELLOW) 06/24/18 00:35 Urine Clarity Clear (Clear) 06/24/18 00:35 Urine pH 7.0 (5.0-8.0) 06/24/18 00:35 Ur Specific [place] 1.005 (1.003-1.030) 06/24/18 00:35 Urine Protein Negative mg/dL (NEGATIVE) 06/24/18 00:35 Urine Glucose (UA) Neg mg/dL (NEGATIVE) 06/24/18 00:35 Urine Ketones Negative mg/dL (NEGATIVE) 06/24/18 00:35 Urine Blood Negative (NEGATIVE) 06/24/18 00:35 Urine Nitrate Negative (NEGATIVE) 06/24/18 00:35 Urine Bilirubin Negative (NEGATIVE) 06/24/18 00:35 Urine Urobilinogen 0.2-1.0 mg/dL (0.2-1.0) 06/24/18 00:35 Ur Leukocyte Esterase Neg Adriana/uL (Negative) 06/24/18 00:35 Urine RBC (Auto) < 1 /hpf (0-3) 06/24/18 00:35 Urine Microscopic WBC 1 /hpf (0-5) 06/24/18 00:35 Ur Squamous Epith Cells 1 /hpf (0-5) 06/24/18 00:35 Amorphous Sediment Rare /ul (<OCC) H 06/14/18 10:30 Urine Bacteria Rare (<OCC) 06/14/18 10:30 Hyaline Casts 0-2 /hpf (0-2) 06/14/18 10:30 Urine HCG, Qual Negative (NEGATIVE) 06/27/18 14:33 Fluid Source Pleural 06/21/18 14:30 Fluid Appearance Sl cloudy (CLEAR) 06/21/18 14:30 Fluid WBC 1492.0 /mm3 (0.0-300.0) H 06/21/18 14:30 Fluid RBC 1502.0 /mm3 (0.0-0.0) H 06/21/18 14:30 Fluid Tot Cell Count 100 (0-0) H 06/21/18 14:30 Fluid Neutrophils 32.0 % (0-0) H 06/21/18 14:30 Fluid Lymphocytes 53.0 % (0-0) H 06/21/18 14:30 Fld Monocyte/Macrophag 15 % (0-0) H 06/21/18 14:30 Fluid Amylase 60 mg/dL (NONE ESTABLISHED) 06/15/18 14:00 Fluid Comment Yellowish 06/21/18 14:30 Blood Type O POSITIVE 06/28/18 05:35 Blood Type Confirm O POSITIVE 06/15/18 11:00 Antibody Screen Negative 06/28/18 05:35 Crossmatch See Detail 06/28/18 05:35 BBK History Checked Patient has bt 06/28/18 05:35 Attending/Attestation - Attestation I have personally seen and examined this patient.: Yes I have fully participated in the care of the patient.: Yes I have reviewed all pertinent clinical information, including history, physical exam and plan: Yes Notes (Text): Diagnoses: 1. Sepsis due to Peritoneal Abscess due to Pancreatitis w/ Pseudocyst s/p Placement of Multihole catheter/Drainage of Abscess, s/p Simone en Y Pancreatic Cystjejunostomy (06/28) - Pt had Pancreatitis with pseudocyst w/c became infected with developement of peritoneal abscess - IV Meropenem started, ID consulted -Drainage of abscess done by IR with placement of catheter on the left lower abd - Surgerey done by Dr Belle - Simone En Y with Pancreastic Cyst-jejunostomy - Tolerating Regular diet, + BM - Pt is afebrile, leukocytosis resolved - rpt CT scan done , Surgery cleared pt for discharge home and removed all abdominal drains 2. Pleural Effusion s/p Thoracentesis 3. Hypertriglyceridemia - cont Tricor
== END 2018-07-05 22:45 | disposition home or self-care (01) | DRG 710 ==
LOC: H.ER 09:49 → H.ERHOLD 11:43 → H.TEL 14:30 → H.MEDSURG1 06-24 00:13 → H.ICU/CCU 06-28 15:32 → H.MEDSURG1 06-30 00:02
PROC: 0W9G30Z Drainage of Peritoneal Cavity with Drainage Device, Percutaneous Approach (ICD-10-PCS; 2018-06-15)
PROC: 30233N1 Transfusion of Nonautologous Red Blood Cells into Peripheral Vein, Percutaneous Approach (ICD-10-PCS; 2018-06-15)
PROC: 0W9B30Z Drainage of Left Pleural Cavity with Drainage Device, Percutaneous Approach (ICD-10-PCS; 2018-06-21)
PROC: 0F9G00Z Drainage of Pancreas with Drainage Device, Open Approach (ICD-10-PCS; 2018-06-28)
PROC: 0DJ64ZZ Inspection of Stomach, Percutaneous Endoscopic Approach (ICD-10-PCS; 2018-06-28)
PROC: 0D160ZA Bypass Stomach to Jejunum, Open Approach (ICD-10-PCS; principal; 2018-06-28 10:45)
DX: A41.9 Sepsis, unspecified organism (principal); K65.1 Peritoneal abscess; J90 Pleural effusion, not elsewhere classified; K86.3 Pseudocyst of pancreas; K85.90 Acute pancreatitis without necrosis or infection, unspecified; I95.89 Other hypotension; D62 Acute posthemorrhagic anemia; K86.1 Other chronic pancreatitis; B96.20 Unspecified Escherichia coli [E. coli] as the cause of diseases classified elsewhere; D63.8 Anemia in other chronic diseases classified elsewhere; E78.1 Pure hyperglyceridemia; Z53.31 Laparoscopic surgical procedure converted to open procedure